=== PATIENT | male | born 1965 | race Hispanic/Latino ===

== ENCOUNTER 2016-06-15 13:06 | Inpatient (IN) | payer OTHER, MEDICARE ==
[2016-06-15 13:06] VITALS: BMI 32.3
--- NOTE | 2016-06-15 13:22 | ED PDOC ---
Arrival/HPI - General Chief Complaint: Chest Pain Time Seen by Provider: 06/15/16 13:08 Historian: Patient - History of Present Illness Narrative History of Present Illness (Text): 06/15/16 13:18 51 year old male whose past medical history includes cardiomyopathy, pacemaker, presents to the emergency department with chest pain described as tightness and shortness of breath for the past few days worsening today. He states pain began when walking. Denies other complaints. PMD: Dr. Holman Underground Production Foreperson: Dr. Vázquez/Dr. Odonnlel Time/Duration: < week Symptom Onset: Sudden Symptom Course: Unchanged Context: Walking Associated Symptoms (Text): None Past Medical History - Provider Review Nursing Documentation Reviewed: Yes - Infectious Disease Hx of Infectious Diseases: None - Tetanus Immunization Tetanus Immunization: Up to Date - Cardiac Hx Hypertension: Yes Hx Internal Defibrillator: Yes (pacemaker/defib 2005) Hx Pacemaker: Yes - Pulmonary Hx Respiratory Disorders: No Hx Sleep Apnea: Yes - Neurological Hx Neurological Disorder: No - HEENT Hx HEENT Disorder: No - Renal Hx Renal Disorder: (hx renal insufficiency which resolved) - Endocrine/Metabolic Hx Endocrine Disorders: No - Hematological/Oncological Hx Blood Disorders: Yes Hx Anemia: Yes - Integumentary Hx Dermatological Disorder: No - Musculoskeletal/Rheumatological Hx Musculoskeletal Disorders: Yes Hx Falls: No Hx Gout: Yes Other/Comment: HX OF GOUT - Gastrointestinal Hx Gastrointestinal Disorders: Yes Hx Diverticulitis: Yes - Genitourinary/Gynecological Hx Genitourinary Disorders: No - Psychiatric Hx Psychophysiologic Disorder: No Hx Depression: No Hx Emotional Abuse: No Hx Physical Abuse: No Hx Substance Use: No - Surgical History Hx Cardiac Catheterization: Yes Hx Orthopedic Surgery: Yes (right knee cartilige) Other/Comment: pacemaker and defib in 2006 - Anesthesia Hx Anesthesia: Yes Hx Anesthesia Reactions: No - Suicidal Assessment Feels Threatened In Home Enviroment: No Family/Social History - Physician Review Nursing Documentation Reviewed: Yes Family/Social History: Unknown Family HX Smoking Status: Former Smoker Hx Alcohol Use: Yes Hx Substance Use: No Hx Substance Use Treatment: No Allergies/Home Meds Allergies/Adverse Reactions: Allergies No Known Allergies Allergy (Verified 06/15/16 13:13) Home Medications: Home Meds Medication Instructions Recorded Confirmed Carvedilol [Coreg] 25 mg PO BID 05/09/12 06/15/16 Warfarin [Coumadin] 3 mg PO DAILY 05/09/12 06/15/16 Atorvastatin [Lipitor] 80 mg PO DAILY 11/18/13 06/15/16 Losartan [Cozaar] 50 mg PO DAILY 08/29/14 06/15/16 Spironolactone 25 mg PO DAILY 08/29/14 06/15/16 Amiodarone [Cordarone] 100 mg PO DAILY 06/15/16 06/15/16 Folic Acid 1 mg PO DAILY 06/15/16 06/15/16 Furosemide [Lasix] 40 mg PO DAILY 06/15/16 06/15/16 Review of Systems - Physician Review All systems were reviewed & negative as marked: Yes - Review of Systems Respiratory: SOB Cardiovascular: Chest Pain Gastrointestinal: absent: Vomiting Physical Exam Vital Signs Reviewed: Yes Vital Signs Temp Pulse Resp BP Pulse Ox 06/15/16 13:21 61 16 135/54 L 98 06/15/16 13:13 97.4 F L 61 18 83/57 L 98 Temperature: Afebrile Blood Pressure: Hypotensive Pulse: Regular Respiratory Rate: Normal Appearance: Positive for: Well-Appearing, Non-Toxic, Comfortable Pain Distress: None Mental Status: Positive for: Alert and Oriented X 3 - Systems Exam Head: Present: Atraumatic, Normocephalic Pupils: Present: PERRL Extroacular Muscles: Present: EOMI Conjunctiva: Present: Normal Mouth: Present: Moist Mucous Membranes Neck: Present: Normal Range of Motion Respiratory/Chest: Present: Good Air Exchange, Rales (at the bases). No: Respiratory Distress, Accessory Muscle Use Cardiovascular: Present: Regular Rate and Rhythm, Normal S1, S2. No: Murmurs Abdomen: Present: Normal Bowel Sounds. No: Tenderness, Distention, Peritoneal Signs Rectal: Present: Other (Brown stool, guaiac negative) Back: Present: Normal Inspection Upper Extremity: Present: Normal Inspection. No: Cyanosis, Edema Lower Extremity: Present: Normal Inspection. No: Edema Neurological: Present: GCS=15, CN II-XII Intact, Speech Normal Skin: Present: Warm, Dry, Normal Color. No: Rashes Psychiatric: Present: Alert, Oriented x 3, Normal Insight, Normal Concentration Medical Decision Making ED Course and Treatment: Impression: 51 year old male presents to the emergency department with chest pain described as tightness and shortness of breath for the past few days worsening today. Differential Diagnosis include but are not limited to: Plan: -- EKG, Chest X-ray -- Labs -- Reassess and disposition Prior Visits: Notes and results from previous visits were reviewed. Patient last seen in ED on 10/03/14 for shortness of breath and admitted for CHF. Progress Notes: Chest X-ray Real Estate Photographer: Louis Weller MD IMPRESSION: No active disease 06/15/16 14:42 Dr. Jiménez evaluated patient at bedside, accepts patient. Case discussed with Dr. Odonnell, covering for Dr. Vázquez. - Lab Interpretations Lab Results: 06/15/16 13:56 06/15/16 13:56 Lab Results 06/15/16 13:56: Sodium 123 L, Potassium 4.8, Chloride 89 L, Carbon Dioxide 24, Anion Gap 15, BUN 26 H, Creatinine 1.8 H, Est GFR ( Amer) 48, Est GFR ( Non-Af Amer) 40, Random Glucose 104, Calcium 8.8, Magnesium 1.6 L, Total Bilirubin 1.4 H, AST 56, ALT 59 H, Alkaline Phosphatase 85, Lactate Dehydrogenase 1271 H, Total Creatine Kinase 173, Troponin I 0.05, NT-Pro-B Natriuret Pep 1310 H, Total Protein 7.6, Albumin 3.9, Globulin 3.7, Albumin/ Globulin Ratio 1.1 06/15/16 13:56: PT 34.7 H*, INR 3.21 H, APTT 42.7 H 06/15/16 13:56: WBC 5.1 D, RBC 3.18 L, Hgb 9.9 L, Hct 29.2 L, MCV 91.8, MCH 31.1, MCHC 33.9, RDW 13.9, Plt Count 140, MPV 8.4, Gran % 66.1, Lymph % (Auto) 18.8 L, [place] % (Auto) 13.7 H, Eos % (Auto) 1.0 L, Baso % (Auto) 0.4, Gran # 3.38 , Lymph # 1.0 L, [place] # 0.7 H, Eos # 0.1, Baso # 0.02 - RAD Interpretation Radiology Orders: 06/15/16 13:18 CHEST PORTABLE [RAD] Stat - EKG Interpretation EKG Interpretation (Text): EKG shows NSR at 61 BPM with 1st degree AV block, interpreted by me. Interpreted by ED Physician: Yes Type: 12 lead EKG - Medication Orders Current Medication Orders: Discontinued Medications Aspirin (Aspirin) 325 mg PO STAT STA Stop: 06/15/16 13:29 Last Admin: 06/15/16 13:59 Dose: 325 mg Furosemide (Lasix) 40 mg IVP STAT STA Stop: 06/15/16 14:40 - Scribe Statement The provider has reviewed the documentation as recorded by the Dorene Tobin Provider Scribe Attestation: All medical record entries made by the Johnnaibe were at my direction and personally dictated by me. I have reviewed the chart and agree that the record accurately reflects my personal performance of the history, physical exam, medical decision making, and the department course for this patient. I have also personally directed, reviewed, and agree with the discharge instructions and disposition. Disposition/Present on Arrival - Present on Arrival Any Indicators Present on Arrival: No History of DVT/PE: No History of Uncontrolled Diabetes: No Urinary Catheter: No History of Decub. Ulcer: No History Surgical Site Infection Following: None - Disposition Have Diagnosis and Disposition been Completed?: Yes Diagnosis: CHF (congestive heart failure), Hyponatremia Disposition: HOSPITALIZED Disposition Time: 14:56 Condition: FAIR Discharge Instructions (ExitCare): Heart Failure (ED) Referrals: Qing Jiménez MD [Primary Care Provider] - Follow up with primary
--- NOTE | 2016-06-15 13:51 | RAD ---
HISTORY: cp COMPARISON: 10/03/2014 FINDINGS: LUNGS: No active pulmonary disease. PLEURA: No significant pleural effusion identified, no pneumothorax apparent. CARDIOVASCULAR: Mild cardiomegaly. Single lead pacemaker OSSEOUS STRUCTURES: No significant abnormalities. VISUALIZED UPPER ABDOMEN: Normal. OTHER FINDINGS: None. IMPRESSION: No active disease.
[2016-06-15 14:08] LABS: ADD MANUAL DIFF? NO
[2016-06-15 14:11] LABS: BASO # 0.02 K/mm3 (0.0-2.0); BASO % 0.4 % (0.0-3.0); EOS # 0.1 (0.0-0.7); GRAN # 3.38 (1.4-6.5); GRAN % 66.1 % (50.0-68.0); HEMATOCRIT 29.2 % (42.0-52.0); LYMPH % 18.8 % (22.0-35.0); MEAN CELL VOLUME 91.8 fL (80.0-105.0); MEAN CORPUSCULAR HEMOGLOBIN 31.1 pg (25.0-35.0); MEAN CORPUSCULAR HGB CONC 33.9 g/dl (31.0-37.0); MEAN PLATELET VOLUME 8.4 fl (7.0-11.0); MONO # 0.7 (0.1-0.6); MONO % 13.7 % (1.0-6.0); PLATELET COUNT 140 10^3/uL (120.0-450.0); RED CELL DISTRIBUTION WIDTH 13.9 % (11.5-14.5); WHITE BLOOD COUNT 5.1 10^3/ul (4.5-11.0)
[2016-06-15 14:21] LABS: ALB/GLOB RATIO 1.1 (1.1-1.8); BILIRUBIN,TOTAL 1.4 mg/dL (0.2-1.3); CALCIUM 8.8 mg/dL (8.4-10.5); MAGNESIUM 1.6 mg/dL (1.7-2.2); POTASSIUM 4.8 mmol/L (3.6-5.0); TOTAL PROTEIN 7.6 g/dL (5.8-8.3)
[2016-06-15 14:24] LABS: INR 3.21 (0.93-1.08); PARTIAL THROMBOPLASTIN TIME 42.7 Seconds (23.7-30.8)
[2016-06-15 14:32] LABS: TROPONIN I 0.05 ng/mL
--- NOTE | 2016-06-15 14:56 | CARD ---
APPROVED REPORT EKG Measurement Heart [id number] <Conclusion> Sinus rhythm. Prolonged NE. RBBB.
[2016-06-15 15:28] LABS: ALCOHOL SERUM 60 mg/dL (0-10)
--- NOTE | 2016-06-15 16:01 | HP ---
This is a 51-year-old male who called today stating that for the last several days, he has been havin g some tightness of the chest and some shortness of breath. He was advised to go into [facility] ncy Room. Upon further review, the patient says that this has been going on off and on for the last few weeks. He says that he has been a little stressed by the fact that he is having a GI workup for some adenopathy in the pancreatic/gallbladder area and is scheduled to have a procedure at the end of June. He also states that he has been consuming alcohol, most recently on a daily basis. He denies any fever, chills, cough, nausea or vomiting at this time. PAST MEDICAL HISTORY: Cardiomyopathy, paroxysmal atrial fibrillation, congestive heart failure, COPD , sleep apnea. However, he does use his sleep apnea requirement. He has had pneumonia in the past. ALLERGY HISTORY: There appear to be no known allergies. HOME MEDICATIONS: He states they consist of warfarin 3 mg daily, Aldactone 25 mg daily, Cozaar 50 mg daily, Lasix 40 mg daily, folic acid 1 mg daily, Coreg 25 mg twice a day, Lipitor 80 mg daily and am iodarone 100 mg daily. His coags are monitored by his level vial grinder in their office. REVIEW OF SYSTEMS: Twelve systems are reviewed. Pertinent findings is that the patient is expressin g some concerns of anxiousness over the upcoming diagnostic procedure that is scheduled. He also say s that he has been having some sort of chest tightness, not really chest pain as he describes, and he does admit that he has gained weight over the last few months. PHYSICAL EXAMINATION: VITAL SIGNS: His temp is 97.4 orally, his pulse is 61, his blood pressure is reported initially at 8 3/57 and then later at 135/54. His oxygen saturation is reported 98% on room air and his respiratory rate is 18. GENERAL: He is alert and oriented x 3. NECK: Supple. LUNGS: Show diminished breath sounds at the bases. HEART: S1, S2 rhythm. There is a defibrillator in his anterior left chest. ABDOMEN: Soft, obese. Positive bowel sounds. No rebound is appreciated. EXTREMITIES: Show no evidence of edema. LABORATORY DATA: At this point, WBC is 5.1, RBC is 3.18, hemoglobin is 9.9, hematocrit is 29.2, plat elet count is 140. His PTT is 34.7 with an INR of 3.21, PTT of 42.7. Chemistries: He has a sodium of 123, potassium 4.8, chloride 89, CO2 of 24, BUN of 26, creatinine of 1.8. His magnesium is 1.6. His total bilirubin is reported at 1.4. ALT is 59. His LDH is 1271. His troponin is 0.05. He has a BNP of 1310. The cardiogram is reported as showing a sinus rhythm with a prolonged HI and a right bundle branch bl ock. His chest x-ray is reported as showing no active disease, but mild cardiomegaly and a single le ad pacemaker. The patient was given 325 mg of aspirin in the Emergency Room and 40 mg of Lasix IV. IMPRESSION: A 51-year-old male with known shortness of breath over several days, coagulopathy second mychal to anticoagulation therapy, history of paroxysmal atrial fibrillation, history of cardiomyopathy, history of chronic obstructive pulmonary disease, some renal insufficiency, anemia, history of sleep apnea, elevated BNP. Findings have been discussed with the patient. Also, a discussion has been gutierrez d with the patient regarding his alcohol consumption and he has requested being able to discuss this with someone. A request will be made with Dr. Cerda. Cardiology consult will be requested as well as a consult with Dr. Gotti, his spinner fixer, because of his anemia and the gastrointestina l workup that is in progress. We will follow up the patient's labs. He will be admitted to a teleme try monitored bed and all clinical findings have been discussed with the patient and the Emergency Ro om staff. Qing Jiménez MD cc: [id number] TT: 06/15/2016 16:00:02 en
[2016-06-15 16:26] LABS: OSMOLALITY,SERUM 282 mosm/kg (271-296)
[2016-06-15 17:15] LABS: RETIC% 3.11 % (0.5-1.5)
[2016-06-15 19:15] LABS: URINE BILIRUBIN NEGATIVE (NEGATIVE); URINE BLOOD NEGATIVE (NEGATIVE); URINE GLUCOSE (UA) NEGATIVE (NEGATIVE); URINE KETONE NEGATIVE (NEGATIVE); URINE LEUKOCYTE ESTERASE NEGATIVE Leu/uL (NEGATIVE); URINE PROTEIN NEGATIVE mg/dL (<30 mg/dL); URINE UROBILINOGEN 0.2 E.U./dL (<1 E.U./dL)
[2016-06-15 19:18] LABS: URINE APPEARANCE CLEAR (CLEAR); URINE COLOR YELLOW (YELLOW)
--- NOTE | 2016-06-15 19:40 | CON ---
DATE: 06/15/2016 IDENTIFYING INFORMATION: The patient is a 51-year-old white male who presents to the Emergen cy Room with tightness in his chest and shortness of breath. HISTORY OF PRESENT ILLNESS: The patient indicated these symptoms had been going on for several weeks . He reported that he had been feeling stressed in the midst of a gastrointestinal workup for pancre atic adenopathy and is scheduled for a procedure at the end of June. He also reveals that he has been consuming approximately 7 shots of Willie Icelandic whiskey daily and t his is a pattern of long-term (years) duration. PAST MEDICAL HISTORY: Is positive for cardiomyopathy, PAF, congestive heart failure, COPD, sleep stamper blocker ea (with sleep instrumentation compliance) and a history of pneumonia. He had been maintained on Coumadin, Aldactone, Cozaar, amiodarone, Lipitor, Coreg, Lasix and folic ac id. 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 He is a high school graduate who attended [address] [place] [address], but dropped out because he had to work. 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 The patient indicates that he has 2 brothers who also had cardiomyopathy and they in and 2005 in their 40s. The cause of 1 of the brother's (in 2005) however, was from an opioi d overdose. According to the patient, his mother of a broken heart approximately 3 years after the of the second son. His father in 2010 of a malignant melanoma. The patient has 2 older brothers whom he is estranged from. This relates to the fact that his oldest brother took off with his father's estate cutting him out. His second brother also was cut out, but they seemed to reach some sort of a modus vivendi after several years, with the older brother having moved to [place]. The patient is thus estranged from the older brother and upset with the other ashely viving brother (who is also older than he) because of a lack of attention to him. The patient is for 17 years to a woman who is 4 years his senior and who had been [facility]. She has 2 daughters, ages 32 and 24, that he indicates he gets along with (more than the other) . The patient stated that he has been drinking since childhood (mostly whiskey). He has been detoxed o n 3 occasions (although he has tried to detox himself many more times than that) and was in a rehabil itation in [place] about 7 years ago. The patient is presently alert, oriented to 3 spheres, appears anxious and depressed and admitted he feels this way. He is worried about his general health and deals with a number of psychosocial issue s as mentioned above. He is not suicidal. He indicates that his is on his case to try to stop drinking, thus there is some marital conflict here as well. DIAGNOSIS: Depression, not otherwise specified. I have reviewed with the patient the treatment options including being put on an antidepressant, but the patient ops not to do this, but rather to see how he feels as he goes through his course of detox ification. Detoxification at this time will consist of Librium on a p.r.n. basis. Will monitor her with you. Laboratory values include a lower hemoglobin of 9.9, hematocrit 29.2. MCV is normal at 91.8. A bloo d alcohol level taken at 1500 today was . A biochemical profile showed lower sodium of 123, elevated BUN 26 and creatinine 1.8 with lower magne sium of 1.6 with a total bilirubin of 1.4 (elevated) and ALT elevated at 59. Blood pressure presently 110/73, pulse 63, temperature 97.4, respiratory rate 18. Daljit Cerda MD, PhD cc: [id number] TT: 06/15/2016 19:39:54 Confirmation # [id number] Dictation # [id number] janay
--- NOTE | 2016-06-15 21:34 | CON ---
DATE: 06/15/2016 Seen and examined in the Emergency Room. REQUEST FOR CONSULT: Anemia. HISTORY OF PRESENT ILLNESS: This is a 51-year-old obese male with a past medical history of paroxysmal atrial fibrillation, CHF, cardiomyopathy, COPD, was seen in our outpatient office for anemia. The patient complained of chest tightness and shortness of breath and was recommended to go to the Emergency Room for further evaluation. The patient had an endoscopy and colonoscopy back on 06/05/[address] for anemia [address] abnormal CT scan. He was noted to have small lymph nodes in the periportal area. He was referred to see Dr. Caleb Ortiz 's associate and is scheduled for further evaluation on 07/11. The patient apparently has been drinking alcohol recently on a daily basis. His last intake was yesterday. He denies any nausea, vomiting, or abdominal pain. No fever or chills. Denies any overt GI bleed. PAST MEDICAL HISTORY: As stated above, CHF, COPD, obesity, paroxysmal atrial fibrillation, cardiomyopathy, pneumonia, fatty liver, periportal lymph nodes, colon polyp, diverticulosis, GERD. PAST SURGICAL HISTORY: Orthopaedic surgery, pacemaker and defibrillator. FAMILY HISTORY: Noncontributory at this time. ALLERGIES: No known drug allergies. MEDICATIONS: Reviewed as per MAR. Significant for Coumadin, amiodarone, Aldactone, Cozaar, Lasix, Coreg, Lipitor. REVIEW OF SYSTEMS: Systems were reviewed with positive findings, see HPI. VITAL SIGNS: Temperature is 97.4, blood pressure is 110/73, pulse 63, respirations 18, 100% on room air. LABORATORY DATA: WBC is 5.1, H and H is 9.9 and 29.2, platelets are 140. PT is 34.7, INR is 3.21, PTT is 42.7. Sodium is 123, K 4.8, BUN 26, creatinine is 1.8. Total bilirubin is 1.4, AST 56, ALT 59, alkaline phosphatase is 85. LDH is 1271. BNP is 1310. Alcohol quantitative is 60. The patient had a chest x- ray and that shows no active pulmonary disease. PHYSICAL EXAMINATION: HEENT: Sclerae are anicteric. NECK: Supple. CARDIAC: S1, S2. CHEST: Left chest defibrillator. LUNGS: Decreased breath sounds at the bases, but no rales or wheeze. ABDOMEN: With bowel sounds, softly obese. No tenderness appreciated on palpation. No rebound or guarding. EXTREMITIES: No edema. NEUROLOGIC: Awake, alert, and oriented. ASSESSMENT: This is a 51-year-old male with a past medical history of paroxysmal atrial fibrillation on Coumadin, cardiomyopathy, obesity, chronic obstructive pulmonary disease, anemia, history of periportal lymph nodes, history of fatty liver and possible liver cirrhosis either secondary to congestive heart failure or alcohol, history of colon polyps, gastroesophageal reflux disease, diverticulosis. PLAN: We will do hepatitis panel. Request for autoimmune markers. The patient is scheduled for outpatient evaluation in [facility]. He is going to have cardiac evaluation. The patient is on aspirin, amiodarone and on heart healthy diet. Pending stool guaiac. Thank you for this consult and for allowing us to participate in your patient's care. We will make further recommendations based upon patient's clinical course. Seen and discussed with Dr. Gotti. Gladys BROWNE cc: [id number] TT: 06/15/2016 21:33:24 Confirmation # [id number] Dictation # [id number] hannah MIRANDA
[2016-06-15] MEDS: Magnesium Oxide 400 mg Tab UD PO SCH (21:52)
[2016-06-15 23:31] LABS: IRON 136 ug/dL (45-180)
[2016-06-16 00:22] LABS: TROPONIN I 0.06 ng/mL
[2016-06-16 06:38] LABS: ADD MANUAL DIFF? NO
--- NOTE | 2016-06-16 06:41 | CON ---
DATE: 06/15/2016 ADDENDUM This is an addendum to the GI progress note mucosa consultation report dictated by Gladys Minaya. 1. The patient admitted with impending DTs alcohol, admitted with atypical chest pain and shortness of breath. The patient has a history of increased alcohol use recently. The patient has history of possible cirrhosis from the CAT scan. The patient also has EUS that showed small periportal lymphadenopathy. The patient had seen Dr. Bowling in [facility] for another opinion and possible repeat EUS examination. On examination, the patient's abdomen is soft. There is no mass palpable. Minimal tenderness in the epigastric area. Would recommend watch for impending DTs. 2. The patient does have chronic anemia, appears to be anemia of chronic disease. The patient denies any GI blood loss. Has recently status post EGD/ EUS and with colonoscopy done. Would recommend to follow up the hemoglobin and hematocrit and to continue the PPI. 3. We will request for ultrasound scan of the abdomen to further evaluate and hepatitis profile and autoimmune markers We will continue to closely follow up his care and suggest further management based on the clinical course. Flip Gotti MD cc: [id number] TT: 06/16/2016 06:40:25 Confirmation # [id number] Dictation # [id number] janay MIRANDA
[2016-06-16 06:42] LABS: BASO # 0.02 K/mm3 (0.0-2.0); BASO % 0.4 % (0.0-3.0); EOS # 0.1 (0.0-0.7); GRAN # 3.71 (1.4-6.5); GRAN % 67.3 % (50.0-68.0); HEMATOCRIT 30.9 % (42.0-52.0); LYMPH % 18.5 % (22.0-35.0); MEAN CELL VOLUME 93.4 fL (80.0-105.0); MEAN CORPUSCULAR HEMOGLOBIN 31.4 pg (25.0-35.0); MEAN CORPUSCULAR HGB CONC 33.7 g/dl (31.0-37.0); MEAN PLATELET VOLUME 8.2 fl (7.0-11.0); MONO # 0.7 (0.1-0.6); MONO % 11.8 % (1.0-6.0); PLATELET COUNT 130 10^3/uL (120.0-450.0); WHITE BLOOD COUNT 5.5 10^3/ul (4.5-11.0)
[2016-06-16 06:59] LABS: BILIRUBIN,TOTAL 1.5 mg/dL (0.2-1.3); CALCIUM 8.9 mg/dL (8.4-10.5); POTASSIUM 4.5 mmol/L (3.6-5.0); TOTAL PROTEIN 7.9 g/dL (5.8-8.3)
[2016-06-16 07:05] LABS: INR 2.9 (0.93-1.08)
[2016-06-16 08:08] LABS: MAGNESIUM 1.8 mg/dL (1.7-2.2)
[2016-06-16] MEDS: Magnesium Oxide 400 mg Tab UD PO SCH ×2 (09:47→17:40)
--- NOTE | 2016-06-16 10:34 | PN ---
DATE: 06/16/2016 A [id number]-[id number]-[id number]-male this morning, resting on the bed. He states that he slept better last night, but he did use some Librium, which was prescribed by Dr. Cerda during the night. PHYSICAL EXAMINATION: VITAL SIGNS: His temp is 98.2, his pulse is 58, heart rate is sinus shruthi, his blood pressure is 110/59. Although this morning, the nurses reporting 90/50. Respiratory rate is 18. He is reported as having 98% saturation on room air. GENERAL: He is alert and oriented x 3. NECK: Supple. LUNGS: Show diminished breath sounds at the bases with rhonchi. HEART: S1, S2 rhythm. ABDOMEN: Obese, soft, positive bowel sounds. EXTREMITIES: No evidence of edema. LABORATORY DATA: Shows a sodium 126, potassium 4.5, chloride 89, his BUN is 27 , creatinine is 1.9, phosphorus is 8.9. His magnesium was 1.6, calcium is 8.8. Phosphorus is 4. Magnesium is 1.8. Iron studies is 136. TIBC is 306, saturation 44%, ferritin is 233. His bilirubin is 1.5. His troponin is 0.06, _ ___ 1271. CBC shows a WBC of 5.5, RBC 3.31, hemoglobin is 10.4, hematocrit is 30.9, platelet count is 130,000, retic count is 3.11. Stool guaiac is negative. Urinalysis is clear. Urine osmolality is 663. Urine sodium is 158. Toxicology screen showed an alcohol level of 60. His PT is 31.3 with an INR of 2.9. CURRENT MEDICATIONS: Currently, the patient is on amiodarone 100 mg daily, Coreg 25 mg b.i.d., Cozaar 50 mg daily, Folic acid 1 mg daily. He is on Librium 50 mg q. 4 hours p.r.n. for symptoms of alcohol withdrawal, Lipitor 80 mg daily, magnesium oxide 400 mg b.i.d. The patient has been encouraged to ambulate. Nursing staff has been requested to check his pulse ox on room air, especially when he is ambulating. The patient states that when he has been having, over the last several weeks, his tightness in the chest with shortness of breath and his shortness of breath with walking. The patient has a past medical history of cardiomyopathy defibrillators, CHF, pneumonia, gout, renal insufficiency, anemia, GI workup in the past reportedly had negative endoscopies. GI followup has been requested. He is currently awaiting an evaluation for peripancreatic adenopathy. He has a history of alcohol usage. This has been discussed with Dr. Cerda with the patient's permission and he has been placed on Librium regimen. Renal consult, GI consult and cardiology consults are pending. Will continue to monitor the patient on telemetry. At this time, the patient has been encouraged to discuss all of his clinical symptoms and history with all the consultants so that he can get an appropriate level of care.Reviewed medications with patient. Qing Jiménez MD cc: [id number] TT: 06/16/2016 10:33:09 Confirmation # [id number] Dictation # [id number] MTDD
--- NOTE | 2016-06-16 12:09 | CON ---
DATE: 06/16/2016 REASON FOR CONSULTATION: Hyponatremia, renal insufficiency. HISTORY OF PRESENTING ILLNESS: A 51-year-old morbidly obese male, previously unknown to me, admitted 06/15 with complaints of shortness of breath and some chest tightness of 2 days' duration. On quest ioning, the patient also reports nausea, vomiting and diarrhea for 1 day. He also complains of some abdominal pain. On further questioning, he admits to drinking alcohol on a daily basis. He denies a ny fevers, chills. He denies any cough. He denies any hematemesis or melena. He has a history of chronic anemia and is being worked up by GI. PAST MEDICAL AND SURGICAL HISTORY: Cardiomyopathy, paroxysmal atrial fibrillation, congestive heart failure, AICD, pacemaker placement, COPD, sleep apnea, hypertension, hyperlipidemia. FAMILY HISTORY: Noncontributory. SOCIAL HISTORY: No smoking, regular alcohol use, no IV drug abuse. He is . ALLERGIES: No known drug allergies. MEDICATIONS AT HOME: Coumadin, Cozaar 50 mg daily, Lasix 40 mg daily, Aldactone 25 mg daily, Coreg 2 5 b.i.d., Lipitor 80, amiodarone 100 mg daily. REVIEW OF SYSTEMS: All systems reviewed, pertinent positives as mentioned in the history of presenti ng illness, rest unremarkable. PHYSICAL EXAMINATION: GENERAL: Obese young male sitting in bed. VITAL SIGNS: Blood pressure 96/55, heart rate 64, respiratory rate 18, temperature 98. HEENT: Normocephalic, atraumatic, positive pallor. NECK: Supple, no JVD. LUNGS: Bilateral rhonchi. No rales, equal expansion. CARDIAC: S1, S2, irregularly irregular, no murmur, no rub. ABDOMEN: Obese, distended, soft, nontender, bowel sounds present. EXTREMITIES: 2+ pitting edema of the lower extremities. INTAKE AND OUTPUT: Not charted. LABORATORY DATA: Alcohol level 60. Urine yellow, clear, pH 6.0, specific gravity 1.015, protein neg ative, glucose negative, ketones negative, leukocyte esterase negative. Urine sodium 158, urine osmo lality 663. Sodium is at 126, potassium 4.5, chloride 89, CO2 of 28, BUN 27, creatinine 1.9, glucose 93, calcium 8.9, phosphorus 4.0, magnesium 1.8, total bilirubin 1.5, AST 54, ALT 54, albumin 3.9. B aseline creatinine 1.3/1.4 (?). CBC: WBC 5.5, hemoglobin 10.4, hematocrit 30.9, platelets 130. Ret ic count 3.11. CURRENT MEDICATIONS: Cordarone 100 daily, Coreg 25 b.i.d., Coumadin 2.5, losartan 50, folic acid, Li brium, Lipitor 80, mag oxide, the patient received Lasix 40 mg IV push yesterday. ASSESSMENT AND PLAN: 1. Hyponatremia, dilutional, in the setting of congestive heart failure/cardiomyopathy, excess free water intake. 2. Acute kidney injury superimposed on chronic kidney disease stage III (?). 3. Cardiomyopathy, paroxysmal atrial fibrillation, automatic implantable cardiac defibrillator. 4. Cirrhosis of liver (?). 5. Chronic anemia, iron stores normal. PLAN: 1. At this time, patient appears to be hypervolemic, he does have 2+ pitting edema, would resume low dose Lasix. 2. Restrict p.o. fluids to 1500 mL per day. 3. Check uric acid levels. 4. Continue respiratory treatments for shortness of breath, likely secondary to chronic obstructive pulmonary disease exacerbation. Thank you for the courtesy of this consultation. We will follow this patient with you. Amina Martin MD cc: [phone] TT: 06/16/2016 12:08:40 Confirmation # [id number] Dictation # [id number]
[2016-06-16 12:16] LABS: URIC ACID 8.4 mg/dL (3.5-8.5)
--- NOTE | 2016-06-16 15:11 | CON ---
DATE: 06/16/2016 REQUESTING PHYSICIAN: Dr. Jiménez. REASON FOR CONSULTATION: Dyspnea and known cardiomyopathy. HISTORY OF PRESENT ILLNESS: This is a 51-year-old man well known to us with a history of dilated car diomyopathy, paroxysmal atrial fibrillation and recurrent heart failure who presented [facility] with complaints of worsening dyspnea, chest tightness. He has had significant weight gain rec ently. He claims compliance with his medications. He also claims compliance with sodium and fluid r estriction. He has been drinking alcohol excessively again recently. He has recently been evaluated for GI issues with endoscopies and has been advised further workup because of adenopathy noted in th e pancreatic region. He was seen by a specialist at a tertiary care center recently, but workup coul d not be completed at that time. He is scheduled for followup in a few weeks there. PAST MEDICAL HISTORY: Notable for the problems mentioned above. He has recurrent heart failure, chr onic obstructive pulmonary disease, obstructive sleep apnea, obesity, history of diverticulosis, esop hageal reflux. He has had prior orthopedic surgery as well as ICD implant and upgrades. ALLERGIES: None. CURRENT MEDICATIONS: Include amiodarone 100 mg daily, carvedilol 25 mg b.i.d., Coumadin, Cozaar 50 m g daily, folic acid, Lasix 40 mg daily, Lipitor 80 mg daily, magnesium and Librium. SOCIAL HISTORY: He is , lives with his . He is disabled. FAMILY HISTORY: Both parents are from complications of cardiomyopathy. REVIEW OF SYSTEMS: A 10 point review of systems is notable mainly for the problems mentioned above. He has intermittent anxiety which has been difficult to control at times. PHYSICAL EXAMINATION: GENERAL: He is an obese middle-aged man. VITAL SIGNS: His blood pressure is 100/60 with a pulse of 60 in sinus, respirations are 16. He is a febrile. HEENT: Normocephalic, atraumatic. NECK: Supple. No JVD noted. CHEST: Bilateral wheezing and scattered rhonchi heard. No rales noted. HEART: PMI displaced laterally with soft tones noted. A systolic murmur is present in left sternal border. ABDOMEN: Soft and nontender, normoactive bowel sounds. EXTREMITIES: No edema. SKIN: Warm and dry. PSYCHIATRIC: Moderate anxiety noted, otherwise normal mood and affect. NEUROLOGIC: Alert and oriented x 3. No gross motor or sensory deficits appreciable. DIAGNOSTIC DATA: Potassium is 4.5, sodium 126, BUN and creatinine 27 and 1.9. Hemoglobin and hemato crit 10.4 and 30.9 with a white count of 5.5, platelet count is 130,000. INR 2.9, troponin 0.06. In itial CK was 150. Amylase is 302. Chest x-ray reveals an enlarged cardiac silhouette with ICD syste m in place. Lung cyr appear clear. Electrocardiogram reveals a sinus rhythm with a right bundle branch block pattern. IMPRESSION: 1. Mildly decompensated congestive heart failure, acute on chronic, systolic. 2. Known cardiomyopathy. 3. Paroxysmal atrial fibrillation. 4. Acute on chronic renal insufficiency. 5. Chronic anemia. 6. Alcohol abuse. 7. Hyponatremia. RECOMMENDATIONS: His current cardiac medications should be continued. Lasix will be continued at th is time. Fluid restriction will be instituted as well. Follow up enzymes and electrocardiograms mike l be obtained; however, prior catheterizations have revealed normal coronary arteries, which makes th e likelihood of cardiac ischemia less likely. Alcohol abstinence was strongly encouraged. Thank you for this consultation. I will be happy to follow along through his hospital course as need ed. Brigido Silva MD cc: [id number] TT: 06/16/2016 15:11:45 Confirmation # [id number] Dictation # [id number] hannah
--- NOTE | 2016-06-16 18:20 | US ---
HISTORY: chronic liver disease COMPARISON: None. TECHNIQUE: Sonographic evaluation of the abdomen. FINDINGS: LIVER: Measures 13.9 cm. Increased echogenicity of the liver parenchyma suggesting fatty infiltration or other infiltrative hepatocellular disease process. No mass. No intrahepatic bile duct dilatation. No ascites GALLBLADDER: No evidence of intraluminal gallbladder calculi, pericholecystic fluid collections or sonographic Villafuerte sign. Gallbladder wall is slightly prominent measuring 3.2 mm. COMMON BILE DUCT: Measures 4.8 mm mm. No stones. No dilatation. PANCREAS: Pancreas not visualized due to bowel gas and body habitus. RIGHT KIDNEY: Measures 10.4 x 6.0 x 5.4 cmcm. No evidence of nephrolithiasis hydronephrosis or renal mass/collection LEFT KIDNEY: Measures 10.0 x6 0.5 x 5.2 cmcm. No evidence of nephrolithiasis or hydronephrosis. No obvious renal mass or collection SPLEEN: Spleen exhibits normal size. No mass collection or calcification. AORTA: No aneurysmal dilatation. IVC: Unremarkable. OTHER FINDINGS: None. IMPRESSION: Limited study due to large body habitus and bowel gas. Fatty hepatic infiltration. Other infiltrative hepatocellular disease process not excluded. Pancreas is not visualized due to at aforementioned technical limitations.
--- NOTE | 2016-06-16 21:10 | PN ---
DATE: 06/16/2016 SUBJECTIVE: This patient was seen and evaluated earlier. Much more comfortable , tolerating the diet. PHYSICAL EXAMINATION: VITAL SIGNS: Temperature is 98.4, blood pressure 103/63, pulse 73. HEENT: Atraumatic, anicteric. NECK: Supple. HEART: S1, S2 heard. LUNGS: Bilateral air entry present. ABDOMEN: Mild tenderness with deep palpation in the epigastric region, otherwise unremarkable. EXTREMITIES: Mild edema present. LABORATORY DATA: Hemoglobin 10.4, hematocrit 30.9, WBC 5.5, platelets 130. BUN 27, creatinine 1.9. The patient's LFTs are essentially unremarkable. His lipase level has come down. Lipase level was 302. IMPRESSION AND PLAN: This is a 51-year-old patient with a history of paroxysmal atrial fibrillation on Coumadin, chronic kidney disease, admitted with atypical chest pain, shortness of breath, and possibly impending delirium tremens. The patient has been drinking recently more alcohol. Hemoglobin has been stable. The patient recently had an upper endoscopy and colonoscopy done. EGD revealed only esophagitis and gastritis, gastric erosions. There was no colonic source of blood loss. Most likely, the anemia is probably anemia of chronic disease. Saturation is 44%. The patient has been on Coumadin also. Denies any melena or bleeding per rectum. The other problems include a small peripancreatic /periportal lymphadenopathy and cirrhosis of the liver. Requested for autoimmune markers and hepatitis profile, which has been negative. Would recommend ultrasound scan of the abdomen and also request for ultrasound scan of the abdomen and hemochromatosis genetic testing. The patient does have nonobstructive coronary disease. The patient does have dilated cardiomyopathy and recurrent heart failure. It is reasonable to check in this situation hemochromatosis, also rule out hemochromatosis. Requested for hemochromatosis genetic test. We will continue to closely follow up his care and suggest further management based on the clinical course. The patient is also due to have a repeat EUS for evaluation of the small periportal lymphadenopathy which is not evident on the CT done now. View showed subcentimeter small lymph nodes. Significance is unclear. Thank you very much for allowing us to participate in the care of the patient. Flip Gotti MD cc: [id number] TT: 06/16/2016 21:09:58 Confirmation # [id number] Dictation # [id number] hannah MIRANDA
--- NOTE | 2016-06-17 05:29 | CARD ---
APPROVED REPORT EXAM: Two-dimensional and M-mode echocardiogram with Doppler and color Doppler. 2D DIMENSIONS IVSd1.1 (0.7-1.1cm)LVDd6.0 (3.9-5.9cm) PWd1.1 (0.7-1.1cm)LVDs4.3 (2.5-4.0cm) FS (%) 28.1 %LVEF (%)53.6 (>50%) M-Mode DIMENSIONS Left Atrium (MM)4.20 (2.5-4.0cm)Aortic Root3.20 (2.2-3.7cm) Aortic Cusp Exc.2.20 (1.5-2.0cm) Aortic Valve AoV Peak Mfjrwkzi318.0cm/sAoV VTI28.1cmAO Peak GR.9mmHg LVOT Peak Sfyhgmqa02.7cm/sLVOT VTI12.70cmAO Mean GR.5mmHg Mitral Valve MV E Mdtaaabi126.0cm/sMV A Mncdwexx46.9cm/sE/A ratio2.6 Tricuspid Valve TR Peak Cqiibhxu133tx/sTR Peak Gr.25mmHg LEFT VENTRICLE The Left Ventricle is mildly dilated. There is normal left ventricular wall thickness. The systolic function is severely impaired. Septal motion consistent with conduction abnormality. There is global hypokinesis of the left ventricle. RIGHT VENTRICLE The right ventricle is normal size. There is a pacemaker lead in the right ventricle. ATRIA The left atrium is mildly dilated. The right atrium is mildly dilated. The interatrial septum is intact with no evidence for an atrial septal defect. AORTIC VALVE The aortic valve is mildly sclerotic. No aortic regurgitation is present. There is no aortic valvular stenosis. MITRAL VALVE The mitral valve is mildly thickened. Mitral regurgitation is mild. TRICUSPID VALVE The tricuspid valve is normal in structure. There is trace to mild tricuspid regurgitation. GREAT VESSELS The aortic root is normal in size. The IVC is normal in size and collapses >50% with inspiration. PERICARDIAL EFFUSION There is no pleural effusion. There is no pericardial effusion. <Conclusion> Biatrial enlargement. Dilated LV. Severely reduced LV systolic function. Midl MR and TR.
[2016-06-17 08:07] LABS: INR 2.48 (0.93-1.08)
--- NOTE | 2016-06-17 08:50 | PN ---
DATE: 06/17/2016 SUBJECTIVE: The patient is seen sitting in bed on telemetry. He had some further dyspnea overnight. He also had an episode of ventricular tachycardia with a heart rate of 150 beats per minute. He di d not have ICD firing due to this. He apparently missed 1 dose of amiodarone yesterday. CURRENT MEDICATIONS: Include amiodarone 100 mg daily, carvedilol 25 mg b.i.d., Cozaar 50 mg daily, f olic acid, Lasix 40 mg daily, Lipitor 80 mg daily, and Librium p.r.n. OBJECTIVE: GENERAL: He is an obese middle-aged man. VITAL SIGNS: His blood pressure is 122/60 with a pulse of 60 in sinus. Respirations are 14. He is afebrile. HEENT: No JVD. CHEST: Bilateral scattered wheezing and rhonchi. HEART: PMI displaced laterally with soft tones noted. ABDOMEN: Soft, nontender, normoactive bowel sounds. EXTREMITIES: Trace ankle edema. DIAGNOSTIC DATA: 1. Morning blood work is pending. 2. Echocardiogram revealed a dilated left ventricle with a biatrial enlargement and severe LV global hypokinesis with mild mitral and tricuspid regurgitation. IMPRESSION: 1. Mildly decompensated congestive heart failure, acute on chronic. 2. Recurrent ventricular tachycardia. 3. Known dilated cardiomyopathy. 4. Paroxysmal atrial fibrillation. 5. Acute on chronic renal insufficiency. 6. Chronic anemia. 7. Hyponatremia. 8. History of alcohol abuse. RECOMMENDATIONS: Amiodarone dose will be increased to 200 mg b.i.d. for the next several days. The rest of his medications will continue unchanged. Morning blood work will be reviewed. GI workup is in progress. We will continue to follow along and make further recommendations as appropriate. Brigido Silva MD cc: [id number] TT: 06/17/2016 08:49:05 Confirmation # [id number] Dictation # [id number] jn
[2016-06-17 08:52] LABS: CALCIUM 9.2 mg/dL (8.4-10.5); POTASSIUM 4.7 mmol/L (3.6-5.0)
[2016-06-17] MEDS: Magnesium Oxide 400 mg Tab UD PO SCH ×2 (09:24→17:15)
--- NOTE | 2016-06-17 10:14 | PN ---
DATE: 06/17/2016 A 51-year-old male on telemetry. Nursing staff relates that there were no particular problems during the night. PHYSICAL EXAMINATION: VITAL SIGNS: His temp was 98. His pulse was 69. His blood pressure was 103/54. His oxygen saturat ion on room air is reported at 98%. He now states that he has been having some diarrhea. He states also that his shortness of breath is there when he ambulates, but not as bad as when he came in. GENERAL: On physical examination, he is alert and oriented x 3. LUNGS: Show diminished breath sounds at the bases. HEART: Has an S1, S2 rhythm. ABDOMEN: Obese, soft with positive bowel sounds. EXTREMITIES: Show trace edema. LABORATORY DATA: Shows sodium 131, potassium 4.7, chloride 96. BUN is 30. The creatinine is 2.0. His random blood sugar is 115. His troponin is 0.07. His PT is 26.8 with an INR of 2.48. Hepatitis panel is negative. He is reported to have had an episode of nonsustained V-tach. His amiodarone is now 200 mg b.i.d. H e is on Coreg 25 mg b.i.d., Cozaar 50 mg daily, folic acid 1 mg daily, Lasix 40 mg daily. He is on L ibrium 50 mg q. 4 hours p.r.n., Lipitor 80 mg daily, magnesium oxide 400 mg b.i.d. The patient had an abdominal ultrasound, which is reported as showing a limited study due to body hab itus and bowel gas, but that there is fatty hepatic infiltration. Other infiltrate of the hepatocell ular disease process cannot be excluded. GI note states that a CT of the abdomen in the past is sugg estive of cirrhosis. He is in the process of being evaluated for periportal lymphadenopathy by GI. He has been seen by ne phrology for his renal insufficiency and his hyponatremia. He has a chronic renal disease stage III with an acute component. Cardiology is following the patient for his decompensated CHF. The echocar diogram reports that there is biatrial enlargement with ventricular dysfunction. He has a history of paroxysmal atrial fibrillation and a defibrillator in place. We will continue his current meds, adjust his Coumadin today, and follow up his PT/INR, and follow up his SMA-7. Continue to monitor the patient on telemetry given his history of paroxysmal atrial fibr illation and recent episode of nonsustained V-tach, and again it has been discussed his use of alcoho l. He is on a regimen initiated by Dr. Cerda. He has been encouraged to ambulate. Qing Jiménez MD cc: [id number] TT: 06/17/2016 10:13:52 Confirmation # [id number] Dictation # [id number] jn
--- NOTE | 2016-06-17 13:00 | PN ---
DATE: 06/17/2016 SUBJECTIVE: The patient is seen walking in the hallway. He reports his shortness of breath is a lit tle bit better. He denies any nausea, vomiting, diarrhea today. PHYSICAL EXAMINATION: GENERAL: Young, obese male, walking in the hallway. VITAL SIGNS: Blood pressure 103/54, heart rate 69, respiratory rate 18, temperature 98.7. HEENT: Normocephalic, atraumatic, positive pallor. NECK: Supple, no JVD. LUNGS: Bilateral equal air entry, minimal rhonchi, no rales. CARDIAC: S1, S2, regular rate and rhythm, no murmur, no rub. ABDOMEN: Obese, distended, soft, nontender, bowel sounds present. EXTREMITIES: Trace lower extremity edema. INTAKE AND OUTPUT: Not charted. LABORATORY DATA: WBC 5.5, hemoglobin 10.4, hematocrit 30.9, platelets 130. Sodium 131, potassium 4. 7, chloride 96, CO2 28, BUN 30, creatinine 2.0, glucose 115, calcium 9.2, phosphorus 4.0, magnesium 1 .8. Troponin 0.07. Stool occult negative. Hepatitis profile negative. Echocardiogram: Biatrial enlargement, dilated LV, severely reduced LV systolic function, mild MR and TR. Abdominal ultrasound: Fatty hepatic infiltration, pancreas not visualized. CURRENT MEDICATIONS: Amiodarone 200 b.i.d., Coreg 25 b.i.d., Coumadin, losartan 50, folic acid, Lasi x 40 daily, Librium 50 mg p.o. q. 4, Lipitor, mag oxide, Pepcid. ASSESSMENT: 1. Hyponatremia, dilutional, improving. 2. Cardiomyopathy, decreased ejection fraction, biatrial enlargement. 3. Alcoholic cirrhosis? 4. Chronic anemia. 5. Hypertension. 6. Paroxysmal atrial fibrillation, automatic implantable cardiac defibrillator. PLAN: 1. Continue oral Lasix. 2. Suspect patient has underlying chronic kidney disease, secondary to cardiomyopathy, cardiorenal s yndrome. 3. A 24-hour urine for protein and creatinine clearance. Amina Martin MD cc: [id number] TT: 06/17/2016 12:59:39 Confirmation # [id number] Dictation # [id number]
[2016-06-18 07:34] LABS: INR 2.17 (0.93-1.08)
[2016-06-18 07:42] LABS: CALCIUM 9.2 mg/dL (8.4-10.5); POTASSIUM 4.2 mmol/L (3.6-5.0)
--- NOTE | 2016-06-18 09:13 | CP.PCM.PN ---
Subjective - Date & Time of Evaluation Date of Evaluation: 06/18/16 Time of Evaluation: 07:00 - Subjective Subjective: Stable on 2R. No CP or SOB. V/S noted. RSR. PE: Lungs: few rhonchi Cor.: S1S2, sys. murmur Abd.: soft Ext. Mild edema Neuro.; alert Labs noted: INR= 2.17, Na+= 135, Cr.= 1.9 Objective - Vital Signs/Intake and Output Vital Signs (last 24 hours): Temp Pulse Resp BP Pulse Ox 98.5 F 60 18 116/54 L 96 06/18/16 05:37 06/18/16 05:37 06/18/16 05:37 06/18/16 05:37 06/18/16 05:37 Intake and Output: 06/18/16 06/18/16 06:59 18:59 Intake Total 180 Output Total 200 Balance -20 - Medications Medications: Current Medications Amiodarone HCl (Cordarone) 200 mg PO BID [facility] Last Admin: 06/17/16 17:16 Dose: 200 mg Atorvastatin Calcium (Lipitor) 80 mg PO DIN [facility] Last Admin: 06/17/16 17:14 Dose: 80 mg Carvedilol (Coreg) 25 mg PO BID [facility] Last Admin: 06/17/16 17:15 Dose: 25 mg Chlordiazepoxide (Librium) 50 mg PO Q4 PRN; Protocol PRN Reason: Symptoms of alcohol withdrawl Stop: 06/19/16 17:13 Last Admin: 06/18/16 00:23 Dose: 50 mg Famotidine (Pepcid) 20 mg PO DAILY [facility] Last Admin: 06/17/16 11:19 Dose: 20 mg Folic Acid (Folic Acid) 1 mg PO DAILY [facility] Last Admin: 06/17/16 09:25 Dose: 1 mg Furosemide (Lasix) 40 mg PO DAILY [facility] Last Admin: 06/17/16 09:25 Dose: 40 mg Losartan Potassium (Cozaar) 50 mg PO DAILY [facility] Last Admin: 06/17/16 09:24 Dose: 50 mg Magnesium Oxide (Mag-Ox) 400 mg PO BID [facility] Stop: 06/18/16 21:31 Last Admin: 06/17/16 17:15 Dose: 400 mg Warfarin Sodium (Coumadin) 3 mg PO 1800 [facility] PRN Reason: Protocol Last Admin: 06/17/16 17:15 Dose: 3 mg - Labs Labs: 06/16/16 06:15 06/18/16 07:00 PT 23.4 Seconds (9.9-11.8) H 06/18/16 07:00 INR 2.17 (0.93-1.08) H 06/18/16 07:00 APTT 42.7 Seconds (23.7-30.8) H 06/15/16 13:56 Assessment and Plan - Assessment and Plan (Free Text) Plan: Assessment: CP/SOB/ETOH Abuse CHF NSVT CCM/Severe LVD with mild MR and TR on echo CAD, mild on cath PAF Acute on chronic renal insufficiency Hyponatremia, resolved Cirrhosis/Periportal and peripancreatic LN's Gout Obesity DENISE Diverticulosis ETOH, acute and chronic GERD Plan: As per GI, Renal, Psych., Dr. Tino LEE Monitor I/O, labs, INR's, renal fx., tel., sats., etc. No ETOH!! Continue amiod. 200 BID for now.
[2016-06-18] MEDS: Magnesium Oxide 400 mg Tab UD PO SCH ×2 (09:14→17:49)
--- NOTE | 2016-06-18 11:51 | PN ---
DATE: 06/18/2016 SUBJECTIVE: The patient is seen sitting in bed. He is awake. He is alert. He is comfortable. He reports that his breathing is better. He denies any abdominal pain. PHYSICAL EXAMINATION: GENERAL: Obese, middle-aged male, sitting in bed. VITAL SIGNS: Blood pressure 138/82, heart rate ____8, respiratory rate 18, temperature 98.5. HEENT: Normocephalic, atraumatic. NECK: Supple. No JVD. LUNGS: Bilateral rhonchi, distant breath sounds, equal expansion. CARDIAC: S1, S2, regular rate and rhythm. No murmur, no rub. ABDOMEN: Obese, distended, soft, nontender, bowel sounds present. EXTREMITIES: No lower extremity edema. INTAKE AND OUTPUT: 900/200? LABORATORY DATA: WBC: No CBC. Chemistry: Sodium 135, potassium 4.2, chloride 97, CO2 of 30, BUN 29, creatinine 1.9, glucose 96, ca lcium 9.2, phosphorus 4.0, magnesium 1.8. CURRENT MEDICATIONS: Cordarone 200 b.i.d., Coreg 25 b.i.d., Coumadin 3, Cozaar 50, folic acid 1, Las ix 40 p.o. daily, Librium, Lipitor 80, mag oxide, Pepcid. ASSESSMENT: 1. Resolving hyponatremia, dilutional. 2. Congestive heart failure/cardiomyopathy/automatic implantable cardiac defibrillator. 3. Alcoholic cirrhosis? 4. Chronic anemia. 5. Chronic kidney disease, stage III, suspect. PLAN: 1. Follow up 24-hour urine. 2. Continue Lasix 40 mg daily. 3. Work up anemia, as per GI. 4. Continue ARB for renal protection. Amina Martin MD cc: [id number] TT: 06/18/2016 11:50:43 Confirmation # [id number] Dictation # [id number] jeremy
--- NOTE | 2016-06-18 12:59 | PN ---
DATE: 06/17/2016 This patient is more comfortable, tolerating the diet. No complaints. PHYSICAL EXAMINATION: VITAL SIGNS: Temperature is 98.7, blood pressure 122/75, pulse 72. HEENT: Atraumatic, anicteric. NECK: Supple. HEART: S1, S2 heard. LUNGS: Bilateral air entry present. decrease at base. ABDOMEN: Soft. There is no tenderness. EXTREMITIES: Mild edema present. LABORATORY DATA: Hemoglobin is 10.4, hematocrit ____.9. WBC is 5.9, platelets 130. BUN 30, creatinine 2.0. LFTs remained normal. IMPRESSION: This 51-year-old patient with paroxysmal atrial fibrillation on Coumadin, history of heart failure, history of chronic kidney disease, now admitted with CHF,chest pain and shortness of breath. The patient has been slowly improving. His hemoglobin remained stable. The patient has a history of chronic anemia, status post EGD and colonoscopy. No active source of blood loss noted. Had small gastric erosions. The patient has been on PPI now. The patient's iron saturation was 44%, on Coumadin. Followup of the hemoglobin and hematocrit. The patient has history of dilated cardiomyopathy with recurrent heart failure. The patient is on Coumadin. His iron saturations are normal. It is reasonable to rule out any hemochromatosis, requested for hemochromatosis genetic testing. The patient has a history of chronic liver disease, probable cirrhosis. It could be multifactorial. It could be cardiac plus nonalcoholic steatohepatitis , and also the patient has history of alcohol use. Recently, he has been drinking more. The patient has a mild periportal pancreatic lymphadenopathy. The etiology is unclear. Patient is due to have a repeat followup EUS scheduled as an outpatient. The patient has been on Coumadin for atrial fibrillation. The patient is on Coumadini, discussed with cardiology regarding stopping the Coumadin before the repeat EUS at least 5-7 days before procedure, as he may need a fine-needle aspiration. Thank you. We will continue to closely follow up his care. Flip Gotti MD cc: [id number] TT: 06/18/2016 09:07:14 Confirmation # [id number] Dictation # [id number] jeremy MIRANDA
--- NOTE | 2016-06-18 16:15 | PN ---
DATE: 06/18/2016 A 51-year-old male on telemetry with a history of coronary artery disease, cardiomyopathy, nonsustain ed V-tach, defibrillator in place, alcohol abuse, periportal adenopathy, anemia, chronic renal insuff iciency, hypomagnesemia, hyponatremia. This morning, the nursing staff relates that there were no pr oblems during the night, although the patient has requested the use of Librium in the evening hours, for which he has been placed by psychiatry, Dr. Cerda, for his alcohol withdrawal. PHYSICAL EXAMINATION: VITAL SIGNS: His temp is 97.9, his pulse is 64, his blood pressure is 114/74. NECK: Supple. LUNGS: Rhonchitic at the bases. HEART: A regular S1, S2 rhythm. ABDOMEN: Obese, soft, positive bowel sounds. EXTREMITIES: Show trace edema. NEUROLOGIC: He is alert and oriented x 3. LABORATORY DATA: Shows a PT of 23.4 with an INR of 2.17. MEDICATIONS: The patient is scheduled to get Coumadin today at 3 mg. He is on Coreg 25 mg b.i.d., am iodarone 200 mg b.i.d. He is on Cozaar 50 mg daily, folic acid 1 mg daily, Lasix 40 mg daily, Libriu m 50 mg q. 4 p.r.n., Lipitor 80 mg daily, magnesium oxide 400 mg b.i.d., and Pepcid 20 mg daily. He will continue to be monitored on telemetry. Have discussed this with cardiology, given his run of nonsustained V-tach and the defibrillator not firing. He continues to be followed by nephrology fo r his renal insufficiency. His sodium is now 135, his potassium is 4.2, chloride 97, BUN is 29, the creatinine is 1.9. His CBC shows last hemoglobin is 10.4. Will follow up his labs and will continue pending input from the individual consultants. Qing Jiménez MD cc: [id number] TT: 06/18/2016 16:14:39 Confirmation # [id number] Dictation # [id number] dn
--- NOTE | 2016-06-18 16:36 | PN ---
DATE: 06/18/2016 SUBJECTIVE: Seen and examined at the bedside earlier this afternoon. He denies any nausea, vomiting , shortness of breath, chest pains, no abdominal pain. He is moving his bowels. No reports of any b leeding. He is undergoing a 24-hour urine collection. VITAL SIGNS: Temperature is 97.9, blood pressure 114/74, pulse is 67, respirations 20. BLOOD WORK: The patient's sodium is 135, K 4.2, BUN 29, creatinine is 1.9. PHYSICAL EXAMINATION: HEENT: Sclera is anicteric. NECK: Supple. CARDIAC: S1, S2. LUNGS: Decreased breath sounds but good air entry, mild expiratory wheezing. No respiratory distres s. ASSESSMENT: This is a 51-year-old male with paroxysmal atrial fibrillation on Coumadin, comes admitt ed with pain and shortness of breath, history of heart failure, chronic kidney disease, is noted wit h anemia. No overt gastrointestinal bleed. The patient does have endoscopy and colonoscopy recently with no active source of blood loss noted. Found to have a small gastric erosions. Also, history o f chronic liver disease, probable cirrhosis. May be multifactorial, consider cardiac/nonalcoholic st eatohepatitis. The patient also was found to have mild periportal pancreatic lymphadenopathy with un clear etiology. PLAN: Continue to monitor H and H. He is on Pepcid. The patient is on Coumadin. Monitor for GI bl eed, follow up hemochromatosis panel. He is also scheduled for outpatient evaluation of this peripor xochitl peripancreatic lymphadenopathy at [facility]; he is for endoscopic ultrasound. Undergoing a 24-ho ur urine at this time. The patient was seen and case discussed with Dr. Gotti. Gladys BROWNE cc: [id number] TT: 06/18/2016 16:35:42 Confirmation # [id number] Dictation # [id number] an
--- NOTE | 2016-06-18 18:19 | PCM.PYCHPN ---
Psychiatric Progress Note - Psychiatric Progress Note Patient seen today, length of contact: 25 Patient Chief Complaint: Some depression and anxiety. Seems intent getting things "right" (stopping his alcohol use disorder ( Problems Identified/Issues Discussed: Chronic alcohol use with associated mood features Medical Problems: Coronary artery disease, cardiomyopathy, nonsustainable V. tach with defibrillator in place, periportal adenopathy, anemia, magazine anemia, hyponatremia DSM 5 Symptoms Update: Mood and affect have improved. Patient less anxious and less depressed. Was willing to listen to the possibility of going to an outpatient rehabilitation this would have to not conflict with his work hours. 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 and ( Medication Change: No (Patient is on 50 mg every 6 hours when necessary Librium with this presumab) Medical Record Reviewed: Yes Consults ordered or reviewed: Reviewed Mental Status Examination - Cognitive Function Orientation: Place, Situation, Time Memory: Intact Attention: WNL Concentration: WNL Association: WNL Fund of Knowledge: WNL Decription of patient's judgement and insights: Intact - Mood Mood: Depressed, Anxious - Affect Affect: Depressed, Other - Speech Speech: Appropriate - Formal Thought Process Formal Thought Process: No Impairment Psychotic Thoughts and Behaviors: None - Suicidal Ideation Suicidal Ideation: No - Homicidal Ideation Homicidal Ideation: No Goal/Treatment Plan - Goal/Treatment Plan Need for Continued Stay: Other Progress Toward Problem(s) and Goals/Treatment Plan: Mood and affect have improved. Patient willing to consider outpatient rehabilitation services for his alcohol use disorder and considers a more formal program as conflicting with his work schedule. Her provided the name of Deondre RODRIGUEZ, a local substance abuse therapist as a treatment resource for patient also provided patient with my own business card
--- NOTE | 2016-06-18 23:19 | PN ---
DATE: 06/18/2016 ADDENDUM This is an addendum to the GI progress report dictated by Gladys Minaya NP. The patient was seen and evaluated earlier. He is tolerating the diet. No complaints of any abdominal pain. Hemoglobin stable, requested for hemochromatosis genetic testing in view of the history of dilated cardiomyopathy and cirrhosis. The patient does have history of alcohol use, paroxysmal atrial fibrillation, on Coumadin, chronic kidney disease, small periportal peripancreatic lymphadenopathy subcentimeter size. Workup as an outpatient scheduled. Thank you very much for allowing me to participate in the care of the patient. Flip Gotti MD cc: [id number] TT: 06/18/2016 23:18:29 Confirmation # [id number] Dictation # [id number] ln MTDD
[2016-06-19 05:28] VITALS: RESP 18; TEMP 97.7; O2SAT 94
[2016-06-19 08:00] LABS: INR 2.01 (0.93-1.08)
[2016-06-19 08:03] LABS: CALCIUM 9.5 mg/dL (8.4-10.5); POTASSIUM 4.4 mmol/L (3.6-5.0)
--- NOTE | 2016-06-19 08:21 | CP.PCM.PN ---
Subjective - Date & Time of Evaluation Date of Evaluation: 06/19/16 Time of Evaluation: 07:00 - Subjective Subjective: Stable on 2R. No CP or SOB. V/S noted. RSR. PE: Lungs: few rhonchi Cor.: S1S2, sys. murmur Abd.: soft Ext. Mild edema Neuro.; alert Labs noted: INR= 2.01, Na+= 136, Cr.= 1.8 Objective - Vital Signs/Intake and Output Vital Signs (last 24 hours): Temp Pulse Resp BP Pulse Ox 97.7 F 56 L 18 107/61 94 L 06/19/16 05:28 06/19/16 05:44 06/19/16 05:28 06/19/16 05:28 06/19/16 05:28 Intake and Output: 06/19/16 06/19/16 06:59 18:59 Intake Total 0 Output Total 0 Balance 0 - Medications Medications: Current Medications Amiodarone HCl (Cordarone) 200 mg PO BID [facility] Last Admin: 06/18/16 17:50 Dose: 200 mg Atorvastatin Calcium (Lipitor) 80 mg PO DIN [facility] Last Admin: 06/18/16 17:48 Dose: 80 mg Carvedilol (Coreg) 25 mg PO BID [facility] Last Admin: 06/18/16 17:50 Dose: 25 mg Chlordiazepoxide (Librium) 50 mg PO Q4 PRN; Protocol PRN Reason: Symptoms of alcohol withdrawl Stop: 06/19/16 17:13 Last Admin: 06/18/16 22:45 Dose: 50 mg Famotidine (Pepcid) 20 mg PO DAILY [facility] Last Admin: 06/18/16 09:14 Dose: 20 mg Folic Acid (Folic Acid) 1 mg PO DAILY [facility] Last Admin: 06/18/16 09:13 Dose: 1 mg Furosemide (Lasix) 40 mg PO DAILY [facility] Last Admin: 06/18/16 09:13 Dose: 40 mg Losartan Potassium (Cozaar) 50 mg PO DAILY [facility] Last Admin: 06/18/16 09:14 Dose: 50 mg Warfarin Sodium (Coumadin) 3 mg PO 1800 [facility] PRN Reason: Protocol Last Admin: 06/18/16 17:48 Dose: 3 mg - Labs Labs: 06/16/16 06:15 06/19/16 07:30 PT 21.7 Seconds (9.9-11.8) H 06/19/16 07:30 INR 2.01 (0.93-1.08) H 06/19/16 07:30 APTT 42.7 Seconds (23.7-30.8) H 06/15/16 13:56 Assessment and Plan - Assessment and Plan (Free Text) Plan: Assessment: CP/SOB/ETOH Abuse CHF NSVT CCM/Severe LVD with mild MR and TR on echo CAD, mild on cath PAF Acute on chronic renal insufficiency Hyponatremia, resolved Cirrhosis/Periportal and peripancreatic LN's Gout Obesity DENISE Diverticulosis ETOH, acute and chronic GERD Plan: As per GI, Renal, Psych., Dr. Jiménez OOB Monitor I/O, labs, INR's, renal fx., tel., sats., etc. No ETOH!! Continue amiod. 200 BID for now.
[2016-06-19 09:27] VITALS: BP 120/60
[2016-06-19 10:29] VITALS: PULSE 63
--- NOTE | 2016-06-19 21:10 | DS ---
This is a 51-year-old male who was admitted to [facility], [place] for history of chest tightness and shortness of breath for several weeks. The patient also states that he had been drinking recentl y on a daily basis. He was seen in consultation by cardiology, psychiatry, renal and GI. While in [facility], the patient had Lasix treatment for his decompensated CHF. He was receiving Librium for alcohol toxicity. He was seen by GI. He was in the process of having a workup as an outpatient for periportal pancreatic adenopathy. He had a history of cardiomyopathy, defibrillator, gouty arthriti s, alcohol abuse, congestive heart failure, COPD, sleep apnea. He did not comply with his sleep apne a equipment. PHYSICAL EXAMINATION: VITAL SIGNS: On discharge, his blood pressure was 120/60, his pulse was 63. GENERAL: He was alert and oriented x 3. NECK: Supple. There was no JVD. LUNGS: Clear with diminished breath sounds at the bases. ABDOMEN: Obese with positive bowel sounds. EXTREMITIES: Show no evidence of edema. He was also seen in the hospital by nephrology for renal insufficiency. He was placed on amiodarone 200 mg b.i.d. by cardiology, Coreg 25 mg b.i.d., Coumadin 3 mg daily, Cozaar 50 mg daily, folic acid 1 mg daily, Lasix 40 mg daily, Lipitor 80 mg daily. He received magnesium oxide for low magnesium. He received Lasix and Pepcid 20 mg daily. His hyponatremia, resolved. His renal function showed a B UN of 28 and a creatinine of 1.8, which was improved from admission. His electrolytes were normal. His hepatitis panel was negative. Immunological studies ordered by GI were pending. His toxicology screen showed an alcohol level of 60. His stool guaiac was negative. Creatinine clearance was 42. His urine osmolality was 663. He was to follow up as an outpatient with cardiology, GI, nephrology a nd psychiatry. His PT on discharge was 21.7 with an INR of 2.01. He was explained concerns about th e cirrhotic changes that GI had documented on his prior studies of his CAT scan studies. He was plan latasha to have a ultrasound of the periportal area to evaluate the lymphadenopathy at the end of June. He also received from Dr. Cerda the recommendation to follow up with him and also to get detox suppo rt. These were all offered to the patient and explained in detail. Qing Jiménez MD cc: [id number] TT: 06/19/2016 21:09:25 adilene
[2016-06-19 23:54] LABS: LKM-1 Ab (IgG) <=20.0 U (<=20.0)
== END 2016-06-19 13:00 | disposition home or self-care (01) | DRG 291 ==
LOC: ED 13:06 → ERH 14:41 → 2RNO 20:46
PROVIDERS: ADMIT Internal Medicine; ATTEND Internal Medicine
DX: I13.0 Hypertensive heart and chronic kidney disease with heart failure and stage 1 through stage 4 chronic kidney disease, or unspecified chronic kidney disease (principal); I50.23 Acute on chronic systolic (congestive) heart failure; N18.3 Chronic kidney disease, stage 3 (moderate); N17.9 Acute kidney failure, unspecified; I47.2 Ventricular tachycardia; I42.0 Dilated cardiomyopathy; K76.0 Fatty (change of) liver, not elsewhere classified; E87.1 Hypo-osmolality and hyponatremia; F10.239 Alcohol dependence with withdrawal, unspecified; I48.0 Paroxysmal atrial fibrillation; J44.9 Chronic obstructive pulmonary disease, unspecified; G47.33 Obstructive sleep apnea (adult) (pediatric); R79.1 Abnormal coagulation profile; D63.8 Anemia in other chronic diseases classified elsewhere; E66.9 Obesity, unspecified; K21.0 Gastro-esophageal reflux disease with esophagitis; I25.10 Atherosclerotic heart disease of native coronary artery without angina pectoris; F32.9 Major depressive disorder, single episode, unspecified; E78.5 Hyperlipidemia, unspecified; Z79.01 Long term (current) use of anticoagulants; R59.1 Generalized enlarged lymph nodes; K25.9 Gastric ulcer, unspecified as acute or chronic, without hemorrhage or perforation; E83.42 Hypomagnesemia; F41.9 Anxiety disorder, unspecified; K29.70 Gastritis, unspecified, without bleeding; K57.90 Diverticulosis of intestine, part unspecified, without perforation or abscess without bleeding; Z87.01 Personal history of pneumonia (recurrent); Z95.810 Presence of automatic (implantable) cardiac defibrillator; Z86.010 Personal history of colon polyps; Z80.8 Family history of malignant neoplasm of other organs or systems

== ENCOUNTER 2017-01-11 11:05 | Inpatient (IN) | payer OTHER, MEDICARE ==
[2017-01-11 11:08] VITALS: BMI 36.6
[2017-01-11] MEDS: Albuterol-Ipratrop 3 mg / 0.5 (3 ml) UD IH SCH ×3 (11:37→12:20)
[2017-01-11 11:57] LABS: BASO # 0.03 K/mm3 (0.0-2.0); BASO % 0.4 % (0.0-3.0); EOS # 0.1 (0.0-0.7); EOS % 0.7 % (1.5-5.0); GRAN # 4.33 (1.4-6.5); GRAN % 64.8 % (50.0-68.0); HEMATOCRIT 32.6 % (42.0-52.0); LYMPH # 1.2 (1.2-3.4); LYMPH % 17.2 % (22.0-35.0); MEAN CELL VOLUME 89.1 fl (80.0-105.0); MEAN CORPUSCULAR HEMOGLOBIN 27.9 pg (25.0-35.0); MEAN CORPUSCULAR HGB CONC 31.3 g/dl (31.0-37.0); MONO # 1.1 (0.1-0.6); MONO % 16.9 % (1.0-6.0); RED CELL DISTRIBUTION WIDTH 18.8 % (11.5-14.5); WHITE BLOOD COUNT 6.7 10^3/ul (4.5-11.0)
[2017-01-11 12:04] LABS: INR 1.68 (0.93-1.08); TROPONIN I 0.04 ng/mL
--- NOTE | 2017-01-11 12:05 | ED PDOC ---
Arrival/HPI - General Chief Complaint: Chest Pain Time Seen by Provider: 01/11/17 11:20 Historian: Patient - History of Present Illness Narrative History of Present Illness (Text): 01/11/17 11:22 A 51 year old male daily drinker, whose past medical history includes CHF, hypertension, hyperlipidemia, hyponatremia, defibrillator, and COPD, presents to the emergency department for chest pain which began 2 days ago. The patient states he wanted to get through the holidays before coming to the emergency department. He reports the pain is a pressure pain, located midsternal, non- radiating, and worsens on exacerbation. The patient also notes difficulties breathing, nasal congestion, runny nose, and a chronic cough. He admits to eating an unhealthy diet for 3 months and has noticed increased leg swelling bilaterally. He denies nausea, vomiting, diarrhea, or any other complaints at this time. Time/Duration: < week (x 2 days) Symptom Onset: Gradual Symptom Course: Unchanged Quality: Pressure Activities at Onset: Light Context: Home Past Medical History - Provider Review Nursing Documentation Reviewed: Yes - Infectious Disease Hx of Infectious Diseases: None - Tetanus Immunization Tetanus Immunization: Up to Date - Cardiac Hx Cardiac Disorders: Yes Hx Hypertension: Yes Hx Internal Defibrillator: Yes (pacemaker/defib 2005) Hx Pacemaker: Yes Hx Peripheral Edema: Yes - Pulmonary Hx Respiratory Disorders: Yes Hx Sleep Apnea: Yes - Neurological Hx Neurological Disorder: No - HEENT Hx HEENT Disorder: No - Renal Hx Renal Disorder: Yes (hx renal insufficiency which resolved) - Endocrine/Metabolic Hx Endocrine Disorders: No - Hematological/Oncological Hx Blood Disorders: Yes Hx Anemia: Yes - Integumentary Hx Dermatological Disorder: No - Musculoskeletal/Rheumatological Hx Musculoskeletal Disorders: No Hx Falls: No - Gastrointestinal Hx Gastrointestinal Disorders: Yes Hx Diverticulitis: Yes - Genitourinary/Gynecological Hx Genitourinary Disorders: No - Psychiatric Hx Psychophysiologic Disorder: No Hx Depression: No Hx Emotional Abuse: No Hx Physical Abuse: No Hx Substance Use: No - Surgical History Hx Cardiac Catheterization: Yes Hx Orthopedic Surgery: Yes (right knee cartilige) Other/Comment: pacemaker and defib in 2006 - Anesthesia Hx Anesthesia: Yes Hx Anesthesia Reactions: No - Suicidal Assessment Feels Threatened In Home Enviroment: No Family/Social History - Physician Review Nursing Documentation Reviewed: Yes Family/Social History: No Known Family HX Smoking Status: Former Smoker Hx Alcohol Use: Yes (10-12 drinks per day) Hx Substance Use: No Hx Substance Use Treatment: No Allergies/Home Meds Allergies/Adverse Reactions: Allergies No Known Allergies Allergy (Verified 06/15/16 13:13) Home Medications: Home Meds Medication Instructions Recorded Confirmed Carvedilol [Coreg] 25 mg PO BID 05/09/12 01/11/17 Atorvastatin [Lipitor] 80 mg PO DAILY 11/18/13 01/11/17 Losartan [Cozaar] 50 mg PO DAILY 08/29/14 01/11/17 Amiodarone [Cordarone] 100 mg PO BID 06/15/16 01/11/17 Folic Acid 1 mg PO DAILY 06/15/16 01/11/17 Furosemide [Lasix] 40 mg PO DAILY 06/15/16 01/11/17 Amiodarone [Cordarone] 100 mg PO DAILY 01/11/17 01/11/17 Apixaban [Eliquis] 5 mg PO BID 01/11/17 01/11/17 Review of Systems - Physician Review All systems were reviewed & negative as marked: Yes - Review of Systems Constitutional: absent: Fevers ENT: Rhinorrhea, Sinus Congestion Respiratory: SOB, Cough, Wheezing Cardiovascular: Chest Pain Gastrointestinal: absent: Diarrhea, Nausea, Vomiting Physical Exam Vital Signs Reviewed: Yes Vital Signs Temp Pulse Resp BP Pulse Ox 01/11/17 13:32 66 18 113/90 98 01/11/17 11:37 152/77 H 01/11/17 11:14 97.6 F 64 20 124/68 99 Temperature: Afebrile Blood Pressure: Normal Pulse: Regular Respiratory Rate: Normal Appearance: Positive for: Well-Appearing, Non-Toxic, Comfortable Pain Distress: None Mental Status: Positive for: Alert and Oriented X 3 - Systems Exam Head: Present: Atraumatic, Normocephalic Pupils: Present: PERRL Extroacular Muscles: Present: EOMI Conjunctiva: Present: Normal Mouth: Present: Moist Mucous Membranes Neck: Present: Normal Range of Motion Respiratory/Chest: Present: Wheezes (expiratory wheeze), Other (crackles on lower lung). No: Respiratory Distress, Accessory Muscle Use Cardiovascular: Present: Regular Rate and Rhythm, Normal S1, S2. No: Murmurs Abdomen: Present: Normal Bowel Sounds. No: Tenderness, Distention, Peritoneal Signs Upper Extremity: Present: Normal Inspection. No: Cyanosis, Edema Lower Extremity: Present: Edema (2+ pitting edema ) Neurological: Present: GCS=15, CN II-XII Intact, Speech Normal Skin: Present: Warm, Dry, Normal Color. No: Rashes Psychiatric: Present: Alert, Oriented x 3, Normal Insight, Normal Concentration Medical Decision Making ED Course and Treatment: 01/11/17 12:03 Impression: A 51 year old male with chest pain. Differential Diagnosis included but are not limited to: CHF vs. COPD r/o Pneumonia Plan: -- EKG -- Chest X-ray -- Labs -- Lasix, Solu-medrol -- Urinalysis -- Reassess and disposition Progress Notes: 01/11/17 13:56 Chest X-ray Electro Mechanical Designer : Jamie Kumar MD Report Date : 01/11/2017 12:32:58 HISTORY:Shortness of breath, pneumonia/CHF suspected. COMPARISON:06/15/2016 FINDINGS: LUNGS:Increased pulmonary markings/infiltrate right lower lobe a new finding. PLEURA:No significant pleural effusion identified, no pneumothorax apparent. CARDIOVASCULAR:Cardiomegaly. No evidence of acute, significant cardiovascular disease. Position/ configuration of pacemaker\AICD device: Satisfactory. OSSEOUS STRUCTURES:No significant abnormalities. VISUALIZED UPPER ABDOMEN:Normal. OTHER FINDINGS:None. IMPRESSION: In right lower lobe infiltrate Concordant results with the preliminary interpretation rendered by the emergency department physician\PA at the conclusion of the procedure. 01/11/17 14:03 EKG: Ordered, reviewed, and independently interpreted the EKG. Rate : 63 BPM Rhythm : NSR Interpretation : First degree AV block. Intraventricular block. 01/11/17 13:02 CXR showed infiltrated. Treated with Ceftriaxone and Azithromycin. Case discussed with Dr. Jiménez who will admit under his service. Patient's symptoms improving. - Lab Interpretations Lab Results: 01/11/17 11:35 01/11/17 11:35 Lab Results 01/11/17 12:25: Urine Color Yellow, Urine Appearance Clear, Urine pH 6.0, Ur Specific Mcqueeney <= 1.005, Urine Protein Negative, Urine Glucose (UA) Negative, Urine Ketones Negative, Urine Blood Negative, Urine Nitrate Negative, Urine Bilirubin Negative, Urine Urobilinogen 0.2, Ur Leukocyte Esterase Negative 01/11/17 12:25: Urine Opiates Screen Negative, Urine Methadone Screen Negative, Ur Barbiturates Screen Negative, Ur Phencyclidine Scrn Negative, Ur Amphetamines Screen Negative, U Benzodiazepines Scrn Negative, U Oth Cocaine Metabols Negative, U Cannabinoids Screen Negative 01/11/17 11:35: Alcohol, Quantitative 60 H 01/11/17 11:35: Sodium 138, Potassium 4.1, Chloride 103, Carbon Dioxide 24, Anion Gap 14, BUN 49 H, Creatinine 2.0 H, Est GFR ( Amer) 43, Est GFR ( Non-Af Amer) 35, Random Glucose 111 H, Calcium 9.4, Lactate Dehydrogenase 707 H , Total Creatine Kinase 82, Troponin I 0.04 D, NT-Pro-B Natriuret Pep 5350 H 01/11/17 11:35: PT 18.7 H, INR 1.68 H, APTT 33.0 01/11/17 11:35: WBC 6.7 D, RBC 3.66, Hgb 10.2 L, Hct 32.6 L, MCV 89.1, MCH 27.9 , MCHC 31.3, RDW 18.8 H, Plt Count 182, MPV 9.0, Gran % 64.8, Lymph % (Auto) 17.2 L, Beckham % (Auto) 16.9 H, Eos % (Auto) 0.7 L, Baso % (Auto) 0.4, Gran # 4.33 , Lymph # 1.2, Beckham # 1.1 H, Eos # 0.1, Baso # 0.03 - RAD Interpretation Radiology Orders: 01/11/17 11:28 CHEST PORTABLE [RAD] Stat - Medication Orders Current Medication Orders: Alprazolam (Xanax) 0.25 mg PO ONCE ONE PRN Reason: Protocol Stop: 01/11/17 23:01 Amiodarone HCl (Cordarone) 100 mg PO BID [facility] Last Admin: 01/11/17 18:05 Dose: 100 mg Atorvastatin Calcium (Lipitor) 80 mg PO DIN [facility] Last Admin: 01/11/17 18:04 Dose: 80 mg Chlordiazepoxide (Librium) 25 mg PO TID CARLOS PRN Reason: Protocol Last Admin: 01/11/17 18:05 Dose: 25 mg Behavioural Document 01/11/17 18:05 KL (Rec: 01/11/17 18:05 [id number] Maintenance Maintenance Dose Yes Re-Assess: Reassess Psych Meds Document 01/11/17 19:05 ST (Rec: 01/11/17 20:07 ST [id number]) Reassess Psych Med Effective Folic Acid (Folic Acid) 1 mg PO DAILY CARLOS Furosemide (Lasix) 80 mg IVP Q12 CARLOS Last Admin: 01/11/17 16:20 Dose: 80 mg MAR Blood Pressure Document 01/11/17 16:20 KL (Rec: 01/11/17 16:20 [place] [id number]) Blood Pressure Blood Pressure (100/60-150/90) 124/67 IVP Administration Document 01/11/17 16:20 (Rec: 01/11/17 16:20 [place] [id number]) Charges for Administration # of IVP Administrations 1 Iron Sucrose 200 mg/ Sodium (Chloride) 110 mls @ 110 mls/hr IVPB DAILY CARLOS Stop: 01/15/17 10:59 Last Admin: 01/11/17 18:03 Dose: 110 mls/hr eMAR Start Stop Document 01/11/17 18:03 (Rec: 01/11/17 18:04 [id number] Intravenous Solution Start Date 01/11/17 Start Time 18:04 Metolazone (Zaroxolyn) 2.5 mg PO Q12 [facility] Last Admin: 01/11/17 16:20 Dose: 2.5 mg Midodrine (Proamatine) 5 mg PO TID CARLOS Last Admin: 01/11/17 18:06 Dose: 5 mg Discontinued Medications Albuterol/Ipratropium (Duoneb 3 Mg/0.5 Mg (3 Ml) Ud) 3 ml IH Q15M CARLOS Stop: 01/11/17 12:01 Last Admin: 01/11/17 12:20 Dose: 3 ml Azithromycin (Zithromax) 500 mg PO STAT STA PRN Reason: Protocol Stop: 01/11/17 12:42 Last Admin: 01/11/17 14:08 Dose: 500 mg Furosemide (Lasix) 40 mg IVP STAT STA Stop: 01/11/17 11:28 Last Admin: 01/11/17 11:37 Dose: 40 mg MAR Blood Pressure Document 01/11/17 11:37 SF (Rec: 01/11/17 11:38 [id number]) Blood Pressure Blood Pressure (100/60-150/90) 152/77 IVP Administration Document 01/11/17 11:37 SF (Rec: 01/11/17 11:38 SF [id number]) Charges for Administration # of IVP Administrations 1 Ceftriaxone Sodium (Rocephin 1 Gram Ivpb) 1 gm in 100 mls @ 200 mls/hr IVPB STAT STA PRN Reason: Protocol Stop: 01/11/17 13:10 Last Admin: 01/11/17 14:00 Dose: 200 mls/hr eMAR Start Stop Document 01/11/17 14:00 SF (Rec: 01/11/17 14:08 SF [id number]) Intravenous Solution Start Date 01/11/17 Start Time 14:00 End Date 01/11/17 End time 14:30 Total Infusion Time 30 Methylprednisolone (Solu-Medrol) 125 mg IVP STAT STA Stop: 01/11/17 11:28 Last Admin: 01/11/17 11:37 Dose: 125 mg IVP Administration Document 01/11/17 11:37 SF (Rec: 01/11/17 11:37 [id number]) Charges for Administration # of IVP Administrations 1 - Scribe Statement The provider has reviewed the documentation as recorded by the Doreen Aldana Provider Scribe Attestation: All medical record entries made by the Scribe were at my direction and personally dictated by me. I have reviewed the chart and agree that the record accurately reflects my personal performance of the history, physical exam, medical decision making, and the department course for this patient. I have also personally directed, reviewed, and agree with the discharge instructions and disposition. Disposition/Present on Arrival - Present on Arrival Any Indicators Present on Arrival: No History of DVT/PE: No History of Uncontrolled Diabetes: No Urinary Catheter: No History of Decub. Ulcer: No History Surgical Site Infection Following: None - Disposition Have Diagnosis and Disposition been Completed?: Yes Diagnosis: Pneumonia, CHF (congestive heart failure) Disposition: HOSPITALIZED Disposition Time: 13:02 Patient Plan: Admission Condition: GUARDED
[2017-01-11 12:25] LABS: CALCIUM 9.4 mg/dL (8.4-10.5); POTASSIUM 4.1 mmol/L (3.6-5.0)
--- NOTE | 2017-01-11 12:34 | RAD ---
HISTORY: Shortness of breath, pneumonia/CHF suspected. COMPARISON: 06/15/2016 FINDINGS: LUNGS: Increased pulmonary markings/infiltrate right lower lobe a new finding. PLEURA: No significant pleural effusion identified, no pneumothorax apparent. CARDIOVASCULAR: Cardiomegaly. No evidence of acute, significant cardiovascular disease. Position/ configuration of pacemaker Satisfactory. OSSEOUS STRUCTURES: No significant abnormalities. VISUALIZED UPPER ABDOMEN: Normal. OTHER FINDINGS: None. IMPRESSION: In right lower lobe infiltrate. Concordant results with the preliminary interpretation rendered by the emergency department physician procedure.
[2017-01-11 12:38] LABS: URINE APPEARANCE CLEAR (CLEAR); URINE BILIRUBIN NEGATIVE (NEGATIVE); URINE BLOOD NEGATIVE (NEGATIVE); URINE COLOR YELLOW (YELLOW); URINE GLUCOSE (UA) NEGATIVE (NEGATIVE); URINE KETONE NEGATIVE (NEGATIVE); URINE LEUKOCYTE ESTERASE NEGATIVE Leu/uL (NEGATIVE); URINE PROTEIN NEGATIVE mg/dL (<30 mg/dL); URINE UROBILINOGEN 0.2 E.U./dL (<1 E.U./dL)
[2017-01-11] MEDS ORDERED: cefTRIAXone 1 gm 1 GM/100 ML BAG IVPB STA (12:41)
--- NOTE | 2017-01-11 15:30 | HP ---
HISTORY OF PRESENT ILLNESS: A 51-year-old male referred to [facility] by Dr. Amina Martin, neon sign maker. 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 The patient states that he has had a cough for few days, at times productive. He also states that with exertion he gets short of breath and he also states that he has had some mild chest discomfort at times, although he has no chest pain at this time. PAST MEDICAL HISTORY: Notable for recurrent heart failure, COPD, sleep apnea, obesity, diverticulosis, esophageal reflux. He has had orthopedic surgery. He has an ICD implant with upgrades. He has some periportal adenopathy and chronic anemia. He has had endoscopies, colonoscopies, and an EUS with GI. There is a questionable cirrhotic liver disease. He has a history of paroxysmal atrial fibrillation, chronic kidney disease, gastritis, esophagitis, gastric erosions, diverticulosis, diverticulitis. He has had gouty arthritis. He states his last drink was yesterday. ALLERGY HISTORY: HE DENIES. HOME MEDICATIONS: Consist of amiodarone 100 mg b.i.d., Cozaar 50 mg daily, Lasix 40 mg daily, folic acid 1 mg daily, Coreg 25 mg b.i.d., Lipitor 80 mg daily, and Eliquis 5 mg p.o. b.i.d. SOCIAL HISTORY: He is a nonsmoker. He uses alcohol. He denies any drug use. REVIEW OF SYSTEMS: Pertinent findings on review of systems shows that there is marked pitting edema 3+. There is notable congestion in his lungs and he has a dry cough. PHYSICAL EXAMINATION: VITAL SIGNS: Show a temperature of 97.6 orally, his pulse is 64, his blood pressure 124/68, respiratory rate is 20, he is reported having 99% saturation on room air. DIAGNOSTIC DATA: His EKG is reported as showing a sinus rhythm with first degree AV block. His chest x-ray is reported by Radiology and showing increased pulmonary markings and an infiltrate in the right lower lobe, and cardiomegaly. LABORATORY RESULTS: Showed WBC 6.7, RBC 3.66, hemoglobin 10.2, and hematocrit 32.6, and platelet count 182. His PT is 18.7 with an INR of 1.68, and his PTT is 33. Chemistry shows a sodium of 138, potassium 4.1, chloride 103, CO2 24, BUN 49, creatinine is 2. His random blood sugar is 111. His LDH is 707. His troponin is 0.04. His BNP is 5350. Urinalysis is negative. He has an alcohol level of 60. IMPRESSION: A young 51-year-old male with: 1. Volume overload. 2. Decompensated congestive heart failure. 3. Cardiomyopathy. 4. Right lower lobe infiltrate. 5. Renal insufficiency. 6. Chronic anemia. 7. Sleep apnea. 8. Chronic obstructive pulmonary disease. 9. Alcohol abuse. PLAN: I have reviewed the clinical findings and discussed them with the emergency room physician, as well as with Dr. Martin. I have requested a consult with Pulmonary, Infectious Disease, Nephrology, and Cardiology. The patient will be admitted to monitored bed and review of current medications and discussed variations and change in the medications given the current clinical settings. Qing Jiménez MD
[2017-01-11] MEDS: metOLazone 2.5 MG TAB PO SCH ×2 (16:20→22:48)
[2017-01-12 06:33] LABS: CALCIUM 9.4 mg/dL (8.4-10.5); POTASSIUM 3.7 mmol/L (3.6-5.0); TOTAL PROTEIN 7.8 g/dL (5.8-8.3)
[2017-01-12 06:41] LABS: GRAN # 4.32 (1.4-6.5); GRAN % 89.8 % (50.0-68.0); HEMATOCRIT 30.5 % (42.0-52.0); LYMPH # 0.3 (1.2-3.4); LYMPH % 6.7 % (22.0-35.0); MEAN CELL VOLUME 88.2 fl (80.0-105.0); MEAN CORPUSCULAR HEMOGLOBIN 27.5 pg (25.0-35.0); MEAN CORPUSCULAR HGB CONC 31.1 g/dl (31.0-37.0); MEAN PLATELET VOLUME 8.9 fl (7.0-11.0); MONO # 0.2 (0.1-0.6); MONO % 3.5 % (1.0-6.0); RED CELL DISTRIBUTION WIDTH 18.7 % (11.5-14.5); WHITE BLOOD COUNT 4.8 10^3/ul (4.5-11.0)
--- NOTE | 2017-01-12 08:27 | CON ---
DATE: 01/12/2017 The patient is seen in room 275, bed 2. CHIEF COMPLAINT: Shortness of breath x1-day duration. HISTORY OF PRESENT ILLNESS: This is a 51-year-old male with past medical history significant for chronic obstructive lung disease, sleep apnea, obesity, diverticulosis, esophageal reflux. The patient has an ICD implant and orthopedic surgery. He was seen in the emergency room yesterday by Dr. Jeffers. The patient was referred to the emergency room for chest pain. The patient was also seen by Dr. Martin, renal doctor and been followed by Dr. Martin for renal disease. The patient was admitted with diagnosis of congestive heart failure, possible underlying pneumonia. Infectious Disease consultation requested. The patient denies any fevers, any chills, any nausea, any vomiting and no abdominal pain. At this time, he states he did have abdominal pain, lower abdominal pain earlier. No dysuria or frequency. PAST MEDICAL HISTORY: Significant for congestive heart failure, hypertension, hyperlipidemia, renal disease, chronic obstructive lung disease, sleep apnea, obesity with a BMI of 37, diverticulosis and esophageal reflux. PAST SURGICAL HISTORY: Significant for right knee surgery and a pacemaker defibrillator placement in 2005. ALLERGIES: THE PATIENT HAS NO KNOWN ALLERGIES. MEDICATIONS AT HOME: Include amiodarone, Cozaar, Lasix, Coreg, Lipitor. PHYSICAL EXAMINATION: GENERAL: He is in bed in no acute distress. VITAL SIGNS: With a temperature of 98, pulse of 62, respiratory rate of 18, blood pressure is 120/60, his respiratory rate was up to 21 yesterday in the emergency room. HEENT: Examination of HEENT is unremarkable. NECK: Supple. LUNGS: Decreased breath sounds. HEART: Normal S1, S2. ABDOMEN: Soft, nontender. No rebound or guarding. No masses. LABORATORY DATA: Reveals a white count of 6.7, hemoglobin of 10, platelets of 182 with 64% granulocytosis. Coagulation is noted. Chemistries reveals a BUN of 42, creatinine is 2.0, and the patient has had elevated creatinine in the past, and the patient has a random glucose of 168. Urinalysis is unremarkable. Alcohol quantitative amount is 60. The patient had an EKG, no reading is available. The patient had a chest x-ray, increased pulmonary markings, infiltrate in the right lower lobe, a new finding. Dr. Jiménez' history and physical examination is reviewed, and the patient's QTC is 533. ASSESSMENT AND PLAN: A 51-year-old male with history of congestive heart failure, chronic obstructive lung disease, sleep apnea, history of diverticulosis, renal disease, hypertension, hyperlipidemia, esophageal reflux who is admitted with shortness of breath with acute congestive heart failure. The patient has had an echo in 06/16/2016 that was read by Dr. Brigido Silva and had an echo. The patient has a left ventricular ejection fraction of 53%, and the patient has acute diastolic congestive heart failure on chronic congestive heart failure with community-acquired pneumonia. We will treat with ceftriaxone and doxycycline and check on the procalcitonin and blood cultures and because of a QTC interval, we will discontinue the Zithromax. Would not recommend quinolone use. We will follow closely with you. Lance Dyer MD
[2017-01-12] MEDS: metOLazone 2.5 MG TAB PO SCH ×2 (09:31→22:03)
--- NOTE | 2017-01-12 09:48 | CARD ---
APPROVED REPORT EKG Measurement Heart [id number] <Conclusion> Sinus rhythm with 1st degree AV block Left axis deviation Nonspecific intraventricular block LAHB STTW changes No change
[2017-01-12] MEDS ORDERED: cefTRIAXone 1 gm 1 GM/100 ML BAG IVPB SCH (10:00)
--- NOTE | 2017-01-12 13:31 | CON ---
DATE: 01/12/2017 REASON FOR CONSULTATION/INDICATION: Chest pain, shortness of breath, edema, and congestive heart failure. HISTORY OF PRESENT ILLNESS: This is a 51-year-old male ethanolic, known to me, admitted yesterday with recurring chest pain in the setting of recurrence of dyspnea and edema in the setting of EtOH consumption and poor dietary compliance. He was admitted via the emergency room yesterday. He has been treated with IV Lasix. He put out about 1500 mL since admission. He feels better, but still weak and with dyspnea on exertion, but improved edema. There is orthopnea, but no syncope, palpitation, fever, chills, hemoptysis, abdominal pain, nausea, vomiting, diarrhea, constipation, or melena. PAST MEDICAL HISTORY: His past medical history is complex. He has known cardiomyopathy, possibly on familial basis, possibly related to chronic ethanolism. He has had recurrent congestive heart failure, paroxysmal atrial fibrillation and nonsustained VT. He has had an ICD implanted. He has mild coronary artery disease based on a cardiac catheterization in the past. He has COPD, sleep apnea, obesity, diverticulosis, GERD, chronic kidney disease, cirrhosis, periportal and perihepatic adenopathy, and gout. Echocardiography has demonstrated markedly diminished LV function with mild MR and TR. CARDIAC RISK FACTORS: There is no history of myocardial infarction, stroke, TIA, or diabetes. MEDICATIONS: At the time of admission include amiodarone, Coreg, Cozaar, Eliquis, recently switched from warfarin because of erratic INR results, probably related to intermittent alcohol use. Folic acid, Lasix, and Lipitor. ALLERGIES: NO MEDICATION ALLERGIES ARE REPORTED. SOCIAL HISTORY: He does not smoke. He continues to drink intermittently, usually in response to familial or social stress. He lives at home with his . 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 FAMILY HISTORY: Notable for heart disease and cardiomyopathy. REVIEW OF SYSTEMS: A 10-point review of systems otherwise unremarkable except as noted above. PHYSICAL EXAMINATION GENERAL: He is a well-developed man, lying on bed on telemetry, in no acute distress. VITAL SIGNS: Notable for sinus rhythm and sinus bradycardia. He is afebrile. Blood pressure is 111/73, respirations are 17 to 18, and O2 saturation of 98% on nasal cannula. HEENT: Reveals neck vein distention. No carotid bruit. No thyromegaly. Mucous membranes are moist. Conjunctivae pink. NECK: Supple. LUNGS: [place] scattered rhonchi. No wheezing. CARDIOVASCULAR: Examination of the heart revealed normal first and second heart sounds. PMI not palpable. GASTROINTESTINAL: Abdomen is obese and soft. Bowel sounds present. No mass, organomegaly, tenderness, rebound, guarding, CVA tenderness or palpable abdominal aortic aneurysm. EXTREMITIES: Revealed [id number] ankle and murphy edema. NEUROLOGIC: Awake and alert, not tremulous. PSYCHIATRIC: Normal as to mood and affect. SKIN: Warm and dry. No rashes or cellulitis. LABORATORY AND IMAGING DATA: Chest x-ray demonstrated a portable study in the emergency room. There are increased pulmonary markings and infiltrate is noted at the right lower lobe. EKG demonstrates sinus bradycardia, right bundle-branch block, left anterior hemiblock, ST-T wave changes, prolonged QT interval, and no change from a previous EKG. Today, his hemoglobin is 9.5, hematocrit is 30.5, white count is normal, and platelet count is normal. PT is 18.7, INR is 1.68, and PTT is 33. Electrolytes are normal. BUN is 59, creatinine is 2.1, and blood sugar is 168. LFTs are unremarkable. Alkaline phosphatase is 128, CK is 82, troponin is 0.04, and BNP is 5350. Urinalysis is unremarkable. Toxicology is notable for alcohol level at 60. IMPRESSION: Jack Granados is a 51-year-old male, alcoholic with cardiomyopathy and congestive heart failure, admitted with increasing symptoms including chest pain, dyspnea, and edema. He is admitted to telemetry. He is diuresed about 1500 mL and feels better this morning. There was no chest pain. The first troponin is negative. His electrocardiogram is chronically abnormal, but not changed. No arrhythmia on telemetry so far. PLAN: I agree with current plan. He is getting IV Lasix and Zaroxolyn p.o. We will continue amiodarone, Coreg, Eliquis, folic acid, and Lipitor. He has been cultured. He is getting antibiotics for possible pneumonia. Procalcitonin level is ordered. He is being seen by Pulmonary, Infectious Disease, and Renal. We will monitor I's and O's. Check stool for occult blood. Follow daily weights and daily labs. He has been strongly advised again to discontinue alcohol use completely. He probably needs Psychiatric or Psychological support in order to accomplish this. He is on a no-added salt diet, which he is noncompliant with. I reviewed this with him again. He can be out of bed to chair. We will establish his nocturnal CPAP routine. I will follow along with you. I will make additional recommendations based on his clinical course. Stephan Vázquez MD RUBEN
--- NOTE | 2017-01-12 18:07 | PN ---
DATE: SUBJECTIVE: A 51-year-old male, resting in bed comfortably this morning, on telemetry. Nursing staff relates that no specific problems. public health director relates that the patient has been having heart rhythm in the mid-to-high 40s. PHYSICAL EXAMINATION: VITAL SIGNS: Showed temp of 97.5, pulse of 64, blood pressure 111/73, respiratory rate 18, oxygen saturation on nasal oxygen is 98%. GENERAL: Patient is alert, oriented x3. ABDOMEN: Obese. HEART: S1, S2 rhythm. LUNGS: Rhonchitic. EXTREMITIES: Show presence of edema. MICROBIOLOGICAL STUDIES: At this time, blood cultures are negative at 24 hours. LABORATORY DATA: Shows a WBC of 4.8, RBC 3.46, hemoglobin 9.5, hematocrit 30.5, platelet count 170. Chemistry shows normal electrolyte, his BUN is 59, his creatinine is 2.1, random blood sugar is 168, alkaline phosphatase is 128, troponin is 0.04. MEDICATIONS: Currently the patient is on amiodarone 100 mg b.i.d., Coreg 25 mg b.i.d., Doryx 100 mg b.i.d., Eliquis 5 mg b.i.d., folic acid 1 mg daily. He is receiving Venofer, Lasix 80 mg b.i.d., Librium 25 mg t.i.d., Lipitor 80 mg at dinnertime, ProAmatine 5 mg t.i.d., Rocephin 1 g q. 24, and Zaroxolyn 2.5 mg b.i.d. ASSESSMENT AND PLAN: The patient is currently being treated for volume overload with a history of defibrillator cardiomyopathy, pedal edema, chronic obstructive pulmonary edema, sleep apnea. A Pulmonary consult is pending as a chest x-ray on admission showed a right lower lobe infiltrate. Infectious Disease has placed the patient on Rocephin and Doryx. Cardiology, as per the patient, has been in to see him. Orders have been placed. His medications have been renewed. At this time, he is to continue diuresis as prescribed by Renal. Need to monitor the patient's intake and output, electrolytes, and renal function. Continue the current antibiotics as well as his respiratory, chronic obstructive pulmonary disease, sleep apnea care. Patient is understanding of his current clinical status and recommendations for care. Qing Jiménez MD [facility] # [id number]
--- NOTE | 2017-01-12 19:43 | CON ---
DATE: 01/12/2017 PULMONARY CONSULTATION We were asked by Dr. Qing Jiménez, remote pilot operator, to evaluate and treat this 51-year-old white male, who is well-known to our group. He is being followed by Dr. Young in the office for chronic obstructive pulmonary disease and obstructive sleep apnea. Currently, he is admitted for chest pain, congestive heart failure and suspicion for right lower lobe pneumonia. He was placed on doxycycline and Rocephin by Infectious Disease email production consultant, Dr. Dyer. HISTORY OF PRESENT ILLNESS: The patient started with on and off chest pain a day prior to admission. He found difficult to ambulate due to shortness of breath. He also started coughing and producing yellow sputum. He denied fever. Denied hemoptysis. He uses CPAP but not very compliant with CPAP. FAMILY HISTORY: Negative for inherited diseases. SOCIAL HISTORY: He is nonsmoker, nondrinker, never used illicit drugs. PAST MEDICAL HISTORY: Positive for congestive heart failure, hypertension, hyperlipidemia, renal disease, chronic obstructive pulmonary disease, sleep apnea, and obesity. He is status post right knee surgery, status post AICD placement in 2005. ALLERGIES: NO KNOWN ALLERGIES. MEDICATIONS AT HOME: Include amiodarone, Cozaar, Lasix, Coreg, Lipitor. REVIEW OF SYSTEMS: Was conducted by reviewing all sources. PULMONARY: Shortness of breath, productive cough, chest pain. CARDIOVASCULAR: History of congestive heart failure and history of AICD placement. GASTROINTESTINAL: No recent nausea, vomiting or diarrhea. GENITOURINARY: No dysuria or hematuria. The rest of the systems were reviewed and found to be negative. PHYSICAL EXAMINATION: GENERAL: He is in bed, no acute distress. VITAL SIGNS: He is on oxygen with oxygen saturation of 95. Temperature 98, pulse 62, respirations 20, blood pressure 120/60. HEAD: Normocephalic and atraumatic. NECK: Supple. There is no jugular vein distention. No adenopathy. PULMONARY: Diminished breath sounds at both bases. Few rhonchi. No wheezing. CARDIOVASCULAR: S1 and S2. No S3. GASTROINTESTINAL: Soft and nontender. No organomegaly. Obese. EXTREMITIES: 1+ pedal edema. NEUROLOGIC: No focal deficits. SKIN: No skin rash and no cyanosis. LABORATORY DATA: I reviewed the patient's chest x-ray, which shows cardiomegaly and bilateral congestive changes. The appearance of right lower lobe is pretty symmetric with left lower lobe, I doubt infiltrate. His BUN is 42, creatinine is 2.0. WBC 6.7, hemoglobin of 10, and platelets 182,000. EKG: No acute ischemic changes; however, his QT interval is prolonged. ASSESSMENT AND PLAN: COPD, Congestive Heart Failure and Obstructive Sleep Apnea. A 51-year-old well known to our service with obstructive sleep apnea, not very compliant with CPAP, uses 3 to 4 hours at night. Chronic obstructive pulmonary disease which is not exacerbated, the patient in need for repeat pulmonary function test and possibly switch to a Trelegy inhaler with inhalant steroids, inhalant beta agonist, and inhalant anticholinergic. He should continue active treatment for chronic obstructive pulmonary disease with probably acute bronchitis, doubt pneumonia. Continue treatment for congestive heart failure as per Dr. Silva. He was seen by Infectious Disease. We will order CPAP to be used nightly with his own device. Follow closely. Carlos Soler MD MTDJuly
--- NOTE | 2017-01-12 22:06 | CON ---
DATE: 01/12/2017 REASON FOR CONSULTATION: Acute kidney injury, CHF, edema, and low blood pressure. HISTORY OF PRESENT ILLNESS: A 51-year-old obese male with history of dilated cardiomyopathy, CHF, AICD placement, cardiorenal syndrome, and chronic kidney disease stage III, was sent to the emergency room because of low blood pressure, chest pain, shortness of breath, and dyspnea on exertion. In the emergency room, he was found to be intoxicated. Alcohol level was found to be 60. He was found to be hypotensive, somewhat hypoxic. The patient was admitted for management of his cardiorenal syndrome, congestive heart failure, cardiomyopathy, and shortness of breath. Initial vital signs; blood pressure was 124/68, heart rate was 60, respiratory rate was 20, and temperature 98.7. Initial blood work showed BUN of 49 and creatinine of 2.0. The patient was started on IV diuretics. He was started on Lasix 80 IV q.12 hours, Zaroxolyn 2.5 b.i.d., and ProAmatine 5 mg 3 times a day. Currently, he is sitting in the chair. He is awake. He is alert. He is feeling a little bit better. PAST MEDICAL AND SURGICAL HISTORY: Dilated cardiomyopathy, CHF, decreased ejection fraction, AICD, chronic kidney disease stage III, hypotension, obesity, and alcohol abuse. FAMILY HISTORY: Noncontributory. SOCIAL HISTORY: No smoking, active alcohol abuse, and no drugs. ALLERGIES: NO KNOWN DRUG ALLERGIES. MEDICATIONS AT HOME: Amiodarone 100 b.i.d., Cozaar 50, Lasix 40, folic acid 1, Coreg 25 b.i.d., Lipitor 80, and Eliquis 5 b.i.d. REVIEW OF SYSTEMS: All systems are reviewed, pertinent positive as mentioned in the history of presenting illness, rest unremarkable. PHYSICAL EXAMINATION: GENERAL: Middle aged male sitting in chair, in no acute distress at this time. VITAL SIGNS: Blood pressure 118/67, heart rate 65, respiratory rate 18, and temperature 98.1. HEENT: Normocephalic and atraumatic, positive pallor. NECK: Supple. No JVD. LUNGS: Bilateral equal air entry, bilateral equal expansion, occasional rhonchi, no rales. CARDIAC: S1 and S2, regular rate and rhythm, no murmur, no rub. ABDOMEN: Obese, distended, soft, nontender, and bowel sounds present. EXTREMITIES: 3+ pitting edema of the lower extremities. INTAKE AND OUTPUT: 720/1515. LABORATORY DATA: WBC 4.8, hemoglobin 9.5, hematocrit 30.5, and platelets 170. Sodium 140, potassium 3.7, chloride 103, CO2 of 25, BUN 59, creatinine 2.1, glucose 168, and calcium 9.4. AST 41, ALT 43, and albumin 3.9. Urinalysis; specific gravity less than 1.005. Alcohol quantitative 60. ASSESSMENT: 1. Alcohol-related cardiomyopathy, dilated cardiomyopathy, and congestive heart failure. 2. Right heart failure, edema, and shortness of breath. 3. Hypotension. 4. Chronic kidney disease stage III. 5. Cardiorenal syndrome. 6. Anemia with low iron stores. 7. Suspect sleep apnea. PLAN: 1. Continue Lasix and Zaroxolyn. 2. Keep Os greater than Is. 3. Continue ProAmatine. 4. Venofer for iron supplementation. 5. Monitor urine output. 6. Monitor daily weights. 7. Monitor labs. Thank you for the courtesy of this consultation. We will follow this patient closely with you. Amina Martin MD
[2017-01-13 07:43] LABS: CALCIUM 9.8 mg/dL (8.4-10.5); POTASSIUM 3.4 mmol/L (3.6-5.0)
--- NOTE | 2017-01-13 07:57 | CP.PCM.PN ---
Subjective - Date & Time of Evaluation Date of Evaluation: 01/13/17 Time of Evaluation: 07:00 - Subjective Subjective: Stable on 2R. He feels better and slept better with nasal CPAP. Less edema and good urine outputs reported. No CP. V/S noted. Sinus Marky., HR in 40's at times PE: Lungs: rhonchi Cor.: S1S2 Abd: obese, benign Ext.: milder edema now Neuro.: alert Urine 2150 cc reported by nurses Labs 01/12 noted. trops neg x 2. Today's labs pending. BC x2 NG at 24 hrs. Objective - Vital Signs/Intake and Output Vital Signs (last 24 hours): Temp Pulse Resp BP Pulse Ox 97.3 F L 55 L 20 127/73 95 01/13/17 06:00 01/13/17 06:00 01/13/17 06:00 01/13/17 06:00 01/13/17 06:00 Intake and Output: 01/13/17 01/13/17 06:59 18:59 Intake Total 240 Output Total 1750 Balance -1510 - Medications Medications: Current Medications Amiodarone HCl (Cordarone) 100 mg PO BID [facility] Last Admin: 01/12/17 17:40 Dose: 100 mg Apixaban (Eliquis) 5 mg PO BID [facility] PRN Reason: Protocol Last Admin: 01/12/17 17:39 Dose: 5 mg Atorvastatin Calcium (Lipitor) 80 mg PO DIN [facility] Last Admin: 01/12/17 17:40 Dose: 80 mg Carvedilol (Coreg) 25 mg PO BID [facility] Last Admin: 01/12/17 17:39 Dose: 25 mg Chlordiazepoxide (Librium) 25 mg PO TID [facility] PRN Reason: Protocol Last Admin: 01/12/17 17:46 Dose: 25 mg Doxycycline Hyclate (Doryx) 100 mg PO Q12 [facility] PRN Reason: Protocol Last Admin: 01/12/17 22:03 Dose: 100 mg Folic Acid (Folic Acid) 1 mg PO DAILY [facility] Last Admin: 01/12/17 09:28 Dose: 1 mg Furosemide (Lasix) 80 mg IVP Q12 [facility] Last Admin: 01/12/17 22:01 Dose: 80 mg Iron Sucrose 200 mg/ Sodium (Chloride) 110 mls @ 110 mls/hr IVPB DAILY [facility] Stop: 01/15/17 10:59 Last Admin: 01/12/17 09:32 Dose: 110 mls/hr Ceftriaxone Sodium (Rocephin 1 Gram Ivpb) 1 gm in 100 mls @ 100 mls/hr IVPB DAILY [facility] PRN Reason: Protocol Last Admin: 01/12/17 09:32 Dose: 100 mls/hr Metolazone (Zaroxolyn) 2.5 mg PO Q12 [facility] Last Admin: 01/12/17 22:03 Dose: 2.5 mg Midodrine (Proamatine) 5 mg PO TID [facility] Last Admin: 01/12/17 17:40 Dose: 5 mg - Labs Labs: 01/12/17 05:45 01/13/17 07:04 PT 18.7 SECONDS (9.4-12.5) H 01/11/17 11:35 INR 1.68 (0.93-1.08) H 01/11/17 11:35 APTT 33.0 Seconds (25.1-36.5) 01/11/17 11:35 Assessment and Plan - Assessment and Plan (Free Text) Assessment: Dyspnea/CP/Edema Ethanolism/Dietary non-compliance CHF CCM PAF Acute on chronic kidney disease NSVT ICD CAD COPD DENISE Diverticulosis GERD Plan: Continue diuresis. As per Renal. Await AM labs. Reduce Coreg to 12.5 BID for now OOB as jeannette AB: As per Pulm. and Dr. Jiménez Monitor: I/O, Renal Fx., Labs, sats., Tel., etc. D/C All ETOH Use d/w with him for the Nth time! He needs assistance with this. BOB diet. D/W him again. ICD F/U: ongoing.
[2017-01-13] MEDS: metOLazone 2.5 MG TAB PO SCH ×2 (09:37→21:33)
--- NOTE | 2017-01-13 10:28 | PN ---
DATE: 01/13/2017 PULMONARY PROGRESS NOTE SUBJECTIVE: The patient was seen and examined at bedside. He is complaining of minor bleeding from left nostril after using CPAP all night. He is still on intravenous antibiotics, doxycycline and ceftriaxone. The doxycycline was initiated by Dr. Dyer, who assessed correctly that he has long QT interval would be dangerous for both macrolides and quinolones, but the chest x-ray does not show clear infiltrates in the right lower lobe with more congestive changes. PHYSICAL EXAMINATION: VITAL SIGNS: His temperature is 97.3, pulse is 55, respirations are 20, and pulse oxymetry is 95% on room air. INTAKE AND OUTPUT: His intake and output is -1500 mL. HEAD: Normocephalic and atraumatic. NECK: Supple with no jugular vein distention. No adenopathy. CHEST: Symmetrical. CARDIOVASCULAR: S1 and S2. No S3. A II/ systolic ejection murmur. PULMONARY: Diminished breath sound at both lung bases. No wheezing. GASTROINTESTINAL: Soft and nontender. No organomegaly. EXTREMITIES: 1+ pedal edema. SKIN: Clear with no cyanosis and no skin rashes. NEUROLOGIC: No focal deficits. LABORATORY DATA: I reviewed his laboratory data; today sodium is 140, potassium is slightly reduced to 3.4, and chloride is 99. BUN is 68 and creatinine is 2.0. ASSESSMENT: 1. Exacerbation of chronic obstructive pulmonary disease. 2. Congestive heart failure, diastolic dysfunction. 3. Obstructive sleep apnea. 4. Renal insufficiency. 5. Hypokalemia. PLAN: The patient started on intravenous antibiotics, doxycycline and ceftriaxone. My assessment of his chest x-ray, no acute infiltrate, it is bronchitis with purulent sputum and exacerbation of chronic obstructive pulmonary disease. The patient started using his own CPAP. His condition is markedly improved. I will discuss with Dr. Young, who follows him in office about starting possibly on Trilogy inhaler if the patient is not happy with an idea of using nebulizer, so inhaler with triple therapy could be suitable for this case. Nasal saline can be used due to frequent bleeds from left nostril or using CPAP. Carlos Soler MD
[2017-01-13] MEDS ORDERED: Potassium Chloride 20 mEq ER Tab PO ONE (10:38)
--- NOTE | 2017-01-13 11:01 | PN ---
DATE: 01/13/2017 SUBJECTIVE: The patient seen earlier today in no acute distress, nontoxic, no fevers or chills. No nausea or vomiting. Overall, less short of breath. PHYSICAL EXAMINATION: VITAL SIGNS: On exam, temperature is 97, blood pressure is 127/70, respiratory rate of 18, heart rate of 51. HEENT: Unremarkable. NECK: Supple. LUNGS: Decreased breath sounds. HEART: Normal S1, S2. ABDOMEN: Soft. LABORATORY DATA: Reveals a white count of 4.8, hemoglobin of 9, platelets of 170. Chemistries reveals a BUN of 68, creatinine of 2. Urinalysis is noted and the patient's procalcitonin is 0.14. Chest x-ray is noted. ASSESSMENT AND PLAN: This is a 51-year-old male with chronic obstructive lung disease, sleep apnea, obesity, diverticulitis and diverticulosis, esophageal reflux, ICD implant, orthopedic surgery, who is admitted with acute diastolic congestive heart failure on top of chronic congestive heart failure with community-acquired pneumonia with a normal procalcitonin and with a right lower lobe pneumonia. We will discontinue the ceftriaxone and complete a short course of doxycycline. Negative blood cultures x24 hours. We will check on the final culture results. Lance Dyer MD
--- NOTE | 2017-01-13 13:34 | PN ---
DATE: SUBJECTIVE: The patient is sitting on the edge of the bed. He states that he is feeling more comfortable this morning. Nursing staff relates that there were no particular problems during the night. He states that he had seen Cardiology and Pulmonary. PHYSICAL EXAMINATION: VITAL SIGNS: Show a temperature of 97.3, his pulse is 55, his blood pressure is 127/73, his oxygen saturation is 95% on nasal cannula, and his respiratory rate is 20. NECK: Supple. LUNGS: Show diminished breath sounds at the bases. HEART: S1 and S2. ABDOMEN: Obese and soft. Positive bowel sounds. EXTREMITIES: Show positive edema. NEUROLOGICAL: He is alert and oriented x3. LABORATORY DATA: His chemistry shows sodium of 140, potassium of 3.4, chloride of 99, BUN is 68, and the creatinine is 2. Again the blood sugar is 121 and procalcitonin is 0.14. ASSESSMENT AND PLAN: He is receiving Lasix intravenous for decompensated congestive heart failure. He has been placed on intravenous antibiotics by Infectious Disease. There was a presumptive level of infiltrate. Review of Dr. Soler's note however, implies that it may be more congestive heart failure. He continues on his Lasix intravenous, Zaroxolyn, folic acid, iron sucrose, Eliquis, Doryx, and amiodarone. Rocephin has been discontinued. We will replete the patient's potassium and followup his labs. He has a history of dilated cardiomyopathy, defibrillator, congestive heart failure, chronic obstructive pulmonary disease, sleep apnea, alcohol use, gouty arthritis, bronchitis, and paroxysmal atrial fibrillation. He is being followed by Renal for his renal insufficiency and he is receiving IM therapy for his anemia. Qing Jiménez MD
[2017-01-13] MEDS ORDERED: Potassium Chloride 40 mEq/30 ml LIQ UD PO ONE (22:07)
[2017-01-14 06:26] LABS: BASO # 0.01 K/mm3 (0.0-2.0); BASO % 0.1 % (0.0-3.0); EOS # 0.1 (0.0-0.7); GRAN # 5.7 (1.4-6.5); GRAN % 70.5 % (50.0-68.0); HEMATOCRIT 33.1 % (42.0-52.0); LYMPH # 1.4 (1.2-3.4); LYMPH % 16.7 % (22.0-35.0); MEAN CELL VOLUME 90.2 fl (80.0-105.0); MEAN CORPUSCULAR HEMOGLOBIN 27.8 pg (25.0-35.0); MEAN CORPUSCULAR HGB CONC 30.8 g/dl (31.0-37.0); MEAN PLATELET VOLUME 9.1 fl (7.0-11.0); MONO % 11.7 % (1.0-6.0); RED CELL DISTRIBUTION WIDTH 19.2 % (11.5-14.5); WHITE BLOOD COUNT 8.1 10^3/ul (4.5-11.0)
[2017-01-14 06:47] LABS: CALCIUM 10.1 mg/dL (8.4-10.5); MAGNESIUM 1.8 mg/dL (1.7-2.2); POTASSIUM 3.8 mmol/L (3.6-5.0)
--- NOTE | 2017-01-14 07:05 | PN ---
SUBJECTIVE: The patient appears comfortable at rest. He is not short of breath. PHYSICAL EXAMINATION: VITAL SIGNS: Temperature is 98.0, pulse 53, respirations 19, blood pressure 126/69. Oxygen saturation on CPAP is 99%. HEENT: Normocephalic and atraumatic. NECK: No JVD. CARDIOVASCULAR: Systolic ejection murmur at the lower left sternal border. Positive S3 gallop. LUNGS: Decreased breath sounds with minimal crackles at the bases. Very minimal rhonchi. No wheezing. EXTREMITIES: Positive for edema. No cyanosis, no clubbing. Calves are nontender to palpation. GASTROINTESTINAL: Abdomen is soft, nontender and nondistended. Bowel sounds are positive. SKIN: No acute rash. NEUROLOGIC: Limited at the present time. IMPRESSION: 1. Acute congestive heart failure. 2. Dilated cardiomyopathy. 3. Chronic obstructive pulmonary disease. 4. Obstructive sleep apnea. 5. Renal insufficiency. PLAN: The patient appears comfortable this morning. He is not short of breath at rest. He does state to feeling better overall. On physical exam, there is no significant bronchospasm noted. In addition, there is no significant alveolar-arterial gradient. I will continue with the patient's CPAP at night. The patient is also on a metered-dose inhaler-for his chronic obstructive pulmonary disease-as an outpatient. The patient does admit to medication noncompliance. He also has a significant history of office followup noncompliance. I will start the patient on half-strength Xopenex nebulizer treatments this morning. I would continue with the treatment for congestive heart failure as per Cardiology. The patient remains on Lasix/afterload reduction. The patient also remains on antibiotic therapy. There are no temperatures noted. There is no leukocytosis. The procalcitonin is negative. I will order a repeat chest x-ray-for tomorrow-for comparison. Clinical status of the patient is certainly improved-compared to the initial presentation. However, the overall status/prognosis for this patient does remain guarded. I will discuss the above with Dr. Jiménez. Elie Young MD [facility]
[2017-01-14] MEDS: Levalbuterol 0.63 MG/3 ML Inhal Soln UD IH SCH ×3 (08:06→21:20)
--- NOTE | 2017-01-14 08:20 | CP.PCM.PN ---
Subjective - Date & Time of Evaluation Date of Evaluation: 01/14/17 Time of Evaluation: 07:00 - Subjective Subjective: Stable on 2R. He feels better and slept better with nasal CPAP. Less edema and good urine outputs reported. No CP. + ambulations yesterday reported. V/S noted. Sinus Marky., 53 - 63 BPM recorded. PE: Lungs: few rhonchi Cor.: S1S2 Abd: obese, benign Ext.: milder edema now Neuro.: alert I+O = 1480/4500 Labs noted. Cr.= 2.0, K+= 3.8, Mg.++= 1.8 BC x2 NG at 48 hrs. Objective - Vital Signs/Intake and Output Vital Signs (last 24 hours): Temp Pulse Resp BP Pulse Ox 98 F 53 L 19 126/69 99 01/14/17 06:00 01/14/17 06:00 01/14/17 06:00 01/14/17 06:00 01/14/17 06:00 Intake and Output: 01/14/17 01/14/17 06:59 18:59 Intake Total 220 Output Total 1400 Balance -1180 - Medications Medications: Current Medications Amiodarone HCl (Cordarone) 100 mg PO BID [facility] Last Admin: 01/13/17 17:36 Dose: 100 mg Apixaban (Eliquis) 5 mg PO BID [facility] PRN Reason: Protocol Last Admin: 01/13/17 17:39 Dose: 5 mg Atorvastatin Calcium (Lipitor) 80 mg PO DIN [facility] Last Admin: 01/13/17 17:39 Dose: 80 mg Carvedilol (Coreg) 12.5 mg PO BID [facility] Last Admin: 01/13/17 17:38 Dose: 12.5 mg Chlordiazepoxide (Librium) 25 mg PO TID [facility] PRN Reason: Protocol Last Admin: 01/13/17 17:39 Dose: 25 mg Doxycycline Hyclate (Doryx) 100 mg PO Q12 [facility] PRN Reason: Protocol Last Admin: 01/13/17 21:33 Dose: 100 mg Folic Acid (Folic Acid) 1 mg PO DAILY [facility] Last Admin: 01/13/17 09:34 Dose: 1 mg Furosemide (Lasix) 80 mg IVP Q12 [facility] Last Admin: 01/13/17 21:33 Dose: 80 mg Iron Sucrose 200 mg/ Sodium (Chloride) 110 mls @ 110 mls/hr IVPB DAILY [facility] Stop: 01/15/17 10:59 Last Admin: 01/13/17 09:37 Dose: 110 mls/hr Levalbuterol HCl (Xopenex) 0.63 mg IH TIDRESP [facility] Last Admin: 01/14/17 08:06 Dose: Not Given Metolazone (Zaroxolyn) 2.5 mg PO Q12 [facility] Last Admin: 01/13/17 21:33 Dose: 2.5 mg Midodrine (Proamatine) 5 mg PO TID [facility] Last Admin: 01/13/17 17:40 Dose: 5 mg - Labs Labs: 01/14/17 05:30 01/14/17 05:30 PT 18.7 SECONDS (9.4-12.5) H 01/11/17 11:35 INR 1.68 (0.93-1.08) H 01/11/17 11:35 APTT 33.0 Seconds (25.1-36.5) 01/11/17 11:35 Assessment and Plan - Assessment and Plan (Free Text) Assessment: Dyspnea/CP/Edema Ethanolism/Dietary non-compliance CHF CCM PAF Acute on chronic kidney disease NSVT ICD CAD COPD DENISE Diverticulosis GERD Plan: Continue diuresis. Would decrease metolazone to 2.5/day Continue Coreg to 12.5 BID for now OOB as jeannette AB: As per Pulm. and Dr. Jiménez Monitor: I/O, Renal Fx., Labs, sats., Tel., etc. D/C All ETOH Use d/w with him for the Nth time! He needs assistance with this. BOB diet. D/W him again. ICD F/U: ongoing.
[2017-01-14] MEDS: Potassium Chloride 20 mEq ER Tab PO SCH ×2 (09:05→18:05)
[2017-01-14] MEDS: metOLazone 2.5 MG TAB PO SCH (09:06)
--- NOTE | 2017-01-14 11:09 | PN ---
DATE: SUBJECTIVE: A 51-year-old male sitting in the chair on Telemetry this morning. States that he is more comfortable this morning. Denies any chest pain. Nursing staff relates that there were particular problems during the night. PHYSICAL EXAMINATION: GENERAL: He is alert and oriented x3. VITAL SIGNS: Temperature 98, pulse 53, blood pressure 126/69, and respiratory rate 19. He uses a CPAP unit at night. NECK: Supple. LUNGS: Show diminished breath sounds at the bases. HEART: S1 and S2. ABDOMEN: Obese and soft with positive bowel sounds. EXTREMITIES: Show edema. LABORATORY DATA: Show WBC of 8.1, RBC 3.67, hemoglobin 10.2, hematocrit 33.1, and platelet count 182. Chemistry shows a sodium of 142, potassium 3.8, chloride 100, BUN 79, and creatinine is 2. His calcium is 10.1 and his magnesium is 1.8. MEDICATIONS: Currently, the patient is on amiodarone 100 mg b.i.d., Coreg 12.5 mg b.i.d., doxycycline 100 mg q.12 hours, Eliquis 5 mg b.i.d., folic acid 1 mg daily, he is on IV Venofer, potassium chloride 20 mEq b.i.d., Lasix 80 mg b.i.d., Librium 25 mg t.i.d., Lipitor 80 mg at bedtime, ProAmatine 5 mg t.i.d., Xopenex treatments, and metolazone 2.5 mg daily. The notes of Cardiology, Pulmonary, and ID have been reviewed. ASSESSMENT AND PLAN: The patient is a 51-year-old admitted because of decompensated congestive heart failure and found to have bronchitis. He has underlying chronic obstructive pulmonary disease with sleep apnea. He has chronic renal insufficiency, history of cardiomyopathy dilated, history of paroxysmal atrial fibrillation, history of gastritis, gastroesophageal reflux disease, history of periportal adenopathy, history of alcohol use, and history of gouty arthritis. Continue current diuresis and iron replacement therapy. A repeat chest x-ray has been scheduled by Pulmonary. Discussion had been held with the patient regarding his current medications, indication for the medications, and his current medical status. He has been addressed also about his compliance issues. He has been encouraged not to drink. He is encouraged to ambulate. We will follow up the patient's labs. Input from the individual consultants is appreciated. Qing Jiménez MD
--- NOTE | 2017-01-14 12:30 | CP.PCM.PN ---
Subjective - Date & Time of Evaluation Date of Evaluation: 01/14/17 Time of Evaluation: 10:35 - Subjective Subjective: Comfortable on a chair, not in distress, afebrile, still with cough but better. Objective - Vital Signs/Intake and Output Vital Signs (last 24 hours): Temp Pulse Resp BP Pulse Ox 98 F 54 L 18 121/73 99 01/14/17 06:00 01/14/17 09:06 01/14/17 08:17 01/14/17 09:07 01/14/17 08:17 Intake and Output: 01/14/17 01/14/17 06:59 18:59 Intake Total 220 Output Total 1400 Balance -1180 - Medications Medications: Current Medications Amiodarone HCl (Cordarone) 100 mg PO BID [facility] Last Admin: 01/14/17 09:05 Dose: 100 mg Apixaban (Eliquis) 5 mg PO BID [facility] PRN Reason: Protocol Last Admin: 01/14/17 09:05 Dose: 5 mg Atorvastatin Calcium (Lipitor) 80 mg PO DIN [facility] Last Admin: 01/13/17 17:39 Dose: 80 mg Carvedilol (Coreg) 12.5 mg PO BID [facility] Last Admin: 01/14/17 09:06 Dose: 12.5 mg Chlordiazepoxide (Librium) 25 mg PO TID [facility] PRN Reason: Protocol Last Admin: 01/13/17 17:39 Dose: 25 mg Doxycycline Hyclate (Doryx) 100 mg PO Q12 [facility] PRN Reason: Protocol Last Admin: 01/14/17 09:05 Dose: 100 mg Folic Acid (Folic Acid) 1 mg PO DAILY [facility] Last Admin: 01/14/17 09:07 Dose: 1 mg Furosemide (Lasix) 80 mg IVP Q12 [facility] Last Admin: 01/14/17 09:07 Dose: 80 mg Iron Sucrose 200 mg/ Sodium (Chloride) 110 mls @ 110 mls/hr IVPB DAILY [facility] Stop: 01/15/17 10:59 Last Admin: 01/13/17 09:37 Dose: 110 mls/hr Levalbuterol HCl (Xopenex) 0.63 mg IH TIDRESP [facility] Last Admin: 01/14/17 08:06 Dose: Not Given Metolazone (Zaroxolyn) 2.5 mg PO DAILY [facility] Last Admin: 01/14/17 09:06 Dose: 2.5 mg Midodrine (Proamatine) 5 mg PO TID [facility] Last Admin: 01/14/17 09:06 Dose: 5 mg Potassium Chloride (K-Dur 20 Meq Er Tab) 20 meq PO BID [facility] Last Admin: 01/14/17 09:05 Dose: 20 meq - Labs Labs: 01/14/17 05:30 01/14/17 05:30 PT 18.7 SECONDS (9.4-12.5) H 01/11/17 11:35 INR 1.68 (0.93-1.08) H 01/11/17 11:35 APTT 33.0 Seconds (25.1-36.5) 01/11/17 11:35 - Constitutional Appears: Non-toxic - Head Exam Head Exam: NORMAL INSPECTION - ENT Exam ENT Exam: Mucous Membranes Moist - Neck Exam Neck Exam: absent: Lymphadenopathy, Meningismus - Respiratory Exam Respiratory Exam: Decreased Breath Sounds - Cardiovascular Exam Cardiovascular Exam: +S1, +S2 - GI/Abdominal Exam GI & Abdominal Exam: Soft. absent: Tenderness Assessment and Plan - Assessment and Plan (Free Text) Plan: Assessment R/O right lower lobe atypical community-acquired pneumonia on top of acute on chronic CHF COPD obstrcutvie sleep apnea obesity history of diverticulitis GERD S/P AICD placement Plan Will continue Doxycycline to complete a 5-7 day course (day 3 today) will monitor clinically
--- NOTE | 2017-01-15 01:32 | PN ---
DATE: 01/14/2017 SUBJECTIVE: The patient is seen sitting in chair. He is awake, he is alert, he is comfortable. He denies any pain. He denies any shortness of breath. He still has lower extremity edema but it is much improved. PHYSICAL EXAMINATION GENERAL: Obese, middle-aged male, sitting in chair. VITAL SIGNS: Blood pressure 112/61, heart rate 56, respiratory rate 20 and temperature 97.9. HEENT: Normocephalic, atraumatic, positive pallor. NECK: Supple, no JVD. LUNGS: Bilateral equal entry, bilateral rhonchi, no rales. CARDIAC: S1, S2, regular rate and rhythm, no murmur, no rub. ABDOMEN: Obese, distended, soft, nontender, bowel sounds present. EXTREMITIES: 2+ pitting edema of the lower extremities. INTAKE AND OUTPUT: 1480/4500. LABORATORY DATA: WBC 8, hemoglobin 10, hematocrit 33, platelets 182. Sodium 142, potassium 3.8, chloride 100, CO2 of 32, BUN 79, creatinine 2.0, glucose 98, calcium 10.1, magnesium 1.8 and albumin 3.9. Blood cultures, no growth. CURRENT MEDICATIONS: Cordarone 100 b.i.d., Coreg 12.5 b.i.d., doxycycline 100 q.12, Eliquis 5 b.i.d., folic acid, Venofer, potassium 20 mEq b.i.d., Lasix 80 IV q.12, Librium, Lipitor, ProAmatine, Xopenex and Zaroxolyn 2.5 daily. ASSESSMENT 1. Cardiorenal syndrome. 2. Congestive heart failure, right heart failure. 3. Stable chronic kidney disease stage III. 4. Morbid obesity. 5. Alcohol use, alcoholic cardiomyopathy?. PLAN 1. Continue to diurese. 2. Keep O's greater than I's. 3. Replace potassium as needed. 4. Complete IV iron. Amina Martin MD
[2017-01-15 07:24] LABS: CALCIUM 10.3 mg/dL (8.4-10.5); MAGNESIUM 1.7 mg/dL (1.7-2.2); POTASSIUM 3.4 mmol/L (3.6-5.0)
[2017-01-15] MEDS: Levalbuterol 0.63 MG/3 ML Inhal Soln UD IH SCH ×3 (07:28→19:42)
--- NOTE | 2017-01-15 08:44 | PN ---
PULMONARY NOTE DATE: 01/15/2017 SUBJECTIVE: The patient appears comfortable this morning. He is not short of breath at rest. PHYSICAL EXAMINATION VITAL SIGNS: Temperature is 98.5, pulse 58, respirations 14, blood pressure 120/73. Oxygen saturation on CPAP is 99%. HEENT: Normocephalic, atraumatic. No JVD. CARDIOVASCULAR: Systolic ejection murmur at the lower left sternal border. Positive S3 gallop. LUNGS: Decreased breath sounds at the bases with minimal crackles. No rhonchi or wheezing this morning. EXTREMITIES: Positive for edema. No cyanosis, no clubbing. Calves are nontender to palpation. GI: Abdomen is soft, nontender and nondistended. Bowel sounds are positive. SKIN: No acute rash. NEUROLOGIC: Exam limited at the present time. IMPRESSION: 1. Acute congestive heart failure. 2. Dilated cardiomyopathy. 3. Chronic obstructive pulmonary disease. 4. Obstructive sleep apnea. 5. Renal insufficiency. PLAN: The patient appears comfortable this morning. He is not short of breath at rest. He does state to feeling much better overall. On physical exam, there is clearing of the rhonchi (heard yesterday on physical exam). In addition, the oxygen saturation is now 99%. I will continue the current nebulizer treatments for now. I would continue with the treatment for congestive heart failure as per cardiology. Input by Dr. Vázquez is noted. I have also ordered a repeat chest x-ray for this morning. I will check that when feasible. Clinical status of the patient is certainly improved - compared to the initial presentation. I will discuss the above with Dr. Jiménez. Elie Young MD MTDJuly
[2017-01-15] MEDS: Potassium Chloride 20 mEq ER Tab PO SCH ×2 (10:17→17:16)
[2017-01-15] MEDS: metOLazone 2.5 MG TAB PO SCH (10:40)
--- NOTE | 2017-01-15 11:19 | CP.PCM.PN ---
Subjective - Date & Time of Evaluation Date of Evaluation: 01/15/17 Time of Evaluation: 09:30 - Subjective Subjective: Patient is feeling better, breathing better, less cough, not much phlegm, no fevers overnight, no diarrhea, no nausea or vomiting. Objective - Vital Signs/Intake and Output Vital Signs (last 24 hours): Temp Pulse Resp BP Pulse Ox 98.5 F 58 L 14 120/73 99 01/15/17 05:37 01/15/17 05:37 01/15/17 05:37 01/15/17 05:37 01/15/17 05:37 Intake and Output: 01/14/17 01/15/17 18:59 06:59 Intake Total 940 Output Total 2300 Balance -1360 - Medications Medications: Current Medications Amiodarone HCl (Cordarone) 100 mg PO BID [facility] Last Admin: 01/14/17 18:04 Dose: 100 mg Apixaban (Eliquis) 5 mg PO BID [facility] PRN Reason: Protocol Last Admin: 01/14/17 18:04 Dose: 5 mg Atorvastatin Calcium (Lipitor) 80 mg PO DIN [facility] Last Admin: 01/14/17 18:03 Dose: 80 mg Carvedilol (Coreg) 12.5 mg PO BID [facility] Last Admin: 01/14/17 18:04 Dose: 12.5 mg Chlordiazepoxide (Librium) 25 mg PO TID [facility] PRN Reason: Protocol Last Admin: 01/14/17 18:04 Dose: 25 mg Doxycycline Hyclate (Doryx) 100 mg PO Q12 [facility] PRN Reason: Protocol Last Admin: 01/14/17 21:24 Dose: 100 mg Folic Acid (Folic Acid) 1 mg PO DAILY [facility] Last Admin: 01/14/17 09:07 Dose: 1 mg Furosemide (Lasix) 80 mg IVP Q12 [facility] Last Admin: 01/14/17 21:24 Dose: 80 mg Iron Sucrose 200 mg/ Sodium (Chloride) 110 mls @ 110 mls/hr IVPB DAILY [facility] Stop: 01/15/17 10:59 Last Admin: 01/14/17 10:25 Dose: 110 mls/hr Levalbuterol HCl (Xopenex) 0.63 mg IH TIDRESP [facility] Last Admin: 01/14/17 21:20 Dose: 0.63 mg Metolazone (Zaroxolyn) 2.5 mg PO DAILY [facility] Last Admin: 01/14/17 09:06 Dose: 2.5 mg Midodrine (Proamatine) 5 mg PO TID [facility] Last Admin: 01/14/17 18:05 Dose: 5 mg Potassium Chloride (K-Dur 20 Meq Er Tab) 20 meq PO BID [facility] Last Admin: 01/14/17 18:05 Dose: 20 meq - Labs Labs: 01/14/17 05:30 01/14/17 05:30 PT 18.7 SECONDS (9.4-12.5) H 01/11/17 11:35 INR 1.68 (0.93-1.08) H 01/11/17 11:35 APTT 33.0 Seconds (25.1-36.5) 01/11/17 11:35 - Constitutional Appears: Non-toxic, No Acute Distress - Head Exam Head Exam: NORMAL INSPECTION - ENT Exam ENT Exam: Mucous Membranes Moist - Neck Exam Neck Exam: absent: Lymphadenopathy, Meningismus - Respiratory Exam Respiratory Exam: Decreased Breath Sounds, Wheezes (expiratory, mild) - Cardiovascular Exam Cardiovascular Exam: +S1, +S2 - GI/Abdominal Exam GI & Abdominal Exam: Soft. absent: Tenderness Assessment and Plan - Assessment and Plan (Free Text) Plan: Assessment R/O right lower lobe atypical community-acquired pneumonia on top of acute on chronic CHF, clinically improving COPD obstrcutvie sleep apnea obesity history of diverticulitis GERD S/P AICD placement Plan Will continue Doxycycline to complete a 5-7 day course (day 4 today) will continue to monitor clinically
--- NOTE | 2017-01-15 12:34 | PN ---
DATE: SUBJECTIVE: A 51-year-old male resting comfortably on telemetry. Nursing staff relates there are no particular problems during the night. PHYSICAL EXAMINATION: VITAL SIGNS: His temperature is 98.5, his blood pressure is 120/73, his pulse is 58, and oxygen sat is 99%. LABORATORY DATA: Shows chemistry with sodium of 142, potassium of 3.4, chloride of 96, BUN is 78, creatinine is 1.9, his calcium is 10.3, and his magnesium is 1.7. ASSESSMENT AND PLAN: The patient is receiving IV diuresis for volume overload state for decompensated congestive heart failure. He has underlying cardiomyopathy. He is also being treated for bronchitis. A repeat chest x-ray performed this morning verbally reported by Dr. Young, hydraulic auto jack mechanic, did show improvement. We will discuss with Cardiology and Renal his current medication and medical management to see as to whether any other medications need to be adjusted or changed. All the clinical findings to date have been discussed fully with the patient. He continues to use a CPAP machine for his sleep apnea and has been explained the need of inhaler and degree of compliance with not only his medications and his inhaler, but at the same time to stop his use of alcohol. He is on potassium repletion and we will follow up his chemistries. Qing Jiménez MD
--- NOTE | 2017-01-15 13:42 | RAD ---
HISTORY: follow up COMPARISON: 01/11/2017 TECHNIQUE: Chest PA and lateral FINDINGS: LUNGS: No active pulmonary disease. PLEURA: No significant pleural effusion identified. No pneumothorax apparent. CARDIOVASCULAR: Mild cardiomegaly. AICD. No congestive change. OSSEOUS STRUCTURES: No significant abnormalities. VISUALIZED UPPER ABDOMEN: Normal. OTHER FINDINGS: None. IMPRESSION: No active disease.
--- NOTE | 2017-01-15 14:19 | PN ---
DATE: SUBJECTIVE: The patient is currently seen ambulating the floors of telemetry. He appears to be comfortable. He is not complaining of any chest pain, no shortness of breath. He understands that his BUN has risen secondary to diuretic therapy. His lower extremity edema has significantly improved. He had done a chest x-ray earlier today. His chest x-ray report is pending. MEDICATIONS: Medication list reviewed. The patient is currently on Aldactone, Cordarone, Coreg, Doryx, Eliquis, folic acid, K tabs, Lasix IV 80 twice a day, Librium, Lipitor, Xopenex, and Zaroxolyn. OBJECTIVE: INTAKE AND OUTPUT: Intake is 940, output is 2300. VITAL SIGNS: His weight is down from a high of 234 pounds on admission down to 224 pounds and 10 ounces. Blood pressure 120/73, temperature 98.5, and pulse is 58 with respiratory rate of 14. HEENT: Shows him to be normocephalic, atraumatic. Conjunctivae are pale. Sclerae are nonicteric. NECK: Supple with no neck vein distention. CHEST: Clear to auscultation and percussion. No rales, no rhonchi, no wheezing. CARDIOVASCULAR: Shows a regular rate and rhythm with MR/TR. No S3. No S4. No rub. ABDOMEN: Soft. Minimal distention. Moderately obese. Bowel sounds are normal. No rebound or guarding. EXTREMITIES: Show 1+ pitting edema of his lower extremity and ankle area bilaterally. No cyanosis or clubbing. LABORATORY DATA AND IMAGING STUDIES: Repeat chest x-ray is pending. Labs: CBC, white blood cell count from yesterday 8.1 and hemoglobin 10.2 with platelet count of 182,000. Chemistry show a sodium of 142, potassium slightly low at 3.4, chloride 96 with CO2 of 37, BUN is 78 stable from yesterday, creatinine is 1.9 slightly lower than yesterday's 2.0, glucose is 99, calcium is 10.3, and magnesium is 1.7. Albumin level is 3.9. Abdominal ultrasound done on the spring showed normal kidneys. His urinalysis on admission was negative. Microbiology blood cultures are negative at 4 days. ASSESSMENT: 1. Prerenal azotemia in the setting of chronic kidney disease stage III. The patient's baseline BUN is in the upper 20 to low 30 range with the baseline creatinine in the 1.7-1.9 range. The patient is maintained on diuretics all the time because of his cardiorenal syndrome. The patient has right-sided heart failure. Previous echocardiogram showed an ejection fraction of 54% with a dilated left ventricle. 2. Possible alcoholic cardiomyopathy. 3. Anemia in part secondary to chronic kidney disease. 4. Obesity. The patient has a 10-pound weight loss with diuretics likely all water weight has been removed during hospitalization. 5. History of congestive heart failure with lower extremity edema: The patient is presently on combination diuretic therapy, both oral and IV. I believe that in the next 24 hours, he could transition over to oral antibiotic therapy as his edema is significantly improved and he can be maintained on oral Zaroxolyn together with oral Lasix therapy. 6. Borderline mild hypokalemia: Agree with potassium supplements. Agree with Aldactone. PLAN: 1.. Continue to monitor accurate I's and O's and daily weights. 2. Continue to monitor labs on a daily basis. 3. In light of his anemia, I will obtain iron saturation levels, B12, and folate level. We will supplement accordingly. P.r.n. Aranesp if hemoglobin stays below 10. 4. Check results of today's chest x-ray. 5. Discussed with Dr. Jiménez in detail. Blair Hernandez MD
--- NOTE | 2017-01-15 16:11 | PN ---
DATE: 01/15/2017 SUBJECTIVE: Patient was sitting in a chair, on telemetry. He feels significantly better. His ankle edema has improved but remains. His dyspnea has improved as well. His blood pressure has remained stable. His current medications include amiodarone 100 mg b.i.d., Carvedilol 12.5 mg b.i.d., doxycycline, Eliquis 5 mg b.i.d., folic acid, potassium supplement b.i.d., Lasix 80 mg IV every 12 hours, Librium 25 mg t.i.d., Lipitor 80 mg daily, ProAmatine 5 mg t.i.d., Xopenex and Zaroxolyn 2.5 mg daily. OBJECTIVE: GENERAL: He is an overweight middle aged man. VITAL SIGNS: His blood pressure is 120/70, pulse of 56 in sinus, respirations 16. He is currently afebrile. HEENT: No JVD. CHEST: Bibasilar rales. HEART: PMI displaced laterally with soft tones noted and systolic murmur to the left sternal border and apex. ABDOMEN: Soft, nontender with normoactive bowel sounds. EXTREMITIES: 1+ ankle edema. DIAGNOSTIC DATA: Potassium is 3.4. BUN and creatinine are 78 and 1.9. Intake and output were 940 and 2300 respectively. IMPRESSION: 1. Decompensated congestive heart failure, acute on chronic, predominantly systolic, clinically improved. 2. History of congestive cardiomyopathy. 3. History of alcohol abuse. 4. Paroxysmal atrial fibrillation. 5. Acute on chronic renal insufficiency. 6. Ventricular tachycardia, status post ICD implant. 7. History of chronic obstructive pulmonary disease and coronary artery disease. 8. History of sleep apnea. RECOMMENDATIONS: 1. IV diuretics will be continued for an additional 24 hours and then switch to oral administration. Trial of spironolactone can be added to his other diuretic regimen with careful monitoring of his sodium as the risk of hyponatremia may increase in the setting of heart failure in addition renal insufficiency can be adversely affected. 2. ProAmatine can be discontinued at this time as volume expansion is not advisable for chronic use. A trial of Entresto as an outpatient can be considered if tolerated. Once adequately diuresed, resumption of low dose angiotensin receptor daisy or TEENA inhibitor can be considered. The need for strict alcohol abstinence was discussed with him as well. We will follow as needed. Brigido Silva MD
[2017-01-16 06:01] LABS: BASO # 0.03 K/mm3 (0.0-2.0); BASO % 0.3 % (0.0-3.0); EOS # 0.3 (0.0-0.7); EOS % 3.3 % (1.5-5.0); GRAN # 5.2 (1.4-6.5); HEMATOCRIT 36.6 % (42.0-52.0); LYMPH # 1.4 (1.2-3.4); LYMPH % 16.6 % (22.0-35.0); MEAN CELL VOLUME 89.3 fl (80.0-105.0); MEAN CORPUSCULAR HEMOGLOBIN 27.3 pg (25.0-35.0); MEAN CORPUSCULAR HGB CONC 30.6 g/dl (31.0-37.0); MEAN PLATELET VOLUME 8.8 fl (7.0-11.0); MONO # 1.7 (0.1-0.6); MONO % 19.8 % (1.0-6.0); RED CELL DISTRIBUTION WIDTH 19.2 % (11.5-14.5); WHITE BLOOD COUNT 8.7 10^3/ul (4.5-11.0)
[2017-01-16 07:03] LABS: CALCIUM 9.9 mg/dL (8.4-10.5); CHLORIDE 94 mmol/L (98-107); GFR AFRICAN-AMERICAN 48; POTASSIUM 3.6 mmol/L (3.6-5.0); SODIUM 140 mmol/L (132-148)
[2017-01-16 07:35] LABS: THYROID STIMULATING HORMONE 5.1 mIU/mL (0.46-4.68)
[2017-01-16 07:36] LABS: T4 7.6 ug/dL (5.5-11.0)
[2017-01-16 07:54] VITALS: RESP 16; TEMP 97.6; O2SAT 98
[2017-01-16 07:56] LABS: IRON 132 ug/dL (45-180)
[2017-01-16] MEDS: Levalbuterol 0.63 MG/3 ML Inhal Soln UD IH SCH (08:03)
[2017-01-16 08:24] LABS: BLOOD UREA NITROGEN 71 mg/dL (7-21); CARBON DIOXIDE 35 mmol/L (21-33); GLUCOSE,RANDOM 108 mg/dL (70-110); MAGNESIUM 1.7 mg/dL (1.7-2.2); PHOSPHOROUS 3.6 mg/dL (2.5-4.5)
--- NOTE | 2017-01-16 09:00 | PN ---
PULMONARY PROGRESS NOTE SUBJECTIVE: The patient appears very comfortable this morning. He is not short of breath at rest. PHYSICAL EXAMINATION: VITAL SIGNS: Temperature is 97.9, pulse is 57, respirations 16, blood pressure 107/61. Oxygen saturation on nasal cannula is 99%. HEENT: Normocephalic, atraumatic. NECK: No JVD. CARDIOVASCULAR: Systolic ejection murmur at the lower left sternal border. Positive S3 gallop. LUNGS: Decreased crackles/improved breath sounds at the bases. No rhonchi. No wheezing. EXTREMITIES: Less edema. No cyanosis, no clubbing. Calves are nontender to palpation. GI: Abdomen is soft, nontender, nondistended. Bowel sounds are positive. SKIN: No acute rash. NEUROLOGIC: Limited at the present time. IMPRESSION: 1. Acute congestive heart failure. 2. Dilated cardiomyopathy. 3. Chronic obstructive pulmonary disease. 4. Obstructive sleep apnea. 5. Renal insufficiency. PLAN: The patient appears very comfortable this morning. He is not short of breath at rest. He does state to feeling much, much better overall. On physical exam, his bronchospasm has resolved. In addition, there is no significant alveolar-arterial gradient. I will continue with the current nebulizer treatments for now. The patient also remains on antibiotic therapy. There are no temperatures noted. There is no leukocytosis. I would continue with the treatment for congestive heart failure as per Cardiology. Input by Dr. Silva is noted. I will also continue with the patient's CPAP at night. Clinical status of the patient is significantly improved. The patient also had a chest x-ray yesterday. The chest x-ray yesterday showed definite improvement--- with a decrease in the previously seen pulmonary vascular congestion. I did discuss the case with Dr. Jiménez yesterday. I will also discuss the case with him today. Elie Young MD MTDJuly
[2017-01-16] MEDS: metOLazone 2.5 MG TAB PO SCH (10:16)
[2017-01-16] MEDS: Potassium Chloride 20 mEq ER Tab PO SCH (10:18)
[2017-01-16 10:23] VITALS: BP 113/67; PULSE 62
--- NOTE | 2017-01-16 10:46 | CP.PCM.PN ---
Subjective - Date & Time of Evaluation Date of Evaluation: 01/16/17 Time of Evaluation: 09:50 - Subjective Subjective: Comfortable on a chair, cough and breathing have improved, no fevers overnight, no diarrhea. Objective - Vital Signs/Intake and Output Vital Signs (last 24 hours): Temp Pulse Resp BP Pulse Ox 97.9 F 57 L 18 107/61 99 01/15/17 18:00 01/15/17 22:00 01/15/17 18:00 01/16/17 06:21 01/15/17 05:37 Intake and Output: 01/15/17 01/16/17 18:59 06:59 Intake Total 780 Output Total 900 Balance -120 - Medications Medications: Current Medications Amiodarone HCl (Cordarone) 100 mg PO BID [facility] Last Admin: 01/15/17 17:17 Dose: 100 mg Apixaban (Eliquis) 5 mg PO BID [facility] PRN Reason: Protocol Last Admin: 01/15/17 17:16 Dose: 5 mg Atorvastatin Calcium (Lipitor) 80 mg PO DIN [facility] Last Admin: 01/15/17 17:16 Dose: 80 mg Carvedilol (Coreg) 12.5 mg PO BID [facility] Last Admin: 01/15/17 17:16 Dose: 12.5 mg Chlordiazepoxide (Librium) 25 mg PO TID [facility] PRN Reason: Protocol Last Admin: 01/15/17 17:16 Dose: 25 mg Doxycycline Hyclate (Doryx) 100 mg PO Q12 [facility] PRN Reason: Protocol Last Admin: 01/15/17 22:04 Dose: 100 mg Folic Acid (Folic Acid) 1 mg PO DAILY [facility] Last Admin: 01/15/17 10:19 Dose: 1 mg Furosemide (Lasix) 80 mg IVP 0600,1800 [facility] Last Admin: 01/16/17 06:21 Dose: 80 mg Levalbuterol HCl (Xopenex) 0.63 mg IH TIDRESP [facility] Last Admin: 01/15/17 19:42 Dose: 0.63 mg Metolazone (Zaroxolyn) 2.5 mg PO DAILY [facility] Last Admin: 01/15/17 10:40 Dose: 2.5 mg Potassium Chloride (K-Dur 20 Meq Er Tab) 20 meq PO BID [facility] Last Admin: 01/15/17 17:16 Dose: 20 meq Spironolactone (Aldactone) 25 mg PO BID [facility] Last Admin: 01/15/17 17:17 Dose: 25 mg - Labs Labs: 01/16/17 05:30 01/15/17 06:00 PT 18.7 SECONDS (9.4-12.5) H 01/11/17 11:35 INR 1.68 (0.93-1.08) H 01/11/17 11:35 APTT 33.0 Seconds (25.1-36.5) 01/11/17 11:35 - Constitutional Appears: Non-toxic - Head Exam Head Exam: NORMAL INSPECTION - ENT Exam ENT Exam: Mucous Membranes Moist - Neck Exam Neck Exam: absent: Lymphadenopathy, Meningismus - Respiratory Exam Respiratory Exam: Decreased Breath Sounds - Cardiovascular Exam Cardiovascular Exam: +S1, +S2 - GI/Abdominal Exam GI & Abdominal Exam: Soft. absent: Tenderness Assessment and Plan - Assessment and Plan (Free Text) Plan: Assessment R/O right lower lobe atypical community-acquired pneumonia on top of acute on chronic CHF, clinically improving COPD obstrcutvie sleep apnea obesity history of diverticulitis GERD S/P AICD placement Plan Will continue Doxycycline to complete a 5-7 day course (day 5 today)
--- NOTE | 2017-01-16 12:56 | PN ---
DATE: 01/16/2017 SUBJECTIVE: The patient is seen, sitting in a chair on telemetry. He is currently comfortable. His leg edema has improved. He denies any dyspnea with exertion. He is tolerating his current medications. His blood pressure remains stable. PHYSICAL EXAMINATION: GENERAL: He is overweight middle-aged man. VITAL SIGNS: His blood pressure is 112/70, pulse is 62 in sinus, respirations are 14. He is afebrile. HEENT: No JVD. CHEST: Few scattered rhonchi but rales heard. HEART: PMI displaced laterally with soft tones noted. ABDOMEN: Soft, obese and nontender with normoactive bowel sounds. EXTREMITIES: Trace ankle edema. MEDICATIONS: His current medications include Aldactone 25 mg daily, amiodarone 100 mg b.i.d., carvedilol 12.5 mg b.i.d., doxycycline, Eliquis 5 mg b.i.d., folic acid, potassium 20 mEq b.i.d., Lasix 80 mg IV b.i.d., Librium 25 mg t.i.d., Lipitor 80 mg daily, Xopenex and Zaroxolyn 2.5 mg daily. DIAGNOSTIC DATA: Potassium is 3.6, BUN and creatinine are 71 and 1.8. Hemoglobin and hematocrit 11.2 and 36.6, white count of 8.7, platelet count is 189,000. TSH is 5.1. IMPRESSION: 1. Decompensated congestive heart failure, acute on chronic, predominantly systolic, clinically improved. 2. Congestive cardiomyopathy. 3. History of ventricular tachycardia, status post implantable cardioverter-defibrillator implant. 4. History of alcohol abuse. 5. Paroxysmal atrial fibrillation. 6. [id number] renal insufficiency, somewhat exacerbated due to recent intensified diuretic use. 7. History of chronic obstructive pulmonary disease and coronary artery disease. RECOMMENDATIONS: From cardiac standpoint, he appears optimized and stable for discharge home at this time. Lasix will be switched to 40 mg b.i.d. orally. Aldactone will be continued for now. Zaroxolyn will be discontinued. A trial of TEENA inhibitor or angiotensin receptor daisy as an outpatient can be considered. A trial of Entresto could also be tried if tolerated. The need for alcohol abstinence was discussed in detail with him. All the above was discussed with the nursing staff as well as Dr. Martin. Brigido Silva MD
[2017-01-16 13:02] LABS: FOLATE > 20.0 ng/mL
--- NOTE | 2017-01-16 13:19 | PN ---
DATE: 01/16/2017 SUBJECTIVE: The patient is seen walking in the room. He is awake, he is alert. He denies any shortness of breath. He denies any chest pain at present. PHYSICAL EXAMINATION: GENERAL: Obese and elderly male walking in the room. VITAL SIGNS: Blood pressure 115/67, heart rate 62, respiratory rate 18, temperature 97.6. HEENT: Normocephalic, atraumatic, positive pallor. NECK: Supple, no JVD. LUNGS: Bilateral equal air entry, bilateral equal expansion, minimal rales. CARDIAC: S1, S2. Regular rate and rhythm, no murmur, no rub. ABDOMEN: Obese, distended, soft, nontender, bowel sounds present. EXTREMITIES: 1+ pitting edema of the lower extremities. INTAKE AND OUTPUT: 780/900. LABORATORY DATA: WBC 8.7, hemoglobin 11.2, hematocrit 36.6, platelets 189. Sodium 140, potassium 3.6, chloride 94, CO2 35, BUN 71, creatinine 1.8, glucose 108, calcium 9.9, phosphorus 3.6, magnesium 1.7. CURRENT MEDICATIONS: Aldactone 25 b.i.d., Cordarone 100 b.i.d., Coreg 12.5 b.i.d., doxycycline 100 q. 12, Eliquis 5 b.i.d., folic acid 1 mg daily, potassium 20 mEq b.i.d., Lasix 80 IV q. 12 h., Librium 25 t.i.d., Lipitor 80, Xopenex,Zaroxolyn 2.5 daily. ASSESSMENT/PLAN: 1. Dilated cardiomyopathy, congestive heart failure, automatic implantable cardioverter-defibrillator. 2. Chronic kidney disease stage III, cardiorenal syndrome. 3. Morbid obesity. 4. Alcohol abuse. 5. Iron deficiency anemia. PLAN: 1. Change Lasix to 40 p.o. b.i.d. 2. Add Aldactone 25 b.i.d., agree with Dr. Graf. 3. Hold Zaroxolyn for now. 4. Close outpatient followup. 5. Hold potassium supplementation since the patient is going to be on Aldactone. Amina Martin MD
[2017-01-16 17:54] LABS: SMN1 2 copies; SMN2 2 copies
== END 2017-01-16 12:45 | disposition home or self-care (01) | DRG 291 ==
LOC: ED 11:05 → ERH 13:02 → 2RSO 15:08
PROVIDERS: ADMIT Internal Medicine; ATTEND Internal Medicine
DX: I13.0 Hypertensive heart and chronic kidney disease with heart failure and stage 1 through stage 4 chronic kidney disease, or unspecified chronic kidney disease (principal); I50.43 Acute on chronic combined systolic (congestive) and diastolic (congestive) heart failure; I47.2 Ventricular tachycardia; J18.9 Pneumonia, unspecified organism; I95.9 Hypotension, unspecified; N17.9 Acute kidney failure, unspecified; I42.0 Dilated cardiomyopathy; J44.0 Chronic obstructive pulmonary disease with (acute) lower respiratory infection; E66.01 Morbid (severe) obesity due to excess calories; K74.60 Unspecified cirrhosis of liver; N18.3 Chronic kidney disease, stage 3 (moderate); I42.6 Alcoholic cardiomyopathy; K57.92 Diverticulitis of intestine, part unspecified, without perforation or abscess without bleeding; J44.1 Chronic obstructive pulmonary disease with (acute) exacerbation; I48.0 Paroxysmal atrial fibrillation; D50.9 Iron deficiency anemia, unspecified; F10.10 Alcohol abuse, uncomplicated; D63.1 Anemia in chronic kidney disease; E78.5 Hyperlipidemia, unspecified; J20.9 Acute bronchitis, unspecified; E87.6 Hypokalemia; G47.33 Obstructive sleep apnea (adult) (pediatric); I25.10 Atherosclerotic heart disease of native coronary artery without angina pectoris; I44.0 Atrioventricular block, first degree; I45.4 Nonspecific intraventricular block; K21.9 Gastro-esophageal reflux disease without esophagitis; M10.9 Gout, unspecified; R09.02 Hypoxemia; T50.2X5A Adverse effect of carbonic-anhydrase inhibitors, benzothiadiazides and other diuretics, initial encounter; Z79.01 Long term (current) use of anticoagulants; Z79.899 Other long term (current) drug therapy; Z86.79 Personal history of other diseases of the circulatory system; Z87.11 Personal history of peptic ulcer disease; Z91.11 Patient's noncompliance with dietary regimen; Z91.19 Patient's noncompliance with other medical treatment and regimen; Z95.0 Presence of cardiac pacemaker; Z95.810 Presence of automatic (implantable) cardiac defibrillator; R40.2412 Glasgow coma scale score 13-15, at arrival to emergency department; Z68.37 Body mass index [BMI] 37.0-37.9, adult

== ENCOUNTER 2017-05-30 08:53 | Observation (INO) | payer OTHER, MEDICARE ==
[2017-05-30 09:01] VITALS: BMI 34.9
[2017-05-30] MEDS ORDERED: Albuterol 0.083% Inhal Sol (2.5 mg/3 mL) UD INH STA (09:13)
[2017-05-30] MEDS ORDERED: Albuterol-Ipratrop 3 mg / 0.5 (3 ml) UD IH STA (09:13)
--- NOTE | 2017-05-30 09:24 | ED PDOC ---
Arrival/HPI - General Chief Complaint: Shortness Of Breath Time Seen by Provider: 05/30/17 09:09 - History of Present Illness Narrative History of Present Illness (Text): 05/30/17 09:20 A 52 year old male, whose past medical history includes COPD, CHF and pacemaker , presents to the emergency department complaining of shortness of breath since 15:00 yesterday. Patient notes nausea, non-productive cough and pleuritic chest discomfort. He states his symptoms feel similar to prior CHF exacerbations. Patient denies any fever, chills, vomiting, abdominal pain or any other complaints. Patient is compliant with his medications. Past Medical History - Infectious Disease Hx of Infectious Diseases: None - Tetanus Immunization Tetanus Immunization: Up to Date - Cardiac Hx Cardiac Disorders: Yes Hx Hypertension: Yes Hx Internal Defibrillator: Yes (pacemaker/defib 2005) Hx Pacemaker: Yes Hx Peripheral Edema: Yes Other/Comment: Cardiomyopathy - Pulmonary Hx Respiratory Disorders: Yes Hx Sleep Apnea: Yes - Neurological Hx Neurological Disorder: No - HEENT Hx HEENT Disorder: No - Renal Hx Renal Disorder: Yes (hx renal insufficiency which resolved) - Endocrine/Metabolic Hx Endocrine Disorders: No - Hematological/Oncological Hx Blood Disorders: Yes Hx Anemia: Yes - Integumentary Hx Dermatological Disorder: No - Musculoskeletal/Rheumatological Hx Musculoskeletal Disorders: No - Gastrointestinal Hx Gastrointestinal Disorders: Yes Hx Diverticulitis: Yes - Genitourinary/Gynecological Hx Genitourinary Disorders: No - Psychiatric Hx Psychophysiologic Disorder: No Hx Depression: No Hx Emotional Abuse: No Hx Physical Abuse: No Hx Substance Use: No - Surgical History Hx Cardiac Catheterization: Yes Hx Orthopedic Surgery: Yes (right knee cartilige) Other/Comment: pacemaker and defib in 2005 - Anesthesia Hx Anesthesia: Yes Hx Anesthesia Reactions: No - Suicidal Assessment Feels Threatened In Home Enviroment: No Family/Social History Family/Social History: No Known Family HX Smoking Status: Former Smoker Hx Alcohol Use: Yes (10-12 drinks per day) Frequency of alcohol use: Socially Hx Substance Use: No Hx Substance Use Treatment: No Allergies/Home Meds Allergies/Adverse Reactions: Allergies No Known Allergies Allergy (Verified 05/30/17 09:01) Home Medications: Home Meds Medication Instructions Recorded Confirmed Carvedilol [Coreg] 25 mg PO BID 05/09/12 05/30/17 Atorvastatin [Lipitor] 80 mg PO DAILY 11/18/13 05/30/17 Amiodarone [Cordarone] 100 mg PO BID 06/15/16 05/30/17 Folic Acid 1 mg PO DAILY 06/15/16 05/30/17 Furosemide [Lasix] 40 mg PO BID 06/15/16 05/30/17 Apixaban [Eliquis] 5 mg PO BID 01/11/17 05/30/17 Spironolactone [Aldactone] 25 mg PO BID 01/16/17 05/30/17 Levalbuterol [Xopenex] 2 puff IH QID 05/30/17 05/30/17 Review of Systems - Physician Review All systems were reviewed & negative as marked: Yes - Review of Systems Constitutional: absent: Fevers, Night Sweats Respiratory: SOB, Cough. absent: Sputum Cardiovascular: Chest Pain (pleuritic) Gastrointestinal: Nausea. absent: Abdominal Pain, Vomiting Physical Exam Vital Signs Reviewed: Yes Vital Signs Temp Pulse Pulse Resp BP Pulse Ox 05/30/17 13:39 98.1 F 78 78 20 113/71 05/30/17 13:10 67 18 113/77 95 05/30/17 09:51 72 19 121/68 99 05/30/17 09:44 20 05/30/17 09:36 113/71 05/30/17 09:00 98.1 F 78 20 113/71 97 Temperature: Afebrile Blood Pressure: Normal Pulse: Regular Respiratory Rate: Normal Appearance: Positive for: Well-Appearing, Non-Toxic, Uncomfortable Pain Distress: None Mental Status: Positive for: Alert and Oriented X 3 - Systems Exam Head: Present: Atraumatic, Normocephalic Pupils: Present: PERRL Extroacular Muscles: Present: EOMI Conjunctiva: Present: Normal Mouth: Present: Moist Mucous Membranes Neck: Present: Normal Range of Motion, JVD Respiratory/Chest: Present: Good Air Exchange, Rales (fine crackles). No: Respiratory Distress, Accessory Muscle Use Cardiovascular: Present: Regular Rate and Rhythm, Normal S1, S2. No: Murmurs Abdomen: No: Tenderness, Distention, Peritoneal Signs Back: Present: Normal Inspection Upper Extremity: Present: Normal Inspection. No: Cyanosis, Edema Lower Extremity: Present: Edema. No: CALF TENDERNESS Neurological: Present: GCS=15, CN II-XII Intact, Speech Normal Skin: Present: Warm, Dry, Normal Color. No: Rashes Psychiatric: Present: Alert, Oriented x 3, Normal Insight, Normal Concentration Medical Decision Making ED Course and Treatment: 05/30/17 09:20 Impression: A 52 year old male with shortness of breath. Patient notes nausea, cough and pleuritic chest discomfort. Differential Diagnosis included but are not limited to: CHF exacerbation. Plan: -- Chest xray -- EKG -- Labs -- Blood culture -- Urinalysis -- Albuterol, Duoneb, Lasix, Solumedrol and Zofran -- Reassess and disposition Progress Notes: EKG shows NSR at 72 BPM with 1st degree AV block, LAD. Interpreted by me. Report Date : 05/30/2017 09:47:39 Procedure: Chest xray Dictator : Louis Weller MD IMPRESSION: Moderate cardiomegaly. Mild vascular congestion - Lab Interpretations Microbiology Results: Microbiology Results 05/30/17 11:00 Blood Blood Culture - Preliminary NO GROWTH AFTER 4 DAYS 05/30/17 09:44 Blood Blood Culture - Preliminary NO GROWTH AFTER 4 DAYS Lab Results: 05/30/17 09:44 05/30/17 09:44 Lab Results 05/30/17 09:44: Sodium 140, Chloride 96 L, Potassium 3.4 L, Carbon Dioxide 31, Anion Gap 16, BUN 17, Creatinine 1.6 H, Est GFR ( Amer) 55, Est GFR (Non- Af Amer) 45, Random Glucose 118 H, Calcium 9.5, Total Bilirubin 1.6 H, AST 37, ALT 25, Alkaline Phosphatase 134 H, Lactate Dehydrogenase 690, Total Creatine Kinase 60, Troponin I 0.07 D, NT-Pro-B Natriuret Pep 6680 H, Total Protein 8.1 , Albumin 4.0, Globulin 4.1, Albumin/Globulin Ratio 1.0 L 05/30/17 09:44: pO2 31, VBG pH 7.42, VBG pCO2 50.0, VBG HCO3 32.4 H, VBG Total CO2 33.9 H, VBG O2 Sat (Calc) 74.6 H, VBG Base Excess 6.6 H, VBG Potassium 3.5 L , Sodium 138.0, Chloride 100.0, Glucose 124 H, Lactate 1.9, FiO2 21.0, Venous Blood Potassium 3.5 L 05/30/17 09:44: Urine Color Yellow, Urine Appearance Clear, Urine pH 6.0, Ur Specific [place] 1.010, Urine Protein 30 H, Urine Glucose (UA) Negative, Urine Ketones Negative, Urine Blood Trace-intact H, Urine Nitrate Negative, Urine Bilirubin Negative, Urine Urobilinogen 0.2, Ur Leukocyte Esterase Negative, Urine RBC 2 - 5, Urine WBC 0 - 2, Ur Epithelial Cells 1 - 3, Amorphous Sediment Few, Urine Bacteria Mod, Coarse Granular Casts Small H 05/30/17 09:44: PT 26.5 H, INR 2.27 H 05/30/17 09:44: WBC 7.4, RBC 3.97, Hgb 12.3 L, Hct 37.6 L, MCV 94.7 D, MCH 31.0 , MCHC 32.7, RDW 14.7 H, Plt Count 197, MPV 9.5, Gran % 69.4 H, Lymph % (Auto) 14.9 L, [place] % (Auto) 13.9 H, Eos % (Auto) 0.8 L, Baso % (Auto) 1.0, Gran # 5.11 , Lymph # (Auto) 1.1 L, [place] # (Auto) 1.0 H, Eos # (Auto) 0.1, Baso # (Auto) 0.07 I have reviewed the lab results: Yes - RAD Interpretation Radiology Orders: 05/30/17 09:10 CHEST PORTABLE [RAD] Stat - Medication Orders Current Medication Orders: Amiodarone HCl (Cordarone) 100 mg PO DAILY [facility] Last Admin: 06/03/17 08:59 Dose: 100 mg MAR Pulse and Blood Pressure Document 06/03/17 08:59 KMS (Rec: 06/03/17 09:00 KMS [facility] [id number]) Pulse Pulse Rate (60-90) 67 Blood Pressure Blood Pressure (100/60-150/90) 110/70 Apixaban (Eliquis) 5 mg PO BID [facility] PRN Reason: Protocol Last Admin: 06/02/17 18:15 Dose: 5 mg Atorvastatin Calcium (Lipitor) 80 mg PO DIN [facility] Last Admin: 06/03/17 17:00 Dose: 80 mg Bisacodyl (Dulcolax) 10 mg PO ONCE ONE Stop: 06/03/17 20:01 Carvedilol (Coreg) 25 mg PO BID [facility] Last Admin: 06/03/17 17:00 Dose: 25 mg MAR Pulse and Blood Pressure Document 06/03/17 17:00 KMS (Rec: 06/03/17 17:00 KMS [facility] [id number]) Pulse Pulse Rate (60-90) 68 Docusate Sodium (Colace) 100 mg PO TID [facility] Last Admin: 06/03/17 17:00 Dose: 100 mg Last Bowel Movement Document 06/03/17 17:00 KMS (Rec: 06/03/17 17:00 KMS [facility] [id number]) Last Bowel Movement Last Bowel Movement 06/03/17 Furosemide (Lasix) 40 mg PO BID [facility] Last Admin: 05/31/17 17:48 Dose: 40 mg MAR Blood Pressure Document 05/31/17 17:48 KMS (Rec: 05/31/17 17:49 KMS [id number]) Blood Pressure Blood Pressure (100/60-150/90) 108/73 Hydrocortisone (Anusol-Hc) 25 mg RC BID [facility] Last Admin: 06/03/17 09:03 Dose: 25 mg Levalbuterol HCl (Xopenex) 1.25 mg IH TIDRESP PRN PRN Reason: Shortness of Breath Magnesium Oxide (Mag-Ox) 400 mg PO BID [facility] Last Admin: 06/03/17 09:04 Dose: 400 mg Spironolactone (Aldactone) 25 mg PO BID [facility] Last Admin: 05/31/17 17:48 Dose: 25 mg Discontinued Medications Al Hydrox/Mg Hydrox/Simethicone (Maalox Plus 30 Ml) 30 ml PO ONCE ONE Stop: 06/01/17 23:22 Last Admin: 06/02/17 00:39 Dose: Albuterol Sulfate (Albuterol 0.083% Inhal Yelitza (2.5 Mg/3 Ml) Ud) 5 mg INH STAT STA Stop: 05/30/17 09:14 Last Admin: 05/30/17 10:01 Dose: 5 mg Albuterol/Ipratropium (Duoneb 3 Mg/0.5 Mg (3 Ml) Ud) 3 ml IH STAT STA Stop: 05/30/17 09:14 Last Admin: 05/30/17 09:37 Dose: 3 ml Diphenhydramine HCl (Benadryl) 25 mg PO STAT STA Stop: 05/31/17 00:06 Last Admin: 05/31/17 00:18 Dose: 25 mg Diphenhydramine HCl (Benadryl) 25 mg PO STAT STA Stop: 05/31/17 22:11 Last Admin: 05/31/17 23:03 Dose: 25 mg Furosemide (Lasix) 40 mg IVP STAT STA Stop: 05/30/17 09:14 Last Admin: 05/30/17 09:36 Dose: 40 mg MAR Blood Pressure Document 05/30/17 09:36 OCS (Rec: 05/30/17 09:36 OCS [id number]) Blood Pressure Blood Pressure (100/60-150/90) 113/71 IVP Administration Document 05/30/17 09:36 OCS (Rec: 05/30/17 09:36 OCS [id number]) Charges for Administration # of IVP Administrations 1 Furosemide (Lasix) 40 mg IVP ONCE ONE Stop: 05/30/17 16:01 Last Admin: 05/30/17 16:09 Dose: 40 mg MAR Blood Pressure Document 05/30/17 16:09 ANTWAN (Rec: 05/30/17 16:09 ANTWAN [id number]) Blood Pressure Blood Pressure (100/60-150/90) 118/78 IVP Administration Document 05/30/17 16:09 ANTWAN (Rec: 05/30/17 16:09 ANTWAN [id number]) Charges for Administration # of IVP Administrations 1 Loperamide HCl (Imodium) 2 mg PO STAT STA Stop: 05/31/17 00:06 Last Admin: 05/31/17 00:18 Dose: 2 mg Magnesium Citrate (Citrate Of Mag) 300 ml PO ONCE ONE Stop: 06/03/17 16:01 Last Admin: 06/03/17 16:56 Dose: 300 ml Methylprednisolone (Solu-Medrol) 125 mg IVP STAT STA Stop: 05/30/17 09:14 Last Admin: 05/30/17 09:36 Dose: 125 mg IVP Administration Document 05/30/17 09:36 OCS (Rec: 05/30/17 09:36 OCS [id number]) Charges for Administration # of IVP Administrations 1 Ondansetron HCl (Zofran Inj) 8 mg IVP STAT STA Stop: 05/30/17 09:14 Last Admin: 05/30/17 09:36 Dose: 8 mg IVP Administration Document 05/30/17 09:36 OCS (Rec: 05/30/17 09:36 OCS [id number]) Charges for Administration # of IVP Administrations 1 Potassium Chloride (K-Dur 20 Meq Er Tab) 30 meq PO BID CARLOS Last Admin: 05/31/17 09:19 Dose: 30 meq Spironolactone (Aldactone) 25 mg PO DAILY [facility] - Scribe Statement The provider has reviewed the documentation as recorded by the Johnnaibtala Vizcaino Provider Scribe Attestation: All medical record entries made by the Scribe were at my direction and personally dictated by me. I have reviewed the chart and agree that the record accurately reflects my personal performance of the history, physical exam, medical decision making, and the department course for this patient. I have also personally directed, reviewed, and agree with the discharge instructions and disposition. Disposition/Present on Arrival - Present on Arrival Any Indicators Present on Arrival: No History of DVT/PE: No History of Uncontrolled Diabetes: No Urinary Catheter: No History of Decub. Ulcer: No History Surgical Site Infection Following: None - Disposition Have Diagnosis and Disposition been Completed?: Yes Diagnosis: CHF (congestive heart failure) Disposition: HOSPITALIZED Disposition Time: 11:13 Patient Plan: Admission, Telemetry Patient Problems: Current Active Problems Problem Status Onset CHF (congestive heart failure) Acute Condition: GOOD
--- NOTE | 2017-05-30 09:49 | RAD ---
HISTORY: Dyspnea COMPARISON: No prior. FINDINGS: LUNGS: No active pulmonary disease. PLEURA: No significant pleural effusion identified, no pneumothorax apparent. CARDIOVASCULAR: Moderate cardiomegaly. Mild vascular congestion. OSSEOUS STRUCTURES: No significant abnormalities. VISUALIZED UPPER ABDOMEN: Normal. OTHER FINDINGS: None. IMPRESSION: Moderate cardiomegaly. Mild vascular congestion
[2017-05-30 09:55] LABS: URINE BILIRUBIN NEGATIVE (NEGATIVE); URINE BLOOD TRACE-INTACT (NEGATIVE); URINE GLUCOSE (UA) NEGATIVE (NEGATIVE); URINE LEUKOCYTE ESTERASE NEGATIVE Leu/uL (NEGATIVE); URINE PROTEIN 30 mg/dL (<30 mg/dL); URINE UROBILINOGEN 0.2 E.U./dL (<1 E.U./dL)
[2017-05-30 10:01] LABS: URINE APPEARANCE CLEAR (CLEAR); URINE COLOR YELLOW (YELLOW)
[2017-05-30 10:09] LABS: VENOUS BLOOD GAS BASE EXCESS 6.6 mmol/L (0.0-2.0); VENOUS BLOOD GAS PO2 31 mm/Hg (30-55); VENOUS BLOOD PH 7.42 (7.32-7.43)
[2017-05-30 10:11] LABS: BASO # 0.07 K/mm3 (0.0-2.0); EOS # 0.1 (0.0-0.7); EOS % 0.8 % (1.5-5.0); GRAN # 5.11 (1.4-6.5); GRAN % 69.4 % (50.0-68.0); HEMOGLOBIN 12.3 g/dL (14.0-18.0); LYMPH # 1.1 (1.2-3.4); LYMPH % 14.9 % (22.0-35.0); MEAN CELL VOLUME 94.7 fl (80.0-105.0); MEAN CORPUSCULAR HGB CONC 32.7 g/dl (31.0-37.0); MEAN PLATELET VOLUME 9.5 fl (7.0-11.0); MONO % 13.9 % (1.0-6.0); RBC 3.97 10^6/uL (3.5-6.1); RED CELL DISTRIBUTION WIDTH 14.7 % (11.5-14.5); URINE WBC 0 - 2 /hpf (0-6); WHITE BLOOD COUNT 7.4 10^3/ul (4.5-11.0)
[2017-05-30 10:12] LABS: URINE AMORPHOUS SEDIMENT FEW; URINE BACTERIA MOD (NEG); URINE COARSE GRANULAR CAST SMALL /hpf (0-2)
[2017-05-30 10:20] LABS: CALCIUM 9.5 mg/dL (8.4-10.5)
[2017-05-30 10:25] LABS: INR 2.27 (0.93-1.08); PROTHROMBIN TIME 26.5 SECONDS (9.4-12.5)
[2017-05-30 10:31] LABS: TROPONIN I 0.07 ng/mL
[2017-05-30] MEDS: Potassium Chloride 20 mEq ER Tab PO SCH ×2 (12:12→19:01)
--- NOTE | 2017-05-30 13:31 | HP ---
DATE OF EXAM: HISTORY OF PRESENT ILLNESS: A 52-year-old male presented to [facility] with a two-day history of congestion and shortness of breath and occasional chest pain. 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 He denies any fever or chills at this time. PAST MEDICAL HISTORY: COPD, sleep apnea, cardiomyopathy, defibrillator, paroxysmal atrial fibrillation, pneumonia, gouty arthritis, alcohol use. SOCIAL HISTORY: Nonsmoker, nondrug user. He has a history of alcohol use. ALLERGIES: HE DENIES ANY KNOWN ALLERGY HISTORY. MEDICATIONS: He states that his active medications consisted of Aldactone 25 mg b.i.d., Lasix 40 mg b.i.d., folic acid 1 mg daily, amiodarone 100 mg b.i.d., Coreg 25 mg b.i.d., Lipitor 80 mg daily and Eliquis 5 mg b.i.d. PHYSICAL EXAMINATION GENERAL: The patient is in the Emergency Room on a stretcher at this time. He is alert and oriented times 3. VITAL SIGNS: His blood pressure is reported at 113/71, his temperature is 98.1, his pulse is 78, his respiratory rate is 20. He is reported as having 97% saturation on room air. LUNGS: Show diminished breath sounds at the bases with rales. HEART: S1 and S2, grade 3/6 systolic murmur. ABDOMEN: Obese, soft, positive bowel sounds. No tenderness or rebound at this time. EXTREMITIES: Show trace edema. LABORATORY DATA: WBC is 7.4, RBC 3.97, hemoglobin 12.3, hematocrit 37.6, platelet count 197. His PT is 26.5, with an INR of 2.37. Blood gas, venous, shows his lactate to be 1.9. Chemistry shows sodium of 140, potassium 3.4, chloride 96, CO2 of 31, BUN of 17, creatinine of 1.6, random blood sugar is 118. His total bilirubin is 1.6, his AST is 37, ALT is 25, alkaline phosphatase is 134. His troponin is 0.07, his BNP is 6680. Urinalysis shows trace intact blood, small coarse granular cast, negative leukocyte esterase, 0 to 3 wbc's, yellow and clear with a pH of 6. Chest x-ray is reported by Radiology to show vascular congestion with cardiomegaly. PROBLEMS/IMPRESSION: A 52-year-old male with: 1. Volume overload, congestive heart failure. 2. History of sleep apnea, chronic obstructive pulmonary disease. 3. Hypokalemia. 4. Cardiomyopathy. 5. History of defibrillator with paroxysmal atrial fibrillation. 6. History of gouty arthritis. 7. History of chronic renal insufficiency. PLAN 1. The patient will have serial blood work done. 2. Cardiology consult. 3. Admission to Telemetry. 4. Followup of his labs. 5. Further treatment plan, pending input from the consultants and diagnostic studies. These findings have been reviewed with the Emergency Room staff, discussed with the patient. More than 45 minutes. Qing Jiménez MD
--- NOTE | 2017-05-30 16:43 | CARD ---
APPROVED REPORT EKG Measurement Heart [id number] <Conclusion> Sinus rhythm with 1st degree AV block Left axis deviation Nonspecific intraventricular block No change
--- NOTE | 2017-05-30 23:45 | CP.PCM.PN ---
Subjective - Date & Time of Evaluation Date of Evaluation: 05/30/17 Time of Evaluation: 23:44 - Subjective Subjective: Patient was seen at bedside. He asked for a sleeping pill and something for loose bowel movement . Has no other complaints now. States that he takes Ambien at home for sleep, takes Ambien 5 mg and it is prescribed by psychiatrist. Had 2 loose bowel movement , without blood or mucus. Has no other complaints. No fever, no vomiting. Is not on any antibiotics. Medical record was reviewed. This 52 year old white male was admitted congestion, sob, chest pain,CHF. Has PMH of CMP,COPD,DENISE, PNA, gouty arthritis, alcohol use, paroxysmal atrial fibrillation, defibrillator placement,chronic renal insufficiency. Objective - Vital Signs/Intake and Output Vital Signs (last 24 hours): Temp Pulse Resp BP Pulse Ox 98.6 F 68 20 119/77 95 05/30/17 17:48 05/30/17 22:00 05/30/17 17:48 05/30/17 19:01 05/30/17 13:10 - Medications Medications: Current Medications Amiodarone HCl (Cordarone) 100 mg PO DAILY [facility] Apixaban (Eliquis) 5 mg PO BID [facility] PRN Reason: Protocol Last Admin: 05/30/17 19:06 Dose: Not Given Atorvastatin Calcium (Lipitor) 80 mg PO DIN [facility] Last Admin: 05/30/17 19:00 Dose: 80 mg Carvedilol (Coreg) 25 mg PO BID [facility] Last Admin: 05/30/17 19:01 Dose: 25 mg Potassium Chloride (K-Dur 20 Meq Er Tab) 30 meq PO BID [facility] Last Admin: 05/30/17 19:01 Dose: 30 meq Spironolactone (Aldactone) 25 mg PO DAILY [facility] - Labs Labs: PT 26.5 SECONDS (9.4-12.5) H 05/30/17 09:44 INR 2.27 (0.93-1.08) H 05/30/17 09:44 Lab Studies 05/30/17 05/30/17 05/30/17 Range/Units 09:44 09:44 09:44 WBC (4.5-11.0) 10^3/ul RBC (3.5-6.1) 10^6/uL Hgb (14.0-18.0) g/dL Hct (42.0-52.0) % MCV (80.0-105.0) fl MCH (25.0-35.0) pg MCHC (31.0-37.0) g/dl RDW (11.5-14.5) % Plt Count (120.0-450.0) 10^3/uL MPV (7.0-11.0) fl Gran % (50.0-68.0) % Lymph % (Auto) (22.0-35.0) % [place] % (Auto) (1.0-6.0) % Eos % (Auto) (1.5-5.0) % Baso % (Auto) (0.0-3.0) % Gran # (1.4-6.5) Lymph # (Auto) (1.2-3.4) [place] # (Auto) (0.1-0.6) Eos # (Auto) (0.0-0.7) Baso # (Auto) (0.0-2.0) K/mm3 PT (9.4-12.5) SECONDS INR (0.93-1.08) pO2 31 (30-55) mm/Hg VBG pH 7.42 (7.32-7.43) VBG pCO2 50.0 (40-60) VBG HCO3 32.4 H (21-28) mmol/l VBG Total CO2 33.9 H (22-28) mmol.L VBG O2 Sat (Calc) 74.6 H (40-65) % VBG Base Excess 6.6 H (0.0-2.0) mmol/L VBG Potassium 3.5 L (3.6-5.2) mmol/L Sodium 140 138.0 (132-148) mmol/L Chloride 96 L 100.0 (98-107) mmol/L Glucose 124 H (75-110) mg/dl Lactate 1.9 (0.7-2.1) mmol/L FiO2 21.0 % Potassium 3.4 L (3.6-5.0) mmol/L Carbon Dioxide 31 (21-33) mmol/L Anion Gap 16 (10-20) BUN 17 (7-21) mg/dL Creatinine 1.6 H (0.8-1.5) mg/dl Est GFR ( Amer) 55 Est GFR (Non-Af Amer) 45 Random Glucose 118 H (70-110) mg/dL Calcium 9.5 (8.4-10.5) mg/dL Total Bilirubin 1.6 H (0.2-1.3) mg/dL AST 37 (17-59) U/L ALT 25 (7-56) U/L Alkaline Phosphatase 134 H (38-126) U/L Lactate Dehydrogenase 690 (333-699) U/L Total Creatine Kinase 60 (35-230) U/L Troponin I 0.07 D ng/mL NT-Pro-B Natriuret Pep 6680 H (0-450) pg/mL Total Protein 8.1 (5.8-8.3) g/dL Albumin 4.0 (3.0-4.8) g/dL Globulin 4.1 gm/dL Albumin/Globulin Ratio 1.0 L (1.1-1.8) Venous Blood Potassium 3.5 L (3.6-5.2) mmol/L Urine Color Yellow (YELLOW) Urine Appearance Clear (CLEAR) Urine pH 6.0 (4.7-8.0) Ur Specific [place] 1.010 (1.005-1.035) Urine Protein 30 H (<30 mg/dL) mg/dL Urine Glucose (UA) Negative (NEGATIVE) mg/dL Urine Ketones Negative (NEGATIVE) mg/dL Urine Blood Trace-intact H (NEGATIVE) Urine Nitrate Negative (NEGATIVE) Urine Bilirubin Negative (NEGATIVE) Urine Urobilinogen 0.2 (<1 E.U./dL) E.U./dL Ur Leukocyte Esterase Negative (NEGATIVE) Cris/uL Urine RBC 2 - 5 (0-2) /hpf Urine WBC 0 - 2 (0-6) /hpf Ur Epithelial Cells 1 - 3 (0-5) /hpf Amorphous Sediment Few Urine Bacteria Mod (NEG) Coarse Granular Casts Small H (0-2) /hpf 05/30/17 05/30/17 Range/Units 09:44 09:44 WBC 7.4 (4.5-11.0) 10^3/ul RBC 3.97 (3.5-6.1) 10^6/uL Hgb 12.3 L (14.0-18.0) g/dL Hct 37.6 L (42.0-52.0) % MCV 94.7 D (80.0-105.0) fl MCH 31.0 (25.0-35.0) pg MCHC 32.7 (31.0-37.0) g/dl RDW 14.7 H (11.5-14.5) % Plt Count 197 (120.0-450.0) 10^3/uL MPV 9.5 (7.0-11.0) fl Gran % 69.4 H (50.0-68.0) % Lymph % (Auto) 14.9 L (22.0-35.0) % [place] % (Auto) 13.9 H (1.0-6.0) % Eos % (Auto) 0.8 L (1.5-5.0) % Baso % (Auto) 1.0 (0.0-3.0) % Gran # 5.11 (1.4-6.5) Lymph # (Auto) 1.1 L (1.2-3.4) [place] # (Auto) 1.0 H (0.1-0.6) Eos # (Auto) 0.1 (0.0-0.7) Baso # (Auto) 0.07 (0.0-2.0) K/mm3 PT 26.5 H (9.4-12.5) SECONDS INR 2.27 H (0.93-1.08) pO2 (30-55) mm/Hg VBG pH (7.32-7.43) VBG pCO2 (40-60) VBG HCO3 (21-28) mmol/l VBG Total CO2 (22-28) mmol.L VBG O2 Sat (Calc) (40-65) % VBG Base Excess (0.0-2.0) mmol/L VBG Potassium (3.6-5.2) mmol/L Sodium (132-148) mmol/L Chloride (98-107) mmol/L Glucose (75-110) mg/dl Lactate (0.7-2.1) mmol/L FiO2 % Potassium (3.6-5.0) mmol/L Carbon Dioxide (21-33) mmol/L Anion Gap (10-20) BUN (7-21) mg/dL Creatinine (0.8-1.5) mg/dl Est GFR ( Amer) Est GFR (Non-Af Amer) Random Glucose (70-110) mg/dL Calcium (8.4-10.5) mg/dL Total Bilirubin (0.2-1.3) mg/dL AST (17-59) U/L ALT (7-56) U/L Alkaline Phosphatase (38-126) U/L Lactate Dehydrogenase (333-699) U/L Total Creatine Kinase (35-230) U/L Troponin I ng/mL NT-Pro-B Natriuret Pep (0-450) pg/mL Total Protein (5.8-8.3) g/dL Albumin (3.0-4.8) g/dL Globulin gm/dL Albumin/Globulin Ratio (1.1-1.8) Venous Blood Potassium (3.6-5.2) mmol/L Urine Color (YELLOW) Urine Appearance (CLEAR) Urine pH (4.7-8.0) Ur Specific [place] (1.005-1.035) Urine Protein (<30 mg/dL) mg/dL Urine Glucose (UA) (NEGATIVE) mg/dL Urine Ketones (NEGATIVE) mg/dL Urine Blood (NEGATIVE) Urine Nitrate (NEGATIVE) Urine Bilirubin (NEGATIVE) Urine Urobilinogen (<1 E.U./dL) E.U./dL Ur Leukocyte Esterase (NEGATIVE) Cris/uL Urine RBC (0-2) /hpf Urine WBC (0-6) /hpf Ur Epithelial Cells (0-5) /hpf Amorphous Sediment Urine Bacteria (NEG) Coarse Granular Casts (0-2) /hpf - Constitutional Appears: Well, No Acute Distress - Head Exam Head Exam: ATRAUMATIC, NORMAL INSPECTION, NORMOCEPHALIC - Eye Exam Eye Exam: Normal appearance - ENT Exam ENT Exam: Normal External Ear Exam - Neck Exam Neck Exam: Normal Inspection - Respiratory Exam Respiratory Exam: NORMAL BREATHING PATTERN - Cardiovascular Exam Cardiovascular Exam: absent: JVD - GI/Abdominal Exam GI & Abdominal Exam: absent: Distended - Rectal Exam Rectal Exam: Deferred - Exam Additional comments: Deferred. - Extremities Exam Extremities Exam: Normal Inspection - Back Exam Back Exam: NORMAL INSPECTION - Neurological Exam Neurological Exam: Alert, Awake, Oriented x3 - Psychiatric Exam Psychiatric exam: Normal Affect, Normal Mood - Skin Skin Exam: Normal Color Assessment and Plan - Assessment and Plan (Free Text) Assessment: Insomnia. Loose bowel movement. Arthritis. CHF. DENISE. CMP. Obesity. Plan: Benadryl 25 mg PO x 1. Imodium 2 mg PO x 1. Stool for C.Diff. Continue present management.
[2017-05-31 07:23] LABS: CALCIUM 9.2 mg/dL (8.4-10.5)
[2017-05-31 07:32] LABS: TROPONIN I 0.04 ng/mL
[2017-05-31] MEDS: Potassium Chloride 20 mEq ER Tab PO SCH (09:19)
[2017-05-31] MEDS: Magnesium Oxide 400 mg Tab UD PO SCH ×2 (09:22→17:48)
--- NOTE | 2017-05-31 14:08 | CON ---
DATE: 05/31/2017 INDICATIONS: Shortness of breath, CHF. HISTORY OF PRESENT ILLNESS: This is a 52-year-old man, well known to me, admitted with increasing shortness of breath, found to be in congestive heart failure yesterday. He was admitted to telemetry. He was treated with IV Lasix. This morning, he feels better at rest. There is no chest pain. There was orthopnea and edema. There were no syncope, palpitations, fever, chills, cough, sputum production, hemoptysis, rigors, sweats, abdominal pain, nausea, vomiting or constipation. He did note some diarrhea recently. PAST MEDICAL HISTORY: Notable for cardiomyopathy, possibly on a familial basis, possibly alcohol related. He has had paroxysmal atrial fibrillation as well as ventricular tachycardia and ICD was implanted. He has sleep apnea, COPD, gout, diverticulosis, GERD, chronic kidney disease, cirrhosis. He continues to use alcohol intermittently. MEDICATIONS: At the time of admission include Ambien, Aldactone, amiodarone, Coreg, Eliquis, folic acid, Lasix, Lipitor, Xopenex. ALLERGIES: THERE WERE NO KNOWN MEDICATION ALLERGIES. SOCIAL HISTORY: He lives at home with his . He is ambulatory. He does not smoke. He continues to drink intermittently. He is retired. FAMILY HISTORY: Notable for cardiomyopathy. REVIEW OF SYSTEMS: A 10-point review of systems is otherwise unremarkable except as noted above. PHYSICAL EXAMINATION: GENERAL: He is a well-developed man lying in bed on telemetry, in no acute distress. VITAL SIGNS: Notable for sinus rhythm, sinus bradycardia, afebrile, blood pressure 100/68, respiratory rate 20, O2 sat 97%. HEENT: Reveals positive neck vein distention. No thyromegaly. No carotid bruits. Mucous membranes moist. Conjunctivae pink. NECK: Supple. CHEST: Lung cyr, rales at the bases. HEART: Revealed a regular rhythm. Normal first and second heart sounds. PMI not palpable. ABDOMEN: Soft. Bowel sounds present. No mass, organomegaly, tenderness, rebound, guarding, CVA tenderness or palpable abdominal aortic aneurysm. EXTREMITIES: Revealed mild edema. NEUROLOGIC: Awake, alert, oriented. PSYCHIATRIC: Normal as to mood and affect. SKIN: Warm and dry. No rash or cellulitis. LABORATORY AND IMAGING: A chest x-ray revealed moderate cardiomegaly, mild vascular congestion. EKG demonstrates sinus rhythm with intraventricular block, wide QRS, no change from prior EKG, first degree heart block. White count normal, platelet count normal, hemoglobin 12.3, hematocrit 37.6. PT 26.5, INR 2.27. Blood gases are noted. Electrolytes noted. Initial potassium 3.4, repeat 3.8. Initial creatinine 1.6, repeat 2. Blood sugar 118, repeat 161. Magnesium of 1.6, total bilirubin 1.6. AST, ALT unremarkable. Alkaline phosphatase 134, CK 60, troponin 0.07 and 0.04. BNP 6680. Urinalysis is noted. IMPRESSION: Jack Granados is a 52-year-old man with known cardiomyopathy with severe left ventricular dysfunction based on his most recent echocardiogram who presents with increasing symptoms of congestive heart failure, status post recent admission to [facility] with congestive heart failure. He has resumed intermittent drinking, which may be exacerbating the problem. He has dietary noncompliance as well. PLAN: At this point, he is admitted to telemetry. He got IV Lasix. I and O was not kept. I will continue p.o. Lasix and monitor his renal function carefully. He will continue to get spironolactone, amiodarone and Coreg. We will continue Eliquis, Lipitor. He will get magnesium replacement. We will monitor I's and O's. We will check stool for occult blood. We will monitor renal function. He can be out of bed. He has been advised to discontinue all alcohol intake. I have also discussed detoxification programs with him. He is aware of the need to restrict salt intake. Regular exercise and weight reduction have been discussed with him. He might need psychological intervention and counseling. We will follow daily lab work. I will follow along with you. I will make additional recommendations based on his clinical course. Stephan Vázquez MD [facility]
--- NOTE | 2017-05-31 15:59 | CON ---
DATE: 05/31/2017 REASON FOR CONSULTATION: Acute kidney injury superimposed on chronic kidney disease stage 3/4. HISTORY OF PRESENTING ILLNESS: A 52-year-old male, known to me from outpatient followup, prior hospital evaluations. The patient admitted yesterday with complaints of lower extremity edema, "filling up of fluid," shortness of breath, dyspnea on exertion for 2 weeks prior to presentation. He denies any chest tightness. Denies any palpitations. Denies any abdominal pain. He denies any nausea, vomiting or diarrhea. In the emergency room, he was found to have blood pressure of 113/71. Initial blood work showed BUN of 17, creatinine of 1.6, potassium of 3.4. The patient was treated with IV Lasix 40 mg. He also received Aldactone 25 mg. Today, his creatinine has gone up to 2. Hence consultation is requested. PAST MEDICAL AND SURGICAL HISTORY: Obesity, CHF, cardiomyopathy, alcoholic dilated cardiomyopathy, chronic kidney disease stage 3, baseline creatinine anywhere from 1.6-2, anemia of chronic disease. FAMILY HISTORY: Noncontributory. SOCIAL HISTORY: No smoking, no drug use. Continued active alcohol use. ALLERGIES: NO KNOWN DRUG ALLERGIES. MEDICATIONS AT HOME: Aldactone 25 b.i.d., Lasix 40 p.o. b.i.d., folic acid 1 mg, Coreg 25 b.i.d., Lipitor 80, Eliquis 5 b.i.d., amiodarone 100 b.i.d. REVIEW OF SYSTEMS: All systems are reviewed, pertinent positives are mentioned in the history of presenting illness, rest unremarkable. PHYSICAL EXAMINATION: GENERAL: Obese middle-aged male, sitting in chair. VITAL SIGNS: Blood pressure 111/76, heart rate 71, respiratory rate 18, temperature 97.8. HEENT: Normocephalic, atraumatic, positive pallor. NECK: Supple, no JVD. LUNGS: Bilateral equal air equal expansion, no rales. CARDIAC: S1 and S2, regular rate and rhythm, no murmur, no rub. ABDOMEN: Obese, distended, soft, nontender, bowel sounds present. EXTREMITIES: No lower extremity edema. INTAKE AND OUTPUT: Not charted. LABORATORY DATA: WBC 7, hemoglobin 12.3, hematocrit 37.6, platelets 197. Sodium 139, potassium 3.8, chloride 98, CO2 of 79, BUN 24, creatinine 2, glucose 161, calcium 9.2, magnesium 1.6, total bili 1.6. BNP was 6600 yesterday, albumin 4. Urinalysis: Yellow, clear, pH 6, specific gravity 10, 10. Protein 30, glucose negative, blood trace, leukocyte esterase negative. Chest x-ray: Moderate cardiomegaly, mild vascular congestion. CURRENT MEDICATIONS: Aldactone 25 b.i.d., Cordarone 100, Coreg 25 b.i.d., Eliquis 5 b.i.d., potassium 30 mEq b.i.d., Lasix 40 p.o. b.i.d., Lipitor 80, mag oxide 400 b.i.d. ASSESSMENT: 1. Compensated dilated cardiomyopathy, does not appear to be decompensated at this time. 2. Hypokalemia, resolving. 3. Chronic kidney disease stage 3, stable. 4. Mild prerenal azotemia. 5. Hyperlipidemia. PLAN: 1. Continue Aldactone 25 b.i.d. 2. Continue Lasix 40 p.o. b.i.d. 3. Change potassium to 30 mEq daily. Since the patient is on Aldactone, expect potassium to rise quickly. 4. Monitor urine output. 5. Monitor daily weights. 6. Restrict p.o. fluids to 1500 mL per day. Amina Martin MD
--- NOTE | 2017-05-31 19:04 | PN ---
DATE: SUBJECTIVE: This is a 52-year-old male, admitted to [facility] with complaints of shortness of breath, found to be in congestive heart failure. PHYSICAL EXAMINATION: VITAL SIGNS: This morning shows, temperature of 98.2, his pulse is 71, his blood pressure is 108/73. GENERAL: He is alert and oriented x3. LUNGS: Show rhonchi at the bases. ABDOMEN: Obese, soft with positive bowel sounds. EXTREMITIES: No evidence of edema. LABORATORY DATA: Shows sodium 139, potassium 3.8, chloride 98, BUN of 24, creatinine of 2, random blood sugar is 161, his magnesium is 1.6. The patient is being followed by Cardiology and he is currently on Aldactone 25 mg b.i.d., Lasix 40 mg b.i.d., amiodarone 100 mg daily, Coreg 25 mg b.i.d., Eliquis 5 mg b.i.d., K-Dur 30 mEq daily, Lipitor 80 mg daily and magnesium oxide 400 mg b.i.d. The Renal consult has been requested to the acute renal injury and the patient with a history of chronic renal disease. Cardiology is following the patient for his congestive heart failure. We will follow up his chemistries and his magnesium. He has a remote history of alcohol abuse, liver disease, paroxysmal atrial fibrillation, defibrillator, congestive heart failure, pneumonia, gouty arthritis, sleep apnea and chronic obstructive pulmonary disease. Qing Jiménez MD
--- NOTE | 2017-06-01 08:47 | CP.PCM.PN ---
Subjective - Date & Time of Evaluation Date of Evaluation: 06/01/17 Time of Evaluation: 07:00 - Subjective Subjective: Stable on 2R. No CP or SOB. V/S noted. RSR PE: Lungs: clear Cor.: S1S2 Abd.: soft Ext.: min edema Neuro.: alert I/O N/A Labs noted: Cr. 2.4 BC X2 NG at 24 hrs. Objective - Vital Signs/Intake and Output Vital Signs (last 24 hours): Temp Pulse Resp BP Pulse Ox 97.9 F 72 20 118/79 96 06/01/17 06:00 06/01/17 06:00 06/01/17 06:00 06/01/17 06:00 06/01/17 06:00 Intake and Output: 06/01/17 06/01/17 06:59 18:59 Intake Total 300 Balance 300 - Medications Medications: Current Medications Amiodarone HCl (Cordarone) 100 mg PO DAILY [facility] Last Admin: 05/31/17 09:20 Dose: 100 mg Apixaban (Eliquis) 5 mg PO BID [facility] PRN Reason: Protocol Last Admin: 05/31/17 17:48 Dose: 5 mg Atorvastatin Calcium (Lipitor) 80 mg PO DIN [facility] Last Admin: 05/31/17 17:47 Dose: 80 mg Carvedilol (Coreg) 25 mg PO BID [facility] Last Admin: 05/31/17 17:48 Dose: 25 mg Furosemide (Lasix) 40 mg PO BID [facility] Last Admin: 05/31/17 17:48 Dose: 40 mg Magnesium Oxide (Mag-Ox) 400 mg PO BID [facility] Last Admin: 05/31/17 17:48 Dose: 400 mg Spironolactone (Aldactone) 25 mg PO BID [facility] Last Admin: 05/31/17 17:48 Dose: 25 mg - Labs Labs: 06/01/17 06:00 PT 26.5 SECONDS (9.4-12.5) H 05/30/17 09:44 INR 2.27 (0.93-1.08) H 05/30/17 09:44 Assessment and Plan - Assessment and Plan (Free Text) Assessment: SOB CHF CCM, familial, ETOH related PAF ICD DENISE COPD ETOH Gout Echo 06/04: Severe LVD, Mild MR and TR Plan: Hold Lasix, KCL, spironolactone Monitor I/O's (I have spoke to his bedside nurse about this) Monitor: labs, renal fx., sats., etc D/C all ETOH. He needs help with this. OOB as jeannette. Will follow.
[2017-06-01] MEDS: Magnesium Oxide 400 mg Tab UD PO SCH ×2 (09:05→17:05)
--- NOTE | 2017-06-01 09:07 | PN ---
DATE: 06/01/2017 SUBJECTIVE: The patient is currently seen lying comfortable in bed. He is not complaining of any shortness of breath. He has no lower extremity edema. He remains on diuretic therapy with a slight increase in his BUN and creatinine above his lowest levels, but within an acceptable range. OBJECTIVE INTAKE/OUTPUT: Intake 300, output not charted. Weight today 214 pounds. VITAL SIGNS: Blood pressure 118/79, temperature 97.9, respiratory rate 20 with a pulse of 72. HEENT: Exam shows him to be normocephalic, atraumatic. Conjunctivae are pink. Sclerae nonicteric. NECK: Supple. No neck vein distention. CHEST: Clear to auscultation and percussion. No rales, rhonchi or wheezing. CARDIOVASCULAR: Shows a regular rate and rhythm. Positive AICD. Positive soft systolic murmur, left lower sternal border. No S3. No S4. No rub. ABDOMEN: Obese. Bowel sounds normal. No rebound, guarding or masses. EXTREMITIES: Show no lower extremity cyanosis, clubbing or edema. LABORATORY DATA AND IMAGING STUDIES: CBC from 05/30 showed white blood cell count of 7.4, hemoglobin 12.2 with a platelet count 197,000. Chemistries today showed normal electrolytes. Potassium was corrected to 4.4. BUN is 40 with a creatinine of 2.4. Glucose is 112. Magnesium level is 1.7. Phosphorus is 3. Liver enzymes are normal. Troponins were negative. Albumin is 4.0. Urinalysis showed trace protein only. ASSESSMENT 1. Chronic kidney disease stage 3. We will need to accept a slightly higher degree of BUN and creatinine elevation in order to keep the patient euvolemic. The patient was admitted with mild congestive heart failure. He will continue on Lasix along with Aldactone therapy. This is the regimen he has been taking in the outpatient setting. 2. History of congestive heart failure in the setting of cardiomyopathy, perhaps secondary to alcohol. History of dilated cardiomyopathy. History of paroxysmal atrial fibrillation. Positive automatic implantable cardioverter defibrillator. 3. Status post mild hypokalemia. 4. Hyperlipidemia, controlled with diet and medical therapy. 5. History of obstructive sleep apnea. 6. History of chronic obstructive pulmonary disease. 7. History of obesity. PLAN 1. The patient will continued to be monitored on Telemetry. 2. The patient is awaiting Cardiology evaluation later this morning. 3. Cautioned not to overcorrect the potassium level as the patient is on a combination of Aldactone together with potassium together with Lasix. 4. As noted above, we will need to accept a slightly higher degree of BUN and creatinine in order to keep the patient euvolemic. The higher levels fall within his baseline range. 5. Continue with Renal diet in light of his history of chronic kidney disease. Blair Hernandez MD
[2017-06-01] MEDS ORDERED: Potassium Chloride 20 mEq ER Tab PO SCH (10:00)
--- NOTE | 2017-06-01 11:52 | PN ---
DATE: SUBJECTIVE: A 52-year-old male on Telemetry. Nursing states that the patient just had a loose bowel movement that was bloody, which the patient confirms. Patient now states that he has had since last week some bloody bowel movements. PHYSICAL EXAMINATION VITAL SIGNS: His temp is 97.9, his pulse is 72 with blood pressure 118/70. His oxygen sat is 96% on room air. His respiratory rate is 20. GENERAL: He is alert and oriented x3. NECK: Supple. LUNGS: Show rhonchi at the bases. HEART: S1, S2 rhythm. ABDOMEN: Soft, obese. Positive bowel sounds. No tenderness. EXTREMITIES: Show no edema. LABORATORY DATA: At this time, his chemistry shows sodium 138, potassium 4.4, chloride 99, CO2 of 26, BUN is 40, creatinine is 2.4. His random blood sugar is 112. His magnesium is now 1.7. His calcium is 9. MEDICATIONS: Currently, the patient is on hold of his Aldactone and Lasix. He is receiving magnesium oxide, Lipitor, Eliquis, Coreg and amiodarone. Review of Cardiology note is noted. We discussed with Cardiology the use of Eliquis at this time too. Patient states that he tentatively had an appointment with Dr. August of GI, so we will put a consult requesting for Dr. August at this time. Renal's note is reviewed. IMPRESSION AND PLAN: The patient has underlying chronic kidney disease with an acute insult at this time. Lasix has currently been placed on hold as well as the Aldactone. Patient has past medical history of paroxysmal atrial fibrillation with defibrillator, history of gouty arthritis, history of liver disease, possibly cirrhosis, history of gastric erosions in the past. History of periportal adenopathy in the past. We will monitor followup labs and awaiting input from the individual consultants. All these findings have been fully discussed with the patient as well as with nursing staff. Qing Jiménez MD
[2017-06-01 21:12] LABS: HEMOGLOBIN 12.5 g/dL (14.0-18.0); MEAN CELL VOLUME 96.8 fl (80.0-105.0); MEAN CORPUSCULAR HEMOGLOBIN 30.9 pg (25.0-35.0); MEAN PLATELET VOLUME 9.8 fl (7.0-11.0); RBC 4.04 10^6/uL (3.5-6.1); RED CELL DISTRIBUTION WIDTH 14.8 % (11.5-14.5); WHITE BLOOD COUNT 10.1 10^3/ul (4.5-11.0)
[2017-06-01 21:24] LABS: CALCIUM 9.4 mg/dL (8.4-10.5)
[2017-06-01 21:29] LABS: INR 2.29 (0.93-1.08); PROTHROMBIN TIME 26.6 SECONDS (9.4-12.5)
--- NOTE | 2017-06-01 22:10 | CP.PCM.PN ---
Subjective - Date & Time of Evaluation Date of Evaluation: 06/01/17 Time of Evaluation: 21:00 - Subjective Subjective: called by nurse reqested by dr sawant for pt passed bright red blood per rectum.pt is sitting in chair comfortably states the he has diarrhea x2 day , and today when he was trying to pass bm it was hard for him and he had to push down and had some bright red blood per rectum,and again when he passed some blood but much less this time denies abdominal pain . Objective - Vital Signs/Intake and Output Vital Signs (last 24 hours): Temp Pulse Resp BP Pulse Ox 98.7 F 68 18 124/86 98 06/01/17 18:00 06/01/17 18:00 06/01/17 18:00 06/01/17 18:00 06/01/17 18:00 Intake and Output: 06/01/17 06/02/17 18:59 06:59 Intake Total 600 Output Total 600 Balance 0 - Medications Medications: Current Medications Amiodarone HCl (Cordarone) 100 mg PO DAILY [facility] Last Admin: 06/01/17 09:05 Dose: 100 mg Apixaban (Eliquis) 5 mg PO BID [facility] PRN Reason: Protocol Last Admin: 06/01/17 09:05 Dose: 5 mg Atorvastatin Calcium (Lipitor) 80 mg PO DIN [facility] Last Admin: 06/01/17 17:04 Dose: 80 mg Carvedilol (Coreg) 25 mg PO BID [facility] Last Admin: 06/01/17 17:05 Dose: 25 mg Furosemide (Lasix) 40 mg PO BID [facility] Last Admin: 05/31/17 17:48 Dose: 40 mg Hydrocortisone (Anusol-Hc) 25 mg RC BID [facility] Magnesium Oxide (Mag-Ox) 400 mg PO BID [facility] Last Admin: 06/01/17 17:05 Dose: 400 mg Spironolactone (Aldactone) 25 mg PO BID [facility] Last Admin: 05/31/17 17:48 Dose: 25 mg - Labs Labs: 06/01/17 21:00 06/01/17 21:00 PT 26.6 SECONDS (9.4-12.5) H 06/01/17 21:00 INR 2.29 (0.93-1.08) H 06/01/17 21:00 APTT 34.0 Seconds (25.1-36.5) 06/01/17 21:00 - Constitutional Appears: No Acute Distress - Head Exam Head Exam: NORMOCEPHALIC - Eye Exam Eye Exam: Normal appearance Pupil Exam: PERRL - ENT Exam ENT Exam: Mucous Membranes Moist - Neck Exam Neck Exam: Full ROM - Respiratory Exam Respiratory Exam: Clear to Ausculation Bilateral - Cardiovascular Exam Cardiovascular Exam: RRR, +S1, +S2 - GI/Abdominal Exam GI & Abdominal Exam: Soft, Normal Bowel Sounds - Extremities Exam Extremities Exam: Full ROM, Normal Inspection - Neurological Exam Neurological Exam: Alert, Awake, CN II-XII Intact, Oriented x3 - Psychiatric Exam Psychiatric exam: Normal Affect - Skin Skin Exam: Dry, Warm Assessment and Plan - Assessment and Plan (Free Text) Assessment: bleeding per rectum /hemmorhoids. Plan: cbc. bmp , ptptt. requested aracely sawant for pt to be seen by intesivist , dr palacios called.
[2017-06-01] MEDS ORDERED: Alum-Mag Hydrox-Simethicone Susp (30 mL) PO ONE (23:21)
--- NOTE | 2017-06-02 04:37 | CP.PCM.CON ---
<MejiaLaci - Last Filed: 06/02/17 04:25> History of Present Illness - History of Present Illness History of Present Illness: ICU Consult Note Consulted for BRBPR + diarrhea This is a 52 yo M with PMH of COPD, CHF, CKD stage 3, paroxysmal afib s/p pacemaker placement who presented to [facility] initially with complaint of shortness of breath on 05/30/17. ICU was consulted because yesterday into today, pt reports 2 episodes of bright-red blood per rectum. Today, patient reports bright red blood with the diarrheal movements, denies stool incontinence. Reports had a prior colonoscopy (unclear if 2015 or 2017) which he reports was notable for hemorrhoids and diverticulosis at that time. Denies black/tarry stools, just blood mixed in. Denies lightheadedness, dizziness, syncope, near syncope, chest pain, shortness of breath at rest. Only complaint is abdominal discomfort. All other ROS in 12-system review negative. Of note, pt is reportedly on Eliquis at home (likely for Afib hx), currently on it inpt. PMH: as above PSH: Pacemaker placement, Cardiac cath, hx of right knee replacement Soc Hx: former smoker, hx of EtOH abuse (reported 10-12 drinks daily, not mentioned by pt, found in charting) Fam Hx: none relevant PMD: Dr. Jiménez Review of Systems - Review of Systems All systems: reviewed and no additional remarkable complaints except (as per HPI ) Past Patient History - Infectious Disease Hx of Infectious Diseases: None - Tetanus Immunizations Tetanus Immunization: Up to Date - Past Social History Smoking Status: Former Smoker - CARDIAC Hx Cardiac Disorders: Yes Hx Hypertension: Yes Hx Internal Defibrillator: Yes (pacemaker/defib 2006/replaced 2 yrs ago) Hx Pacemaker: Yes (pacemaker/defib 2006 replaced 2 yrs ago) Hx Peripheral Edema: Yes (ble +1) Other/Comment: Cardiomyopathy, 25 lb weight loss in 2 1/2 wks due to no appetite and on extra lasix due to ble edema - PULMONARY Hx Respiratory Disorders: Yes Hx Sleep Apnea: Yes (uses cpap at home) - NEUROLOGICAL Hx Neurological Disorder: No - HEENT Hx HEENT Problems: Yes (eyeglasses) - RENAL Hx Chronic Kidney Disease: Yes (hx renal insufficiency which resolved) - ENDOCRINE/METABOLIC Hx Endocrine Disorders: No - HEMATOLOGICAL/ONCOLOGICAL Hx Blood Disorders: Yes Hx Anemia: Yes - INTEGUMENTARY Hx Dermatological Problems: No - MUSCULOSKELETAL/RHEUMATOLOGICAL Hx Falls: No - GASTROINTESTINAL Hx Gastrointestinal Disorders: Yes (obese) Hx Diverticulitis: Yes Other/Comment: weight loss 25 lbs in 2 1/2 wks due to no appetite and on extra lasix due to ble edema - GENITOURINARY/GYNECOLOGICAL Hx Genitourinary Disorders: No - PSYCHIATRIC Hx Substance Use: No - SURGICAL HISTORY Hx Cardiac Catheterization: Yes Hx Orthopedic Surgery: Yes (right knee cartilige) Other/Comment: pacemaker and defib in 2006 replaced 2 yrs ago, r knee arthoscopic sx to repair cartilage 32 yrs ago - ANESTHESIA Hx Anesthesia: Yes Hx Anesthesia Reactions: No Meds Allergies/Adverse Reactions: Allergies Allergy/AdvReac Type Severity Reaction Status Date / Time No Known Allergies Allergy Verified 05/30/17 09:01 - Medications Medications: Current Medications Amiodarone HCl (Cordarone) 100 mg PO DAILY [facility] Last Admin: 06/01/17 09:05 Dose: 100 mg Apixaban (Eliquis) 5 mg PO BID [facility] PRN Reason: Protocol Last Admin: 06/01/17 09:05 Dose: 5 mg Atorvastatin Calcium (Lipitor) 80 mg PO DIN [facility] Last Admin: 06/01/17 17:04 Dose: 80 mg Carvedilol (Coreg) 25 mg PO BID [facility] Last Admin: 06/01/17 17:05 Dose: 25 mg Furosemide (Lasix) 40 mg PO BID [facility] Last Admin: 05/31/17 17:48 Dose: 40 mg Hydrocortisone (Anusol-Hc) 25 mg RC BID [facility] Last Admin: 06/01/17 22:31 Dose: 25 mg Magnesium Oxide (Mag-Ox) 400 mg PO BID [facility] Last Admin: 06/01/17 17:05 Dose: 400 mg Spironolactone (Aldactone) 25 mg PO BID [facility] Last Admin: 05/31/17 17:48 Dose: 25 mg Physical Exam - Constitutional Appears: Non-toxic, No Acute Distress - Head Exam Head Exam: ATRAUMATIC, NORMAL INSPECTION, NORMOCEPHALIC - Eye Exam Eye Exam: EOMI, Normal appearance. absent: Conjunctival injection, Scleral icterus Pupil Exam: absent: Irregular, Unequal - ENT Exam ENT Exam: Mucous Membranes Moist - Neck Exam Neck exam: Positive for: Full Rom - Respiratory Exam Respiratory Exam: Clear to Auscultation Bilateral, NORMAL BREATHING PATTERN. absent: Accessory Muscle Use, Chest Wall Tenderness, Decreased Breath Sounds, Rales, Rhonchi, Wheezes - Cardiovascular Exam Cardiovascular Exam: REGULAR RHYTHM, RRR, +S1, +S2. absent: Bradycardia, Tachycardia, Irregular Rhythm, JVD, +S4 - GI/Abdominal Exam GI & Abdominal Exam: Normal Bowel Sounds, Soft. absent: Diminished Bowel Sounds , Distended, Hyperactive Bowel Sounds, Hypoactive Bowel Sounds, Rigid - Extremities Exam Extremities exam: Positive for: normal inspection. Negative for: calf tenderness - Neurological Exam Neurological exam: Alert, Oriented x3 - Psychiatric Exam Psychiatric exam: Normal Affect, Normal Mood - Skin Skin Exam: Dry, Intact, Normal Color, Warm Results - Vital Signs Recent Vital Signs: Last Vital Signs Temp 97.8 F 06/02/17 00:01 Pulse 67 06/02/17 02:00 Resp 20 06/02/17 00:01 BP 117/87 06/02/17 00:01 Pulse Ox 98 06/02/17 00:01 - Labs Result Diagrams: 06/01/17 21:00 06/01/17 21:00 Labs: Laboratory Results - last 24 hr 06/01/17 06/01/17 06/01/17 06:00 21:00 21:00 WBC 10.1 D RBC 4.04 Hgb 12.5 L Hct 39.1 L MCV 96.8 MCH 30.9 MCHC 32.0 RDW 14.8 H Plt Count 191 MPV 9.8 PT 26.6 H INR 2.29 H APTT 34.0 Sodium 138 Potassium 4.4 Chloride 99 Carbon Dioxide 26 Anion Gap 18 BUN 40 H Creatinine 2.4 H Est GFR ( Amer) 34 Est GFR (Non-Af Amer) 28 Random Glucose 112 H Calcium 9.0 Magnesium 1.7 Blood Type Antibody Screen BBK History Checked 06/01/17 06/01/17 21:00 21:00 WBC RBC Hgb Hct MCV MCH MCHC RDW Plt Count MPV PT INR APTT Sodium 138 Potassium 4.3 Chloride 99 Carbon Dioxide 26 Anion Gap 18 BUN 43 H Creatinine 2.3 H Est GFR ( Amer) 36 Est GFR (Non-Af Amer) 30 Random Glucose 131 H Calcium 9.4 Magnesium Blood Type O POSITIVE Antibody Screen Negative BBK History Checked No verified bt Assessment & Plan - Assessment and Plan (Free Text) Assessment: This is a 52 yo M with PMH of COPD, CHF, CKD stage 3, paroxysmal afib s/p pacemaker placement who presented to [facility] [facility] initially with complaint of shortness of breath on 05/30/17. ICU was consulted because yesterday into today, pt reports 2 episodes of bright-red blood per rectum. Plan: At this time, patient does not require ICU level of care. Would continue to remain on telemetry, and recommend the following: -hold elequis at this time until further workup done and determined that pt is safe to resume -recheck Hgb on AM labs to monitor for losses -If patient hgb begins acutely dropping or he becomes hemodynamically unstable, please reconsult us as needed. Patient seen, reviewed, and discussed with attending, Dr. Lara. <Enrique Lara Q - Last Filed: 06/02/17 06:40> Meds - Medications Medications: Current Medications Amiodarone HCl (Cordarone) 100 mg PO DAILY [facility] Last Admin: 06/01/17 09:05 Dose: 100 mg Apixaban (Eliquis) 5 mg PO BID [facility] PRN Reason: Protocol Last Admin: 06/01/17 09:05 Dose: 5 mg Atorvastatin Calcium (Lipitor) 80 mg PO DIN [facility] Last Admin: 06/01/17 17:04 Dose: 80 mg Carvedilol (Coreg) 25 mg PO BID [facility] Last Admin: 06/01/17 17:05 Dose: 25 mg Furosemide (Lasix) 40 mg PO BID [facility] Last Admin: 05/31/17 17:48 Dose: 40 mg Hydrocortisone (Anusol-Hc) 25 mg RC BID [facility] Last Admin: 06/01/17 22:31 Dose: 25 mg Magnesium Oxide (Mag-Ox) 400 mg PO BID [facility] Last Admin: 06/01/17 17:05 Dose: 400 mg Spironolactone (Aldactone) 25 mg PO BID [facility] Last Admin: 05/31/17 17:48 Dose: 25 mg Results - Vital Signs Recent Vital Signs: Last Vital Signs Temp 97.7 F 06/02/17 05:56 Pulse 64 06/02/17 05:56 Resp 20 06/02/17 05:56 BP 105/69 06/02/17 05:56 Pulse Ox 99 06/02/17 05:56 - Labs Result Diagrams: 06/01/17 21:00 04/14/18 21:00 Labs: Laboratory Results - last 24 hr 06/01/17 06/01/17 06/01/17 06:00 21:00 21:00 WBC 10.1 D RBC 4.04 Hgb 12.5 L Hct 39.1 L MCV 96.8 MCH 30.9 MCHC 32.0 RDW 14.8 H Plt Count 191 MPV 9.8 PT 26.6 H INR 2.29 H APTT 34.0 Sodium 138 Potassium 4.4 Chloride 99 Carbon Dioxide 26 Anion Gap 18 BUN 40 H Creatinine 2.4 H Est GFR ( Amer) 34 Est GFR (Non-Af Amer) 28 Random Glucose 112 H Calcium 9.0 Magnesium 1.7 Blood Type Blood Type Confirm Antibody Screen BBK History Checked 06/01/17 06/01/17 06/01/17 21:00 21:00 22:50 WBC RBC Hgb Hct MCV MCH MCHC RDW Plt Count MPV PT INR APTT Sodium 138 Potassium 4.3 Chloride 99 Carbon Dioxide 26 Anion Gap 18 BUN 43 H Creatinine 2.3 H Est GFR ( Amer) 36 Est GFR (Non-Af Amer) 30 Random Glucose 131 H Calcium 9.4 Magnesium Blood Type O POSITIVE Blood Type Confirm O POSITIVE Antibody Screen Negative BBK History Checked No verified bt Attending/Attestation - Attestation I have personally seen and examined this patient.: Yes I have fully participated in the care of the patient.: Yes I have reviewed all pertinent clinical information: Yes
[2017-06-02 06:43] LABS: HEMOGLOBIN 12.4 g/dL (14.0-18.0); MEAN CELL VOLUME 97.5 fl (80.0-105.0); MEAN CORPUSCULAR HGB CONC 31.8 g/dl (31.0-37.0); RED CELL DISTRIBUTION WIDTH 14.8 % (11.5-14.5); WHITE BLOOD COUNT 8.7 10^3/ul (4.5-11.0)
[2017-06-02 06:58] LABS: ALBUMIN 3.8 g/dL (3.0-4.8); CALCIUM 9.4 mg/dL (8.4-10.5)
--- NOTE | 2017-06-02 08:14 | CP.PCM.PN ---
Subjective - Date & Time of Evaluation Date of Evaluation: 06/02/17 Time of Evaluation: 07:00 - Subjective Subjective: Stable on 2R. No CP or SOB. + bloody BMs now. + Cough in AMs. V/S noted. RSR PE: Lungs: clear Cor.: S1S2 Abd.: soft Ext.: min edema Neuro.: alert I/O 840/1200 Labs noted: Cr. 2.2, K+= 4.3, H/H 12.4/39 BC X2 NG at 48 hrs. Objective - Vital Signs/Intake and Output Vital Signs (last 24 hours): Temp Pulse Resp BP Pulse Ox 97.7 F 64 20 105/69 99 06/02/17 05:56 06/02/17 05:56 06/02/17 05:56 06/02/17 05:56 06/02/17 05:56 Intake and Output: 06/02/17 06/02/17 06:59 18:59 Intake Total 240 Output Total 600 Balance -360 - Medications Medications: Current Medications Amiodarone HCl (Cordarone) 100 mg PO DAILY [facility] Last Admin: 06/01/17 09:05 Dose: 100 mg Apixaban (Eliquis) 5 mg PO BID [facility] PRN Reason: Protocol Last Admin: 06/01/17 09:05 Dose: 5 mg Atorvastatin Calcium (Lipitor) 80 mg PO DIN [facility] Last Admin: 06/01/17 17:04 Dose: 80 mg Carvedilol (Coreg) 25 mg PO BID [facility] Last Admin: 06/01/17 17:05 Dose: 25 mg Furosemide (Lasix) 40 mg PO BID [facility] Last Admin: 05/31/17 17:48 Dose: 40 mg Hydrocortisone (Anusol-Hc) 25 mg RC BID [facility] Last Admin: 06/01/17 22:31 Dose: 25 mg Magnesium Oxide (Mag-Ox) 400 mg PO BID [facility] Last Admin: 06/01/17 17:05 Dose: 400 mg Spironolactone (Aldactone) 25 mg PO BID [facility] Last Admin: 05/31/17 17:48 Dose: 25 mg - Labs Labs: 06/02/17 06:00 06/02/17 06:00 PT 26.6 SECONDS (9.4-12.5) H 06/01/17 21:00 INR 2.29 (0.93-1.08) H 06/01/17 21:00 APTT 34.0 Seconds (25.1-36.5) 06/01/17 21:00 Assessment and Plan - Assessment and Plan (Free Text) Assessment: SOB CHF CCM, familial, ETOH related PAF acute on chronic kidney disease GIB ICD DENISE COPD ETOH, acute and chronic Gout Echo 06/04: Severe LVD, Mild MR and TR Plan: Hold Lasix, KCL, spironolactone and Eliquis GI evaluation Monitor I/O's Monitor: labs, renal fx., sats., H/H, etc. D/C all ETOH. He needs help with this. OOB to chair as jeannette. Will follow.
[2017-06-02] MEDS: Magnesium Oxide 400 mg Tab UD PO SCH ×2 (09:15→17:09)
--- NOTE | 2017-06-02 09:48 | PN ---
DATE: SUBJECTIVE: A 52-year-old male on telemetry, admitted for congestive heart failure with bouts of diarrhea associated with blood. PHYSICAL EXAMINATION: VITAL SIGNS: Show a temp of 97.7, his pulse is 64, his blood pressure is 105/69, his oxygen sat is 99% nasal cannula, respiratory rate is 20. Yesterday, the patient was noted to have had a bloody bowel movement, was seen by the house physician as well as by the hospitalist. Based upon his clinical status at that time and his laboratory data, the main line assembler and the hospitalist did not feel the patient was a candidate for transfer to the Intensive Care Unit. This morning, he states that he has not moved his bowels as yet. He feels a little upset stomach. LUNGS: Show diminished breath sounds at the bases. HEART: S1, S2. ABDOMEN: Obese, soft, positive bowel sounds. EXTREMITIES: No evidence of edema. LABORATORY DATA: Shows WBC of 8.7, RBC 4, hemoglobin 12.4, hematocrit 39, platelet count 173. His chemistry shows a sodium 141, potassium 4.3, chloride 99, CO2 of 30, the BUN is 42, the creatinine is 2.2. His LFTs are normal. Blood sugar is 97. MEDICATIONS: Current medications at this time are Anusol suppository, amiodarone 100 mg daily, Coreg 25 mg b.i.d., magnesium oxide 400 mg b.i.d. ASSESSMENT AND PLAN: 1. He was being followed by Cardiology for initial congestive heart failure, cardiomyopathy after he has a defibrillator in place with paroxysmal atrial fibrillation. Eliquis has been placed on hold. 2. He is being followed by Renal for his chronic renal disease with the acute renal insult. 3. He has a history of sleep apnea. We will get a Pulmonary consult as he complains about this morning extensive congestion. Follow current clinical course. Treatment and plan pending input from the individual consultants. All this data has been discussed fully with the patient. Qing Jiménez MD
--- NOTE | 2017-06-02 11:51 | PN ---
DATE: SUBJECTIVE: The patient is currently seen on 2R telemetry. He had an episode of bright red blood per rectum last night. No further episodes today. Hemoglobin had remained stable. BUN and creatinine remain at baseline. Case discussed with Dr. Jiménez. GI evaluation in progress. MEDICATIONS: Medication list reviewed. The patient is currently on hydrocortisone, amiodarone, Coreg, Lipitor, magnesium oxide, Lasix is on hold, Eliquis is on hold and Aldactone is on hold. OBJECTIVE: INTAKE/OUTPUT: Intake 840, output 1200. Weight is 210 pounds. VITAL SIGNS: Blood pressure 114/75, pulse 72, temperature 97.7, respiratory rate of 20, pulse ox 99%. HEENT: Shows him to be normocephalic, atraumatic. Conjunctivae are pink. Sclerae are nonicteric. NECK: Supple. No neck vein distention. CHEST: Clear to auscultation and percussion. No rales, rhonchi or wheezing. CARDIOVASCULAR: Shows a regular rate and rhythm. Positive AICD. Positive holosystolic murmur, left lower sternal border. No S3. No S4. No rub. ABDOMEN: Obese. Bowel sounds normal. No rebound, guarding or masses. No lower quadrant tenderness. EXTREMITIES: Show no lower extremity cyanosis, clubbing or edema. LABORATORY DATA AND IMAGING: CBC today, white blood cell count stable 8.7, hemoglobin stable at 12.4, platelet count is 173,000. Coags: PT was 26.6 with an INR of 2.29 and PTT of 34. Chemistries today showed normal electrolytes. BUN stable at 42. Creatinine stable at 2.2, well within his baseline range. Glucose is 97. Calcium, phosphorus, magnesium level all normal. Liver enzymes are normal. Microbiology: Blood cultures are negative at 72 hours. Stool for C. diff is negative. ASSESSMENT: 1. Chronic kidney disease stage 3. The patient's BUN and creatinine are above his best baseline levels, but certainly within his baseline. As discussed with the patient and Dr. Jiménez, it might be necessary to keep his BUN and creatinine at this level given his history of congestive heart failure and cardiomyopathy. The patient presently is off diuretic therapy, but these will likely need to be restarted in light of his history of cardiomyopathy. 2. History of congestive heart failure, history of cardiomyopathy, possibly secondary to alcohol with a dilated cardiomyopathy, history of paroxysmal atrial fibrillation, positive automatic implantable cardioverter-defibrillator, all appeared to be stable. The patient appears to be well compensated. 3. Status post mild hypokalemia. Potassium level has normalized. 4. Hyperlipidemia, controlled with diet and medical therapy. 5. History of obstructive sleep apnea. 6. History of chronic obstructive pulmonary disease. 7. History of obesity. 8. Acute onset of gastrointestinal bleeding with bright red blood per rectum. Perhaps diverticular bleeding. The patient is being evaluated by Gastroenterology. All anticoagulation has been stopped. Of note, no change in his BUN and creatinine and no change in his hemoglobin at present. PLAN: 1. Continue to monitor labs closely in light of his GI bleeding. 2. As noted above, the patient will likely need to restart back on diuretic therapy at the time of discharge from the hospital. 3. As discussed with Dr. Jiménez and the patient, the BUN in the 40s and the creatinine in the low 2 range is certainly acceptable given the need to balance CHF, hypovolemia, cardiorenal syndrome with prerenal azotemia. 4. Continue the patient on a renal diet in light of his history of chronic kidney disease. Phosphorus level is normal at 2.9. Blair Hernandez MD
[2017-06-03] MEDS ORDERED: Levalbuterol 1.25 MG/3 ML Inhal Soln UD IH PRN (06:55)
[2017-06-03 07:22] LABS: HEMOGLOBIN 12.2 g/dL (14.0-18.0); MEAN CELL VOLUME 96.7 fl (80.0-105.0); MEAN CORPUSCULAR HEMOGLOBIN 30.7 pg (25.0-35.0); MEAN CORPUSCULAR HGB CONC 31.8 g/dl (31.0-37.0); MEAN PLATELET VOLUME 9.9 fl (7.0-11.0); RBC 3.97 10^6/uL (3.5-6.1); RED CELL DISTRIBUTION WIDTH 14.8 % (11.5-14.5)
[2017-06-03 07:40] LABS: ALBUMIN 3.9 g/dL (3.0-4.8); CALCIUM 9.2 mg/dL (8.4-10.5)
--- NOTE | 2017-06-03 07:40 | CON ---
DATE: PULMONARY CONSULTATION REFERRING PHYSICIAN Qing Jiménez MD. REASON FOR CONSULTATION Obstructive sleep apnea. The patient is a chronically ill 52-year-old male, with past medical history significant for recurrent congestive heart failure; dilated cardiomyopathy; alcohol abuse; cardiac arrhythmias, status post ICD insertion; obstructive sleep apnea; chronic obstructive pulmonary disease; chronic kidney disease who presented to [facility] - originally on 05/30/2017 - with a 2-day history of worsening shortness of breath at rest, dyspnea on exertion and cough. The patient denies significant sputum production. The patient does state this sporadic chest pain. He has had no chest pain during his hospital stay. No history of coughing up of blood. No history of chest pain - made worse with deep respirations. There is no history of temperatures, chills or infectious exposure. There is no history of night sweats, weight loss or appetite change prior to the above events. No history of calf pains. No history of syncope or diaphoresis. No history of recent travel or trauma. REVIEW OF SYSTEMS No history of nausea, vomiting, diarrhea. No acute urinary symptoms. No new neurologic or musculoskeletal complaints. Rest of the review of systems is negative. ALLERGIES NO KNOWN ALLERGIES. SOCIAL HISTORY: Positive for tobacco usage. Also, positive for alcohol abuse. FAMILY HISTORY No inheritable diseases. HOME MEDICATIONS: Include Aldactone, Xopenex, Lasix, Coreg, Lipitor, Eliquis, Cordarone. PHYSICAL EXAMINATION GENERAL: The patient appears comfortable this morning. He is not short of breath at rest. VITAL SIGNS: Temperature is 98, pulse 62, respirations 18, blood pressure 109/71. Oxygen saturation on room air is 96-100%. HEENT: Normocephalic, atraumatic. No JVD. CARDIOVASCULAR: Systolic ejection murmur at the lower left sternal border. Questionable S3 gallop. LUNGS: Clear bilaterally. EXTREMITIES: Positive for mild edema. No cyanosis, no clubbing. Calves are nontender to palpation. GASTROINTESTINAL: Abdomen is soft, nontender and nondistended. Bowel sounds are positive. SKIN: No acute rash. NEUROLOGIC: Exam is limited at the present time. PERTINENT LABORATORY DATA: Chest x-ray was done on 05/30/2017. There is mild pulmonary vascular congestion noted. There is also cardiomegaly. CBC: White count 8.7, hemoglobin 12.4, hematocrit 39, platelets of 173,000. INR 2.29. Complete metabolic profile: BUN 42, creatinine 2.2. Rest of the metabolic profile is within normal limits. Initial B-type natriuretic peptide 6680. IMPRESSION 1. Recurrent congestive heart failure. 2. Dilated cardiomyopathy. 3. Obstructive sleep apnea. 4. Chronic obstructive pulmonary disease. 5. Chronic kidney disease. 6. Cardiac arrhythmias, status post implantable cardioverter-defibrillator placement. PLAN: I did discuss the case with the night nurse at length. I have also reviewed the chart at length and discussed the case with the patient at length. The patient presented to [facility] - originally on 05/30/2017 - with a 2-day history of worsening pulmonary symptoms. I did review the chest x-ray as above. Mild pulmonary vascular congestion and cardiomegaly are noted. I have also reviewed the laboratory data---as above. A significant rise in the B-type natriuretic peptide was noted. The patient has been seen by Renal and Cardiology. Inputs are noted. He was placed on adequate diuresis and now feels much, much better overall. On physical exam, there is no bronchospasm noted. In addition, the oxygen saturation on room air is 96-100%. The patient does use inhalers at home on a p.r.n. basis. Again, he is clear bilaterally. In addition, I have instructed the patient to call his - so that she can bring in his CPAP mask from home. He agrees. The clinical status of this patient appears significantly improved - compared to the initial presentation. I will discuss the above with Dr. Jiménez. Thank you very much for this pulmonary consultation. Elie Young MD [facility]
--- NOTE | 2017-06-03 08:19 | CP.PCM.PN ---
Subjective - Date & Time of Evaluation Date of Evaluation: 06/03/17 Time of Evaluation: 07:00 - Subjective Subjective: Stable on 2R. No CP or SOB. He feels better. He blew his nose> blood tinged. No rectal bleeding since yesterday. V/S noted. RSR PE: Lungs: clear Cor.: S1S2 Abd.: soft Ext.: min edema Neuro.: alert I/O 600/900 Labs noted: Cr. 2.1, K+= 4.0, H/H 12.2/38.4 BC X2 NG at 3 days Objective - Vital Signs/Intake and Output Vital Signs (last 24 hours): Temp Pulse Resp BP Pulse Ox 98.0 F 62 20 109/71 96 06/03/17 06:00 06/03/17 06:00 06/03/17 06:00 06/03/17 06:00 06/03/17 06:00 Intake and Output: 06/03/17 06/03/17 06:59 18:59 Output Total 400 Balance -400 - Medications Medications: Current Medications Amiodarone HCl (Cordarone) 100 mg PO DAILY [facility] Last Admin: 06/02/17 09:15 Dose: 100 mg Apixaban (Eliquis) 5 mg PO BID [facility] PRN Reason: Protocol Last Admin: 06/02/17 18:15 Dose: 5 mg Atorvastatin Calcium (Lipitor) 80 mg PO DIN [facility] Last Admin: 06/02/17 17:09 Dose: 80 mg Carvedilol (Coreg) 25 mg PO BID [facility] Last Admin: 06/02/17 17:09 Dose: 25 mg Docusate Sodium (Colace) 100 mg PO TID [facility] Last Admin: 06/02/17 17:09 Dose: 100 mg Furosemide (Lasix) 40 mg PO BID [facility] Last Admin: 05/31/17 17:48 Dose: 40 mg Hydrocortisone (Anusol-Hc) 25 mg RC BID [facility] Last Admin: 06/02/17 17:10 Dose: 25 mg Levalbuterol HCl (Xopenex) 1.25 mg IH TIDRESP PRN PRN Reason: Shortness of Breath Magnesium Oxide (Mag-Ox) 400 mg PO BID [facility] Last Admin: 06/02/17 17:09 Dose: 400 mg Spironolactone (Aldactone) 25 mg PO BID [facility] Last Admin: 05/31/17 17:48 Dose: 25 mg - Labs Labs: 06/03/17 06:45 06/03/17 06:45 PT 26.6 SECONDS (9.4-12.5) H 06/01/17 21:00 INR 2.29 (0.93-1.08) H 06/01/17 21:00 APTT 34.0 Seconds (25.1-36.5) 06/01/17 21:00 Assessment and Plan - Assessment and Plan (Free Text) Assessment: SOB CHF CCM, familial, ETOH related PAF acute on chronic kidney disease GIB ICD DENISE COPD ETOH, acute and chronic Gout Echo 06/04: Severe LVD, Mild MR and TR Plan: Hold Lasix, KCL, spironolactone and Eliquis for now. As per Renal and Dr. Jiménez GI evaluation Monitor I/O's Monitor: labs, renal fx., sats., H/H, etc. D/C all ETOH. He needs help with this, possible in an in-patient setting. OOB/PT as jeannette. Will follow.
--- NOTE | 2017-06-03 08:48 | CON ---
DATE: 06/02/2017 GASTROLOGY CONSULTATION REQUESTING PHYSICIAN: Qing Jiménez MD. REASON FOR CONSULTATION: I have been asked to see this 52-year-old male with multiple comorbidities including history of cardiomyopathy; congestive heart failure; atrial fibrillation, on Eliquis; chronic kidney disease, cirrhosis of the liver; periportal lymphadenopathy; history of ventricular tachycardia, status post AICD placement; COPD; diverticulosis; alcohol use who was admitted to the hospital 3 days ago with increasing shortness of breath and congestive heart failure. The patient apparently has had intermittent rectal bleeding over the last several months. He admits to occasional straining with his bowel movements. He did have an endoscopy and colonoscopy with Dr. Gotti approximately 1 year ago which revealed erosive gastritis, colon polyps, diverticulosis, hemorrhoids. He also had an endoscopic ultrasound for this periportal lymphadenopathy, which was negative for malignancy. Last night, the patient had an episode of rectal bleeding without a bowel movement. His hemoglobin has remained stable over the last 72 hours. The patient apparently has paroxysmal atrial fibrillation and goes in and out of atrial fibrillation. He currently denies any further rectal bleeding, chest pain, nausea, vomiting, abdominal pain, melena, or hematemesis. PAST MEDICAL HISTORY: As above. Again, he has a history of cardiomyopathy, congestive heart failure, ventricular tachycardia requiring AICD placement, cirrhosis of the liver, chronic alcoholism, GERD, diverticulosis, erosive gastritis, gout, chronic kidney disease, periportal lymphadenopathy, COPD, and obstructive sleep apnea. PAST SURGICAL HISTORY: Notable for AICD placement. SOCIAL HISTORY: He denies cigarette smoking. He is an alcoholic. He drinks up to 6-pack a day with hard liquor. 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 FAMILY HISTORY: Notable for cardiomyopathy. REVIEW OF SYSTEMS: A 14-point review of systems is positive for shortness of breath and pedal edema. PHYSICAL EXAMINATION: GENERAL: Middle-aged male lying in bed, in no acute distress. VITAL SIGNS: Reveal temperature of 97.7, blood pressure 114/75, heart rate of 72. HEENT: Reveals sclerae to be white, conjunctivae pink. NECK: Supple. CHEST: Reveals distant breath sounds. HEART: Reveals an irregular rate. He has an AICD in his left subclavicular area. ABDOMEN: Flabby, soft, nontender. EXTREMITIES: Show trace pedal edema. There is no asterixis. LABORATORY DATA: Reveals hemoglobin of 12.4, on admission to the hospital his hemoglobin was 12.3; white blood cell count 8.6; platelet count 173. BUN 42, creatinine 2.2. His PT, INR 26.6 and 2.2, PTT of 34. MEDICATIONS: At home include Aldactone 25 mg twice a day, Xopenex 2 puffs inhaled four times a day, Lasix 40 mg b.i.d., folic acid 1 mg daily, carvedilol 25 mg b.i.d., Lipitor 80 mg once a day, Eliquis 5 mg b.i.d., and amiodarone 100 mg p.o. b.i.d. IMPRESSION: Rectal bleeding in a patient with a history of cardiomyopathy; atrial fibrillation, on Eliquis; chronic kidney disease; chronic obstructive pulmonary disease; cardiomyopathy; history of ventricular tachycardia, status post automated implantable cardioverter defibrillator. Rectal exam showed small external hemorrhoids. There is no blood in his rectal vault. There is no mass. He did have a colonoscopy with Dr. Gotti approximately a year ago which showed benign colon polyps, diverticulosis, and hemorrhoids. His blood count has remained stable in the 72 hours he has been in the hospital. He does have cirrhosis of the liver from alcohol abuse as well as a history of periportal lymphadenopathy. RECOMMENDATIONS: 1. Given the patient's high risk for stroke as he apparently goes in and out of atrial fibrillation, I will still resume the patient's Eliquis 5 mg b.i.d. 2. I have ordered an Anusol-HC 25 mg suppository twice a day. 3. I will start the patient on Colace 100 mg three times a day. 4. Follow serial hematocrits. 5. Given recent colonoscopy, I will not plan on repeating a colonoscopy at this time. The patient has been instructed to refrain from further alcohol use given his cirrhosis of the liver and rectal bleeding. Trevor August MD
[2017-06-03] MEDS: Magnesium Oxide 400 mg Tab UD PO SCH (09:04)
--- NOTE | 2017-06-03 14:52 | PN ---
DATE: 06/03/2017 SUBJECTIVE: The patient is lying in bed comfortable. He had a small amount of rectal bleeding this morning witnessed by the nurse. He denies any nausea, vomiting, abdominal pain. He does admit to poor appetite. His Eliquis has been stopped by Dr. Vázquez. He denies any pain with defecation. He denies any straining. PHYSICAL EXAMINATION VITAL SIGNS: Reveal temperature of 98, blood pressure 110/70, heart rate is 67. HEENT: Reveals sclerae to be white. Conjunctivae pink. NECK: Supple. CHEST: Reveals lungs to be clear. HEART: Reveals an irregularly irregular rate. ABDOMEN: Obese, soft, nontender. EXTREMITY: Show no edema. LABORATORY DATA: Revealed BUN 45, creatinine 2.1. CBC reveals hemoglobin of 12.2, this has been stable with his admitting hemoglobin of 12.3 four days ago. IMPRESSION: 1. Rectal bleeding, most likely secondary to hemorrhoids. 2. Cardiomyopathy. 3. History of ventricular tachycardia, status post automatic implantable cardioverter-defibrillator placement. 4. Atrial fibrillation. 5. Chronic kidney disease. 6. Cirrhosis of the liver secondary to alcoholism. 7. Chronic alcohol abuse. RECOMMENDATIONS: 1. I will schedule the patient for a flexible sigmoidoscopy for the morning. I have ordered a modified bowel prep and clear liquid diet. 2. Follow serial hematocrits. Trevor August MD
--- NOTE | 2017-06-03 15:14 | PN ---
DATE: SUBJECTIVE: A 52-year-old male on telemetry. Nursing staff relates that the patient had a bright red blood per rectum bleed this morning without any stool. Patient states that in the morning he has some mild nausea, none at this time. He denies any abdominal pain at this time. OBJECTIVE: GENERAL: He is alert. VITAL SIGNS: His temperature is 98, his pulse is 62, his blood pressure is 109/71, his oxygen saturation is reported at 96% on room air. LUNGS: Show diminished breath sounds at the bases. HEART: S1, S2. ABDOMEN: Obese, soft, positive bowel sounds. EXTREMITIES: No evidence of edema. LABORATORY DATA: Shows a WBC of 8, RBC 3.97, hemoglobin 12.2, hematocrit 38.4, platelet count 173. Chemistry shows a sodium 139, potassium 4, chloride 99, BUN is 45, creatinine is 2.1. LFTs are normal. ASSESSMENT AND PLAN: 1. Gastrointestinal bleed. Gastroenterology, Dr. August believes that this may be coming from his hemorrhoids. Again Eliquis has been placed on hold and the recommendation is to monitor the patient very closely. He feels that at some point in time, he may be able to be further evaluated as an outpatient when he is clinically stable from a cardiac perspective. 2. He is being followed by Cardiology for his cardiomyopathy, paroxysmal atrial fibrillation and congestive heart failure. His Eliquis is currently on hold as is his Lasix and his Aldactone. 3. He has been seen by Pulmonary for his sleep apnea history. His consult has been noted and as per the consult, family was requested to bring in a continuous positive airway pressure unit. We will continue to monitor the patient closely clinically. He is aware of what the recommendations are by the consultants and follow up his lab work. Qing Jiménez MD
--- NOTE | 2017-06-03 15:39 | PN ---
DATE: 06/03/2017 SUBJECTIVE: The patient is seen sitting in chair. He is awake. He is alert. He is comfortable. He denies any shortness of breath at present. He denies any lower extremity edema. PHYSICAL EXAMINATION: GENERAL: Obese middle-aged male sitting in chair. VITAL SIGNS: Blood pressure 132/95, heart rate 64, respiratory rate 19, temperature 97.5. HEENT: Normocephalic, atraumatic. NECK: Supple, no JVD. LUNGS: Bilateral equal air entry, bilateral equal expansion, no rales. CARDIAC: S1 and S2, regular rate and rhythm, no murmur, no rub. ABDOMEN: Obese, distended, soft, nontender, bowel sounds present. EXTREMITIES: No lower extremity edema. INTAKE AND OUTPUT: 600/900. LABORATORY DATA: WBC 8, hemoglobin 12, hematocrit 38, platelets 173. Sodium 139, potassium 4, chloride 99, CO2 28, BUN 45, creatinine 2.1, glucose 98, calcium 9.2. AST 32, ALT 31, albumin 3.9. Cultures, no growth. CURRENT MEDICATIONS: Aldactone 25 twice a day is on hold, citrate of magnesia, Colace, Cordarone, Coreg 25 twice a day, Eliquis 5 twice a day, Lasix 40 p.o. twice a day on hold, Lipitor, mag oxide, Xopenex. ASSESSMENT AND PLAN: 1. Chronic kidney disease stage III, stable. Recommend restarting diuretic therapy. 2. Congestive heart failure/dilated cardiomyopathy/paroxysmal atrial fibrillation/automatic implantable cardioverter-defibrillator. 3. Resolved hypokalemia. 4. Sleep apnea. 5. Chronic obstructive pulmonary disease. 6. Morbid obesity. 7. Bright red blood per rectum (?) hemorrhoidal bleed. PLAN: 1. Restart Aldactone 25 twice a day. 2. Continue to hold Lasix for the time being. 3. (?) Plan for colonoscopy. 4. Monitor H&H. Amina Martin MD
[2017-06-03] MEDS ORDERED: Magnesium Citrate Oral SOL (300 ml) PO ONE (16:00)
[2017-06-03] MEDS ORDERED: Bisacodyl 5mg EC Tab PO ONE (20:00)
[2017-06-04 06:27] LABS: BASO # 0.01 K/mm3 (0.0-2.0); BASO % 0.2 % (0.0-3.0); EOS # 0.1 (0.0-0.7); EOS % 1.2 % (1.5-5.0); GRAN # 4.14 (1.4-6.5); GRAN % 62.5 % (50.0-68.0); HEMOGLOBIN 11.6 g/dL (14.0-18.0); LYMPH # 1.4 (1.2-3.4); LYMPH % 21.1 % (22.0-35.0); MEAN CORPUSCULAR HEMOGLOBIN 30.4 pg (25.0-35.0); MEAN PLATELET VOLUME 9.5 fl (7.0-11.0); RBC 3.81 10^6/uL (3.5-6.1); RED CELL DISTRIBUTION WIDTH 14.8 % (11.5-14.5); WHITE BLOOD COUNT 6.6 10^3/ul (4.5-11.0)
[2017-06-04 06:47] LABS: CALCIUM 9.3 mg/dL (8.4-10.5)
--- NOTE | 2017-06-04 07:58 | CP.PCM.PN ---
Subjective - Date & Time of Evaluation Date of Evaluation: 06/04/17 Time of Evaluation: 07:00 - Subjective Subjective: Stable on 2R. No CP or SOB. He feels better. No rectal bleeding reported. Sigmoidoscopy planned for today. V/S noted. RSR PE: Lungs: clear Cor.: S1S2 Abd.: soft Ext.: min edema Neuro.: alert I/O 1060/650 Labs noted: Cr. 2.0, H/H 11.6/36.2 BC X2 NG at 4 days Objective - Vital Signs/Intake and Output Vital Signs (last 24 hours): Temp Pulse Resp BP Pulse Ox 97.6 F 50 L 18 125/63 99 06/04/17 06:00 06/04/17 06:00 06/04/17 06:00 06/04/17 06:00 06/04/17 06:00 Intake and Output: 06/04/17 06/04/17 06:59 18:59 Intake Total 400 Balance 400 - Medications Medications: Current Medications Amiodarone HCl (Cordarone) 100 mg PO DAILY [facility] Last Admin: 06/03/17 08:59 Dose: 100 mg Apixaban (Eliquis) 5 mg PO BID [facility] PRN Reason: Protocol Last Admin: 06/02/17 18:15 Dose: 5 mg Atorvastatin Calcium (Lipitor) 80 mg PO DIN [facility] Last Admin: 06/03/17 17:00 Dose: 80 mg Carvedilol (Coreg) 25 mg PO BID [facility] Last Admin: 06/03/17 17:00 Dose: 25 mg Docusate Sodium (Colace) 100 mg PO TID [facility] Last Admin: 06/03/17 17:00 Dose: 100 mg Furosemide (Lasix) 40 mg PO BID [facility] Last Admin: 05/31/17 17:48 Dose: 40 mg Hydrocortisone (Anusol-Hc) 25 mg RC BID [facility] Last Admin: 06/03/17 09:03 Dose: 25 mg Levalbuterol HCl (Xopenex) 1.25 mg IH TIDRESP PRN PRN Reason: Shortness of Breath Magnesium Oxide (Mag-Ox) 400 mg PO BID [facility] Last Admin: 06/03/17 09:04 Dose: 400 mg Spironolactone (Aldactone) 25 mg PO BID [facility] Last Admin: 05/31/17 17:48 Dose: 25 mg - Labs Labs: 06/04/17 05:30 06/04/17 05:30 PT 26.6 SECONDS (9.4-12.5) H 06/01/17 21:00 INR 2.29 (0.93-1.08) H 06/01/17 21:00 APTT 34.0 Seconds (25.1-36.5) 06/01/17 21:00 Assessment and Plan - Assessment and Plan (Free Text) Assessment: SOB CHF CCM, familial, ETOH related PAF acute on chronic kidney disease GIB/Hemorrhoids ICD DENISE COPD ETOH, acute and chronic Gout Echo 06/04: Severe LVD, Mild MR and TR Plan: Hold Lasix, KCL, and Eliquis for now. Resume spironolactone as per renal. GI evaluation under way Monitor I/O's Monitor: labs, renal fx., sats., H/H, etc. D/C all ETOH. He needs help with this, possible in an in-patient setting. OOB/PT as jeannette. Will follow.
[2017-06-04] MEDS: Levalbuterol 1.25 MG/3 ML Inhal Soln UD IH SCH ×3 (08:32→20:33)
--- NOTE | 2017-06-04 09:00 | PN ---
DATE: 06/04/2017 PULMONARY NOTE SUBJECTIVE: The patient appears comfortable this morning. He is not short of breath at rest. PHYSICAL EXAMINATION: VITAL SIGNS: Temperature is 97.6, pulse 50, respirations 18, blood pressure 125/63. Oxygen saturation on nasal cannula is 99%. HEENT: Normocephalic, atraumatic. NECK: No JVD. CARDIOVASCULAR: Systolic ejection murmur at the lower left sternal border. Questionable S3 gallop. LUNGS: Clear bilaterally. EXTREMITIES: Positive for mild edema. No cyanosis, no clubbing. Calves are nontender to palpation. GI: Abdomen is soft, nontender, nondistended. Bowel sounds are positive. SKIN: No acute rash. NEUROLOGIC: Exam limited at the present time. IMPRESSION: 1. Recurrent congestive heart failure. 2. Dilated cardiomyopathy. 3. Obstructive sleep apnea. 4. Chronic obstructive pulmonary disease. 5. Chronic kidney disease. 6. Cardiac arrhythmias. 7. Rectal bleeding. PLAN: The patient appears comfortable this morning. He is not short of breath at rest. He does state to feeling better overall. On physical exam, his lungs remain clear. In addition, there is no significant alveolar-arterial gradient. I will continue with the current nebulizer treatments as ordered. The patient has also obtained his sleep apparatus from home. He does state to sleeping much better last night. Inputs by GI and Cardiology are noted. Input by Renal is also noted. The patient is for flexible sigmoidoscopy this morning. Overall clinical status does appear improved. I will discuss the above with the attending physician. Elie Young MD MTDD
[2017-06-04] MEDS: Magnesium Oxide 400 mg Tab UD PO SCH ×2 (09:50→18:11)
[2017-06-04] MEDS ORDERED: Midazolam 2 MG/2 ML VIAL ONE (12:04)
[2017-06-04] MEDS ORDERED: Propofol 10 mg/ml Inj (20 ML) ONE (12:04)
[2017-06-04] MEDS ORDERED: Lidocaine 1% Inj (20ml) ONE (12:05)
[2017-06-04] MEDS: Sodium Chloride 0.9% 1,000 ML IV SCH ×2 (14:30→22:30)
[2017-06-04 17:41] VITALS: RESP 18
--- NOTE | 2017-06-04 20:03 | PN ---
DATE: SUBJECTIVE: The patient is currently seen lying comfortable in bed on 2-R. He is status post a colonoscopy earlier today, which showed hemorrhoidal bleeding from external hemorrhoids. He did have diverticulosis, but no bleeding from the diverticula. The patient's BUN and creatinine remained stable. He remains well compensated in relationship to his cardiomyopathy. MEDICATIONS: Medication list reviewed. The patient is currently on Aldactone, Anusol, Colace, Cordarone, Coreg, Eliquis is on hold, Lasix is on hold, Lipitor, mag oxide, IV fluids have been discontinued, and Xopenex. OBJECTIVE: INTAKE/OUTPUT: Intake 1060, output 650. VITAL SIGNS: Blood pressure 117/83, temperature 98, respiratory rate 80 with a pulse of 60, pulse ox 96%. HEENT: Show him to be normocephalic, atraumatic. Conjunctivae are pink. Sclerae are nonicteric. NECK: Supple. No neck vein distention. CHEST: Clear to auscultation and percussion with no rales, rhonchi, or wheezing. CARDIOVASCULAR: Shows a regular rate and rhythm. Positive MR/TR. Positive AICD. No S3. No S4. No rub. ABDOMEN: Soft. Bowel sounds normal. No rebound, guarding, or masses. EXTREMITIES: Show no lower extremity cyanosis, clubbing, or edema. LABORATORY DATA AND IMAGING: CBC from today showed a white blood cell count of 6.6, hemoglobin remaining stable at 11.6, platelet count is 157,000. Chemistry showed normal electrolytes. BUN 44 with a creatinine of 2. Glucose is 91. Calcium is 9.3. Last phosphorus 2.9 with a magnesium level of 2. Microbiology: All cultures are negative. Stool for C. diff is negative. ASSESSMENT: 1. Chronic kidney disease stage 3. The patient's BUN and creatinine remained at baseline levels. BUN is 44. His lowest BUN during the hospitalization was 40. Creatinine is stable at 2, it was 1.6 when he came in. It was as high as 2.4, but certainly within his baseline range. The patient had been restarted back on low-dose Aldactone. He is still off Lasix therapy. He presently has a compensated cardiomyopathy with no evidence for congestive heart failure. 2. History of congestive heart failure, history of cardiomyopathy, possibly secondary to alcohol with a dilated cardiomyopathy, history of paroxysmal atrial fibrillation, and positive automatic implantable cardioverter-defibrillator. All these appear to be stable. The patient appears to be well compensated. 3. Status post mild hypokalemia. Potassium level is now normal at 4. 4. History of hyperlipidemia, controlled with diet and medical therapy. 5. History of obstructive sleep apnea, using CPAP therapy when he remembers. 6. History of chronic obstructive pulmonary disease, currently stable. 7. History of obesity. 8. History of a limited lower gastrointestinal bleed secondary to bleeding external hemorrhoids. He is status post colonoscopy today. PLAN: 1. The patient is entirely stable from a renal standpoint. He is well compensated. The patient will likely need to be restarted back on loop diuretic therapy with Lasix in addition to Aldactone in preparation for eventual discharge. 2. Continue renal diet. 3. Continue to monitor labs on a regular basis during hospitalization and frequently in the outpatient setting. 4. Agree with discontinuation of IV fluids. 5. Continue cardiac followup. Blair Hernandez MD
--- NOTE | 2017-06-05 02:04 | PN ---
DATE: SUBJECTIVE: This is a 52-year-old male on telemetry, who was admitted for congestive heart failure. PHYSICAL EXAMINATION VITAL SIGNS: His temp is 98, his pulse is 56, his blood pressure is 117/83, his oxygen saturation is reported at 96% on 3 L nasal oxygen. He uses a CPAP unit at home. His respiratory rate is 18. LABORATORY DATA: Shows a WBC of 6.6, RBC of 3.81, hemoglobin 11.6, hematocrit 36.2, platelet count 157. Chemistry shows a sodium of 139, potassium 4, chloride 99. BUN is 44, with a creatinine of 2. His PT is 26.6, with an INR of 2.29. His PTT is 34; on 06/01/2017. ASSESSMENT AND PLAN: Patient is scheduled for a sigmoidoscopy/colonoscopy with Dr. August today because of rectal bleeding. His Eliquis has been placed on hold. He has had an acute insult to his chronic renal disease. He has had congestive heart failure. He has chronic obstructive pulmonary disease with sleep apnea. He is being followed by Nephrology, Cardiology, Pulmonary and Gastroenterology. He has a history of alcohol use. 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 He has been strongly encouraged to do this. We will await his endoscopy studies. His Eliquis again has been on hold. Currently, he has Aldactone 25 mg b.i.d., Anusol suppository t.i.d., Colace t.i.d., amiodarone 100 mg daily for paroxysmal atrial fibrillation, Coreg 25 mg p.o. b.i.d. For his cardiomyopathy, he has defibrillator in place. His Lasix is on hold. He is on Lipitor 80 mg daily. He is on magnesium oxide 400 mg b.i.d. and he is receiving Xopenex therapy for his underlying chronic obstructive pulmonary disease. We will follow up his coagulation parameters in the morning. Qing Jiménez MD
[2017-06-05 06:06] VITALS: O2SAT 99
[2017-06-05 07:19] LABS: INR 1.38 (0.93-1.08); PARTIAL THROMBOPLASTIN TIME 29.8 Seconds (25.1-36.5)
[2017-06-05] MEDS: Levalbuterol 1.25 MG/3 ML Inhal Soln UD IH SCH ×2 (07:40→13:40)
--- NOTE | 2017-06-05 09:00 | PN ---
DATE: 06/05/2017 PULMONARY NOTE SUBJECTIVE: The patient appears comfortable this morning. He is not short of breath at rest. PHYSICAL EXAMINATION: VITAL SIGNS: Temperature is 97.8, pulse 57, respirations 18, blood pressure 101/55. Oxygen saturation on nasal cannula is 99%-100%. HEENT: Normocephalic, atraumatic. NECK: No JVD. CARDIOVASCULAR: Systolic ejection murmur at the lower left sternal border. Questionable S3 gallop. LUNGS: Clear bilaterally. EXTREMITIES: Less edema. No cyanosis, no clubbing. Calves are nontender to palpation. GI: Abdomen is soft, nontender, nondistended. Bowel sounds are positive. SKIN: No acute rash. NEUROLOGIC: Exam limited at the present time. IMPRESSION: 1. Recurrent congestive heart failure. 2. Dilated cardiomyopathy. 3. Obstructive sleep apnea. 4. Chronic obstructive pulmonary disease. 5. Chronic kidney disease. 6. Cardiac arrhythmias. 7. Rectal bleeding. PLAN: The patient appears comfortable this morning. He is not short of breath at rest. He does state to feeling better overall. I did discuss the case with the night nurse at length. The night nurse confirms that there have been no significant pulmonary symptoms overnight with this patient. On physical exam, his lungs remain clear. Oxygen saturation on nasal cannula is 99%-100%. I will continue with the current nebulizer treatments for now.. Inputs by Renal, Cardiology and GI are noted. Repeat a.m. labs are pending. The clinical status of this patient is certainly improved overall. However, again, his future status/prognosis does remain guarded. I will discuss the above with Dr. Jiménez. Elie Young MD MTDJuly
[2017-06-05 09:41] LABS: BASO # 0.01 K/mm3 (0.0-2.0); BASO % 0.1 % (0.0-3.0); EOS # 0.1 (0.0-0.7); EOS % 1.1 % (1.5-5.0); GRAN # 5.2 (1.4-6.5); GRAN % 70.6 % (50.0-68.0); HEMOGLOBIN 12.2 g/dL (14.0-18.0); LYMPH # 1.1 (1.2-3.4); LYMPH % 14.7 % (22.0-35.0); MEAN CELL VOLUME 96.5 fl (80.0-105.0); MEAN CORPUSCULAR HEMOGLOBIN 30.9 pg (25.0-35.0); MEAN PLATELET VOLUME 10.5 fl (7.0-11.0); MONO % 13.5 % (1.0-6.0); RBC 3.95 10^6/uL (3.5-6.1); RED CELL DISTRIBUTION WIDTH 14.8 % (11.5-14.5); WHITE BLOOD COUNT 7.4 10^3/ul (4.5-11.0)
[2017-06-05] MEDS: Magnesium Oxide 400 mg Tab UD PO SCH ×2 (09:46→17:35)
[2017-06-05 09:51] LABS: CALCIUM 9.5 mg/dL (8.4-10.5)
[2017-06-05 12:27] VITALS: TEMP 97.4
--- NOTE | 2017-06-05 12:35 | PN ---
DATE: 06/05/2017 SUBJECTIVE: The patient is lying in bed, comfortable. He has not had any further rectal bleeding. He denies any shortness of breath or chest pain. OBJECTIVE VITAL SIGNS: Reveal temperature of 97.8, blood pressure 101/55, heart rate 57. HEENT: Reveal sclerae to be white. Conjunctivae pink. NECK: Supple. CHEST: Lungs are clear. HEART: Exam reveals an irregularly irregular rate. ABDOMEN: Obese, soft, nontender. EXTREMITIES: Show trace pedal edema. LABORATORY DATA: No new laboratory data are available. IMPRESSION 1. Recurrent rectal bleeding from internal and external hemorrhoids. 2. Atrial fibrillation, Eliquis on hold due to recurrent rectal bleeding. 3. Cardiomyopathy. 4. Chronic kidney disease. 5. Periportal lymphadenopathy. 6. Cirrhosis of the liver. 7. Coagulopathy. RECOMMENDATIONS: The patient has been instructed to hold Eliquis for several more days until he has several days without rectal bleeding. He is at high risk for recurrent rectal bleeding. If bleeding from hemorrhoids continues, he may need to see Colorectal Surgery for hemorrhoidectomy. Trevor August MD
--- NOTE | 2017-06-05 12:56 | PN ---
DATE: 06/05/2017 SUBJECTIVE: The patient is seen sitting in bed on telemetry. He is comfortable, but remains anxious about the potential for recurrent rectal bleeding. In addition, he developed mild epistaxis this morning. He remains off Eliquis. CURRENT MEDICATIONS: Include Aldactone 25 mg b.i.d., Anusol suppositories, Colace, amiodarone 100 mg daily, carvedilol 25 mg b.i.d., Lipitor 80 mg daily and Xopenex. OBJECTIVE: GENERAL: He is an obese, middle-aged man. VITAL SIGNS: His blood pressure is 122/66 with a pulse of 60 with ventricular pacing, respirations are 14. He is afebrile. HEENT: No JVD. CHEST: Few scattered rhonchi. HEART: PMI displaced laterally with soft tones noted. ABDOMEN: Soft, obese with normoactive bowel sounds. EXTREMITIES: 1-2+ leg edema. DIAGNOSTIC DATA: Potassium is 4.1, BUN and creatinine are 41 and 1.9. Hemoglobin and hematocrit 12.2 and 38.1 with a white count 7.4, platelet count of 186,000. PT/INR of 16 and 1.38. IMPRESSION: 1. Recent rectal bleeding secondary to severe hemorrhoids. 2. Severe alcoholic liver disease. 3. Congestive cardiomyopathy with severe left ventricular dysfunction. 4. Chronic atrial fibrillation, status post implantable cardioverter-defibrillator implant for ventricular tachycardia. 5. Persistent alcohol abuse. RECOMMENDATIONS: 1. His Eliquis will remain on hold for now. Alcohol rehabilitation has been advised. He refuses an inpatient placement for this. 2. Eventual resumption of anticoagulant therapy given his atrial fibrillation would be appropriate unless recurrent gastrointestinal bleeding is severe and prohibits anticoagulant use. 3. Followup BMP will be planned and the resumption of Lasix should be scheduled as well. From a cardiac standpoint, he appears stable at this time for discharge home with close outpatient followup. Brigido Silva MD
--- NOTE | 2017-06-05 17:17 | PN ---
DATE: 06/05/2017 SUBJECTIVE: The patient is seen sitting in bed. He is awake. He is alert. He is comfortable. He reports he had a bloody bowel movement. There was bright red blood in the toilet bowl. He denies any abdominal pain. PHYSICAL EXAMINATION: GENERAL: Middle-aged male sitting in bed. VITAL SIGNS: Blood pressure 118/75, heart rate 58, respiratory rate 18, temperature 97.4. HEENT: Normocephalic, atraumatic. NECK: Supple, no JVD. LUNGS: Bilateral equal air entry, bilateral equal expansion, no rales. CARDIAC: S1 and S2, regular rate and rhythm, no murmur, no rub. ABDOMEN: Obese, distended, soft, nontender, bowel sounds present. EXTREMITIES: No lower extremity edema. INTAKE AND OUTPUT: 800/600. LABORATORY DATA: WBC 7.4, hemoglobin 12, hematocrit 38, platelets 186. Sodium 139, potassium 4.1, chloride 98, CO2 27, BUN 41, creatinine 1.9, glucose 124, calcium 9.5. CURRENT MEDICATIONS: Aldactone 25 b.i.d., Colace 100 t.i.d., Cordarone 100, Coreg 25 b.i.d., Eliquis on hold, Lasix 40 on hold, Lipitor 80, mag oxide, Xopenex. ASSESSMENT: 1. Acute kidney injury superimposed on chronic kidney disease stage IV, renal function is stable. 2. Severe cardiomyopathy, decreased ejection fraction, congestive heart failure, automatic implantable cardioverter-defibrillator placement. 3. Bright red blood per rectum, status post sigmoidoscopy, hemorrhoids. 4. Stable hemoglobin. PLAN: 1. No objection to discharge. 2. Continue Aldactone 25 b.i.d. 3. Start Lasix 40 mg daily. 4. Monitor H&H and BUN, creatinine and potassium as outpatient. 5. Outpatient followup. Amina Martin MD
[2017-06-05 17:35] VITALS: BP 133/99; PULSE 60
--- NOTE | 2017-06-06 10:57 | PQF CHF ---
06/06/17 Dr. Silva, CHF is documented. Please indicate type and acuity, as listed below. Thank you. Clarification of your documentation is requested to better reflect the severity of illness and intensity of treatment of your patient. Indicators present [x] Diagnosis of CHF and/or history of CHF [] BNP > 200 [] Imaging Finding of Pulmonary Edema /Pleural Effusions [] Fluid/Volume Overload [] Pitting edema [x] Ejection Fraction < 40% (Indicative of Systolic Heart Failure) [] Ejection Fraction > 40% (Indicative of Diastolic Heart Failure) [] Dyspnea / Orthopenea / Paroxysmal Nocturnal Dyspnea [] Other: Location in the medical record that reflects the above clinical findings: [] Treatment Provided: [] PHYSICIAN'S RESPONSE Based on your medical judgment of the clinical indicators outlined above, are you treating this patient for a known or suspected: [] Acute CHF [] Systolic [] Diastolic [] Combined [x] Chronic CHF [x] Systolic [] Diastolic [] Combined [] Acute on Chronic CHF []Systolic [] Diastolic [] Combined [] CHF due hypertension [] Acute systolic []Chronic systolic [] Acute/ chronic systolic [] Other, please indicate: [] [] If Unable to Determine, please check the box, sign and date. Present On Admission (POA) Indicator: [x] Present at the time of admission [] Not present at the time of admission [] Clinically Undetermined In responding to this query, please exercise your independent professional judgment. The fact that a question is asked does not imply that any particular answer is desired or expected. Thank you for your clarification on this documentation. 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
== END 2017-06-05 17:55 | disposition home or self-care (01) ==
LOC: ED 08:53 → ERH 11:10 → INTOOBSV 11:10 → ERH 12:27 → 2RNO 13:57
PROVIDERS: ADMIT Internal Medicine; ATTEND Internal Medicine
DX: I13.0 Hypertensive heart and chronic kidney disease with heart failure and stage 1 through stage 4 chronic kidney disease, or unspecified chronic kidney disease (principal); D68.9 Coagulation defect, unspecified; I50.22 Chronic systolic (congestive) heart failure; N17.9 Acute kidney failure, unspecified; N18.4 Chronic kidney disease, stage 4 (severe); I48.2 Chronic atrial fibrillation; J44.9 Chronic obstructive pulmonary disease, unspecified; I48.0 Paroxysmal atrial fibrillation; D63.8 Anemia in other chronic diseases classified elsewhere; E66.01 Morbid (severe) obesity due to excess calories; E78.5 Hyperlipidemia, unspecified; E87.6 Hypokalemia; F10.20 Alcohol dependence, uncomplicated; G47.00 Insomnia, unspecified; G47.33 Obstructive sleep apnea (adult) (pediatric); I42.0 Dilated cardiomyopathy; I42.6 Alcoholic cardiomyopathy; K21.9 Gastro-esophageal reflux disease without esophagitis; K29.60 Other gastritis without bleeding; K57.90 Diverticulosis of intestine, part unspecified, without perforation or abscess without bleeding; M10.9 Gout, unspecified; K64.4 Residual hemorrhoidal skin tags; K64.8 Other hemorrhoids; K70.30 Alcoholic cirrhosis of liver without ascites; M19.90 Unspecified osteoarthritis, unspecified site; R04.0 Epistaxis; Z79.01 Long term (current) use of anticoagulants; Z79.899 Other long term (current) drug therapy; Z86.79 Personal history of other diseases of the circulatory system; Z87.11 Personal history of peptic ulcer disease; Z87.891 Personal history of nicotine dependence; Z91.11 Patient's noncompliance with dietary regimen; Z95.0 Presence of cardiac pacemaker; Z95.810 Presence of automatic (implantable) cardiac defibrillator; Z96.651 Presence of right artificial knee joint
CPT/HCPCS: 36415; 45378; 71045; 80048; 80053; 81001; 82550; 82803; 83615; 83735; 83880; 84100; 84484; 85025; 85027; 85610; 85730; 86850; 86900; 87040; 87324; 93005; 94640; 94760; 96374; 96375; 96376; 99285; G0378; J1940; J2250; J2405; J2704; J2930; J3010; J7040

== ENCOUNTER 2017-06-14 14:12 | Inpatient (IN) | payer OTHER, MEDICARE ==
[2017-06-14 14:14] VITALS: BMI 34.5
--- NOTE | 2017-06-14 15:25 | ED PDOC ---
Arrival/HPI - General Chief Complaint: Chest Pain Time Seen by Provider: 06/14/17 15:10 Historian: Patient - History of Present Illness Narrative History of Present Illness (Text): 52yoM, with CAD, CHF, recent discharge and now here with sob, chest tightness and had a bowel movement with blood and had a endoscopy recent with hemorrhoids per Dr. Jiménez who is also at the bedside. 06/14/17 15:25 Time/Duration: 24 hours Symptom Onset: Gradual Symptom Course: Unchanged Quality: Tightness Severity Level: 2 Activities at Onset: Rest Context: Sitting Past Medical History - Provider Review Nursing Documentation Reviewed: Yes - Travel History Have you recently traveled outside [place] w/in the past 3 mons?: No - Infectious Disease Hx of Infectious Diseases: None - Tetanus Immunization Tetanus Immunization: Up to Date - Cardiac Hx Cardiac Disorders: Yes Hx Hypertension: Yes Hx Internal Defibrillator: Yes (pacemaker/defib 2005) Hx Pacemaker: Yes Hx Peripheral Edema: Yes Other/Comment: Cardiomyopathy - Pulmonary Hx Respiratory Disorders: Yes Hx Sleep Apnea: Yes - Neurological Hx Neurological Disorder: No - HEENT Hx HEENT Disorder: No - Renal Hx Renal Disorder: Yes (hx renal insufficiency which resolved) - Endocrine/Metabolic Hx Endocrine Disorders: No - Hematological/Oncological Hx Blood Transfusions: No Hx Blood Transfusion Reaction: No - Integumentary Hx Dermatological Disorder: No - Musculoskeletal/Rheumatological Hx Musculoskeletal Disorders: No - Gastrointestinal Hx Gastrointestinal Disorders: Yes Hx Diverticulitis: Yes - Genitourinary/Gynecological Hx Genitourinary Disorders: No - Psychiatric Hx Psychophysiologic Disorder: No Hx Depression: No Hx Emotional Abuse: No Hx Physical Abuse: No Hx Substance Use: No - Surgical History Hx Cardiac Catheterization: Yes Hx Orthopedic Surgery: Yes (right knee cartilige) Other/Comment: pacemaker and defib in 2006 - Anesthesia Hx Anesthesia Reactions: No Hx Malignant Hyperthermia: No - Suicidal Assessment Feels Threatened In Home Enviroment: No Family/Social History - Physician Review Nursing Documentation Reviewed: Yes Family/Social History: No Known Family HX Smoking Status: Former Smoker Hx Alcohol Use: No (10-12 drinks per day) Hx Substance Use: No Hx Substance Use Treatment: No Allergies/Home Meds Allergies/Adverse Reactions: Allergies No Known Allergies Allergy (Verified 06/14/17 14:24) Home Medications: Home Meds Medication Instructions Recorded Confirmed Carvedilol [Coreg] 25 mg PO BID 05/09/12 06/14/17 Atorvastatin [Lipitor] 80 mg PO DAILY 11/18/13 06/14/17 Amiodarone [Cordarone] 100 mg PO DAILY 06/15/16 06/14/17 Spironolactone [Aldactone] 25 mg PO BID 01/16/17 06/14/17 Review of Systems - Review of Systems Constitutional: Normal Eyes: Normal ENT: Normal Respiratory: SOB Cardiovascular: Chest Pain Gastrointestinal: Hematochezia Genitourinary Male: Normal Musculoskeletal: Normal Skin: Normal Neurological: Normal Endocrine: Normal Hemo/Lymphatic: Normal Psychiatric: Normal Physical Exam Vital Signs Reviewed: Yes Vital Signs Temp Pulse Resp BP Pulse Ox 06/14/17 18:01 120/57 L 06/14/17 17:08 62 16 109/50 L 99 06/14/17 15:32 60 16 127/48 L 98 06/14/17 14:24 97.9 F 60 24 111/80 99 Temperature: Afebrile Blood Pressure: Hypertensive Pulse: Regular Respiratory Rate: Normal Appearance: Positive for: Well-Appearing, Non-Toxic, Comfortable Pain Distress: None Mental Status: Positive for: Alert and Oriented X 3 - Systems Exam Head: Present: Atraumatic, Normocephalic Pupils: Present: PERRL Extroacular Muscles: Present: EOMI Conjunctiva: Present: Normal Ears: Present: Normal Mouth: Present: Moist Mucous Membranes Pharnyx: Present: Normal Nose (External): Present: Atraumatic Nose (Internal): Present: Normal Inspection Respiratory/Chest: Present: Clear to Auscultation, Good Air Exchange Cardiovascular: Present: Regular Rate and Rhythm Abdomen: No: Tenderness, Distention, Normal Bowel Sounds, Peritoneal Signs, Rebound, Guarding, McBurney's Point Tender, Rovsing's Sign Present, Hernias, Feeding Tubes, Ostomy Tubes, Mass/Organomegaly, Scars, Other Back: Present: Normal Inspection Upper Extremity: Present: Normal Inspection Lower Extremity: Present: Edema Neurological: Present: GCS=15, CN II-XII Intact, Speech Normal, Motor Func Grossly Intact Skin: Present: Warm, Normal Color Psychiatric: Present: Alert, Oriented x 3, Normal Insight, Normal Concentration Medical Decision Making ED Course and Treatment: 52yoM, with CAD, CHF, recent discharge and now here with sob, chest tightness and had a bowel movement with blood and had a endoscopy recent with hemorrhoids per Dr. Jiménez who is also at the bedside. off the eliquis due to melena episodes. Dr. Jiménez requested VQ of the chest. 06/14/17 15:27 wbc 13 hb 11.9 similar to prior 12.2. plts 193 Cr 2.1 trop 0.03 BNP 11,500 CXR mild vascular markings lasix given. zosyn. 06/14/17 17:31 Lung VQ no perfusion mismatch. Low probability pulmonary embolism. d/w Dr. Martin will admit telemetry for CHF exacerbation. consult Dr. Cooper, Dr. Vázquez 06/14/17 18:06 Reassessment Condition: Re-examined, Improved - Lab Interpretations Lab Results: 06/14/17 14:45 06/14/17 14:45 Lab Results 06/14/17 14:45: PT 14.6 H, INR 1.27 H, APTT 28.6 06/14/17 14:45: Sodium 138, Potassium 4.4, Chloride 106, Carbon Dioxide 18 L, Anion Gap 17, BUN 39 H, Creatinine 2.1 H, Est GFR ( Amer) 40, Est GFR ( Non-Af Amer) 33, Random Glucose 107, Calcium 9.1, Magnesium 2.1, Total Bilirubin 1.1, AST 36, ALT 33, Alkaline Phosphatase 144 H, Lactate Dehydrogenase 721 H, Total Creatine Kinase 65, Troponin I 0.03 D, NT-Pro-B Natriuret Pep 88214 H, Total Protein 7.5, Albumin 3.8, Globulin 3.7, Albumin/ Globulin Ratio 1.0 L 06/14/17 14:45: WBC 13.3 H D, RBC 3.92, Hgb 11.9 L, Hct 37.0 L, MCV 94.4, MCH 30.4, MCHC 32.2, RDW 15.4 H, Plt Count 193, MPV 10.4, Gran % 82.9 H, Lymph % ( Auto) 8.0 L, [place] % (Auto) 8.4 H, Eos % (Auto) 0.5 L, Baso % (Auto) 0.2, Gran # 11.03 H, Lymph # (Auto) 1.1 L, [place] # (Auto) 1.1 H, Eos # (Auto) 0.1, Baso # ( Auto) 0.03 I have reviewed the lab results: Yes - RAD Interpretation Radiology Orders: 06/14/17 15:20 CHEST PORTABLE [RAD] Stat 06/14/17 15:29 LUNG PERF & VENT SCAN [NM] Stat Model Dresser: Radiologist - EKG Interpretation Interpreted by ED Physician: Yes (SR w first degree block) Type: 12 lead EKG - Medication Orders Current Medication Orders: Discontinued Medications Aspirin (Aspirin) 325 mg PO STAT STA Stop: 06/14/17 15:20 Last Admin: 06/14/17 15:47 Dose: 325 mg Furosemide (Lasix) 40 mg IVP STAT STA Stop: 06/14/17 16:56 Last Admin: 06/14/17 18:01 Dose: 40 mg MAR Blood Pressure Document 06/14/17 18:01 MS (Rec: 06/14/17 18:01 MS [id number]) Blood Pressure Blood Pressure (100/60-150/90) 120/57 IVP Administration Document 06/14/17 18:01 MS (Rec: 06/14/17 18:01 MS [id number]) Charges for Administration # of IVP Administrations 1 Piperacillin Sod/Tazobactam Sod (Zosyn 4.5 Gm In Ns 100ml) 4.5 gm in 100 mls @ 200 mls/hr IVPB STAT STA PRN Reason: Protocol Stop: 06/14/17 16:58 Last Admin: 06/14/17 18:01 Dose: 200 mls/hr eMAR Start Stop Document 06/14/17 18:01 MS (Rec: 06/14/17 18:01 MS [id number]) Intravenous Solution Start Date 06/14/17 Start Time 18:01 End Date 06/14/17 End time 18:31 Total Infusion Time 30 Disposition/Present on Arrival - Present on Arrival Any Indicators Present on Arrival: No History of DVT/PE: No History of Uncontrolled Diabetes: No Urinary Catheter: No History of Decub. Ulcer: No History Surgical Site Infection Following: None - Disposition Have Diagnosis and Disposition been Completed?: Yes Diagnosis: Chest pain, CHF (congestive heart failure) Disposition: HOSPITALIZED Disposition Time: 18:08 Patient Plan: Admission, Telemetry Condition: IMPROVED Discharge Instructions (ExitCare): Chest Pain (ED), Heart Failure (ED) Forms: [employer] (Tanzanian)
[2017-06-14 15:35] LABS: BASO # 0.03 K/mm3 (0.0-2.0); BASO % 0.2 % (0.0-3.0); EOS # 0.1 (0.0-0.7); EOS % 0.5 % (1.5-5.0); GRAN # 11.03 (1.4-6.5); GRAN % 82.9 % (50.0-68.0); HEMOGLOBIN 11.9 g/dL (14.0-18.0); LYMPH # 1.1 (1.2-3.4); MEAN CELL VOLUME 94.4 fl (80.0-105.0); MEAN CORPUSCULAR HEMOGLOBIN 30.4 pg (25.0-35.0); MEAN CORPUSCULAR HGB CONC 32.2 g/dl (31.0-37.0); MEAN PLATELET VOLUME 10.4 fl (7.0-11.0); MONO # 1.1 (0.1-0.6); MONO % 8.4 % (1.0-6.0); RBC 3.92 10^6/uL (3.5-6.1); RED CELL DISTRIBUTION WIDTH 15.4 % (11.5-14.5); WHITE BLOOD COUNT 13.3 10^3/ul (4.5-11.0)
[2017-06-14 15:51] LABS: INR 1.27 (0.93-1.08); PARTIAL THROMBOPLASTIN TIME 28.6 Seconds (25.1-36.5); PROTHROMBIN TIME 14.6 SECONDS (9.4-12.5)
[2017-06-14 16:18] LABS: ALBUMIN 3.8 g/dL (3.0-4.8); CALCIUM 9.1 mg/dL (8.4-10.5)
[2017-06-14 16:29] LABS: TROPONIN I 0.03 ng/mL
[2017-06-14] MEDS ORDERED: Piperacill/Tazo 4.5gm in NS 4.5 GM/100 ML BAG IVPB STA (16:29)
--- NOTE | 2017-06-14 16:36 | RAD ---
HISTORY: 52yoM, with sob COMPARISON: 05/30/2017 FINDINGS: LUNGS: No active pulmonary disease. PLEURA: No significant pleural effusion identified, no pneumothorax apparent. CARDIOVASCULAR: Cardiomegaly. No evidence of acute, significant cardiovascular disease. OSSEOUS STRUCTURES: No significant abnormalities. VISUALIZED UPPER ABDOMEN: Normal. OTHER FINDINGS: None. IMPRESSION: No active disease. Cardiomegaly, resolved pulmonary vascular congestion
--- NOTE | 2017-06-14 17:05 | NM ---
COMPARISON: Chest radiographs 06/14/2017. TECHNIQUE: 30.1 mCi technetium 99-m DTPA aerosol. 3.3 mCI technetium 99-m MAA administered intravenously. FINDINGS: VENTILATION COMPONENT: Central deposition onset may indicate COPD to a certain extent. A reverse mismatch is identified at the mid to inferior right lung anteriorly. PERFUSION COMPONENT: No perfusion mismatch. IMPRESSION: Lowprobability ventilation perfusion scan for pulmonary embolism.
--- NOTE | 2017-06-14 18:38 | CARD ---
APPROVED REPORT EKG Measurement Heart [id number] ID [id number] <Conclusion> Sinus rhythm with 1st degree AV block Nonspecific intraventricular block Possible Lateral infarct, age undetermined Abnormal ECG
[2017-06-14 19:39] LABS: VENOUS BLOOD GAS BASE EXCESS -3.1 mmol/L (0.0-2.0); VENOUS BLOOD GAS PO2 128 mm/Hg (30-55); VENOUS BLOOD PH 7.36 (7.32-7.43)
[2017-06-15 05:11] LABS: URINE BILIRUBIN NEGATIVE (NEGATIVE); URINE BLOOD NEGATIVE (NEGATIVE); URINE GLUCOSE (UA) NEGATIVE (NEGATIVE); URINE LEUKOCYTE ESTERASE NEGATIVE Leu/uL (NEGATIVE); URINE PROTEIN NEGATIVE mg/dL (<30 mg/dL); URINE UROBILINOGEN 0.2 E.U./dL (<1 E.U./dL)
[2017-06-15 05:41] LABS: URINE APPEARANCE CLEAR (CLEAR); URINE COLOR LIGHT YELLOW (YELLOW)
--- NOTE | 2017-06-15 06:54 | HP ---
HISTORY OF PRESENT ILLNESS: A 52-year-old male presented today to the office with complaints of tightness in the chest and shortness of breath, which he states has started today. Last night, prior to today, he states that he was very restless, uncomfortable in bed, unable to find the position to sleep and was having chest discomfort. He also states that he has been having a dry cough. He denies any fever or chills. PAST MEDICAL HISTORY: COPD, sleep apnea, cardiomyopathy, defibrillator, paroxysmal atrial fibrillation, possible/probable alcoholic liver disease, periportal adenopathy, hemorrhoidal bleeding, gouty arthritis, chronic kidney disease. ALLERGIES: PATIENT DENIES ANY ALLERGY HISTORY. SOCIAL HISTORY: He states socially that he has not had been drinking since leaving the hospital recently. Denies any use of drugs. Denies smoking. MEDICATIONS: He lists his current medications as Aldactone 25 mg twice a day, Coreg 25 mg twice a day, Lipitor 80 mg daily and amiodarone 100 mg daily. REVIEW OF SYSTEMS: Ten systems were reviewed. Pertinent findings is that the patient has marked amount of edema, which he states has been increasing since last few days and he feels that he is bloated. He also states that he has been having a great deal of gas. He also states that he has been having some rectal bleeding. PHYSICAL EXAMINATION: VITAL SIGNS: Temperature is 97.9, pulse is 60, blood pressure 111/80, respiratory rate is 24, oxygen saturation is reported as 98% on room air. LUNGS: Diminished breath sounds at the bases, scattered rhonchi. HEART: S1, S2. Grade 2/6 systolic murmur. ABDOMEN: Soft, obese, positive bowel sounds. EXTREMITIES: 3+ edema. NEUROLOGIC: He is alert and oriented x3. LABORATORY DATA: WBC is 13.3, RBC is 3.92, hemoglobin 11.9, hematocrit 37, platelet count 193. PT 14.6 and INR 1.37, PTT is 28.6. Chemistry shows sodium of 138, potassium 4.4, chloride 106, CO2 of 18, BUN of 39, creatinine of 2.1, alkaline phosphatase is 144, LDH is 721. Troponin is 0.03 and his BNP is 11,500. DIAGNOSTIC DATA: Electrocardiogram is reporting as showing a sinus rhythm with first degree AV block, nonspecific intraventricular block, possible lateral infarct. Chest x-ray read by the radiologist shows no active pulmonary disease, has cardiomeg: Resolved pulmonary vascular congestion with cardiomegaly. The lung scan is reported as showing low-perfusion mismatch, low probability ventilation perfusion scan for pulmonary embolism. The patient received Lasix in the emergency room, aspirin and a dose of Zosyn. PLAN: Cultures of blood and urine have been ordered. Lactate level is ordered. We will request consult with Cardiology and Infectious Disease. Follow up the patient's lab work. He has a history of hemorrhoidal bleeding in the past. Monitor his inputs and outputs. Follow up his labs. Further treatment plan, pending input from the individual consultants and results of diagnostic studies. CHF/Cardiomyopathy/CKD/acute renal insuffiency/leukocytosis/ Qing Jiménez MD MTDJuly
[2017-06-15 07:10] LABS: BASO # 0.02 K/mm3 (0.0-2.0); BASO % 0.2 % (0.0-3.0); EOS % 0.4 % (1.5-5.0); GRAN # 8.21 (1.4-6.5); GRAN % 77.6 % (50.0-68.0); HEMOGLOBIN 11.3 g/dL (14.0-18.0); LYMPH # 1.1 (1.2-3.4); LYMPH % 10.6 % (22.0-35.0); MEAN CELL VOLUME 94.8 fl (80.0-105.0); MEAN CORPUSCULAR HEMOGLOBIN 29.4 pg (25.0-35.0); MEAN PLATELET VOLUME 9.9 fl (7.0-11.0); MONO # 1.2 (0.1-0.6); MONO % 11.2 % (1.0-6.0); RBC 3.85 10^6/uL (3.5-6.1); RED CELL DISTRIBUTION WIDTH 15.3 % (11.5-14.5); WHITE BLOOD COUNT 10.6 10^3/ul (4.5-11.0)
[2017-06-15 08:13] LABS: CALCIUM 9.6 mg/dL (8.4-10.5)
--- NOTE | 2017-06-15 12:05 | CP.PCM.CON ---
History of Present Illness - History of Present Illness History of Present Illness: 52 year old male with PMH of CAD, HTN, S/P pacemaker and AICD placement, COPD, obstructive sleep apnea, obesity , history of diverticulitis, GERD came in to [facility] complaining of shortness of breath and chest tightness for the past day associated with dry cough. He denies fever or chills, no sore throat, no rhinorrhea, no apparent sick contacts, no nausea or vomiting, no headache or dizziness, no abdominal pain, no diarrhea, no dysuria. In the ED, he was noted to have leukocytosis and Infectious diseases consult is requested to further evaluate and manage. Review of Systems - Review of Systems All systems: reviewed and no additional remarkable complaints except (as per HPI ) Past Patient History - Infectious Disease Hx of Infectious Diseases: None - Tetanus Immunizations Tetanus Immunization: Up to Date - Past Social History Smoking Status: Former Smoker - CARDIAC Hx Cardiac Disorders: Yes Hx Hypertension: Yes Hx Internal Defibrillator: Yes (pacemaker/defib 2005) Hx Pacemaker: Yes Hx Peripheral Edema: Yes Other/Comment: Cardiomyopathy - PULMONARY Hx Respiratory Disorders: Yes Hx Sleep Apnea: Yes - NEUROLOGICAL Hx Neurological Disorder: No - HEENT Hx HEENT Problems: No - RENAL Hx Chronic Kidney Disease: Yes (hx renal insufficiency which resolved) - ENDOCRINE/METABOLIC Hx Endocrine Disorders: No - HEMATOLOGICAL/ONCOLOGICAL Hx Blood Transfusions: No Hx Blood Transfusion Reaction: No - INTEGUMENTARY Hx Dermatological Problems: No - MUSCULOSKELETAL/RHEUMATOLOGICAL Hx Musculoskeletal Disorders: No - GASTROINTESTINAL Hx Gastrointestinal Disorders: Yes Hx Diverticulitis: Yes - GENITOURINARY/GYNECOLOGICAL Hx Genitourinary Disorders: No - PSYCHIATRIC Hx Psychophysiologic Disorder: No Hx Depression: No Hx Emotional Abuse: No Hx Physical Abuse: No Hx Substance Use: No - SURGICAL HISTORY Hx Cardiac Catheterization: Yes Hx Orthopedic Surgery: Yes (right knee cartilige) Other/Comment: pacemaker and defib in 2006 - ANESTHESIA Hx Anesthesia Reactions: No Hx Malignant Hyperthermia: No Meds Allergies/Adverse Reactions: Allergies Allergy/AdvReac Type Severity Reaction Status Date / Time No Known Allergies Allergy Verified 06/14/17 14:24 - Medications Medications: Current Medications Amiodarone HCl (Cordarone) 100 mg PO DAILY [facility] Carvedilol (Coreg) 25 mg PO BID [facility] Physical Exam - Constitutional Appears: Non-toxic, Chronically Ill - Head Exam Head Exam: NORMAL INSPECTION - Neck Exam Neck exam: Negative for: Meningismus - Respiratory Exam Respiratory Exam: Decreased Breath Sounds - Cardiovascular Exam Cardiovascular Exam: +S1, +S2 - GI/Abdominal Exam GI & Abdominal Exam: Soft. absent: Tenderness Results - Vital Signs Recent Vital Signs: Last Vital Signs Temp 97.9 F 06/14/17 14:24 Pulse 62 06/14/17 17:08 Resp 16 06/14/17 17:08 BP 104/67 06/14/17 21:03 Pulse Ox 99 06/14/17 17:08 - Labs Result Diagrams: 06/15/17 06:00 06/15/17 06:00 Labs: Laboratory Results - last 24 hr 06/14/17 19:10 pO2 128 H VBG pH 7.36 VBG pCO2 39.0 L VBG HCO3 22.0 VBG Total CO2 23.2 VBG O2 Sat (Calc) 99.5 H VBG Base Excess -3.1 L VBG Potassium 4.2 Sodium 136.0 Chloride 107.0 Glucose 115 H Lactate 1.1 FiO2 21.0 Venous Blood Potassium 4.2 Assessment & Plan - Assessment and Plan (Free Text) Plan: Assessment systemic inflammatory response syndrome probably due to acute on chronic CHF, no evidence of pneumonia noted COPD obstrcutvie sleep apnea obesity history of diverticulitis GERD S/P AICD placement Plan WBC count has normalized, patient is breathing a little better - will follow up blood cx, PCT and monitor clinically off antibiotics
[2017-06-15] MEDS ORDERED: Bisacodyl 5mg EC Tab PO ONE (13:55)
--- NOTE | 2017-06-15 14:29 | PN ---
DATE: 06/15/2017 SUBJECTIVE: A 52-year-old male in Telemetry. Discussion with the nurse is stated that the patient had no particular problems during the night. The patient states that he is feeling more comfortable this morning. States that he feels that the Lasix that he received last night in the Emergency Room made him feel less congested. PHYSICAL EXAMINATION: VITAL SIGNS: Temperature is 97.4, his pulse is 58, his blood pressure is 130/81, respiratory rate is 20, oxygen sat is 100% reported on nasal cannula 2 liters. GENERAL: He is alert and oriented x3. LUNGS: Shows diminished breath sounds at the bases. HEART: S1 and S2. ABDOMEN: Obese, soft, positive bowel sounds. EXTREMITIES: Shows 3+ edema. LABORATORY DATA: Shows WBC of 10.6, RBC 3.85, hemoglobin 11.3, hematocrit 36.5, platelet count 175. Chemistry shows sodium of 142, potassium 4.2, chloride 105, BUN is 43, creatinine is 2.3. The patient is on Lipitor, Coreg and amiodarone. Cardiology has placed the patient on Lasix and Aldactone and repeat lab work has been ordered. The patient states that he is feeling better. He has chronic kidney disease with an acute renal insufficiency insult, elevated brain natriuretic peptide with congestive heart failure, cardiomyopathy, defibrillator, periportal adenopathy, alcohol use history, probable liver disease secondary to the above, history of gouty arthritis. I have discussed with the patient the current medication regimen and encouraged to ambulate, sit in the chair, keep his feet elevated. He has declined wanting to use his CPAP equipment. as per Cardiology, Infectious Disease and GI. He has history of hemorrhoids with bleeding, requests followup with Dr. August. Stool guaiac has been ordered. Qing Jiménez MD MTDJuly
[2017-06-15 18:06] VITALS: RESP 18
--- NOTE | 2017-06-15 19:07 | CON ---
DATE: 06/15/2017 INDICATIONS: Shortness of breath, edema, congestive heart failure. HISTORY OF PRESENT ILLNESS: This is a 52-year-old man well known to me, admitted yesterday with increasing shortness of breath and edema. He also complained of tightness in the chest, but no PND, syncope, presyncope, lightheadedness, dizziness, vertigo, palpitations, fever, chills, cough, sputum production, hemoptysis, abdominal pain, nausea, vomiting, diarrhea, constipation, or melena. PAST MEDICAL HISTORY: Complex. He has cardiomyopathy on a familial basis, possibly alcohol related. He has recurrent episodes of congestive heart failure with several recent hospitalizations. He has a history of paroxysmal atrial fibrillation, ventricular tachycardia. He has an ICD in place. He has a history of COPD, sleep apnea, gout, diverticulosis, chronic kidney disease, cirrhosis. A recent echocardiogram demonstrated severe LV dysfunction with mild MR and TR. He has had hemorrhoidal bleeding and worsening of his renal function during his last hospitalization. He was discharged without Lasix and returns after a short period with recurrent CHF symptoms. MEDICATIONS: At this time include Aldactone, amiodarone, Coreg, and Lipitor. ALLERGIES: THERE WERE NO MEDICATION ALLERGIES REPORTED. SOCIAL HISTORY: He lives at home with his . He is retired. He is ambulatory. He does not smoke. He has not consumed alcohol recently but has been an intermittent drinker. FAMILY HISTORY: Notable for cardiomyopathy. REVIEW OF SYSTEMS: A 10-point review of systems was otherwise unremarkable except as noted above. PHYSICAL :EXAMINATION GENERAL: He is a well-developed male sitting in a chair on telemetry, in no acute distress. VITAL SIGNS: Notable for sinus bradycardia 58 beats per minute, afebrile, blood pressure 124/93, respirations 16-24, O2 sat 97%-100% on nasal cannula. HEENT: Reveals no neck vein distention, thyromegaly, or carotid bruits. Mucous membranes are moist. Conjunctivae are pink. NECK: Supple. LUNGS: Lung cyr, few scattered rales at the bases. No wheezing. HEART: Reveals distant heart sounds. Normal first and second heart sounds. PMI not palpable. ABDOMEN: Obese, soft, bowel sounds present. No mass, organomegaly, tenderness, rebound, or guarding. No CVA tenderness. No palpable abnormal aortic aneurysm. EXTREMITIES: Revealed mild pedal edema to the shins. NEUROLOGIC: Awake, alert, and oriented. PSYCHIATRIC: Normal as to mood and affect. SKIN: Warm and dry. No rashes or cellulitis. LABORATORY AND IMAGING DATA: His EKG demonstrates sinus bradycardia, intraventricular conduction delay, ST-T wave changes, no acute change from prior EKG. Chest x-ray revealed no active disease, cardiomegaly, resolved pulmonary vascular congestion. A lung scan was low probability. White count 10,600, hemoglobin 11.3, hematocrit 36.5, platelet counts are normal. PT 14.6, INR 1.27, PTT 28.6. Blood gases are noted. Electrolytes, BUN and creatinine noted. Creatinine 2.1, repeat this morning 2.3. Magnesium 2.1. LFTs unremarkable except the alkaline phosphatase is elevated at 144, LDH is elevated at 721. CK is 65. Troponin 0.03. BNP 11,500. Urinalysis unremarkable. ASSESSMENT: Jack Granados is 52-year-old man with known severe cardiomyopathy on a familial basis, aggravated by alcohol abuse, admitted with increasing shortness of breath and edema following several recent hospitalizations for similar symptoms and worsening renal function such that Lasix was held at the end of his last hospitalization. At this time, the symptoms have improved with IV Lasix given in the emergency room. He has had a good diuresis and reports feeling better with less edema as well. He is admitted to telemetry. I will continue spirolactone, amiodarone, Coreg, and Lipitor. He is being evaluated by ID. He should have a renal reevaluation as well. I will give IV Lasix 20 mg today. We will monitor I's and O's, daily labs, stool for occult blood. I will review his old records and echocardiogram. He is not drinking currently. He has arranged for outpatient counseling to begin next week. He should have a GI evaluation with regard to recurrent hemorrhoidal type rectal bleeding as well. I will follow along with you and make additional recommendations based on his clinical course. Stephan Vázquez MD [facility]
--- NOTE | 2017-06-15 20:00 | CON ---
DATE: 06/15/2017 GASTROENTEROLOGY CONSULTATION REQUESTING PHYSICIAN: Qing Jiménez MD. REASON FOR CONSULTATION: I have been asked to see this 52-year-old male with multiple comorbidities including cardiomyopathy, congestive heart failure, paroxysmal atrial fibrillation, longstanding alcohol abuse, history of bleeding hemorrhoids, chronic kidney disease, and arrhythmia requiring AICD placement who was just recently discharged from the hospital over a week ago and now comes back in with shortness of breath on exertion. He also complains of some chest tightness. The patient's rectal bleeding has apparently improved with just intermittent rectal bleeding with passage of large bowel movements. He had a colonoscopy on his last hospitalization which revealed bleeding hemorrhoids. PAST MEDICAL HISTORY: As above. Again, he has a history of congestive heart failure, cardiomyopathy with cardiac arrhythmia requiring AICD placement, history of paroxysmal atrial fibrillation, alcoholism, COPD, sleep apnea, periportal adenopathy, bleeding hemorrhoids, chronic kidney disease, and gout. SOCIAL HISTORY: The patient is a longstanding alcoholic. He states he has not had a drink in several days. He denies cigarette smoking. FAMILY HISTORY: Notable for cardiomyopathy. MEDICATIONS AT HOME: Include Coreg 25 mg twice a day, Aldactone 25 mg twice a day, Lipitor 80 mg once a day, amiodarone 100 mg daily, and Anusol-HC 25 mg t.i.d. REVIEW OF SYSTEMS: A 4-point review of systems is notable for dyspnea on exertion, pedal edema, and intermittent bleeding hemorrhoids. PHYSICAL EXAMINATION: GENERAL: Well-developed male lying in bed, in no acute distress. VITAL SIGNS: Reveal temperature of 97.5, blood pressure 121/84, heart rate of 62. HEENT: Reveal sclerae to be white. Conjunctivae pale. NECK: Supple. CHEST: Lungs are clear. HEART: Reveals an irregular rate. He does have an AICD placement in his left subclavian area. ABDOMEN: Flabby, soft, nontender. EXTREMITIES: Show 1+ pedal edema. LABORATORY DATA: Reveal white blood cell count 10.6, hemoglobin 11.3, platelet count 175,000. BUN 43, creatinine 2.3, alkaline phosphatase 144. AST, ALT, total bilirubin are all normal. IMPRESSION: 1. Congestive heart failure. 2. Cardiac arrhythmia. 3. Bleeding hemorrhoids, which were stable. 4. Chronic kidney disease. 5. Chronic anemia. RECOMMENDATIONS: 1. We will resume the patient's Anusol-HC 25 mg suppository twice a day. 2. Will start the patient on Colace 100 mg once a day and Dulcolax tablets at night to make sure that the patient has regular bowel movements. 3. Continue diuretics as per Cardiology. Trevor August MD
[2017-06-16 07:36] LABS: CALCIUM 9.3 mg/dL (8.4-10.5)
--- NOTE | 2017-06-16 08:31 | CP.PCM.PN ---
Subjective - Date & Time of Evaluation Date of Evaluation: 06/16/17 Time of Evaluation: 07:00 - Subjective Subjective: Stable on 2R. He feels better. + cough. No CP or SOB at bedrest. V/S noted. RSR/SB PE: Lungs: few rhonchi Cor.: S1S2 Abd.; soft Ext.: min. edema Neuro.: alert I/O= 1500/3100 Labs: Cr. = 2.1, K+= 4.0 BC X2 NG at 24 hrs. Objective - Vital Signs/Intake and Output Vital Signs (last 24 hours): Temp Pulse Resp BP Pulse Ox 97.5 F L 60 18 120/70 99 06/16/17 06:00 06/16/17 06:00 06/16/17 06:00 06/16/17 06:00 06/16/17 06:00 Intake and Output: 06/16/17 06/16/17 06:59 18:59 Intake Total 600 Output Total 1700 Balance -1100 - Medications Medications: Current Medications Amiodarone HCl (Cordarone) 100 mg PO DAILY [facility] Last Admin: 06/15/17 09:41 Dose: 100 mg Atorvastatin Calcium (Lipitor) 80 mg PO DIN [facility] Last Admin: 06/15/17 18:09 Dose: 80 mg Carvedilol (Coreg) 25 mg PO BID [facility] Last Admin: 06/15/17 18:05 Dose: 25 mg Docusate Sodium (Colace) 100 mg PO TID [facility] Last Admin: 06/15/17 18:04 Dose: 100 mg Furosemide (Lasix) 20 mg IVP DAILY [facility] Last Admin: 06/15/17 09:42 Dose: 20 mg Hydrocortisone (Anusol-Hc) 25 mg RC BID [facility] Last Admin: 06/15/17 18:05 Dose: 25 mg Spironolactone (Aldactone) 25 mg PO BID [facility] Last Admin: 06/15/17 18:05 Dose: 25 mg - Labs Labs: 06/15/17 06:00 06/16/17 06:30 PT 14.6 SECONDS (9.4-12.5) H 06/14/17 14:45 INR 1.27 (0.93-1.08) H 06/14/17 14:45 APTT 28.6 Seconds (25.1-36.5) 06/14/17 14:45 Assessment and Plan - Assessment and Plan (Free Text) Assessment: Dyspnea/Edema CHF CCM/ Sev. LVD with mod. MR and TR on echo CKD PAF NSVT ICD COPD DENISE Cirrhosis Gout Diverticulosis Hemorrhoids with bleeding Plan: IV Lasix OOB/ambulate/PT Resume A/C if OK with GI BMP/Mg.++ level in AM No ETOH D/W him again this AM. He is arranging support for this. As per GI, ID and Dr. Jiménez.
--- NOTE | 2017-06-16 13:53 | PN ---
DATE: 06/16/2017 SUBJECTIVE: A 52-year-old male, resting in bed this morning. Nursing staff relates that there are no particular problems. The patient states that he is not having any chest tightness. He still has a dry cough. PHYSICAL EXAMINATION VITAL SIGNS: Temperature of 97.5, his pulse is 60, his blood pressure is 120/70, respiratory rate is 18. He is using nasal oxygen of 2 liters and satting 99%. GENERAL: He is alert and oriented x3. LUNGS: Show diminished breath sounds at the bases. HEART: Is in S1 and S2 rhythm. ABDOMEN: Obese, soft, positive bowel sounds. EXTREMITIES: Show diminished edema. LABORATORY DATA: Shows his chemistries with sodium of 140, potassium of 4, chloride 105, the CO2 is 23, the BUN is 42, the creatinine is 2.1. His procalcitonin is 0.1. ASSESSMENT AND PLAN: He is currently on Aldactone, IV Lasix, Coreg and amiodarone, Anusol suppository, Colace and Lipitor. The notes of Cardiology and GI have been noted and appreciated. This has been discussed with the patient. We will await input from GI regarding resuming anticoagulation therapy has noted in Dr. Vázquez's note. We will follow up the patient's lab. The patient has been encouraged to ambulate and not spend time just lying in bed. He has history of congestive heart failure, defibrillator, chronic kidney disease, paroxysmal atrial fibrillation, nonsustained ventricular tachycardia, chronic obstructive pulmonary disease, obstructive sleep apnea, cirrhosis, gout, diverticulosis and hemorrhoids with bleeding. Followup the patient's labs and continue current level of care. He reports no bleeding at this time. Qing Jiménez MD
--- NOTE | 2017-06-16 15:18 | PN ---
DATE: 06/16/2017 SUBJECTIVE: The patient is sitting in chair, comfortable. He is breathing easier. He denies any dyspnea at rest. He still has some dyspnea on exertion. He had a scant amount of rectal bleeding after a bowel movement earlier today. PHYSICAL EXAMINATION: VITAL SIGNS: Reveal temperature of 97.4, blood pressure 103/73, heart rate of 56. HEENT: Reveals sclerae to be white. Conjunctivae pink. NECK: Supple. CHEST: Reveals scattered rhonchi. HEART: Reveals a regular rate and rhythm. ABDOMEN: Obese, soft, nontender. EXTREMITY: Show 1+ pedal edema. There is no new CBC from this morning. IMPRESSION: 1. Congestive heart failure. 2. Cardiomyopathy. 3. Atrial fibrillation. 4. History of alcoholism. 5. Chronic anemia. 6. Chronic kidney disease. RECOMMENDATIONS: 1. Continue Anusol-HC 25 mg suppository b.i.d. and stool softeners. 2. Can resume anticoagulation; however the patient is high risk for recurrent bleeding from hemorrhoids. If the patient has significant rectal bleed, may need to stop the anticoagulation, but for now I think we can start it and watch him closely. Trevor August MD
[2017-06-16] MEDS ORDERED: guaiFENesin DM 200 mg-20 mg/10 ml UD PO PRN (18:11)
[2017-06-17 06:26] VITALS: O2SAT 98
[2017-06-17 06:50] LABS: BASO # 0.03 K/mm3 (0.0-2.0); BASO % 0.3 % (0.0-3.0); EOS # 0.1 (0.0-0.7); EOS % 0.7 % (1.5-5.0); GRAN # 6.94 (1.4-6.5); GRAN % 76.6 % (50.0-68.0); HEMOGLOBIN 10.8 g/dL (14.0-18.0); LYMPH # 1.1 (1.2-3.4); MEAN CELL VOLUME 93.7 fl (80.0-105.0); MEAN CORPUSCULAR HEMOGLOBIN 29.4 pg (25.0-35.0); MEAN CORPUSCULAR HGB CONC 31.4 g/dl (31.0-37.0); MEAN PLATELET VOLUME 9.6 fl (7.0-11.0); MONO # 0.9 (0.1-0.6); MONO % 10.4 % (1.0-6.0); RBC 3.67 10^6/uL (3.5-6.1); RED CELL DISTRIBUTION WIDTH 15.4 % (11.5-14.5); WHITE BLOOD COUNT 9.1 10^3/ul (4.5-11.0)
[2017-06-17 07:09] LABS: CALCIUM 9.4 mg/dL (8.4-10.5)
--- NOTE | 2017-06-17 08:36 | CP.PCM.PN ---
Subjective - Date & Time of Evaluation Date of Evaluation: 06/17/17 Time of Evaluation: 07:00 - Subjective Subjective: Stable on 2R. He feels better. Still some cough. No CP or SOB. Not much sleep. V/S noted. RSR/SB PE: Lungs: few rhonchi Cor.: S1S2 Abd.; soft Ext.: min. edema Neuro.: alert I/O= 1860/2500 Labs: Cr. = 1.9, K+= 3.8, Mg.++= 2.0 BC X2 NG at 48 hrs. Objective - Vital Signs/Intake and Output Vital Signs (last 24 hours): Temp Pulse Resp BP Pulse Ox 98.2 F 57 L 18 116/70 98 06/17/17 06:00 06/17/17 06:00 06/17/17 06:00 06/17/17 06:00 06/17/17 06:00 Intake and Output: 06/17/17 06/17/17 06:59 18:59 Intake Total 600 Output Total 1000 Balance -400 - Medications Medications: Current Medications Amiodarone HCl (Cordarone) 100 mg PO DAILY [facility] Last Admin: 06/16/17 10:12 Dose: 100 mg Atorvastatin Calcium (Lipitor) 80 mg PO DIN [facility] Last Admin: 06/16/17 17:20 Dose: 80 mg Carvedilol (Coreg) 25 mg PO BID [facility] Last Admin: 06/16/17 17:20 Dose: 25 mg Docusate Sodium (Colace) 100 mg PO TID [facility] Last Admin: 06/16/17 17:20 Dose: 100 mg Furosemide (Lasix) 20 mg IVP DAILY [facility] Last Admin: 06/16/17 10:14 Dose: 20 mg Guaifenesin/Dextromethorphan (Robitussin Dm) 15 ml PO Q4H PRN PRN Reason: Cough Hydrocortisone (Anusol-Hc) 25 mg RC BID [facility] Last Admin: 06/16/17 17:20 Dose: 25 mg Spironolactone (Aldactone) 25 mg PO BID [facility] Last Admin: 06/16/17 17:20 Dose: 25 mg - Labs Labs: 06/17/17 05:45 06/17/17 05:45 PT 14.6 SECONDS (9.4-12.5) H 06/14/17 14:45 INR 1.27 (0.93-1.08) H 06/14/17 14:45 APTT 28.6 Seconds (25.1-36.5) 06/14/17 14:45 Assessment and Plan - Assessment and Plan (Free Text) Assessment: Dyspnea/Edema CHF CCM/ Sev. LVD with mod. MR and TR on echo CKD PAF NSVT ICD COPD DENISE Cirrhosis Gout Diverticulosis Hemorrhoids with bleeding Plan: PO Lasix OOB/ambulate/PT Resume A/C if OK with GI No ETOH D/W him again this AM. He is arranging support for this. As per GI, ID and Dr. Jiménez. Home soon.
[2017-06-17 12:27] VITALS: BP 126/84; PULSE 57; TEMP 98.5
--- NOTE | 2017-06-17 12:37 | CP.PCM.PN ---
Subjective - Date & Time of Evaluation Date of Evaluation: 06/17/17 Time of Evaluation: 10:15 - Subjective Subjective: No fevers, no chest pain, breathing better. Objective - Vital Signs/Intake and Output Vital Signs (last 24 hours): Temp Pulse Resp BP Pulse Ox 98.2 F 57 L 18 116/70 98 06/17/17 06:00 06/17/17 06:00 06/17/17 06:00 06/17/17 06:00 06/17/17 06:00 Intake and Output: 06/17/17 06/17/17 06:59 18:59 Intake Total 600 Output Total 1000 Balance -400 - Medications Medications: Current Medications Amiodarone HCl (Cordarone) 100 mg PO DAILY [facility] Last Admin: 06/16/17 10:12 Dose: 100 mg Atorvastatin Calcium (Lipitor) 80 mg PO DIN [facility] Last Admin: 06/16/17 17:20 Dose: 80 mg Carvedilol (Coreg) 25 mg PO BID [facility] Last Admin: 06/16/17 17:20 Dose: 25 mg Docusate Sodium (Colace) 100 mg PO TID [facility] Last Admin: 06/16/17 17:20 Dose: 100 mg Furosemide (Lasix) 40 mg PO DAILY [facility] Guaifenesin/Dextromethorphan (Robitussin Dm) 15 ml PO Q4H PRN PRN Reason: Cough Hydrocortisone (Anusol-Hc) 25 mg RC BID [facility] Last Admin: 06/16/17 17:20 Dose: 25 mg Spironolactone (Aldactone) 25 mg PO BID [facility] Last Admin: 06/16/17 17:20 Dose: 25 mg - Labs Labs: 06/17/17 05:45 06/17/17 05:45 PT 14.6 SECONDS (9.4-12.5) H 06/14/17 14:45 INR 1.27 (0.93-1.08) H 06/14/17 14:45 APTT 28.6 Seconds (25.1-36.5) 06/14/17 14:45 - Constitutional Appears: Non-toxic - Head Exam Head Exam: NORMAL INSPECTION - Respiratory Exam Respiratory Exam: Decreased Breath Sounds - Cardiovascular Exam Cardiovascular Exam: +S1, +S2 - GI/Abdominal Exam GI & Abdominal Exam: Soft. absent: Tenderness Assessment and Plan - Assessment and Plan (Free Text) Plan: Assessment S/P systemic inflammatory response syndrome probably due to acute on chronic CHF , no evidence of pneumonia noted COPD obstrcutvie sleep apnea obesity history of diverticulitis GERD S/P AICD placement Plan WBC count has normalized, patient is breathing better - monitor clinically off antibiotics discussed with Dr. Jiménez
--- NOTE | 2017-06-17 14:24 | PN ---
DATE: 06/17/2017 SUBJECTIVE: The patient is sitting on the edge of his bed this morning, states that he is feeling better, feeling less congested. PHYSICAL EXAMINATION: VITAL SIGNS: His temperature is 98.2, his pulse is , blood pressure is 116/70, respiratory rate is 18. Qing Jiménez MD
--- NOTE | 2017-06-17 16:28 | PN ---
DATE: 06/17/2017 SUBJECTIVE: The patient is sitting in a chair. He is comfortable. He is less dyspneic. He is able to ambulate the farrell without shortness of breath. He denies dyspnea at rest. He is having regular bowel movements. He had another episode of scant rectal bleeding after bowel movement. PHYSICAL EXAMINATION VITAL SIGNS: Reveal temperature of 98.2, blood pressure 135/67, heart rate 60. HEENT: Reveals sclerae to be white. Conjunctivae pink. NECK: Supple. CHEST: Lungs are clear. HEART: Reveals regular rate and rhythm. He has an AICD in his left subclavian area. ABDOMEN: Soft, nontender. EXTREMITIES: Show trace pedal edema. LABORATORY DATA: Revealed hemoglobin of 10.8, this is stable; white blood cell count 9.1, platelet count of 155,000. Chemistries reveal BUN 39, creatinine 1.9. IMPRESSION: 1. Congestive heart failure. 2. Cardiomyopathy with low ejection fraction. 3. Paroxysmal atrial fibrillation. 4. History of cardiac arrhythmia requiring automatic implantable cardioverter-defibrillator. 5. Chronic kidney disease. 6. Chronic anemia. RECOMMENDATIONS: 1. The patient is stable from a GI standpoint. He is to start Coumadin later this week on his visit with Dr. Vázquez. 2. Continue stool softeners three times a day with Dulcolax once at night. 3. Continue Anusol-HC 25 mg suppository three times a day. If the patient continues to have bleeding, he may need to have a colorectal surgical evaluation for hemorrhoidectomy. Trevor August MD
== END 2017-06-17 13:58 | disposition home or self-care (01) | DRG 292 ==
LOC: ED 14:12 → ERH 18:03 → 2RNO 22:57
PROVIDERS: ADMIT Internal Medicine; ATTEND Internal Medicine
DX: I13.0 Hypertensive heart and chronic kidney disease with heart failure and stage 1 through stage 4 chronic kidney disease, or unspecified chronic kidney disease (principal); R65.10 Systemic inflammatory response syndrome (SIRS) of non-infectious origin without acute organ dysfunction; I50.9 Heart failure, unspecified; I25.10 Atherosclerotic heart disease of native coronary artery without angina pectoris; J44.9 Chronic obstructive pulmonary disease, unspecified; K70.30 Alcoholic cirrhosis of liver without ascites; I48.0 Paroxysmal atrial fibrillation; I42.9 Cardiomyopathy, unspecified; N18.9 Chronic kidney disease, unspecified; F10.20 Alcohol dependence, uncomplicated; G47.33 Obstructive sleep apnea (adult) (pediatric); K21.9 Gastro-esophageal reflux disease without esophagitis; D64.9 Anemia, unspecified; M10.9 Gout, unspecified; K64.9 Unspecified hemorrhoids; E66.9 Obesity, unspecified; Z68.34 Body mass index [BMI] 34.0-34.9, adult; Z95.810 Presence of automatic (implantable) cardiac defibrillator; Z87.891 Personal history of nicotine dependence

== ENCOUNTER 2017-07-12 07:35 | Emergency (ER) | payer OTHER, MEDICARE ==
[2017-07-12 07:43] VITALS: BMI 34.3
[2017-07-12 07:46] VITALS: RESP 18; TEMP 96.7
--- NOTE | 2017-07-12 08:36 | ED PDOC ---
Arrival/HPI - General Chief Complaint: GI Problem Time Seen by Provider: 07/12/17 08:23 Historian: Patient - History of Present Illness Narrative History of Present Illness (Text): 07/12/17 08:17 Jack Granados is a 52 year old male, whose past medical history includes cardiomyopathy, CHF, Diverticulosis, Hemorrhoid, and COPD, who presents to the emergency department complaining of bright red blood in stool x 3 since yesterday. Patient states that he went to his cable tester, Dr. Vázquez, for swelling to his legs and was instructed to call his plastic molder. Dr. August , GI, instructed patient to come to the emergency department for further evaluation. Patient denies any painless, chest pain, syncope, constipation, or any other complaint. Time/Duration: 24 hours Symptom Onset: Gradual Symptom Course: Unchanged Activities at Onset: Light Context: Home Past Medical History - Provider Review Nursing Documentation Reviewed: Yes - Infectious Disease Hx of Infectious Diseases: None - Tetanus Immunization Tetanus Immunization: Up to Date - Cardiac Hx Cardiac Disorders: Yes Hx Hypertension: Yes Hx Internal Defibrillator: Yes (pacemaker/defib 2005) Hx Pacemaker: Yes Hx Peripheral Edema: Yes Other/Comment: Cardiomyopathy - Pulmonary Hx Respiratory Disorders: Yes Hx Sleep Apnea: Yes - Neurological Hx Neurological Disorder: No - HEENT Hx HEENT Disorder: No - Renal Hx Renal Disorder: Yes (hx renal insufficiency which resolved) - Endocrine/Metabolic Hx Endocrine Disorders: No - Hematological/Oncological Hx Blood Transfusions: No Hx Blood Transfusion Reaction: No - Integumentary Hx Dermatological Disorder: No - Musculoskeletal/Rheumatological Hx Musculoskeletal Disorders: No - Gastrointestinal Hx Gastrointestinal Disorders: Yes Hx Diverticulitis: Yes - Genitourinary/Gynecological Hx Genitourinary Disorders: No - Psychiatric Hx Psychophysiologic Disorder: No Hx Depression: No Hx Emotional Abuse: No Hx Physical Abuse: No Hx Substance Use: No - Surgical History Hx Cardiac Catheterization: Yes Hx Orthopedic Surgery: Yes (right knee cartilige) Other/Comment: pacemaker and defib in 2005 - Anesthesia Hx Anesthesia Reactions: No Hx Malignant Hyperthermia: No - Suicidal Assessment Feels Threatened In Home Enviroment: No Family/Social History - Physician Review Nursing Documentation Reviewed: Yes Family/Social History: No Known Family HX Smoking Status: Former Smoker Hx Alcohol Use: Yes (LAST DRINK 05/29/17) Hx Substance Use: No Hx Substance Use Treatment: No Allergies/Home Meds Allergies/Adverse Reactions: Allergies No Known Allergies Allergy (Verified 06/14/17 14:24) Home Medications: Home Meds Medication Instructions Recorded Confirmed Carvedilol [Coreg] 25 mg PO BID 05/09/12 06/14/17 Atorvastatin [Lipitor] 80 mg PO DAILY 11/18/13 06/14/17 Amiodarone [Cordarone] 100 mg PO DAILY 06/15/16 06/14/17 Spironolactone [Aldactone] 25 mg PO BID 01/16/17 06/14/17 Hydrocortisone [Ala-Dawood] 1 applic TX TID 06/14/17 06/14/17 Review of Systems - Physician Review All systems were reviewed & negative as marked: Yes - Review of Systems Constitutional: absent: Fevers, Night Sweats Eyes: absent: Vision Changes ENT: absent: Hearing Changes Respiratory: absent: SOB Cardiovascular: absent: Chest Pain Gastrointestinal: Hematochezia Genitourinary Male: absent: Dysuria Musculoskeletal: absent: Arthralgias Skin: absent: Rash Neurological: absent: Headache Endocrine: absent: Diaphoresis Hemo/Lymphatic: absent: Adenopathy Psychiatric: absent: Anxiety, Depression Physical Exam - Physical Exam Narrative Physical Exam (Text): Constitutional: No acute distress. Head: Normocephalic. Atraumatic. Eyes: PERRL. ENT: Moist mucous membranes. Neck: Supple. Cardiovascular: Regular rate. Chest: No tenderness. Respiratory: Clear to auscultation bilaterally. GI: Soft. Nontender. Nondistended. Back: No CVA tenderness. Musculoskeletal: No tenderness or swelling of extremities. Skin: No rash. Neurologic: Alert, no focal deficit. Vital Signs Reviewed: Yes Vital Signs Temp Pulse Resp BP Pulse Ox 07/12/17 09:27 72 18 128/51 L 99 07/12/17 07:44 96.7 F L 87 18 120/81 97 Temperature: Afebrile Blood Pressure: Normal Pulse: Regular Respiratory Rate: Normal Appearance: Positive for: Well-Appearing, Non-Toxic, Comfortable Pain Distress: None Mental Status: Positive for: Alert and Oriented X 3 Medical Decision Making ED Course and Treatment: 07/12/17 08:37 Impression: 52 year old male complaining of bright red blood in stool x 3 since yesterday Differential Diagnosis included but are not limited to: Plan: -- Labs -- Reassess and disposition Prior Visits: Notes and results from previous visits were reviewed. Patient was last seen in the emergency department on 06/14/17 for chest tightness and had a bowel movement with blood. Patient was admitted to hospitalist care for further evaluation. Progress Notes: Rectal shows hemorrhoids and small amount of gross red blood. Dr. August evaluated patient at bedside. Hb normal. Recommends discharge home, will follow up in office and refer for hemorrhoidectomy. Vital signs stable. - Lab Interpretations Lab Results: 07/12/17 08:37 07/12/17 08:37 Lab Results 07/12/17 08:37: Sodium 141, Potassium 4.6, Chloride 105, Carbon Dioxide 21, Anion Gap 19, BUN 46 H, Creatinine 2.0 H, Est GFR ( Amer) 43, Est GFR ( Non-Af Amer) 35, Random Glucose 111 H, Calcium 9.6, Total Bilirubin 1.5 H, AST 24, ALT 29, Alkaline Phosphatase 142 H, Total Protein 7.5, Albumin 4.0, Globulin 3.5, Albumin/Globulin Ratio 1.1 07/12/17 08:37: WBC 9.8, RBC 3.97, Hgb 11.5 L, Hct 35.7 L, MCV 89.9 D, MCH 29.0 , MCHC 32.2, RDW 16.1 H, Plt Count 193, MPV 9.7, Gran % 76.5 H, Lymph % (Auto) 10.6 L, [place] % (Auto) 12.3 H, Eos % (Auto) 0.2 L, Baso % (Auto) 0.4, Gran # 7.50 H, Lymph # (Auto) 1.0 L, [place] # (Auto) 1.2 H, Eos # (Auto) 0.0, Baso # ( Auto) 0.04 I have reviewed the lab results: Yes - Scribe Statement The provider has reviewed the documentation as recorded by the Johnnaibtala Laureano Provider Scribe Attestation: All medical record entries made by the Scribe were at my direction and personally dictated by me. I have reviewed the chart and agree that the record accurately reflects my personal performance of the history, physical exam, medical decision making, and the department course for this patient. I have also personally directed, reviewed, and agree with the discharge instructions and disposition. Disposition/Present on Arrival - Present on Arrival Any Indicators Present on Arrival: No History of DVT/PE: No History of Uncontrolled Diabetes: No Urinary Catheter: No History of Decub. Ulcer: No History Surgical Site Infection Following: None - Disposition Have Diagnosis and Disposition been Completed?: Yes Diagnosis: Bleeding hemorrhoid Disposition: HOME/ ROUTINE Disposition Time: 09:27 Patient Plan: Discharge Condition: STABLE Discharge Instructions (ExitCare): Hemorrhoids (DC) Referrals: Trevor August MD [Staff Provider] - Follow up with primary Forms: [employer] (Guatemalan)
[2017-07-12 08:46] LABS: BASO # 0.04 K/mm3 (0.0-2.0); BASO % 0.4 % (0.0-3.0); EOS % 0.2 % (1.5-5.0); GRAN # 7.5 (1.4-6.5); GRAN % 76.5 % (50.0-68.0); HEMOGLOBIN 11.5 g/dL (14.0-18.0); LYMPH % 10.6 % (22.0-35.0); MEAN CELL VOLUME 89.9 fl (80.0-105.0); MEAN CORPUSCULAR HGB CONC 32.2 g/dl (31.0-37.0); MEAN PLATELET VOLUME 9.7 fl (7.0-11.0); MONO # 1.2 (0.1-0.6); MONO % 12.3 % (1.0-6.0); RBC 3.97 10^6/uL (3.5-6.1); RED CELL DISTRIBUTION WIDTH 16.1 % (11.5-14.5); WHITE BLOOD COUNT 9.8 10^3/ul (4.5-11.0)
[2017-07-12 08:52] LABS: ALB/GLOB RATIO 1.1 (1.1-1.8); CALCIUM 9.6 mg/dL (8.4-10.5)
[2017-07-12 09:28] VITALS: BP 128/51; PULSE 72; O2SAT 99
== END 2017-07-12 09:27 | disposition home or self-care (01) ==
LOC: ED 07:35
DX: K64.9 Unspecified hemorrhoids (principal); I50.9 Heart failure, unspecified; J44.9 Chronic obstructive pulmonary disease, unspecified; I10 Essential (primary) hypertension; Z87.891 Personal history of nicotine dependence

== ENCOUNTER 2017-07-29 06:28 | Inpatient (IN) | payer OTHER, MEDICARE ==
[2017-07-29 06:30] VITALS: BMI 33.9
--- NOTE | 2017-07-29 07:47 | ED PDOC ---
Arrival/HPI - General Historian: Patient - History of Present Illness Time/Duration: 1 week Symptom Onset: Gradual Symptom Course: Worsening <Eric Leon - Last Filed: 07/29/17 10:09> - History of Present Illness Quality: Tightness Activities at Onset: Rest Context: Home <Butch López - Last Filed: 07/29/17 13:04> - General Chief Complaint: Chest Pain Time Seen by Provider: 07/29/17 06:35 - History of Present Illness Narrative History of Present Illness (Text): 07/29/17 07:46 Pt is a 52 yo M with PMH of CHF with defibrillator, paroxysmal a. fib on eliquis , sleep apnea, HLD, and CKD presents to ED due to worsening shortness of breath and LE edema for the past 1 week. Patient states that he saw his mule tender on Saturday, who increased his oral Lasix in effort to manage his CHF outpatient. However, patient was instructed to proceed to the ED if his symptoms did not improve. Patient states that increased oral Lasix did not help as he is still short of breath and LE edema has worsened. Patient states that he can only walk 1 block before becoming short of breath, requires 4 pillows to sleep, and is often short of breath while at rest. Patient also complains of productive cough with white phlegm, which has caused some chest discomfort. Pt denies CP, palpitations, n/v/d, abdominal pain, fever, chills, FAIR, or dizziness. PMD: Tino (Eric Leon) Past Medical History - Infectious Disease Hx of Infectious Diseases: None - Tetanus Immunization Tetanus Immunization: Up to Date - Cardiac Hx Cardiac Disorders: Yes Hx Hypertension: Yes Hx Internal Defibrillator: Yes (pacemaker/defib 2005) Hx Pacemaker: Yes Hx Peripheral Edema: Yes Other/Comment: Cardiomyopathy - Pulmonary Hx Respiratory Disorders: Yes Hx Sleep Apnea: Yes - Neurological Hx Neurological Disorder: No - HEENT Hx HEENT Disorder: No - Renal Hx Renal Disorder: Yes (hx renal insufficiency which resolved) - Endocrine/Metabolic Hx Endocrine Disorders: No - Hematological/Oncological Hx Blood Transfusions: No Hx Blood Transfusion Reaction: No - Integumentary Hx Dermatological Disorder: No - Musculoskeletal/Rheumatological Hx Musculoskeletal Disorders: No - Gastrointestinal Hx Gastrointestinal Disorders: Yes Hx Diverticulitis: Yes - Genitourinary/Gynecological Hx Genitourinary Disorders: No - Psychiatric Hx Psychophysiologic Disorder: No Hx Depression: No Hx Emotional Abuse: No Hx Physical Abuse: No Hx Substance Use: No - Surgical History Hx Cardiac Catheterization: Yes Hx Orthopedic Surgery: Yes (right knee cartilige) Other/Comment: pacemaker and defib in 2006 - Anesthesia Hx Anesthesia: Yes Hx Anesthesia Reactions: No Hx Malignant Hyperthermia: No - Suicidal Assessment Feels Threatened In Home Enviroment: No <Eric Leon - Last Filed: 07/29/17 10:09> - Provider Review Nursing Documentation Reviewed: Yes - Travel History Have you recently traveled outside [place] w/in the past 3 mons?: No - Past History Past History: Non-Contributing <Butch López - Last Filed: 07/29/17 13:04> Family/Social History - Physician Review Nursing Documentation Reviewed: Yes Family/Social History: No Known Family HX Smoking Status: Former Smoker Hx Alcohol Use: Yes (LAST DRINK 05/29/17) Hx Substance Use: No Hx Substance Use Treatment: No <Eric Leon - Last Filed: 07/29/17 10:09> Allergies/Home Meds <Eric Leon - Last Filed: 07/29/17 10:09> <Butch López - Last Filed: 07/29/17 13:04> Allergies/Adverse Reactions: Allergies No Known Allergies Allergy (Verified 06/14/17 14:24) Home Medications: Home Meds Medication Instructions Recorded Confirmed Carvedilol [Coreg] 25 mg PO BID 05/09/12 07/29/17 Atorvastatin [Lipitor] 80 mg PO DAILY 11/18/13 07/29/17 Amiodarone [Cordarone] 100 mg PO DAILY 06/15/16 07/29/17 Spironolactone [Aldactone] 25 mg PO BID 01/16/17 07/29/17 Hydrocortisone [Ala-Dawood] 1 applic MA TID 06/14/17 07/29/17 Apixaban [Eliquis] 5 mg PO BID 07/29/17 07/29/17 Budesonide/Formoterol Fumarate 1 puff INH DAILY 07/29/17 07/29/17 [Symbicort 160-4.5 Mcg Inhaler] Furosemide 40 mg PO DAILY 07/29/17 07/29/17 Review of Systems - Physician Review All systems were reviewed & negative as marked: Yes (12 point ROS reviewed and is negative other than what is stated in HPI.) <Eric Leon - Last Filed: 07/29/17 10:09> - Review of Systems Constitutional: Fatigue Eyes: Normal ENT: Normal Respiratory: SOB Cardiovascular: Chest Pain Gastrointestinal: absent: Abdominal Pain, Nausea, Vomiting Genitourinary Male: Normal Musculoskeletal: Normal Skin: Normal Neurological: Dizziness Endocrine: Normal Hemo/Lymphatic: Normal Psychiatric: Normal <Butch López - Last Filed: 07/29/17 13:04> Physical Exam Vital Signs Reviewed: Yes Temperature: Afebrile Blood Pressure: Normal Pulse: Regular Respiratory Rate: Normal Appearance: Positive for: Non-Toxic Pain Distress: None Mental Status: Positive for: Alert and Oriented X 3 - Systems Exam Head: Present: Atraumatic, Normocephalic Pupils: Present: PERRL Extroacular Muscles: Present: EOMI Conjunctiva: Present: Normal Mouth: Present: Moist Mucous Membranes Neck: Present: Normal Range of Motion. No: JVD Respiratory/Chest: Present: Clear to Auscultation. No: Respiratory Distress, Wheezes, Rales, Rhonchi Cardiovascular: Present: Regular Rate and Rhythm, Normal S1, S2. No: Murmurs, Rub, Gallop Abdomen: No: Tenderness, Distention, Rebound, Guarding Upper Extremity: Present: Normal Inspection. No: Cyanosis, Edema Lower Extremity: Present: Edema (2+ b/l), NORMAL PULSES, Capillary Refill < 2 s. No: CALF TENDERNESS, Cyanosis, Erythema Neurological: Present: GCS=15, CN II-XII Intact, Speech Normal Skin: Present: Warm, Dry, Normal Color. No: Rashes Psychiatric: Present: Alert, Oriented x 3, Normal Insight, Normal Concentration <Eric Leon - Last Filed: 07/29/17 10:09> Vital Signs Temp Pulse Resp BP Pulse Ox 07/29/17 12:15 97.5 F L 59 L 20 115/84 07/29/17 11:59 98 F 66 18 111/77 97 07/29/17 10:13 97.8 F 62 18 120/74 98 07/29/17 07:51 60 18 112/83 95 07/29/17 06:38 97.7 F 62 18 111/72 98 Medical Decision Making <Eric Leon - Last Filed: 07/29/17 10:09> Re-evaluation Time: 11:00 Reassessment Condition: Improved - Critical Care Critical Care Minutes: 30 minutes Critical Care Time: Excluding Proc Time - Lab Interpretations I have reviewed the lab results: Yes Interpretation: Abnormal lab values (elevated BNP, bun/crea, decr k) - RAD Interpretation Respite Worker: Radiologist - EKG Interpretation Interpreted by ED Physician: Yes Type: 12 lead EKG Comparison: Similar to previous EKG <ReneButch - Last Filed: 07/29/17 13:04> ED Course and Treatment: 07/29/17 07:55 52 yo M presents to ED with worsening dyspnea and LE edema. Plan: - CBC, CMP - Coags - Cardiac Iso - BNP - TSH - EKG - CXR - UA - Lasix - Reassess and disposition 07/29/17 09:17 Labs notable for elevated BNP, Trop 0.05. Potassium 3.2, repleted with PO KCl. 07/29/17 09:[address] Jiménez, who agrees with plan and accepts patient to his service. Patient will be admitted to telemetry. Dr. Vázquez made aware. (CarolynEric) A 52 year old male with shortness of breath and LE swelling. In agreement with resident note, which includes further HPI details. Patient was seen and evaluated with resident, came up with plan and treatment together. I performed the hx and physical exam of the patient and discussed their mgt with the RESIDENT. I reviewed the RESIDENT's NOTE and agree with the assessment and plan of care. pt is currently chest pain free resident and I spoke to Dr jiménez, made aware, agrees with admission, to consult Dr Tang (cards) pt is made aware of his medical results pt agrees with admission (Butch López) - Critical Care Narrative Critical Care (Text): 07/29/17 12:49 critical care time: 30min, excluding procedure time, excluding time teaching residents/students/mid-level providers; including initial eval/diagnosis, diagnostic interpretation, re-eval, consultations, final disposition (Butch López) - Lab Interpretations Lab Results: 07/29/17 07:47 07/29/17 07:47 Lab Results 07/29/17 08:36: Urine Color Yellow, Urine Appearance Clear, Urine pH 6.0, Ur Specific [place] 1.010, Urine Protein Trace H, Urine Glucose (UA) Negative, Urine Ketones Negative, Urine Blood Trace-lysed H, Urine Nitrate Negative, Urine Bilirubin Negative, Urine Urobilinogen 0.2, Ur Leukocyte Esterase Negative , Urine RBC 1 - 3, Urine WBC 0 - 2, Ur Epithelial Cells None, Urine Bacteria Few 07/29/17 07:47: TSH 3rd Generation 9.14 H 07/29/17 07:47: PT 27.6 H, INR 2.36 H, APTT 35.4 07/29/17 07:47: Sodium 140, Potassium 3.2 L, Chloride 101, Carbon Dioxide 25, Anion Gap 17, BUN 37 H, Creatinine 1.6 H, Est GFR ( Amer) 55, Est GFR ( Non-Af Amer) 45, Random Glucose 112 H, Calcium 9.4, Phosphorus 3.0, Magnesium 1.9, Total Bilirubin 1.9 H, AST 25, ALT 30, Alkaline Phosphatase 157 H, Lactate Dehydrogenase 690, Total Creatine Kinase 47, Troponin I 0.05 D, NT-Pro-B Natriuret Pep 9440 H, Total Protein 7.8, Albumin 4.2, Globulin 3.6, Albumin/ Globulin Ratio 1.2 07/29/17 07:47: WBC 10.4, RBC 4.06, Hgb 11.7 L, Hct 36.5 L, MCV 89.9, MCH 28.8, MCHC 32.1, RDW 16.9 H, Plt Count 170, MPV 9.7, Gran % 75.8 H, Lymph % (Auto) 10.9 L, [place] % (Auto) 11.7 H, Eos % (Auto) 1.3 L, Baso % (Auto) 0.3, Gran # 7.89 H, Lymph # (Auto) 1.1 L, [place] # (Auto) 1.2 H, Eos # (Auto) 0.1, Baso # ( Auto) 0.03 - RAD Interpretation Narrative RAD Interpretations (Text): 07/29/17 12:57 HISTORY: CHF COMPARISON: 06/14/2017 FINDINGS: LUNGS: No active pulmonary disease. PLEURA: No significant pleural effusion identified, no pneumothorax apparent. CARDIOVASCULAR: Mild cardiomegaly OSSEOUS STRUCTURES: No significant abnormalities. VISUALIZED UPPER ABDOMEN: Normal. OTHER FINDINGS: Single lead pacemaker IMPRESSION: No active disease. (Butch López) Radiology Orders: 07/29/17 07:41 CHEST PORTABLE [RAD] Stat - EKG Interpretation EKG Interpretation (Text): 07/29/17 12:57 Sinus rhythm at 60 bpm, RAD, + ectopy, non-specific intraventricular block, no st; ABNL EKG; unchanged compare with old ekg 05/2017 (Butch López) - Medication Orders Current Medication Orders: Amiodarone HCl (Cordarone) 100 mg PO DAILY [facility] Last Admin: 07/29/17 11:51 Dose: Apixaban (Eliquis) 5 mg PO BID [facility] PRN Reason: Protocol Last Admin: 07/29/17 11:53 Dose: Not Given Non-Admin Reason: Patient Refused Comments: took own Atorvastatin Calcium (Lipitor) 80 mg PO DIN [facility] Carvedilol (Coreg) 25 mg PO BID [facility] Last Admin: 07/29/17 11:53 Dose: Not Given Non-Admin Reason: Patient Refused Furosemide (Lasix) 40 mg IVP BID [facility] Last Admin: 07/29/17 11:53 Dose: Potassium Chloride (Klor-Con 10) 30 meq PO BID [facility] Last Admin: 07/29/17 11:52 Dose: Spironolactone (Aldactone) 25 mg PO BID [facility] Last Admin: 07/29/17 11:54 Dose: Discontinued Medications Furosemide (Lasix) 80 mg IVP STAT STA Stop: 07/29/17 07:40 Last Admin: 07/29/17 07:51 Dose: 80 mg MAR Blood Pressure Document 07/29/17 07:51 SZAlea (Rec: 07/29/17 07:53 [facility] [id number]) Blood Pressure Blood Pressure (100/60-150/90) 112/83 IVP Administration Document 07/29/17 07:51 VU (Rec: 07/29/17 07:53 VU [id number]) Charges for Administration # of IVP Administrations 1 Potassium Chloride (K-Dur 20 Meq Er Tab) 40 meq PO STAT STA Stop: 07/29/17 08:18 Last Admin: 07/29/17 08:28 Dose: 40 meq - PA / HYDROELECTRIC COMPONENT MACHINIST / Resident Statement SALO has reviewed & agrees with the documentation as recorded. SALO has examined the patient and agrees with the treatment plan. <Butch López - Last Filed: 07/29/17 13:04> Disposition/Present on Arrival - Present on Arrival Any Indicators Present on Arrival: No History of DVT/PE: No History of Uncontrolled Diabetes: No Urinary Catheter: No History of Decub. Ulcer: No History Surgical Site Infection Following: None - Disposition Have Diagnosis and Disposition been Completed?: Yes Disposition Time: 10:09 Patient Plan: Admission, Telemetry <Eric Leon - Last Filed: 07/29/17 10:09> <Butch López - Last Filed: 07/29/17 13:04> - Disposition Diagnosis: CHF exacerbation, Weakness, Hypokalemia Disposition: HOSPITALIZED Patient Problems: Current Active Problems Problem Status Onset CHF exacerbation Acute Hypokalemia Acute Weakness Acute Condition: STABLE
[2017-07-29 07:55] LABS: BASO # 0.03 K/mm3 (0.0-2.0); BASO % 0.3 % (0.0-3.0); EOS # 0.1 (0.0-0.7); EOS % 1.3 % (1.5-5.0); GRAN # 7.89 (1.4-6.5); GRAN % 75.8 % (50.0-68.0); HEMOGLOBIN 11.7 g/dL (14.0-18.0); LYMPH # 1.1 (1.2-3.4); LYMPH % 10.9 % (22.0-35.0); MEAN CELL VOLUME 89.9 fl (80.0-105.0); MEAN CORPUSCULAR HEMOGLOBIN 28.8 pg (25.0-35.0); MEAN CORPUSCULAR HGB CONC 32.1 g/dl (31.0-37.0); MEAN PLATELET VOLUME 9.7 fl (7.0-11.0); MONO # 1.2 (0.1-0.6); MONO % 11.7 % (1.0-6.0); RBC 4.06 10^6/uL (3.5-6.1); RED CELL DISTRIBUTION WIDTH 16.9 % (11.5-14.5); WHITE BLOOD COUNT 10.4 10^3/ul (4.5-11.0)
[2017-07-29 08:12] LABS: INR 2.36 (0.93-1.08); PARTIAL THROMBOPLASTIN TIME 35.4 Seconds (25.1-36.5); PROTHROMBIN TIME 27.6 SECONDS (9.4-12.5)
[2017-07-29 08:15] LABS: ALB/GLOB RATIO 1.2 (1.1-1.8); ALBUMIN 4.2 g/dL (3.0-4.8); CALCIUM 9.4 mg/dL (8.4-10.5)
[2017-07-29] MEDS ORDERED: Potassium Chloride 20 mEq ER Tab PO STA (08:17)
[2017-07-29 08:20] LABS: TROPONIN I 0.05 ng/mL
[2017-07-29 08:43] LABS: URINE BILIRUBIN NEGATIVE (NEGATIVE); URINE BLOOD TRACE-LYSED (NEGATIVE); URINE GLUCOSE (UA) NEGATIVE (NEGATIVE); URINE LEUKOCYTE ESTERASE NEGATIVE Leu/uL (NEGATIVE); URINE PROTEIN TRACE mg/dL (<30 mg/dL); URINE UROBILINOGEN 0.2 E.U./dL (<1 E.U./dL)
[2017-07-29 08:44] LABS: URINE APPEARANCE CLEAR (CLEAR); URINE COLOR YELLOW (YELLOW)
[2017-07-29 08:55] LABS: URINE BACTERIA FEW (NEG); URINE WBC 0 - 2 /hpf (0-6)
--- NOTE | 2017-07-29 09:33 | RAD ---
HISTORY: CHF COMPARISON: 06/14/2017 FINDINGS: LUNGS: No active pulmonary disease. PLEURA: No significant pleural effusion identified, no pneumothorax apparent. CARDIOVASCULAR: Mild cardiomegaly OSSEOUS STRUCTURES: No significant abnormalities. VISUALIZED UPPER ABDOMEN: Normal. OTHER FINDINGS: Single lead pacemaker IMPRESSION: No active disease.
[2017-07-29] MEDS: Potassium Chloride 10 mEq ER Tab PO SCH ×2 (11:52→18:05)
--- NOTE | 2017-07-29 12:11 | CON ---
DATE: 07/29/2017 CONSULTATION INDICATIONS: Worsening CHF. HISTORY OF PRESENT ILLNESS: This is a 52-year-old man, well known to me with increasing edema with weeping skin lesions, increasing abdominal girth, increasing shortness of breath and dyspnea on exertion with known cardiomyopathy. There has been no chest pain, orthopnea, PND, syncope, presyncope, lightheadedness, dizziness, vertigo, palpitations, fever, chills, sputum production, hemoptysis, nausea, vomiting, diarrhea, constipation, melena. PAST MEDICAL HISTORY: Notable for congestive cardiomyopathy, possibly on a familial basis, alcohol related. He has had congestive heart failure, paroxysmal atrial fibrillation, ventricular tachycardia. He has had ICD implant. He has COPD, sleep apnea, diverticulosis, chronic kidney disease, anemia, cirrhosis. He has been a heavy alcohol user. He stopped about 60 days ago. MEDICATIONS AT THE TIME OF ADMISSION: Include spironolactone, amiodarone, Coreg, Eliquis, Lasix, Lipitor, Symbicort. ALLERGIES: THERE ARE NO MEDICATION ALLERGIES REPORTED. SOCIAL HISTORY: He is retired. He lives at home with his . He is ambulatory. He does not smoke. He has stopped drinking about 2 months ago. FAMILY HISTORY: Notable for cardiomyopathy. REVIEW OF SYSTEMS: Ten-point review of systems is otherwise unremarkable except as noted above. PHYSICAL EXAMINATION: GENERAL: He is a well-developed male, sitting on a stretcher in the emergency room, in no acute distress. VITAL SIGNS: Notable for sinus rhythm at 62 beats per minute, 120/74, afebrile, respirations 18, O2 sat 98% on room air. HEENT: Reveals neck vein distention. No thyromegaly. No carotid bruit. Mucous membranes moist. Conjunctivae pink. NECK: Supple. LUNGS: Lung cyr, scattered rhonchi. HEART: Examination of the heart revealed normal first and second heart sounds. PMI was not palpable. ABDOMEN: Obese. It was a bit tense, possible ascitic fluid. No mass, organomegaly, tenderness, rebound, guarding. No CVA tenderness. No palpable abdominal aortic aneurysm. EXTREMITY: Revealed 4+ edema. There are some weeping skin lesions, more on the left. NEUROLOGICAL: He is awake, alert and oriented. PSYCHIATRIC: Normal as to mood and affect. SKIN: Otherwise unremarkable except for his legs with oozing lesions. LABORATORY DATA AND IMAGING: Chest x-ray is read as no active disease. EKG is not available yet. Hemoglobin 11.7, hematocrit 36.5, white count 10,400, platelet count normal. PT 27.6, INR 2.36, PTT 35.4. Electrolytes are notable for potassium of 3.2, BUN 37, creatinine 1.6, blood sugar 112, magnesium 1.9, bilirubin 1.9. AST, ALT normal. Alk phos 157. LDH 690, CK 47, troponin 0.05. BNP 9440. TSH elevated at 9.14. 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 At this point, he will be admitted to telemetry. We will administer IV Lasix. We will replace his potassium. I will review his old records. We will monitor inputs and outputs. Check stool for occult blood. Continue his usual medications. Possibly add Zaroxolyn once his potassium level has been replenished. He can be out of bed to a chair. I will order an echocardiogram to update his cardiac status and lower extremity venous Dopplers to rule out DVT. I have discussed the case with Dr. Jiménez. I will follow along and make additional recommendations based on his clinical course. Stephan Vázquez MD MTDJuly
[2017-07-29] MEDS ORDERED: Pneumococcal 23-Valent Vaccine IM ONE (14:54)
[2017-07-29] MEDS: guaiFENesin DM 100 mg-10 mg/5 ml UD PO PRN ×2 (18:05→23:13)
--- NOTE | 2017-07-29 21:42 | US ---
HISTORY: Leg pain and swelling. Evaluate for DVT PHYSICIAN(S): Damian Zamorano MD. TECHNIQUE: Duplex sonography and color-flow Doppler with graded compression were used to evaluate the deep venous systems of both lower extremities. FINDINGS: The visualized deep venous systems of both lower extremities are sonographically normal and compressible. Normal wave forms and augmentation are seen. There is no sonographic evidence for deep venous thrombosis in the visualized segments of both lower extremities. IMPRESSION: No sonographic evidence for deep venous thrombosis in the visualized segments of both lower extremities.
--- NOTE | 2017-07-30 00:41 | CARD ---
APPROVED REPORT EKG Measurement Heart [id number] <Conclusion> Sinus rhythm with occasional premature ventricular complexes Right superior axis deviation Nonspecific intraventricular block Abnormal ECG
--- NOTE | 2017-07-30 00:43 | CP.PCM.PN ---
Subjective - Date & Time of Evaluation Date of Evaluation: 07/30/17 Time of Evaluation: 00:39 - Subjective Subjective: Patient was seen at bedside. Complained that he does not feel right, can not get enough air, can't catch breath, has been nauseous. Denies chest pain, sweating, palpitations. Received Zofran at 6 PM. BP 115/74,HR 63/min, T 98.6*F,RR 18/min, pulse ox on home BiPAP machine- 99%. Medical record was reviewed. This 52 year old male was admitted with leg edema, sob . Has PMH of congestive cardiomyopathy, CHF, atrial fibrillation, ventricular tachycardia, COPD,DENISE,CKD, anemia, alcohol use. Objective - Vital Signs/Intake and Output Vital Signs (last 24 hours): Temp Pulse Resp BP Pulse Ox 98.6 F 63 18 115/74 99 07/29/17 23:56 07/29/17 23:56 07/29/17 23:56 07/29/17 23:56 07/29/17 23:56 Intake and Output: 07/29/17 07/30/17 18:59 06:59 Intake Total 300 Output Total 200 Balance 100 - Medications Medications: Current Medications Amiodarone HCl (Cordarone) 100 mg PO DAILY COUNT INCLUDES THE [facility] Last Admin: 07/29/17 11:51 Dose: Not Given Apixaban (Eliquis) 5 mg PO BID COUNT INCLUDES THE [facility] PRN Reason: Protocol Last Admin: 07/29/17 18:06 Dose: 5 mg Atorvastatin Calcium (Lipitor) 80 mg PO DIN COUNT INCLUDES THE [facility] Last Admin: 07/29/17 18:06 Dose: Not Given Carvedilol (Coreg) 25 mg PO BID COUNT INCLUDES THE [facility] Last Admin: 07/29/17 18:06 Dose: 25 mg Furosemide (Lasix) 40 mg IVP BID COUNT INCLUDES THE [facility] Last Admin: 07/29/17 18:06 Dose: 40 mg Guaifenesin/Dextromethorphan (Robitussin Dm) 5 ml PO Q4H PRN PRN Reason: Cough Last Admin: 07/29/17 23:13 Dose: 5 ml Ondansetron HCl (Zofran Inj) 4 mg IVP Q8H PRN PRN Reason: Nausea/Vomiting Last Admin: 07/29/17 18:05 Dose: 4 mg Potassium Chloride (Klor-Con 10) 30 meq PO BID COUNT INCLUDES THE [facility] Last Admin: 07/29/17 18:05 Dose: 30 meq Spironolactone (Aldactone) 25 mg PO BID [facility] Last Admin: 07/29/17 18:06 Dose: 25 mg - Labs Labs: PT 27.6 SECONDS (9.4-12.5) H 07/29/17 07:47 INR 2.36 (0.93-1.08) H 07/29/17 07:47 APTT 35.4 Seconds (25.1-36.5) 07/29/17 07:47 Last Vital Signs Temp 97.5 F L 07/30/17 06:00 Pulse 60 07/30/17 06:00 Resp 20 07/30/17 06:00 BP 130/63 07/30/17 06:00 Pulse Ox 96 07/30/17 06:00 - Constitutional Appears: Well, No Acute Distress - Head Exam Head Exam: ATRAUMATIC, NORMAL INSPECTION, NORMOCEPHALIC Additional comments: sitting in bed, not in acute distress. - Eye Exam Eye Exam: Normal appearance - ENT Exam ENT Exam: Normal External Ear Exam - Neck Exam Neck Exam: Normal Inspection - Respiratory Exam Respiratory Exam: Rales, NORMAL BREATHING PATTERN Additional comments: Bilateral basal + mid chest posteriorly. - Cardiovascular Exam Cardiovascular Exam: absent: JVD - GI/Abdominal Exam GI & Abdominal Exam: absent: Distended - Rectal Exam Rectal Exam: Deferred - Exam Additional comments: Deferred. - Extremities Exam Extremities Exam: Pedal Edema (+++) - Back Exam Back Exam: NORMAL INSPECTION - Neurological Exam Neurological Exam: Alert, Awake, Oriented x3 - Psychiatric Exam Psychiatric exam: Normal Affect, Normal Mood - Skin Skin Exam: Normal Color Assessment and Plan - Assessment and Plan (Free Text) Assessment: CHF. Pulmonary edema. Hx congestive cardiomyopathy. Alcohol use. History atrial fibrillation. History COPD. Hypokalemia. Renal insufficiency. Plan: Discussed with and Dr. Silva. Lasix 40 mg PO now.
--- NOTE | 2017-07-30 05:47 | HP ---
DATE OF EXAM: HISTORY OF PRESENT ILLNESS: This is a 52-year-old male, who was referred to the [facility] by his senior logistics manager. Patient states that he was noted on the week on Saturday to have had the swelling of his legs with some fluid production and after discussion with his senior logistics manager, a trial of Lasix was ordered with the recommendation to return to [facility] on Saturday morning. Subsequently the patient noted that the increased edema persisted and he came to [facility] emergency [facility]. SOCIAL HISTORY: The patient has a social history of alcohol consumption, nonsmoker, nondrug user. ALLERGY HISTORY: THERE ARE NO KNOWN ALLERGIES. MEDICATIONS: His active home medications are reported to be Aldactone 25 mg b.i.d., amiodarone 100 mg daily, Coreg 25 mg b.i.d., Eliquis 5 mg b.i.d., potassium chloride 30 mEq b.i.d., Lasix 40 mg IV b.i.d. and calcium 80 mg p.o. dinner, Lipitor. HOME MEDICATIONS: As above, although he uses Symbicort inhaler one puff daily. PHYSICAL EXAMINATION: VITAL SIGNS: Reported showing a temp of 97.8, his pulse is 62, blood pressure is 120/74, respiratory rate is 18, oxygen saturation is reported 98% on room air. GENERAL: He is alert and oriented x3. NECK: Supple. LUNGS: Show bibasilar rhonchi. HEART: S1, S2 rhythm. He has a defibrillator in place. ABDOMEN: Soft, scaphoid, obese. Positive bowel sounds. EXTREMITIES: Show 3+ edema with weeping. LABORATORY DATA: His chest x-ray was reported by Radiology showing no active disease. Chemistry: He has a potassium of 3.2, his BUN is 37, his creatinine is 1.6. Random blood sugar is 112, total bilirubin is 1.9, his alkaline phosphatase is 157. His BNP is 9440. His sodium is 140, chloride 101, CO2 of 25, BUN 37, creatinine of 1.6. His PT is 27.6 with an INR of 2.36, PTT of 35.4. Chemistry shows WBC of 10.4, RBC of 4.06, hemoglobin 11.7, hematocrit 36.5, platelet count 170. Urinalysis reported is yellow and clear, trace protein. ASSESSMENT AND PLAN: Problem list for this patient consists of cardiomyopathy with paroxysmal atrial fibrillation, history of hepatic liver disease, alcohol history, history of congestive heart failure, history of gouty arthritis, history of bleeding hemorrhoids. He has history of ventricular tachycardia, sleep apnea, chronic obstructive pulmonary disease, diverticulosis, cirrhosis, chronic anemia, chronic kidney disease, paroxysmal atrial fibrillation and congestive heart failure. Reportedly he stopped drinking about 60 days ago. Patient will be admitted to monitored telemetry bed with worsening edema, congestive heart failure, cardiomyopathy, increasing abdominal girth must exclude the possibility of ascites and a background of alcohol related cirrhosis and alcohol related cardiomyopathy. Consults will be requested with Cardiology and Gastroenterology and Renal for his chronic renal disease. Qing Jiménez MD
[2017-07-30 06:59] LABS: CALCIUM 9.3 mg/dL (8.4-10.5)
--- NOTE | 2017-07-30 07:53 | CP.PCM.PN ---
Subjective - Date & Time of Evaluation Date of Evaluation: 07/30/17 Time of Evaluation: 07:00 - Subjective Subjective: Stable on 2R. Difficult sleeping until 2 AM but he feels better now after 5 hours of sleep. No CP or SOB. Edema is a bit better. V/S noted. RSR/S. Bradycardia E: Lungs: rhonchi Cor.: S1S2, sys. murmur Abd.: obese, ? ascites Ext.; 3 + edema Neuro.: alert I/O= 1020/2520 Labs noted: BUN/Cr.= 40/1.8, K+= 3.9 TSH elevated Echo: done LE hanane/Dopplers: Neg for DVT Objective - Vital Signs/Intake and Output Vital Signs (last 24 hours): Temp Pulse Resp BP Pulse Ox 97.5 F L 60 20 130/63 96 07/30/17 06:00 07/30/17 06:00 07/30/17 06:00 07/30/17 06:00 07/30/17 06:00 Intake and Output: 07/30/17 07/30/17 06:59 18:59 Intake Total 720 Output Total 2320 Balance -1600 - Medications Medications: Current Medications Amiodarone HCl (Cordarone) 100 mg PO DAILY [facility] Last Admin: 07/29/17 11:51 Dose: Not Given Apixaban (Eliquis) 5 mg PO BID [facility] PRN Reason: Protocol Last Admin: 07/29/17 18:06 Dose: 5 mg Atorvastatin Calcium (Lipitor) 80 mg PO DIN [facility] Last Admin: 07/29/17 18:06 Dose: Not Given Carvedilol (Coreg) 25 mg PO BID [facility] Last Admin: 07/29/17 18:06 Dose: 25 mg Furosemide (Lasix) 40 mg IVP BID [facility] Guaifenesin/Dextromethorphan (Robitussin Dm) 5 ml PO Q4H PRN PRN Reason: Cough Last Admin: 07/29/17 23:13 Dose: 5 ml Metolazone (Zaroxolyn) 2.5 mg PO ONCE ONE Stop: 07/30/17 09:01 Ondansetron HCl (Zofran Inj) 4 mg IVP Q8H PRN PRN Reason: Nausea/Vomiting Last Admin: 07/30/17 01:03 Dose: 4 mg Potassium Chloride (Klor-Con 10) 30 meq PO BID [facility] Last Admin: 07/29/17 18:05 Dose: 30 meq Spironolactone (Aldactone) 25 mg PO BID [facility] Last Admin: 07/29/17 18:06 Dose: 25 mg - Labs Labs: 07/30/17 05:30 PT 27.6 SECONDS (9.4-12.5) H 07/29/17 07:47 INR 2.36 (0.93-1.08) H 07/29/17 07:47 APTT 35.4 Seconds (25.1-36.5) 07/29/17 07:47 Assessment and Plan - Assessment and Plan (Free Text) Assessment: Edema/Increased abd. girth r/o ascites/Dyspnea/Cough CHF CCM, etoh related CKD PAF VT/ICD COPD DENISE Diverticulosis Hemhorroids with bleeding H/O chronic ETOH/Sober for 2 months Plan: Add metolazone 2.5 mg today. Continue diuresis Will check echo Monitor labs, I/O, sats., H/H, etc. As per GI, Renal, Dr. Tino LEE as jeannette. Will follow.
[2017-07-30] MEDS ORDERED: metOLazone 2.5 MG TAB PO ONE (09:00)
--- NOTE | 2017-07-30 09:47 | CARD ---
APPROVED REPORT EXAM: Two-dimensional and M-mode echocardiogram with Doppler and color Doppler. Other Information Quality : FairRhythm : INDICATION Dyspnea , edema, CHF/CCM 2D DIMENSIONS RVDd4.0 (2.9-3.5cm)Left Atrium (2D)4.8 (1.6-4.0cm) IVSd0.8 (0.7-1.1cm)LVDd5.7 (3.9-5.9cm) PWd0.9 (0.7-1.1cm)LVDs5.4 (2.5-4.0cm) FS (%) 5.2 %LVEF (%)12.0 (>50%) M-Mode DIMENSIONS Aortic Root3.20 (2.2-3.7cm)Aortic Cusp Exc.1.90 (1.5-2.0cm) Aortic Valve AoV Peak Qaztocei955.0cm/s Mitral Valve E/A ratio0.0 TDI E/Lateral E'0.0E/Medial E'0.0 Pulmonary Valve PV Peak Izhjlqgj60.1cm/sPV Peak Grad.1mmHg Tricuspid Valve TR Peak [id number]/sRAP [id number] Peak Gr.54mmHg [id number] LEFT VENTRICLE The Left Ventricle is borderline dilated. There is normal left ventricular wall thickness. Left ventricle systolic function is severely impaired. The Ejection Fraction is 10-15%. There is severe global hypokinesis. RIGHT VENTRICLE The right ventricle is normal size. There is a pacemaker/ICD lead in the right ventricle. ATRIA The left atrium is moderately dilated. The right atrium is moderately dilated. A pacemaker/ ICD lead is seen in the right atrium . The interatrial septum is intact with no evidence for an atrial septal defect. AORTIC VALVE The aortic valve is normal in structure. There is trace aortic regurgitation. MITRAL VALVE The mitral valve is normal in structure. Mitral regurgitation is mild. TRICUSPID VALVE The tricuspid valve is normal in structure. There is moderate to severe tricuspid regurgitation. There is moderate pulmonary hypertension. PULMONIC VALVE The pulmonic valve is not well visualized. There is mild pulmonic valvular regurgitation. GREAT VESSELS The aortic root is normal in size. PERICARDIAL EFFUSION There is no pericardial effusion. <Conclusion> The Left Ventricle is borderline dilated. There is normal left ventricular wall thickness. Left ventricle systolic function is severely impaired. The Ejection Fraction is 10-15%. There is severe global hypokinesis. Mitral regurgitation is mild. There is moderate to severe tricuspid regurgitation. There is moderate pulmonary hypertension.
[2017-07-30] MEDS: Potassium Chloride 10 mEq ER Tab PO SCH ×2 (10:38→17:09)
[2017-07-30] MEDS ORDERED: Barium Sulfate Susp 2.1% w/v, 2.0% w/w 450 mL Bottle PO ONE (13:04)
--- NOTE | 2017-07-30 15:22 | PN ---
DATE: 07/30/2017 SUBJECTIVE: A 52-year-old male resting comfortably this morning. Nurses state that during the night, he complained of some shortness of breath and cough, and was seen by the house physician, spoke with the bladder trimmer and was given an extra dose of Lasix. PHYSICAL EXAMINATION: GENERAL: He is alert and oriented x3. VITAL SIGNS: His temperature is 97.5, his pulse is 60, his blood pressure is 130/63, oxygen saturation is 96%. His respiratory rate is 20. NECK: Supple. LUNGS: Show diminished breath sounds at the bases with rhonchi. HEART: S1, S2 rhythm, grade 2/6 systolic murmur. There is a defibrillator in place in the chest wall. ABDOMEN: Obese, scaphoid. Positive bowel sounds. EXTREMITIES: Show 3+ edema. INTAKE AND OUTPUT: His I's and O's are being reported as this morning, it showing a balance of negative 1600. His weight needs to be reviewed given the facts of the reports noted on the chart. MEDICATIONS: He is currently on Aldactone 25 mg b.i.d., amiodarone 100 mg daily, Coreg 25 mg b.i.d., Eliquis 5 mg b.i.d., potassium chloride 30 mEq b.i.d., Lasix 40 mg IV b.i.d., Lipitor 80 mg daily, guaifenesin every 4 hours p.r.n., Zofran 4 mg IV daily. He received a dose of metolazone this morning, 2.5 mg once. ASSESSMENT: 1. Decompensated congestive heart failure. 2. Cardiomyopathy. 3. An ejection fraction of 10% to 15% with global hypokinesis. 4. He has a history of alcohol abuse. 5. History of probable cirrhosis related to the alcohol abuse. He has been sober for 60+ days as per the patient. 6. He has a history of gouty arthritis in the past. 7. He has a history of hemorrhoids with bleeding in the past. PLAN: Cardiology is following the patient. Ultrasound of the lower extremities was negative for DVT. Consult has been requested with his brush trimming machine setter, Dr. August. We will follow up his liver function tests. He has a TSH of 9.14, which will be reviewed and repeated. The patient has been encouraged to get out of bed and ambulate. Qing Jiménez MD
--- NOTE | 2017-07-30 19:03 | CT ---
PROCEDURE: CT Abdomen and Pelvis with contrast HISTORY: ascites, cirrhosis, CHF COMPARISON: None. TECHNIQUE: Helical CT of the abdomen and pelvis was performed following oral contrast administration. Intravenous contrast was not administered as per referring physician request. Contrast dose: None. Radiation dose: Total exam DLP = 931.80 mGy-cm. This CT exam was performed using one or more of the following dose reduction techniques: Automated exposure control, adjustment of the mA and/or kV according to patient size, and/or use of iterative reconstruction technique. FINDINGS: LOWER THORAX: Cardiomegaly is appreciated with mild pulmonary vascular congestion. Ground-glass opacity is seen bilaterally, diffusely of uncertain origin. Clinically correlate further. No pleural or pericardial effusion evident. Pacemaker/AICD lead noted at the left heart. LIVER: Unremarkable. No gross lesion or ductal dilatation. No nodular cirrhotic pattern appreciable in this unenhanced exam GALLBLADDER AND BILE DUCTS: Gallbladder is contracted post surrounded by fluid with questionable mural thickening. Is difficult to differentiate between hydrops and possible cholecystitis though the former is favored given limited ascites pattern in the abdomen. PANCREAS: Unremarkable. No gross lesion or ductal dilatation. SPLEEN: Unremarkable. ADRENALS: Unremarkable. No mass. KIDNEYS AND URETERS: Unremarkable. No hydronephrosis. No solid mass. VASCULATURE: Unremarkable. No aortic aneurysm. BOWEL: The stomach is distended with a moderate amount retained oral contrast material. Sigmoid diverticulosis. No bowel obstruction appreciable. APPENDIX: Appendix not identified. PERITONEUM: Unremarkable. No free fluid. No free air. LYMPH NODES: Unremarkable. No enlarged lymph nodes. BLADDER: Unremarkable. REPRODUCTIVE: Unremarkable. BONES: No acute fracture. OTHER FINDINGS: None. IMPRESSION: Mild abdominal ascites with probable gallbladder hydrops favored over cholecystitis. No bowel urinary tract obstruction. No free intraperitoneal gas or definite abscess identified. Incidental cardiomegaly with bilateral basilar ground-glass opacity diffusely noted. Mild pulmonary vascular congestion suspected.
--- NOTE | 2017-07-31 00:07 | CON ---
DATE: 07/30/2017 The patient was admitted by Dr. Qing Jiménez. REFERRING MD: Qing Jiménez MD. REASON FOR CONSULTATION: Evaluation of the patient known to us with a severe cardiomyopathy who comes in for diuretic therapy with a rising BUN and creatinine. HISTORY OF PRESENT ILLNESS: The patient is a 52-year-old white male with a history of cardiomyopathy, history of CHF, history of mitral regurgitation, tricuspid regurgitation, history of ejection fraction of 12%, history of paroxysmal atrial fibrillation, ventricular tachycardia status post implantable AICD, history of pulmonary hypertension, dilated cardiomyopathy secondary to many years of alcohol abuse, history of chronic kidney disease stage III with baseline creatinines in the mid to upper 1 range, history of DENISE, COPD, history of obesity, past history of GI bleed, history of anemia. The patient presents to the hospital with increasing lower extremity edema, increasing abdominal girth, this was thought to be secondary to ascites and fluid retention. There was an attempt to treat him in the outpatient setting, but it failed. Hence he comes in for IV diuretic therapy. His BUN and creatinine on admission were 37 and 1.6, currently they are 40 and 1.8. This is well within the low range of his baseline. PAST MEDICAL HISTORY: Significant for cardiomyopathy, CHF, hypervolemia, pulmonary hypertension, paroxysmal atrial fibrillation, ventricular tachycardia, dilated cardiomyopathy secondary to alcohol, CKD III, DENISE, COPD, obesity, past GI bleed, and anemia. MEDICATIONS AT HOME: Include that of Aldactone, Coreg, Symbicort, Lipitor, amiodarone, oral Lasix and Eliquis. ALLERGIES: NO KNOWN ALLERGIES TO MEDICATIONS. CURRENT MEDICATIONS IN THE HOSPITAL: Include that of Aldactone, amiodarone, Coreg, Eliquis, KCl, IV Lasix, Lipitor, metolazone one dose, Robitussin DM, and Zofran p.r.n. SOCIAL HISTORY: Past history of alcohol abuse. He was a former smoker. No other substance abuse. FAMILY HISTORY: Positive history of cardiomyopathy. Father of a melanoma and heart disease. REVIEW OF SYSTEMS: GENERAL: The patient states appetite has been stable. Weight has been up secondary due to edema. ENT: Denies any hearing or visual problems. PULMONARY: Positive shortness of breath with any type of exertion. History of COPD. CARDIAC: History of cardiomyopathy as noted above. GI: Nausea and vomiting last night, resolved today. No abdominal pain, no diarrhea or constipation. : History of chronic kidney disease, stage III. ENDOCRINE: No history of diabetes. MUSCULOSKELETAL: No complaints. NEUROLOGIC: No history of CVA, TIA, seizures or syncope. HEMATOLOGY AND ONCOLOGY: History of mild anemia, perhaps secondary to mild chronic kidney disease. PSYCHIATRIC: Psychiatric history is negative. PHYSICAL EXAMINATION GENERAL: The patient is currently seen on 2R, sitting up in bed. He remains on telemetry. He has no shortness of breath at rest. His admitting weight to the hospital was 210 pounds. Today's weight is charted at 213 pounds. VITAL SIGNS: Blood pressure 118/81, temperature is 97.8, pulse is 64 with a respiratory rate of 18, pulse ox is 94%. HEENT: Shows him to be normocephalic, atraumatic. Conjunctivae are pink. Sclerae are nonicteric. Pupils equal, reactive to light and accommodation. Extraocular muscles are intact. Posterior pharynx is normal. NECK: Supple. No neck vein distention or thyromegaly. No lymphadenopathy. No bruits. CHEST: Clear to auscultation and percussion with no rales, rhonchi or wheezing. CARDIOVASCULAR: Shows regular rate and rhythm with MR/TR. No S3, no S4, no rub. ABDOMEN: Soft. Mild obesity. Mild distention. No masses. No appreciable fluid wave. No rebound or guarding. Bowel sounds are normal. BACK: No CVAT. No spinal tenderness. EXTREMITIES: Positive for 3+ pitting edema from the ankles up to the lower thigh range. Pulses are reduced secondary to edema. No cyanosis or clubbing. NEUROLOGIC: Shows him to be alert, oriented x3 with no gross focal motor or sensory deficits. No asterixis. LABORATORY DATA AND IMAGING: His admitting EKG showed normal sinus rhythm with PVCs. Admitting echocardiogram showed ejection fraction of 12% with MR/TR. Admitting chest x-ray showed cardiomegaly with no acute pulmonary disease. Admitting venous Doppler study showed no evidence for DVT. The patient had a renal ultrasound back in 2017, which showed normal size kidneys and fatty liver. CBC: White blood cell count 10.4, hemoglobin 11.7, platelet count is 170,000. Coags: PT of 27.6 with an INR of 2.36 and a PTT of 35.4. Chemistry showed a potassium which was low yesterday at 3.2, today is 3.9. Sodium 140. CO2 of 26. BUN 40 with a creatinine of 1.8 up from 37 and 1.6. These numbers are well within his baseline range. Glucose is 98. Calcium was 9.3 with a phosphorus of 3, magnesium of 1.9, bilirubin 1.9. BNP 9440. Troponin is 0.05. TSH level was mildly elevated at 9.14. Urines were essentially unremarkable with trace protein. ASSESSMENT: 1. Chronic kidney disease stage III. The patient will likely become more prerenal with the need for diuretic therapy. Agree with the use judiciously metolazone together with IV Lasix and Aldactone. Hypokalemia had resolved. 2. History of severe cardiomyopathy. Discussed with Dr. Jiménez. Uncertain as to whether or not the patient is a candidate for a trial of Primacor therapy to increase ionotropic support and improve cardiac output. Perhaps because of his history of atrial fibrillation and ventricular tachycardia, this agent would be proarrhythmic and he would not be a candidate and the final decision up to Dr. Vázquez. 3. History of mitral regurgitation/tricuspid regurgitation. History of moderate to severe pulmonary hypertension. 4. History of dilated cardiomyopathy secondary to alcohol abuse. 5. History of obstructive sleep apnea and chronic obstructive pulmonary disease, currently stable. The patient is on inhalation therapy. 6. Possible recent gastrointestinal bleed. No evidence for bleeding at this point in time. Hemoglobin is stable in the borderline low normal range. PLAN: 1. No reason to repeat any renal diagnostics at this point in time as these have been done multiple times in the past. 2. In light of his elevated TSH, we will check a T4, T3 and free T4 level. 3. Cardiology to weigh it on whether or not the patient would be a candidate for ionotropic support. 4. Continue IV Lasix therapy. May use Zaroxolyn on an as-needed basis to assist in diuresis. 5. Accurate I's and O's. Keep the patient in negative fluid balance and follow daily weights. 6. We would be willing to accept a slight bump up in BUN and creatinine in order to achieve a near euvolemic state. 7. Case discussed with Dr. Jiménez in detail. 8. Continue to monitor the patient on telemetry. 9. The patient should be on a renal diet. Thank you for letting me partake and share in the care of your patient. Blair Hernandez MD [facility]
[2017-07-31 06:39] LABS: ALB/GLOB RATIO 1.1 (1.1-1.8); ALBUMIN 3.6 g/dL (3.0-4.8); CALCIUM 9.3 mg/dL (8.4-10.5)
[2017-07-31 06:53] LABS: FREE T4 2.14 ng/dL (0.78-2.19); T3 UPTAKE 44.3 % (23.0-41.0)
[2017-07-31 07:07] LABS: T3 0.83 ng/mL (0.97-1.69)
--- NOTE | 2017-07-31 08:05 | CON ---
DATE: 07/30/2017 CONSULTATION GASTROENTEROLOGY REQUESTING PHYSICIAN: Qing Jiménez MD. REASON FOR CONSULT: I have been asked to see this 52-year-old male with multiple recent [facility] hospitalizations for abdominal distention, pedal edema and history of cirrhosis. The patient was admitted to the hospital with exacerbation of his congestive heart failure, for increasing abdominal girth, increasing pedal edema, dyspnea with minimal exertion and paroxysmal nocturnal dyspnea as well as orthopnea. The patient has known history of cardiomyopathy, atrial fibrillation and ventricular tachycardia. He has an ICD. The patient also has a history of long-term alcohol use. The patient states that he has not had an alcoholic drink in approximately 2 months. He has a known history of bleeding hemorrhoids and is currently on Eliquis. He denies any recent rectal bleeding, nausea, vomiting, abdominal pain or chest pain. PAST MEDICAL HISTORY: As above. Again, he has a history of dilated cardiomyopathy, congestive heart failure, paroxysmal atrial fibrillation, ventricular tachycardia, COPD, hemorrhoids, chronic kidney disease, chronic anemia, diverticulosis, obstructive sleep apnea, cirrhosis, chronic anemia and COPD. PAST SURGICAL HISTORY: Notable for AICD placement. SOCIAL HISTORY: He denies cigarette smoking. He has a long history of alcohol abuse. He quit drinking 2 months ago. FAMILY HISTORY: Notable for cardiomyopathy. REVIEW OF SYSTEMS: Fourteen-point review of systems is notable for increasing abdominal girth, increasing pedal edema, dyspnea with minimal exertion and PND. MEDICATIONS AT HOME: Include Eliquis, Lasix, Coreg, amiodarone, spironolactone and Symbicort. PHYSICAL EXAMINATION: GENERAL: Middle-aged male, lying in bed, in no acute distress. He is noted to have abdominal distention. His weight is 213 pounds. His BMI is 34.4. VITAL SIGNS: Reveal temperature of 98.3, blood pressure 113/77, heart rate of 63. HEENT: Reveals sclerae to be white. Conjunctivae pink. NECK: Supple. CHEST: Reveals scattered coarse rales. HEART: Reveals regular rate and rhythm. ABDOMEN: Protuberant with ascites. There is no palpable mass. EXTREMITIES: Show 2+ pitting edema of the feet and legs. LABORATORY DATA: Reveals white blood cell count 10.4, hemoglobin 11.7, platelet count of 170,000. Coags reveal PT 27.6, INR 2.36. Chemistries reveal BUN 40, creatinine 1.8. AST, ALT are normal, alkaline phosphatase of 157, total bilirubin of 1.9. BNP is 9440. Troponin is 0.05. LDH is 690. IMPRESSION: A 52-year-old male admitted to the hospital with worsening shortness of breath, known history of dilated cardiomyopathy, ventricular tachycardia, status post automatic implantable cardioverter-defibrillator placement with history of cirrhosis of the liver secondary to longstanding alcohol use. His ascites and pedal edema are most likely secondary to congestive heart failure as well as possibly from cirrhosis of the liver. He does have a history of bleeding hemorrhoids, but does not report this recently. His serum albumin is 4.2. His liver enzymes are normal. The ascites and pedal edema are more likely secondary from his congestive heart failure than cirrhosis. RECOMMENDATIONS: 1. Continue diuretics as per Cardiology. 2. Follow BUN and creatinine. 3. We will request CT scan of the abdomen and pelvis to check on the size and morphology of the liver as well as to determine the amount of ascites. Trevor August MD
[2017-07-31] MEDS: Potassium Chloride 10 mEq ER Tab PO SCH ×2 (09:39→17:35)
--- NOTE | 2017-07-31 13:30 | PN ---
DATE: 07/31/2017 SUBJECTIVE: The patient is seen sitting in bed, on telemetry. He is comfortable. His peripheral edema persists. CURRENT MEDICATIONS: Include spironolactone 25 mg b.i.d.,amiodarone 100 mg daily, carvedilol 25 mg b.i.d., Eliquis 5 mg b.i.d., Lasix 40 mg IV b.i.d., potassium supplement, Lipitor 80 mg daily, and Robitussin. OBJECTIVE: GENERAL: He is an overweight middle-aged man. VITAL SIGNS: His blood pressure is 102/60, pulse of 66, respirations are 14. He is currently in sinus rhythm. HEENT: No JVD. CHEST: Clear to auscultation and percussion. HEART: PMI displaced laterally with soft tones noted. ABDOMEN: Soft, nontender, normoactive bowel sounds. EXTREMITIES: 1 to 2+ edema to the mid calf. DIAGNOSTIC DATA: Potassium 3.8. BUN and creatinine 40 and 1.7. Bilirubin is 2.3. TSH is 7.36. INTAKE AND OUTPUT: 1020 and 2520. IMPRESSION: 1. Decompensated congestive heart failure, acute an chronic secondary to dilated cardiomyopathy and systolic dysfunction. 2. Chronic renal insufficiency. 3. Paroxysmal atrial fibrillation. 4. History of chronic obstructive pulmonary disease and obstructive sleep apnea. 5. History of chronic alcohol abuse. RECOMMENDATIONS: Current diuretic therapy will be continued. Fluid restriction and sodium restriction will continue. Continue alcohol abstinence was advised. We will continue to follow and make further recommendations as appropriate. Brigido Silva MD
--- NOTE | 2017-07-31 15:33 | PN ---
DATE: 07/31/2017 SUBJECTIVE: The patient is seen sitting in bed. He is awake. He is alert. He complains of lower extremity edema. He is urinating well. He denies any chest pain. He does have some dyspnea on exertion. PHYSICAL EXAMINATION: GENERAL: Obese, middle-aged male, sitting in bed. VITAL SIGNS: Blood pressure 118/78, heart rate 65, respiratory rate 19, temperature 97.8. HEENT: Normocephalic, atraumatic, positive pallor. NECK: Supple. No JVD. LUNGS: Bilateral equal air entry, bilateral equal expansion, no rales appreciated. CARDIAC: S1 and S2, regular rate and rhythm, positive murmur, no rub. ABDOMEN: Obese, distended, soft, nontender, bowel sounds present. EXTREMITIES: 2+ pitting edema. INTAKE AND OUTPUT: . LABORATORY DATA: No CBC today. Sodium 140, potassium 3.8, chloride 98, CO2 of 29, BUN 40, creatinine 1.7, glucose 92, calcium 9.3, phosphorus not checked, total bili 2.3, AST 25, ALT 29, GGT 207, albumin 3.6, TSH 7.36. CT of the abdomen and pelvis done yesterday. Abdominal ascites, hydrops of gallbladder?, cardiomegaly with bibasilar ground-glass opacity, mild vascular congestion. CURRENT MEDICATIONS: Aldactone 25 b.i.d., Cordarone, Coreg 25 b.i.d., Eliquis, potassium 30 mEq b.i.d., Lasix 40 IV b.i.d., Lipitor 80, Zofran, Robitussin. ASSESSMENT: 1. Chronic kidney disease stage 3, stable. 2. Mild hypokalemia, resolved. 3. Severe cardiomyopathy, biventricular heart failure. 4. Mitral regurgitation/tricuspid regurgitation. Severe pulmonary hypertension. 5. Dilated cardiomyopathy secondary to alcohol use. 6. Sleep apnea, chronic obstructive pulmonary disease. 7. ? Recent gastrointestinal bleed. PLAN: 1. Continue to diurese. 2. Continue potassium supplementation. 3. Keep O's greater than I's. 4. Start low-dose Synthroid for hypothyroidism. Amina Martin MD
--- NOTE | 2017-07-31 22:48 | PN ---
DATE: 07/31/2017 SUBJECTIVE: A 52-year-old male was uncomfortable in his room this morning. Nursing staff relates that there were no particular problem. Pulse is 65, temperature is 97.8, blood pressure is 118/78, respiratory rate is 19, oxygen saturation is reported at 97% on room air. His Is and Os are reported at a -ve 1400 mL. His weight is reported at 205 pounds and he is voiding. Patient is being treated with decompensated CHF. His chemistries show a sodium of 140, potassium 3.8, chloride 98, CO2 of 29, the BUN is 40, the creatinine is 1.7, total bilirubin is 2.3, his gamma is 207, his alkaline phosphatase is 153. The patient has history of cardiomyopathy, paroxysmal atrial fibrillation, defibrillator, decompensated CHF, gouty arthritis, hepatic liver disease, alcohol abuse, currently he is sober for 2 months, bleeding hemorrhoids. He is currently receiving treatment for his volume overload, decompensated CHF and he has been placed on thyroid medication by Renal. He has underlying chronic renal insufficiency and his TSH level is 7.36. His T3 uptake is 44.3 and his total T3 is 0.83. He is being followed by Renal for his chronic renal disease as well. His Is and Os is documented. The patient understands all of his clinical problems at this time. He said he has had a discussion with Cardiology and GI regarding his clinical status and he is aware of these medical issues, certain things that he needs to do in order to take care of himself. Qing Jiménez MD
[2017-08-01] MEDS: Levothyroxine 25 MCG TAB PO SCH (05:42)
--- NOTE | 2017-08-01 07:32 | CP.PCM.PN ---
Subjective - Date & Time of Evaluation Date of Evaluation: 08/01/17 Time of Evaluation: 07:00 - Subjective Subjective: Stable on 2R. He feels better but still edema and DEVINE short walk in the farrell. No CP or SOB at rest. V/S noted. RSR/S. Bradycardia/JR at times E: Lungs: rhonchi Cor.: S1S2, sys. murmur Abd.: obese, ? ascites Ext.; 3 + edema Neuro.: alert I/O= 780/1901 Labs 07/31 noted: Cr.=1.7, K+= 3.8, BR/GGT elevated Echo: Sev. LVD, Mild MR, mod/sev TR, mod. PH LE hanane/Dopplers: Neg for DVT CT A+P; noted. Small ascites, etc Objective - Vital Signs/Intake and Output Vital Signs (last 24 hours): Temp Pulse Resp BP Pulse Ox 97.8 F 71 18 108/71 95 08/01/17 05:51 08/01/17 05:51 08/01/17 05:51 08/01/17 05:51 08/01/17 05:51 Intake and Output: 08/01/17 08/01/17 06:59 18:59 Intake Total 780 Output Total 1901 Balance -1121 - Medications Medications: Current Medications Amiodarone HCl (Cordarone) 100 mg PO DAILY [facility] Last Admin: 07/31/17 09:40 Dose: 100 mg Apixaban (Eliquis) 5 mg PO BID [facility] PRN Reason: Protocol Last Admin: 07/31/17 17:35 Dose: 5 mg Atorvastatin Calcium (Lipitor) 80 mg PO DIN [facility] Last Admin: 07/31/17 17:35 Dose: 80 mg Carvedilol (Coreg) 25 mg PO BID [facility] Last Admin: 07/31/17 17:35 Dose: 25 mg Furosemide (Lasix) 40 mg IVP BID [facility] Last Admin: 07/31/17 17:36 Dose: 40 mg Guaifenesin/Dextromethorphan (Robitussin Dm) 5 ml PO Q4H PRN PRN Reason: Cough Last Admin: 07/29/17 23:13 Dose: 5 ml Levothyroxine Sodium (Synthroid) 25 mcg PO 0600 [facility] Last Admin: 08/01/17 05:42 Dose: 25 mcg Ondansetron HCl (Zofran Inj) 4 mg IVP Q8H PRN PRN Reason: Nausea/Vomiting Last Admin: 07/30/17 01:03 Dose: 4 mg Potassium Chloride (Klor-Con 10) 30 meq PO BID [facility] Last Admin: 07/31/17 17:35 Dose: 30 meq Spironolactone (Aldactone) 25 mg PO BID [facility] Last Admin: 07/31/17 17:36 Dose: 25 mg - Labs Labs: 07/31/17 06:00 PT 27.6 SECONDS (9.4-12.5) H 07/29/17 07:47 INR 2.36 (0.93-1.08) H 07/29/17 07:47 APTT 35.4 Seconds (25.1-36.5) 07/29/17 07:47 Assessment and Plan - Assessment and Plan (Free Text) Assessment: Edema/Increased abd. girth r/o ascites/Dyspnea/Cough CHF CCM, etoh related CKD Hypothyroidism PAF VT/ICD COPD DENISE Cirrhosis Diverticulosis Hemhorroids with bleeding H/O chronic ETOH/Sober for 2 months Plan: Add metolazone 2.5 mg today. Continue diuresis Monitor labs, I/O, sats., H/H, etc. As per GI, Renal, Dr. Tino LEE as jeannette. Will follow.
--- NOTE | 2017-08-01 08:05 | PN ---
DATE: 07/31/2017 SUBJECTIVE: The patient is feeling much better. He states that he has lost 10 pounds since his hospitalization. He denies any abdominal pain or rectal bleeding. PHYSICAL EXAMINATION VITAL SIGNS: Reveal temperature of 98.1, blood pressure 102/63, heart rate 65. HEENT: Reveals sclerae to be white. Conjunctivae pink. NECK: Supple. CHEST: Lungs are clear. HEART: Reveals regular rate and rhythm. ABDOMEN: Obese, soft, protuberant, nontender. No mass. There is no Villafuerte sign. EXTREMITIES: Show 1+ pedal edema. LABORATORY DATA: Revealed BUN 40, creatinine 1.7. AST, ALT are normal. Total bilirubin 2.3, alkaline phosphatase of 153. CT scan of the abdomen and pelvis reveal small amount of ascites, normal contour of the liver without any evidence of cirrhosis on CT criteria, question of gallbladder wall thickening with some pericholecystic fluid. IMPRESSION: 1. Congestive heart failure with dilated cardiomyopathy. 2. Ascites, most likely secondary to congestive heart failure. The liver does not appear cirrhotic on CAT scan. 3. Gallbladder wall thickening with some pericholecystic fluid, most likely secondary to congestive heart failure. The patient does not show any signs of cholecystitis. He denies any abdominal pain, nausea, vomiting. RECOMMENDATIONS: Continue diuresis. He is stable from a GI standpoint. Trevor August MD
[2017-08-01] MEDS ORDERED: metOLazone 2.5 MG TAB PO ONE (09:00)
[2017-08-01] MEDS: Potassium Chloride 10 mEq ER Tab PO SCH ×2 (09:55→17:11)
--- NOTE | 2017-08-01 11:21 | PN ---
DATE: 08/01/2017 SUBJECTIVE: A 52-year-old male on telemetry. Nursing staff relates that there were no particular problems during the night. PHYSICAL EXAMINATION: VITAL SIGNS: Show a temp of 97.8, his pulse is 62, his blood pressure is 108/71, his oxygen sat is 95%. GENERAL: The patient is alert and oriented x3. LUNGS: Clearer. HEART: An S1 and S2 rhythm. ABDOMEN: Obese, soft, positive bowel sounds. EXTREMITIES: Show 3+ edema. LABORATORY DATA: His TSH level repeat was 7.36. ASSESSMENT AND PLAN: 1. He has been started on a dose of Synthroid by Nephrology. Nephrology is following the patient for his chronic renal insufficiency. 2. He has decompensated congestive heart failure. He is being followed by Cardiology, receiving Lasix IV as well as Aldactone, amiodarone for his paroxysmal atrial fibrillation. He does have a defibrillator in place. He is on Coreg as well, Eliquis, K-Dur replacement therapy. He is on Lipitor for his hyperlipidemia and he is on 25 mcg of Synthroid at this time. He also has a history of liver disease, alcohol history. There is a mild ascites noted on the CAT scan of the abdomen and pelvis. He has mild elevation of his liver function tests. He states that the manufacturing chief engineer has stated that things looked okay. He is aware of things that he needs to avoid. GI is stating that they feel that this ascites is most likely secondary to congestive heart failure. There is gallbladder wall thickening secondary to congestive heart failure as per the note of GI. We will continue current medical management as per Cardiology at this time and Nephrology and follow the patient's labs. He is aware of his clinical status, his underlying medical problems and the recommendations for medical management. He also has history of sleep apnea and uses a continuous positive airway pressure unit at night. Qing Jiménez MD
--- NOTE | 2017-08-01 11:46 | PN ---
DATE: 08/01/2017 SUBJECTIVE: The patient is lying in bed, comfortable. His breathing has improved. He denies any chest pain, orthopnea, abdominal pain, rectal bleeding, nausea, or vomiting. PHYSICAL EXAMINATION VITAL SIGNS: Reveal temperature of 97.8, blood pressure 116/72, heart rate of 62. His weight this morning is 201. HEENT: Reveals sclerae to be white. Conjunctivae pink. NECK: Supple. CHEST: Reveals scattered rales at the bases. HEART: Reveals regular rate and rhythm. ABDOMEN: Obese, soft, nontender. EXTREMITIES: Show 2+ pitting edema. LABORATORY DATA: Reveals white blood cell count 10.4, hemoglobin 11.7. Chemistries reveal BUN 40, creatinine 1.7, this is from yesterday. IMPRESSION: A 52-year-old male with congestive heart failure, cardiomyopathy, ascites from heart failure, history of ventricular tachycardia, history of paroxysmal atrial fibrillation, history of bleeding hemorrhoids. He is stable from a GI standpoint. RECOMMENDATIONS: To continue Aldactone and Lasix 40 mg IV b.i.d. Trevor August MD
--- NOTE | 2017-08-01 19:18 | PN ---
DATE: 08/01/2017 SUBJECTIVE: The patient is seen sitting in chair. He is awake. He is alert. He reports that his lower extremity edema is improving. PHYSICAL EXAMINATION GENERAL: Obese elderly male sitting in chair. VITAL SIGNS: Blood pressure 116/72, heart rate 63, respiratory rate 18, temperature 98.3. HEENT: Normocephalic, atraumatic, positive pallor. NECK: Supple, no JVD. LUNGS: Bilateral equal air entry, bilateral equal expansion, no rales. CARDIAC: S1 and S2, regular rate and rhythm, no murmur, no rub. ABDOMEN: Obese, distended, soft, nontender, bowel sounds present. EXTREMITIES: 2+ pitting edema of the lower extremities. INTAKE AND OUTPUT: 780/1900. LABORATORY DATA: Sodium 140, potassium 3.8, chloride 98, CO2 of 29, BUN 40, creatinine 1.7, glucose 92, calcium 9.3, total bilirubin 2.3, GGT 207, AST 25, ALT 29, albumin 3.6. TSH 7.36. This lab work is from yesterday. CURRENT MEDICATIONS: Aldactone 25 b.i.d., Cordarone 100, Coreg 25 b.i.d., Eliquis 5 b.i.d., potassium 30 mEq b.i.d., Lasix 40 IV b.i.d., Lipitor, Robitussin, Synthroid, Zofran, Zaroxolyn 5 mg given this morning. ASSESSMENT: 1. Severe dilated cardiomyopathy. 2. Chronic kidney disease, stage II/III. 3. Mild prerenal azotemia. 4. Hypokalemia, resolving. 5. Mitral regurgitation/tricuspid regurgitation/pulmonary hypertension. 6. Sleep apnea. PLAN: 1. Continue to diurese. 2. Continue potassium supplementation. 3. Keep O's greater than I's. 4. Check labs tomorrow. Amina Martin MD
[2017-08-02] MEDS: Levothyroxine 25 MCG TAB PO SCH (05:12)
[2017-08-02] MEDS: guaiFENesin DM 100 mg-10 mg/5 ml UD PO PRN ×2 (05:38→17:27)
[2017-08-02 06:34] LABS: BASO # 0.03 K/mm3 (0.0-2.0); BASO % 0.4 % (0.0-3.0); EOS # 0.2 (0.0-0.7); GRAN # 5.12 (1.4-6.5); GRAN % 68.9 % (50.0-68.0); HEMOGLOBIN 10.5 g/dL (14.0-18.0); LYMPH # 1.4 (1.2-3.4); LYMPH % 18.3 % (22.0-35.0); MEAN CELL VOLUME 89.2 fl (80.0-105.0); MEAN CORPUSCULAR HEMOGLOBIN 28.4 pg (25.0-35.0); MEAN CORPUSCULAR HGB CONC 31.8 g/dl (31.0-37.0); MONO # 0.7 (0.1-0.6); MONO % 9.4 % (1.0-6.0); RBC 3.7 10^6/uL (3.5-6.1); RED CELL DISTRIBUTION WIDTH 17.2 % (11.5-14.5); WHITE BLOOD COUNT 7.4 10^3/ul (4.5-11.0)
[2017-08-02 07:17] LABS: CALCIUM 9.4 mg/dL (8.4-10.5)
--- NOTE | 2017-08-02 07:52 | CP.PCM.PN ---
Subjective - Date & Time of Evaluation Date of Evaluation: 08/02/17 Time of Evaluation: 07:00 - Subjective Subjective: Stable on 2R. He feels better but nasal congestion and sneezing this AM. Less edema. Abd. softer. V/S noted. RSR/S. Bradycardia/JR at times E: Lungs: few rhonchi Cor.: S1S2, sys. murmur Abd.: obese, softer Ext.; 2 + edema Neuro.: alert I/O= 240/1950 recorded Labs 08/02 noted: Cr.=1.8, K+= 4.0 , Mg.++= 1.9 Echo: Sev. LVD, Mild MR, mod/sev TR, mod. PH LE hanane/Dopplers: Neg for DVT CT A+P; noted. Small ascites, etc Objective - Vital Signs/Intake and Output Vital Signs (last 24 hours): Temp Pulse Resp BP Pulse Ox 97.6 F 65 18 106/60 92 L 08/02/17 05:45 08/02/17 05:45 08/02/17 05:45 08/02/17 05:45 08/02/17 05:45 Intake and Output: 08/02/17 08/02/17 06:59 18:59 Intake Total 240 Output Total 1950 Balance -1710 - Medications Medications: Current Medications Amiodarone HCl (Cordarone) 100 mg PO DAILY [facility] Last Admin: 08/01/17 09:54 Dose: 100 mg Apixaban (Eliquis) 5 mg PO BID [facility] PRN Reason: Protocol Last Admin: 08/01/17 17:11 Dose: 5 mg Atorvastatin Calcium (Lipitor) 80 mg PO DIN [facility] Last Admin: 08/01/17 17:11 Dose: 80 mg Carvedilol (Coreg) 25 mg PO BID [facility] Last Admin: 08/01/17 17:11 Dose: 25 mg Furosemide (Lasix) 40 mg IVP BID [facility] Last Admin: 08/01/17 17:21 Dose: 40 mg Guaifenesin/Dextromethorphan (Robitussin Dm) 5 ml PO Q4H PRN PRN Reason: Cough Last Admin: 08/02/17 05:38 Dose: 5 ml Levothyroxine Sodium (Synthroid) 25 mcg PO 0600 [facility] Last Admin: 08/02/17 05:12 Dose: 25 mcg Metolazone (Zaroxolyn) 5 mg PO ONCE ONE Stop: 08/02/17 09:01 Ondansetron HCl (Zofran Inj) 4 mg IVP Q8H PRN PRN Reason: Nausea/Vomiting Last Admin: 07/30/17 01:03 Dose: 4 mg Potassium Chloride (Klor-Con 10) 30 meq PO BID [facility] Last Admin: 08/01/17 17:11 Dose: 30 meq Spironolactone (Aldactone) 25 mg PO BID [facility] Last Admin: 08/01/17 17:18 Dose: 25 mg - Labs Labs: 08/02/17 06:00 08/02/17 06:00 PT 27.6 SECONDS (9.4-12.5) H 07/29/17 07:47 INR 2.36 (0.93-1.08) H 07/29/17 07:47 APTT 35.4 Seconds (25.1-36.5) 07/29/17 07:47 Assessment and Plan - Assessment and Plan (Free Text) Assessment: Edema/Increased abd. girth r/o ascites/Dyspnea/Cough CHF CCM, etoh related CKD Hypothyroidism PAF VT/ICD COPD DENISE Cirrhosis Diverticulosis Hemhorroids with bleeding H/O chronic ETOH/Sober for 2 months Plan: Give metolazone 5 mg today. Continue diuresis Monitor labs, I/O, sats., H/H, etc. As per GI, Renal, Dr. Tino LEE as jeannette. Increase ambulation in hallways No ETOH d/w him again.
[2017-08-02] MEDS ORDERED: metOLazone 5 MG TAB PO ONE (09:00)
[2017-08-02] MEDS: Potassium Chloride 10 mEq ER Tab PO SCH ×2 (09:46→17:28)
--- NOTE | 2017-08-02 13:34 | PN ---
DATE: 08/02/2017 SUBJECTIVE: A 52-year-old male on Telemetry receiving treatment for decompensated CHF and hypothyroid disease. Nursing staff relates that there were no problems during the night. The patient states that he is feeling a bit better. He states that he spoke with Cardiology this morning and states that he wants to continue his current diuresis. PHYSICAL EXAMINATION: GENERAL: He is alert and oriented x3. VITAL SIGNS: His temperature is 97.6, his pulse is 65, his blood pressure is 106/60, his oxygen saturation is 92% on room air. LUNGS: Clear. Diminished breath sounds at the bases. HEART: In S1, S2 rhythm. ABDOMEN: Soft with positive bowel sounds. He is obese. EXTREMITIES: Showed 3+ edema. LABORATORY DATA: Shows a WBC of 7.4, RBC 3.7, hemoglobin 10.5, hematocrit 33, platelet count 157. Chemistry shows a sodium of 138, potassium of 4, chloride 95. BUN is 44, creatinine is 1.8. His LFTs repeat are pending. ASSESSMENT AND PLAN: 1. The patient is currently receiving intravenous Lasix, Coreg, Eliquis, potassium, Lipitor, Aldactone, and amiodarone. 2. He is on Synthroid replacement for underactive thyroid. 3. He has renal insufficiency. 4. He has history of hemorrhoids with bleeding. We will continue to monitor the patient closely. Follow up his labs. His I's and O's are reported as being negative 1710 and he is moving his bowels. Qing Jiménez MD
--- NOTE | 2017-08-02 17:21 | PN ---
DATE: 08/02/2017 SUBJECTIVE: The patient is currently seen on telemetry. He is entirely comfortable. He remains on diuretic therapy. His weight has dropped from approximately 212 pounds to 199 pounds. Lower extremity edema has improved. He also states that his abdomen feels less full with fluid. MEDICATIONS: Medication list reviewed. The patient is currently on Aldactone, Cordarone, Coreg, Eliquis, K-tabs, IV Lasix, Lipitor, Robitussin DM p.r.n., Synthroid, and Zofran. PHYSICAL EXAMINATION INTAKE/OUTPUT: Intake is 240 and output is 1950. VITAL SIGNS: Blood pressure is 115/76, temperature 98.1, respiratory rate of 16 with a pulse of 62. HEENT: Shows him to be normocephalic, atraumatic. Conjunctivae are pink. Sclerae are nonicteric. NECK: Supple. No neck vein distention. CHEST: Clear to auscultation and percussion with no rales, rhonchi or wheezing. CARDIOVASCULAR: Shows a regular rate and rhythm. Positive AICD. MR/TR. No S3, no S4, no rub. ABDOMEN: Soft. Bowel sounds normal, moderate obesity. No appreciable fluid wave. No rebound, no guarding. EXTREMITIES: Show 1+ pitting edema down from 3+ from my exam on admission. Reduce pulses secondary to edema. No cyanosis or clubbing. LABORATORY DATA AND IMAGING: CBC: White blood cell count today is 7.4 with a hemoglobin of 10.5, platelet count of 157,000. Chemistry showed normal electrolytes. BUN is up slightly from 37 to 44. Creatinine is up slightly from 1.6 to 1.8. This is all acceptable and within his baseline range. Calcium, phosphorus, magnesium levels were all normal. Albumin level was 3.6. Of note, mild elevation of his TSH with a low T3 level, but a normal free T4 level. The patient was started cautiously on thyroid replacement therapy. ASSESSMENT: 1. Chronic kidney disease stage III, stable, mild increase in BUN and creatinine secondary to diuretic therapy, negative fluid balance at approximately 12 to 13 pounds weight loss. The patient will continue on IV Lasix together with Aldactone. Potassium level remains normal at 4. 2. History of severe cardiomyopathy, ejection fraction is 12%. The patient is followed closely by Cardiology. He does have an automatic implantable cardioverter-defibrillator. 3. History of mitral regurgitation, tricuspid regurgitation with moderate to severe pulmonary hypertension, currently stable. 4. Dilated cardiomyopathy secondary to alcohol abuse. 5. History of obstructive sleep apnea and chronic obstructive pulmonary disease, currently stable. 6. Past history of anemia with gastrointestinal bleeding, presently hemoglobin levels have been stable at 10.5. PLAN: 1. Continue to diurese the patient as he appears to be tolerating diuresis well without any significant increase in BUN and creatinine. 2. Continue to monitor the patient on telemetry. 3. The patient is entirely stable from a renal standpoint. When deemed appropriate by Cardiology, he could be switched over to oral Lasix therapy perhaps together with p.r.n. use of metolazone and use of Aldactone to maintain potassium levels in an acceptable range. 4. The patient should continue a renal diet. Blair Hernandez MD
[2017-08-03] MEDS: Levothyroxine 25 MCG TAB PO SCH (05:25)
[2017-08-03 07:09] LABS: BASO # 0.04 K/mm3 (0.0-2.0); BASO % 0.5 % (0.0-3.0); EOS # 0.3 (0.0-0.7); EOS % 3.1 % (1.5-5.0); GRAN # 5.93 (1.4-6.5); GRAN % 69.1 % (50.0-68.0); HEMOGLOBIN 10.5 g/dL (14.0-18.0); LYMPH # 1.3 (1.2-3.4); LYMPH % 14.7 % (22.0-35.0); MEAN CELL VOLUME 87.9 fl (80.0-105.0); MEAN CORPUSCULAR HEMOGLOBIN 28.2 pg (25.0-35.0); MEAN CORPUSCULAR HGB CONC 32.1 g/dl (31.0-37.0); MEAN PLATELET VOLUME 9.1 fl (7.0-11.0); MONO # 1.1 (0.1-0.6); MONO % 12.6 % (1.0-6.0); RBC 3.72 10^6/uL (3.5-6.1); WHITE BLOOD COUNT 8.6 10^3/ul (4.5-11.0)
[2017-08-03 07:21] LABS: CALCIUM 9.5 mg/dL (8.4-10.5)
[2017-08-03] MEDS: Potassium Chloride 10 mEq ER Tab PO SCH ×2 (09:11→18:19)
--- NOTE | 2017-08-03 11:41 | PN ---
DATE: 08/03/2017 SUBJECTIVE: The patient is seen sitting in bed on telemetry. He is comfortable. He continues to have some right leg edema. His dyspnea has improved. He still has a dry cough. CURRENT MEDICATIONS: Include spironolactone 25 mg b.i.d., amiodarone 100 mg daily, carvedilol 25 mg b.i.d., Eliquis 5 mg b.i.d., Lasix 40 mg IV b.i.d., potassium 30 mEq b.i.d., Lipitor 80 mg daily, Synthroid 25 mcg daily. OBJECTIVE: GENERAL: He is an overweight middle-aged man. VITAL SIGNS: His blood pressure is 118/80 with pulse of 60 and sinus, occasional PVC, respirations are 14. He is afebrile. HEENT: No JVD. CHEST: A few scattered rhonchi. HEART: PMI displaced laterally with soft tones noted. ABDOMEN: Soft, nontender, obese with normoactive bowel sounds. EXTREMITIES: 1+ right lower extremity edema. DIAGNOSTIC DATA: Potassium 3.9, BUN and creatinine are 48 and 3. White count 8.6, hemoglobin and hematocrit 10.5 and 32.7 with a platelet count of 175,000. IMPRESSION: 1. Decompensated congestive heart failure, acute on chronic, right side greater than left. 2. Congestive cardiomyopathy. 3. Moderately severe tricuspid regurgitation. 4. History of alcohol abuse. 5. Cirrhosis. 6. Chronic renal insufficiency. RECOMMENDATIONS: Current medications will continue for now. IV Lasix will be continued for one additional day. Increased ambulation is advised. Continued alcohol abstinence was recommended. If he is clinically improved, discharge home with outpatient followup in the next 24 hours will be planned. Brigido Silva MD
--- NOTE | 2017-08-03 12:41 | PN ---
DATE: 08/03/2017 SUBJECTIVE: A 52-year-old male resting comfortably on telemetry. The patient is reported by nursing staff to have no problems during the night. He states that he is feeling a bit better and he is happy with the fact that he has been losing some weight. PHYSICAL EXAMINATION: GENERAL: He is alert and oriented x3. VITAL SIGNS: His temp is 98.5, his pulse is 64, his blood pressure is 118/81, oxygen sat is 97% on room air, and his respiratory rate is 20. LUNGS: Show diminished breath sounds at the bases. HEART: S1 and S2, grade 2/6 systolic murmur and there is an implantable defibrillator in place in his chest. ABDOMEN: Obese, scaphoid, positive bowel sounds. EXTREMITIES: Show diminished edema. LABORATORY DATA: Shows a sodium of 135, potassium 3.9, chloride 93, the BUN is 48, and the creatinine is 2. CBC shows a WBC of 8.6, RBC 3.72, hemoglobin 10.5, hematocrit 32.7, platelet count is 175,000. ASSESSMENT AND PLAN: 1. The patient is being treated for decompensated congestive heart failure, being followed by Cardiology. He is currently on Aldactone 25 mg b.i.d., amiodarone 100 mg p.o. daily with a history of paroxysmal atrial fibrillation, Coreg 25 mg p.o. b.i.d., Eliquis 5 mg b.i.d., Klor-Con 30 mEq b.i.d., and Lasix 40 mg IV daily as well as Lipitor 80 mg daily. 2. The patient has a history of chronic renal disease stage 3. His BUN and creatinine are elevated secondary to the IV Lasix diuresis. His inputs and outputs are being reported today at a negative 3310, he is moving his bowels. He is being followed by Nephrology. 3. He has a history of cardiomyopathy. 4. He has an implantable defibrillator in place. 5. He has a history of paroxysmal atrial fibrillation. 6. He has a history of gouty arthritis. 7. He has a history of sleep apnea with using a BiPAP unit. 8. He has a history of valvular heart disease, his ejection fraction is 12%. The patient clinically understands what is going on with him at this time. He is being seen by GI who saw the patient and feels that his liver disease is secondary to his congestion from his heart failure. He does have some ascites noted on the CAT scan study. He will continue current recommendations. The patient is aware of the clinical setting at this time, medications as per Renal and Cardiology. Qing Jiménez MD
--- NOTE | 2017-08-03 14:43 | PN ---
DATE: 08/03/2017 SUBJECTIVE: The patient is seen sitting in chair. He is awake, he is alert, he is comfortable. PHYSICAL EXAMINATION: GENERAL: Obese, middle-aged male, sitting in chair. VITAL SIGNS: Blood pressure 114/63, heart rate 65, respiratory rate 18, temperature 98.5. HEENT: Normocephalic, atraumatic, positive pallor. NECK: Supple. No JVD. LUNGS: Bilateral equal air entry, bilateral equal expansion, no rales. CARDIAC: S1 and S2, regular rate and rhythm, positive murmur, no rub. ABDOMEN: Obese, distended, soft, nontender, bowel sounds present. EXTREMITIES: Trace lower extremity edema. INTAKE AND OUTPUT: 1140/4250. LABORATORY DATA: WBC 8.6, hemoglobin 10.5, hematocrit 32.7, platelets 175. Sodium 135, potassium 3.9, chloride 93, CO2 of 33, BUN 48, creatinine 2, glucose 104, calcium 9.5. CURRENT MEDICATIONS: Aldactone 25 b.i.d., Cordarone 100, Coreg 25 b.i.d., Eliquis 5 b.i.d., potassium 30 mEq b.i.d., Lasix 40 IV every 12, Lipitor, Robitussin, Synthroid, Zofran. ASSESSMENT: 1. Dilated cardiomyopathy, decompensated congestive heart failure, volume overload. 2. Acute kidney injury superimposed on chronic kidney disease stage 3/4. 3. Morbid obesity. 4. Alcoholic cardiomyopathy. 5. Anemia of chronic disease. PLAN: 1. The patient has been receiving Zaroxolyn for the last 3 days. No Zaroxolyn today. The patient has mild prerenal azotemia. 2. Okay to continue Lasix IV every 12. 3. Monitor urine output. 4. Monitor electrolytes. Amina Martin MD
[2017-08-04 00:10] VITALS: RESP 20
[2017-08-04] MEDS: Levothyroxine 25 MCG TAB PO SCH (05:54)
[2017-08-04 06:13] VITALS: BP 104/70; TEMP 98; O2SAT 98
[2017-08-04] MEDS ORDERED: Potassium Chloride 10 mEq ER Tab PO SCH (06:39)
[2017-08-04 08:13] LABS: CALCIUM 9.7 mg/dL (8.4-10.5)
[2017-08-04 09:45] VITALS: PULSE 73
--- NOTE | 2017-08-04 11:23 | PN ---
DATE: 08/04/2017 SUBJECTIVE: The patient is seen lying in bed on telemetry. He is currently comfortable. He has noticed slight increase in his cough since yesterday. His edema has resolved. CURRENT MEDICATIONS: Remain Aldactone 25 mg daily, amiodarone 100 mg daily, carvedilol 25 mg b.i.d., Eliquis 5 mg b.i.d., Lasix 40 mg b.i.d., potassium 30 mEq b.i.d., Lipitor 80 mg daily, Robitussin and Synthroid. PHYSICAL EXAMINATION: GENERAL: He is an overweight middle-aged man. His blood pressure is 104/70 with pulse 66, respirations are 14. He is afebrile. HEENT: No JVD. CHEST: Few faint wheezes noted. No rales heard. HEART: PMI displaced laterally with soft tones noted. ABDOMEN: Soft, nontender. Normoactive bowel sounds. EXTREMITIES: No edema. DIAGNOSTIC DATA: Morning blood work pending. IMPRESSION: 1. Decompensated congestive heart failure, acute on chronic, predominantly systolic, right side greater than left. 2. Severe congestive cardiomyopathy. 3. Mildly severe tricuspid regurgitation. 4. Chronic renal insufficiency. 5. History of alcohol abuse and cirrhosis. RECOMMENDATIONS: From a cardiac standpoint, he appears stable for discharge home today. His Lasix will be switched to oral administration and should remain b.i.d. for now. Close outpatient followup will be arranged. The need for continued sodium and fluid restriction was discussed as well as the need for continued alcohol abstinence. Daily weights will be monitored as an outpatient as well. Brigido Silva MD
--- NOTE | 2017-08-04 23:41 | DS ---
HOSPITAL COURSE: This is a 52-year-old male in [facility]. He was admitted for decompensated congestive heart failure, chronic renal insufficiency, history of ascites, liver disease, history of gouty arthritis, history of cardiomyopathy, history of alcohol abuse, history of defibrillator, valvular heart disease, severe tricuspid regurgitation, and hypothyroid disease. He had labs showing a sodium of 140, potassium 4.4, chloride 92, CO2 of 37, BUN was 48, creatinine was 2.1, random blood sugar 106, calcium 9.7. He had a TSH level of 7.36, T3 of 44.3, and a T4 of 9. The patient was cleared by Renal, who was following the patient for his chronic renal insufficiency; Cardiology for his decompensated CHF, cardiomyopathy and he would be going home on Lasix 40 mg b.i.d., Aldactone 25 mg b.i.d., K-Dur 20 mEq b.i.d., Lipitor 80 mg daily, amiodarone 100 mg daily, Synthroid 25 mcg daily, Eliquis 5 mg b.i.d., Coreg 25 mg b.i.d. and Symbicort 1 puff daily. He has a history of sleep apnea. He has a CPAP unit. He was aware of his clinical and medical problems, his current clinical status, laboratory data. Recommendations was abstinence from alcohol and salt, daily weights, compliance with medications. He was greatly advised to follow up with Cardiology, Renal, GI, and Medicine. Qing Jiménez MD
== END 2017-08-04 12:01 | disposition home or self-care (01) | DRG 291 ==
LOC: ED 06:28 → ERH 09:32 → 2RNO 12:10
PROVIDERS: ADMIT Internal Medicine; ATTEND Internal Medicine
DX: I13.0 Hypertensive heart and chronic kidney disease with heart failure and stage 1 through stage 4 chronic kidney disease, or unspecified chronic kidney disease (principal); I50.23 Acute on chronic systolic (congestive) heart failure; N18.4 Chronic kidney disease, stage 4 (severe); R18.8 Other ascites; I42.0 Dilated cardiomyopathy; I42.6 Alcoholic cardiomyopathy; I48.0 Paroxysmal atrial fibrillation; I27.20 Pulmonary hypertension, unspecified; D63.1 Anemia in chronic kidney disease; E03.9 Hypothyroidism, unspecified; E66.01 Morbid (severe) obesity due to excess calories; E78.5 Hyperlipidemia, unspecified; E87.6 Hypokalemia; F10.10 Alcohol abuse, uncomplicated; G47.33 Obstructive sleep apnea (adult) (pediatric); I08.1 Rheumatic disorders of both mitral and tricuspid valves; I50.82 Biventricular heart failure; J44.9 Chronic obstructive pulmonary disease, unspecified; K57.90 Diverticulosis of intestine, part unspecified, without perforation or abscess without bleeding; K64.9 Unspecified hemorrhoids; K74.60 Unspecified cirrhosis of liver; L98.9 Disorder of the skin and subcutaneous tissue, unspecified; Z79.01 Long term (current) use of anticoagulants; Z79.51 Long term (current) use of inhaled steroids; Z80.8 Family history of malignant neoplasm of other organs or systems; Z86.79 Personal history of other diseases of the circulatory system; Z87.891 Personal history of nicotine dependence; Z95.810 Presence of automatic (implantable) cardiac defibrillator

== ENCOUNTER 2018-01-15 10:51 | Inpatient (IN) | payer MEDICARE, OTHER ==
[2018-01-15 10:54] VITALS: BMI 30.7
--- NOTE | 2018-01-15 11:35 | ED PDOC ---
Arrival/HPI - General Chief Complaint: Shortness Of Breath Time Seen by Provider: 01/15/18 10:56 Historian: Patient - History of Present Illness Narrative History of Present Illness (Text): 01/15/18 11:34 52 year old male, whose past medical history includes cardiomyopathy, CHF, Diverticulosis, Hemorrhoid, and COPD, presents to the emergency department complaining of shortness of breath, since yesterday. Patient states these s ymptoms are similar to previous due to his cardiomyopathy, he has to sit up to breath properly. He also reports associated productive cough with white sputum. Patient denies fevers, chills, headache, dizziness, chest pain, abdominal pain, nausea, vomiting, diarrhea, back pain, neck pain, or any other complaint. PMD: Dr. Jiménez Stock Layer: Dr. Vázquez Time/Duration: 24 hours Symptom Course: Unchanged Activities at Onset: Light Context: Home Past Medical History - Provider Review Nursing Documentation Reviewed: Yes - Past History Past History: Non-Contributing - Infectious Disease Hx of Infectious Diseases: None - Tetanus Immunization Tetanus Immunization: Up to Date - Cardiac Hx Cardiac Disorders: Yes Hx Congestive Heart Failure: Yes Hx Hypertension: Yes Hx Internal Defibrillator: Yes (pacemaker/defib 2005) Hx Pacemaker: Yes Hx Peripheral Edema: Yes Other/Comment: Cardiomyopathy - Pulmonary Hx Respiratory Disorders: Yes Hx Sleep Apnea: Yes (USES CPAP) - Neurological Hx Neurological Disorder: Yes Hx Dizziness: Yes (SYNCOPE) - HEENT Hx HEENT Disorder: No - Renal Hx Renal Disorder: Yes (hx renal insufficiency which resolved) - Endocrine/Metabolic Hx Endocrine Disorders: No - Hematological/Oncological Hx Blood Disorders: Yes Hx Anemia: Yes - Integumentary Hx Dermatological Disorder: No - Musculoskeletal/Rheumatological Hx Musculoskeletal Disorders: Yes (RIGHT KNEE SURGERY) Hx Falls: Yes - Gastrointestinal Hx Gastrointestinal Disorders: Yes (CONSTIPATION,HEMORRHOIDS) Hx Diverticulitis: Yes - Genitourinary/Gynecological Hx Genitourinary Disorders: No - Psychiatric Hx Psychophysiologic Disorder: No Hx Depression: No Hx Emotional Abuse: No Hx Physical Abuse: No Hx Substance Use: No - Surgical History Hx Cardiac Catheterization: Yes Hx Orthopedic Surgery: Yes (right knee cartilige) Other/Comment: pacemaker and defib in 2006 - Anesthesia Hx Anesthesia: Yes Hx Anesthesia Reactions: No Hx Malignant Hyperthermia: No - Suicidal Assessment Feels Threatened In Home Enviroment: No Family/Social History - Physician Review Nursing Documentation Reviewed: Yes Family/Social History: No Known Family HX Smoking Status: Former Smoker Hx Alcohol Use: Yes (H/O ETOH ABUSE. ATTENDS AA MEETINGS TILL NOW.) Hx Substance Use: No Hx Substance Use Treatment: No Allergies/Home Meds Allergies/Adverse Reactions: Allergies No Known Allergies Allergy (Verified 01/15/18 14:02) Home Medications: Home Meds Medication Instructions Recorded Confirmed Carvedilol [Coreg] 25 mg PO BID 05/09/12 01/15/18 Atorvastatin [Lipitor] 80 mg PO DAILY 11/18/13 01/15/18 Amiodarone [Cordarone] 100 mg PO DAILY 06/15/16 01/15/18 Spironolactone [Aldactone] 25 mg PO BID 01/16/17 01/15/18 Apixaban [Eliquis] 5 mg PO BID 07/29/17 01/15/18 Budesonide/Formoterol Fumarate 1 puff INH DAILY 07/29/17 01/15/18 [Symbicort 160-4.5 Mcg Inhaler] Furosemide 40 mg PO BID 07/29/17 01/15/18 Review of Systems - Physician Review All systems were reviewed & negative as marked: Yes - Review of Systems Constitutional: absent: Fevers Cardiovascular: absent: Chest Pain Physical Exam - Physical Exam Narrative Physical Exam (Text): 01/15/18 11:34 Constitutional: No acute distress. ETOH on breath. Head: Normocephalic. Atraumatic. Eyes: PERRL. ENT: Moist mucous membranes. Neck: Supple. JVD noted. Cardiovascular: Regular rate. Chest: No tenderness. Respiratory: Diffuse wheezing bilaterally. GI: Soft. Nontender. Nondistended. Back: No CVA tenderness. Musculoskeletal: Bilateral lower extremity pitting edema. Skin: No rash. Neurologic: Alert, no focal deficit. Vital Signs Reviewed: Yes Vital Signs Pulse Resp BP Pulse Ox 01/15/18 11:23 21 94 L 01/15/18 11:00 66 25 H 118/64 95 01/15/18 10:57 64 18 95 Temperature: Afebrile Blood Pressure: Normal Pulse: Regular Respiratory Rate: Normal Appearance: Positive for: Well-Appearing, Non-Toxic, Comfortable Pain Distress: None Mental Status: Positive for: Alert and Oriented X 3 Medical Decision Making ED Course and Treatment: 01/15/18 11:34 Impression: 52 year old male who presents to the emergency department complaining of shortness of breath. Differential Diagnosis included but are not limited to: COPD vs. CHF vs. pneumonia Plan: -- EKG -- Labs -- Cardiac Enzymes -- Chest X-ray -- Lasix -- Xopened -- Urine Culture -- Urinalysis -- Reassess and disposition Prior Visits: Notes and results from previous visits were reviewed. Progress Notes: 01/15/18 11:38 EKG reviewed, shows: NSR 65 bpm, 1st degree AV with QRS at 162ms. No ST elevations. 01/15/18 12:39 Chest X-ray reviewed, shows: IMPRESSION: No active disease. Dr. Jiménez accepts patient to his service. Dr. Young saw patient in emergency department, states will order treatments. Patient with transaminitis, consult placed with patient's GI Dr. August. - Lab Interpretations Lab Results: Lab Results 01/15/18 11:20: POC Glucose (mg/dL) 120 H I have reviewed the lab results: Yes - RAD Interpretation Radiology Orders: 01/15/18 11:31 CHEST PORTABLE [RAD] Stat - EKG Interpretation Interpreted by ED Physician: Yes Type: 12 lead EKG - Medication Orders Current Medication Orders: Furosemide (Lasix) 40 mg IVP STAT STA Stop: 01/15/18 11:33 - Scribe Statement The provider has reviewed the documentation as recorded by the Dorene Jolley Provider Scribe Attestation: All medical record entries made by the Dorene were at my direction and personally dictated by me. I have reviewed the chart and agree that the record accurately reflects my personal performance of the history, physical exam, medical decision making, and the department course for this patient. I have also personally directed, reviewed, and agree with the discharge instructions and disposition. Disposition/Present on Arrival - Present on Arrival Any Indicators Present on Arrival: No History of DVT/PE: No History of Uncontrolled Diabetes: No Urinary Catheter: No History of Decub. Ulcer: No History Surgical Site Infection Following: None - Disposition Have Diagnosis and Disposition been Completed?: Yes Diagnosis: COPD exacerbation Disposition: HOSPITALIZED Disposition Time: 13:15 Patient Plan: Admission, Telemetry Condition: GUARDED
[2018-01-15 11:47] LABS: BASO # 0.06 K/mm3 (0.0-2.0); BASO % 0.5 % (0.0-3.0); EOS % 0.3 % (1.5-5.0); GRAN # 8.72 (1.4-6.5); GRAN % 76.1 % (50.0-68.0); HEMOGLOBIN 12.2 g/dL (14.0-18.0); LYMPH # 1.4 (1.2-3.4); LYMPH % 12.3 % (22.0-35.0); MEAN CELL VOLUME 93.3 fl (80.0-105.0); MEAN CORPUSCULAR HEMOGLOBIN 30.5 pg (25.0-35.0); MEAN CORPUSCULAR HGB CONC 32.7 g/dl (31.0-37.0); MEAN PLATELET VOLUME 9.2 fl (7.0-11.0); MONO # 1.2 (0.1-0.6); MONO % 10.8 % (1.0-6.0); RED CELL DISTRIBUTION WIDTH 14.3 % (11.5-14.5); WHITE BLOOD COUNT 11.5 10^3/uL (4.5-11.0)
[2018-01-15] MEDS ORDERED: Levalbuterol 1.25 MG/3 ML Inhal Soln UD IH STA (11:51)
[2018-01-15 11:55] LABS: INR 2.83; PARTIAL THROMBOPLASTIN TIME 32.5 Seconds (25.1-36.5); PROTHROMBIN TIME 33.2 SECONDS (9.4-12.5)
[2018-01-15 12:02] LABS: ALBUMIN 3.8 g/dL (3.0-4.8); CALCIUM 8.8 mg/dL (8.4-10.5)
[2018-01-15 12:03] LABS: ACETAMINOPHEN < 10.0 ug/ml (10.0-20.0); SALICYLATE < 1 mg/dL (2.0-20.0)
[2018-01-15 12:13] LABS: TROPONIN I 0.02 ng/mL
--- NOTE | 2018-01-15 12:28 | RAD ---
Date of service: 01/15/2018 HISTORY: dyspnea COMPARISON: 07/29/2017 FINDINGS: LUNGS: No active pulmonary disease. PLEURA: No significant pleural effusion identified, no pneumothorax apparent. CARDIOVASCULAR: No aortic atherosclerotic calcification present. Mild cardiomegaly no pulmonary vascular congestion. OSSEOUS STRUCTURES: No significant abnormalities. VISUALIZED UPPER ABDOMEN: Normal. OTHER FINDINGS: Dual lead pacemaker IMPRESSION: No active disease.
[2018-01-15] MEDS: Levalbuterol 1.25 MG/3 ML Inhal Soln UD IH SCH ×2 (14:09→20:47)
[2018-01-15] MEDS: MethylPREDNISolone 40 mg Vial IVP SCH ×2 (14:09→21:21)
[2018-01-15 15:38] LABS: URINE APPEARANCE CLEAR (CLEAR); URINE BILIRUBIN NEGATIVE (NEGATIVE); URINE BLOOD SMALL (NEGATIVE); URINE COLOR YELLOW (YELLOW); URINE GLUCOSE (UA) NEGATIVE (NEGATIVE); URINE LEUKOCYTE ESTERASE NEGATIVE Leu/uL (NEGATIVE); URINE PROTEIN 30 mg/dL (<30 mg/dL); URINE UROBILINOGEN 0.2 E.U./dL (<1 E.U./dL)
[2018-01-15 15:43] LABS: URINE EPITHELIAL CELLS 0 - 2 /hpf (0-5); URINE WBC 0 - 2 /hpf (0-6)
[2018-01-15 15:44] LABS: URINE BACTERIA FEW (NEG); URINE HYALINE CAST 0 - 2 /hpf
[2018-01-15 16:07] LABS: T3 UPTAKE 45.9 % (23.0-41.0); T4 7.2 ug/dL (5.5-11.0)
--- NOTE | 2018-01-15 17:55 | CON ---
DATE: 01/15/2018 PULMONARY CONSULTATION REASON FOR PULMONARY CONSULTATION: Shortness of breath. REFERRING PHYSICIAN: Dr. Qing Jiménez. HISTORY OF PRESENT ILLNESS: The patient is a chronically ill 52-year-old male, with past medical history significant for chronic obstructive pulmonary disease, obstructive sleep apnea, significant noncompliance with his pulmonary medications at home, significant noncompliance with office followup, recurrent congestive heart failure, dilated cardiomyopathy, alcohol abuse, who presents to [facility] with a 2-day history of worsening shortness of breath at rest, dyspnea on exertion, and cough. The patient denies sputum production. The patient denies chest pain, coughing up of blood, or chest pain - made worse with deep respirations. There is no history of temperatures, chills or infectious exposure. There is no history of night sweats, weight loss or appetite change prior to the above events. No history of leg or calf pains. No history of syncope or diaphoresis. No history of recent travel or trauma. REVIEW OF SYSTEMS: No history of nausea, vomiting or diarrhea. No acute urinary symptoms. No new neurologic complaints. Rest of the review of systems is negative. ALLERGIES: NO KNOWN ALLERGIES. SOCIAL HISTORY: Positive for former tobacco usage. Also positive for active alcohol abuse. FAMILY HISTORY: No inheritable diseases. HOME MEDICATIONS: Include Cordarone, Lasix, Coreg, Symbicort, Lipitor, Eliquis, Synthroid, Aldactone. PHYSICAL EXAMINATION: GENERAL: The patient appears comfortable at the time of my examination. He is not short of breath. He is not using accessory muscles for breathing. VITAL SIGNS: Temperature is 98.4, pulse 66, respirations 18/20, blood pressure 118/64. Oxygen saturation on room air is 95%. HEENT: Normocephalic, atraumatic. No JVD. CARDIOVASCULAR: Systolic ejection murmur at the lower left sternal border. Questionable S3 gallop. LUNGS: Decreased breath sounds at the bases. Minimal bilateral rhonchi. Minimal bilateral wheezing. EXTREMITIES: Positive for edema. No cyanosis. No clubbing. Calves are nontender to palpation. GASTROINTESTINAL: Abdomen is soft, nontender and nondistended. Bowel sounds are positive. SKIN: No acute rash. NEUROLOGIC: Exam limited at the present time. PERTINENT LABORATORY DATA: Chest x-ray was done and reviewed. There is a mild increase in pulmonary vascular congestion noted. Official results are pending. CBC: White count 11.5K, hemoglobin 12.2, hematocrit 37.3, platelets of 268,000. Complete metabolic profile: Carbon dioxide 19, BUN 37, creatinine 2.2, phosphorus 4.7, AST 258, ALT 204, alkaline phosphatase 171. B-type natriuretic peptide 9960. Rest of the metabolic profile is within normal limits. Alcohol level 240. IMPRESSION: 1. Acute bronchitis. 2. Chronic obstructive pulmonary disease. 3. Acute congestive heart failure. 4. Dilated cardiomyopathy. 5. Alcohol intoxication. 6. Renal insufficiency. PLAN: The patient presents to [facility] with a 2-day history of worsening pulmonary symptoms. I did review the chest x-ray as above. The chest x-ray does show mild pulmonary vascular congestion. I have also reviewed the laboratory data. A significant rise in the B-type natriuretic peptide is noted. The patient was given Lasix in the emergency room. Cardiology consult with Dr. Silva has been ordered. On physical exam, the patient is in mild bronchospasm. However, there is no significant alveolar-arterial gradient. I will start the patient on nebulizer treatments, inhaled steroids, and low-dose intravenous steroids. The patient does feel somewhat better at the time of my examination - compared to the past few days. I did discuss the patient's significant noncompliance with medications and office followup with him at length. I have also discussed his social habits with him again at length. The patient does appear depressed. Psychiatric evaluation may be of benefit at this point in time. The patient will be admitted for close observation. I will discuss the above with Dr. Jiménez. Thank you very much for this Pulmonary consultation. Elie Young MD [facility]EN
[2018-01-15] MEDS ORDERED: Pneumococcal 23-Valent Vaccine IM ONE (18:34)
[2018-01-15] MEDS ORDERED: Influenza Vaccine 60 mcg/0.5 mL SYR (4YR UP) IM ONE (18:34)
--- NOTE | 2018-01-15 18:40 | CARD ---
APPROVED REPORT Date of service: 01/15/2018 EKG Measurement Heart [id number] <Conclusion> Sinus rhythm with 1st degree AV block Nonspecific intraventricular block Abnormal ECG
--- NOTE | 2018-01-15 20:15 | CON ---
DATE: 01/15/2018 HISTORY OF PRESENT ILLNESS: The patient is a 52-year-old white male, who presented to the emergency room complaining of shortness of breath of approximately 1 day duration. He has also had a productive cough. He has a history of cardiomyopathy and gout. He also has a history of intermittent alcohol use, with he having relapsed recently, having drank approximately one gallon of rum over the past 3 to 4 days. The patient is feeling discouraged/depressed both about his relapse, about his inability to completely control his alcohol use, and a number of unresolved life issues. The patient's medical history also includes congestive heart failure, diverticulosis, hemorrhoids, and COPD. He has had a history of renal insufficiency in the past, which has been resolved according to medical records. I have discussed his situation with his PMD, Dr. Jiménez. He is maintained on Coreg, Lipitor, amiodarone, Aldactone, Eliquis, and Lasix. The patient reminds me that I had seen him in the hospital previously, although he could not say exactly when. Records indicate that I did see him in the emergency room in May 2016 with a similar presentation. At that time, he had been stressed in the midst of a GI workup for a pancreatic adenopathy. At that time, he had been consuming approximately seven shots of [place] Danish whiskey daily with this having been a long-term pattern (years). The patient presently is speaking about being depressed, not only about his relapse, but seems to be having conflict with his of 21 years, who is 60 years old and in good health, not only about his drinking, but about the involvement with her ex- in their lives; this having become more prominent at this time because one of her two daughters has an infant grandson that he cares for very much, but finds that her ex- is also very much involved in their lives over this. The patient is also depressed over unresolved issues regarding conflict with at least one of his brothers over the distribution of his parent's estate, this has led him not speaking to one brother and another brother and not being happy with that situation. The patient is a [employer] [place] and a high school graduate, who attended 1 year of [employer], but dropped out because he wanted to make money. 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 However, he has had to be retired approximately 10 years ago because of his cardiomyopathy, and he has not been happy with this. Indeed, several family members have had a cardiomyopathy. He had one brother that of a heart attack on [place] 1999 and another killed himself in 2005 (this was by an opioid overdose). According to the patient, his mother of a broken heart from this approximately 3 years after that son's demise. His father of a malignant melanoma in 2010. The patient indicated that he started drinking in high school, has had blackouts in the past and a DWI in 1982. He went for several months to rehab in [place] in the early 1999 and then was sober for 5 years, before then relapsing. When I had seen him in 2016, he refused an antidepressant, but is more receptive to this presently. I have also spoken to the patient about getting involved with individual counseling to help him with a number of his unresolved psycho-conflictual issues that contribute to or result from his alcohol use. I will provide him with the name of a therapist when he is more medically stabilized. Presently, his white count is elevated at 11.5 and hemoglobin lowered at 12.2/hematocrit 37.3. Blood alcohol level is 240 mg percent. His BUN is elevated at 37, creatinine elevated at 2.2. Blood glucose 120, phosphorus elevated at 4.7, liver function test show an elevated AST of 258, ALT 204 with alkaline phosphatase at 171. Blood pressure presently 110/70, temperature 97.3, and respiratory rate 20. I will start the patient on an antidepressant. Daljit Cerda MD/ PhD
[2018-01-15] MEDS: Budesonide 0.5 mg/2 ml Inhal Susp UD IH SCH (20:47)
[2018-01-15 22:21] LABS: BARBITURATES, UR NEGATIVE (NEGATIVE); BENZODIAZEPINES, UR NEGATIVE (NEGATIVE); OPIATES, UR NEGATIVE (NEGATIVE); PHENCYCLIDINE, UR NEGATIVE (NEGATIVE)
[2018-01-16] MEDS: Levalbuterol 1.25 MG/3 ML Inhal Soln UD IH SCH ×5 (01:15→20:10)
[2018-01-16] MEDS ORDERED: guaiFENesin 200 mg/10 ml Syrup UD PO PRN (02:07)
[2018-01-16 06:57] LABS: INR 3.01; PROTHROMBIN TIME 35.4 SECONDS (9.4-12.5)
[2018-01-16 06:58] LABS: GRAN # 7.42 (1.4-6.5); GRAN % 91.5 % (50.0-68.0); LYMPH # 0.4 (1.2-3.4); LYMPH % 4.9 % (22.0-35.0); MEAN CELL VOLUME 91.3 fl (80.0-105.0); MEAN CORPUSCULAR HEMOGLOBIN 30.1 pg (25.0-35.0); MEAN CORPUSCULAR HGB CONC 32.9 g/dl (31.0-37.0); MEAN PLATELET VOLUME 9.3 fl (7.0-11.0); MONO # 0.3 (0.1-0.6); MONO % 3.6 % (1.0-6.0); PLATELET COUNT 222 10^3/uL (120.0-450.0); RBC 3.66 10^6/uL (3.5-6.1); RED CELL DISTRIBUTION WIDTH 14.4 % (11.5-14.5); WHITE BLOOD COUNT 8.1 10^3/uL (4.5-11.0)
[2018-01-16] MEDS ORDERED: Levalbuterol 1.25 MG/3 ML Inhal Soln UD IH PRN (07:24)
[2018-01-16 07:26] LABS: ALBUMIN 3.9 g/dL (3.0-4.8); CALCIUM 9.2 mg/dL (8.4-10.5)
[2018-01-16] MEDS: Budesonide 0.5 mg/2 ml Inhal Susp UD IH SCH ×2 (08:06→20:11)
[2018-01-16 08:09] LABS: LYMPHOCYTE 5 % (22.0-35.0); MONOCYTE 1 % (1.0-6.0); NEUTROPHIL 94 % (50.0-70.0); NUCLEATED RED BLOOD CELL 1 %
[2018-01-16 08:10] LABS: PLATELET ESTIMATE NORMAL (NORMAL)
[2018-01-16] MEDS: MethylPREDNISolone 40 mg Vial IVP SCH ×2 (09:27→21:16)
--- NOTE | 2018-01-16 09:48 | PN ---
DATE: 01/16/2018 SUBJECTIVE: The patient appears comfortable this morning. He is not short of breath at rest. PHYSICAL EXAMINATION: VITAL SIGNS: Temperature 97.3, pulse 66, respirations 18, blood pressure 124/82. Oxygen saturation on room air is 99%. HEENT: Normocephalic, atraumatic. NECK: No JVD. CARDIOVASCULAR: Systolic ejection murmur at the lower left sternal border. Questionable S3 gallop. LUNGS: Improved breath sounds at the bases. Much less rhonchi. Much less wheezing. EXTREMITIES: Positive for edema. No cyanosis or clubbing. Calves are nontender to palpation. GI: Abdomen is soft, nontender and nondistended. Bowel sounds are positive. SKIN: No acute rash. NEUROLOGIC: Exam limited at the present time. IMPRESSION: 1. Acute bronchitis. 2. Chronic obstructive pulmonary disease. 3. Acute congestive heart failure. 4. Dilated cardiomyopathy. 5. Alcohol intoxication. 6. Renal insufficiency. PLAN: The patient appears comfortable this morning. He is not short of breath at rest. He does state to feeling much better overall. He does appear depressed. I did discuss the case with the night nurse at length. The night nurse stated the patient had a very good night. On physical exam, his bronchospasm is significantly less. In addition, the oxygen saturation on room air is now 99%. I will continue with the current nebulizer treatments and decrease the intravenous steroids this morning. Input by Psychiatry is noted. Consultations with Cardiology and GI have been ordered. Clinical status of the patient is certainly improved - compared to yesterday. However, the future status/prognosis for this patient does remain very guarded. I will discuss the above with Dr. Jiménez. Elie Young MD MTDD
[2018-01-16] MEDS ORDERED: Levothyroxine 25 MCG TAB PO SCH (10:00)
--- NOTE | 2018-01-16 10:35 | PN ---
DATE: 01/16/2018 SUBJECTIVE: This is a 52-year-old male on telemetry. PHYSICAL EXAMINATION: VITAL SIGNS: The patient has a temp of 97.3, his pulse is 66, his blood pressure is reported at 124/82 with an oxygen sat of 99% on room air with a respiratory rate of 18. GENERAL: He is awake and alert. LUNGS: Show diminished breath sounds at the bases. HEART: An S1, S2. ABDOMEN: Obese, soft with positive bowel sounds. EXTREMITIES: Show edema. LABORATORY DATA: WBC is 8.1, RBC is 3.66, hemoglobin is 11, hematocrit is 33.4, platelet count is 222. His PT is 35.4 with an INR 3.01. Chemistries this morning showed that his GGT is 201. His AST is 435, his ALT is 329, his alkaline phosphatase is 178. His TSH level was 8.65 with a T3 uptake of 45.9. Chemistry shows sodium of 134, potassium 5, chloride 101, BUN is 47, the creatinine is 2.1, his glucose is 120, his calcium is 9.2, the bilirubin is 1.2. He had an alcohol level of 240. His urinalysis showed urine protein of 30 with a small amount of blood. At this time, the patient has been placed on Celexa, Coreg, Lasix IV, Librium, Pulmicort, Robitussin, Solu-Medrol, Synthroid, Xopenex. PROBLEMS AT THIS TIME: 1. Chronic obstructive pulmonary disease. 2. He has sleep apnea. 3. He has liver disease. 4. He has chronic renal disease. 5. He has cardiomyopathy. 6. History of paroxysmal atrial fibrillation. 7. History of gouty arthritis. 8. History of hypothyroid disease. 9. Past history of congestive heart failure. The patient has been seen by Pulmonary, placed on respiratory treatments. He has been seen by Psychiatry, placed on an antidepressant. He is also placed on Librium. The psychiatrist's note has been read and reviewed and greatly appreciated as is the Pulmonary note. Cardiology note is pending. I have discussed the case with GI. A hepatitis panel has been requested along with an ultrasound of his abdomen and liver. To this point, all the clinical data has been discussed with the patient and he is aware of the clinical findings and current plan of treatment. Medications as stated. We will continue to monitor the patient closely given his multiple medical issues with followup labs. Qing Jiménez MD
[2018-01-16] MEDS ORDERED: Bacitracin 500 Units/gm Oint Foilpak UD ONE (12:58)
--- NOTE | 2018-01-16 13:36 | PN ---
DATE: 01/16/2018 IDENTIFYING INFORMATION: The patient is a 52-year-old white male admitted yesterday with chest pain. He is also on the midst of alcohol withdrawal. He has appeared very anxious and has been asking for Ativan. He has been pacing. Presently, however, the patient is sedate after having received Librium which is being given to him on a p.r.n. basis to treat his alcohol withdrawal symptoms. He has also been started on antidepressant, with he attributing to his present lapse/relapse of rum use to a number of psychosocial issues in his life, including perception of lack of control of his interactions with his 's ex-, unresolved feelings over family conflict with 2 brothers regarding his parent's estate, enforced penitentiary due to his cardiomyopathy. He also has a history of COPD and is presently on a CPAP, he has sleep apnea, liver disease, chronic renal disease, gouty arthritis, hypothyroidism and a history of congestive heart failure. As noted, he was started on Celexa yesterday. LABORATORY DATA: Hemoglobin today 11.0, hematocrit 33.4. BUN elevated at 47, creatinine elevated at 2.1, glucose 175, liver enzymes significantly higher than yesterday with AST 435, ALT 329. The patient shows an elevated TSH of 8.65 and T3 uptake 45.9. PHYSICAL EXAMINATION VITAL SIGNS: Blood pressure 137/87, temperature 97.4, pulse 61, and respiratory rate 18. Daljit Cerda MD/ PhD
--- NOTE | 2018-01-16 13:50 | CON ---
DATE: 01/16/2018 GASTROENTEROLOGY CONSULTATION REFERRING PHYSICIAN: Dr. Qing Jiménez. REASON FOR CONSULTATION: I have been asked to see this 52-year-old male with a known history of dilated cardiomyopathy, congestive heart failure, COPD, diverticulosis, bleeding hemorrhoids, alcohol abuse, who comes to the hospital with 2 days of shortness of breath, dyspnea at rest, and cough productive of whitish sputum. Routine blood work revealed elevated AST, ALT, and alk phos. I have been asked to evaluate this patient. The patient is known to me for bleeding hemorrhoids in the past. The patient states that over the last 4 days he has consumed a quart of rum daily. His blood alcohol level was over 200 on admission to the hospital. The patient also has a permanent pacemaker and AICD. PAST MEDICAL HISTORY: As above. Again, he has a history of dilated cardiomyopathy, congestive heart failure, COPD, diverticulosis, bleeding hemorrhoids, and alcoholic liver disease. SOCIAL HISTORY: He has a longstanding history of alcohol abuse. He has recently been on a alcohol binge consuming a quart of rum daily. He denies cigarette smoking. PAST SURGICAL HISTORY: Notable for placement of a permanent pacemaker, AICD, right knee surgery. FAMILY HISTORY: Noncontributory. REVIEW OF SYSTEMS: Fourteen-point review of systems is notable for shortness of breath, dyspnea at rest, cough productive of white sputum. MEDICATIONS AT HOME: Include Coreg, Lipitor, amiodarone, Aldactone, Eliquis, Symbicort, and Lasix. PHYSICAL EXAMINATION: GENERAL: Well-developed male, lying in bed, in no acute distress. VITAL SIGNS: Reveal temperature of 97.3, blood pressure 120/80, heart rate of 62. HEENT: Reveal sclerae to be white. Conjunctivae pink. NECK: Supple. CHEST: Lungs are clear. HEART: Exam reveals a regular rate and rhythm. ABDOMEN: Obese, soft, nontender. EXTREMITIES: Show no edema. LABORATORY DATA: Reveal white blood cell count 8.1, hemoglobin 11. Chemistries reveal AST 435, ALT 329, GGTP of 201, alkaline phosphatase 178, total bilirubin of 1.2. On admission to the hospital, his AST was 258, ALT 204, alkaline phosphatase 171. BNP was 9960. Coags reveal a PT of 35.4, INR of 3.01. Blood alcohol level was 240. IMPRESSION: A 52-year-old male with known history of cardiomyopathy, status post AICD permanent pacemaker placement with a recent alcohol binge, consuming a quart of rum daily for the last 4 days. His blood alcohol level was over 200. His elevated liver enzyme is secondary to alcoholic hepatitis. There may be a component of passive congestion of the liver given his history of cardiomyopathy. Chest x-ray showed clear lungs but an enlarged heart. RECOMMENDATIONS: 1. We will check hepatitis serology. 2. Follow liver enzymes. 3. We will check ultrasound of the liver. 4. We will need to observe the patient closely for signs of DTs. Trevor August MD
--- NOTE | 2018-01-16 14:08 | CON ---
DATE: 01/16/2018 ENDOCRINOLOGY CONSULTATION LOCATION: Room 275. HISTORY OF PRESENT ILLNESS: This is a 52-year-old male with known history of hypothyroidism and also underlying cardiomyopathy and has been admitted with progressive shortness of breath and undergoing cardiac and pulmonary workup and management and is being referred also for Endocrine evaluation for known history of hypothyroidism. PAST MEDICAL HISTORY: History of hypothyroidism, currently on Synthroid at 25 mcg daily; history of hypertension and dyslipidemia; history of cardiomyopathy with bradyarrhythmias and had a previous pacemaker and defibrillator placement undertaken thereof; history of COPD and also has previous admissions for exacerbations of the same. He also had previous admissions for congestive heart failure, currently controlled on cardiac medications. FAMILY HISTORY: Positive for hypertension and heart disease. SOCIAL HISTORY: The patient has supportive family. No known substance use. REVIEW OF SYSTEMS: As mentioned above, admits to generalized body weakness with easy fatigability and tiredness and suboptimal energy level. Also admits to sudden onset of precordial chest pain with progressive shortness of breath, initially on exertion and then at rest with paroxysmal nocturnal dyspnea. His oral intake has been variable with occasional dyspepsia and nausea and vague upper abdominal pains. No recent alterations of bowel and urinary patterns. PHYSICAL EXAMINATION: GENERAL: This is an average built male, in no apparent distress. VITAL SIGNS: Blood pressure of 150/90, pulse of 100 beats per minute, regular, temperature 98, respirations 20. His height is 5 feet 6 inches, weight is 199 pounds. HEENT: Head, normocephalic. Eyes anicteric with pink conjunctivae. Fundoscopy not possible at this time. Ears, nose and throat, otherwise normal. NECK: Supple. Thyroid gland is firm and nontender with no overt thyroid nodules. HEART: Hyperdynamic precordium. S1, S2 are rapid and regular. LUNGS: Show scattered rhonchi. ABDOMEN: Flat, soft with positive bowel sounds. EXTREMITIES: No peripheral edema. Pulses are +2 bilaterally. LABORATORY DATA: His chemistries showed a BUN of 47, sodium 134, potassium 5.0, chloride 101, CO2 of 20, glucose 175, and creatinine 2.1. His T4 or thyroxine is 7.2 with a TSH of 8.65. ASSESSMENT: This is a 52-year-old male with subclinical hypothyroidism, most likely related to a subtherapeutic dose regimen with possible underlying autoimmune thyroiditis as noted thereof. He presents here with acute exacerbation of chronic obstructive pulmonary disease, currently on IV steroid therapy as given. He also has underlying cardiomyopathy with bradyarrhythmias and prior pacemaker and defibrillator insertion thereof. PLAN OF MANAGEMENT: We will modify his levothyroxine dose regimen accordingly and increase the levothyroxine to 75 mcg every morning to start tomorrow as ordered. We will obtain a comprehensive thyroid hormonal profile as ordered. We will also add thyroid antibodies to confirm and/or indicate the presence of underlying thyroid autoimmunity. We will obtain serial chemistries and supplement accordingly as needed. We will follow and advise accordingly. Connie Harris MD
--- NOTE | 2018-01-16 15:01 | CON ---
DATE: 01/16/2018 CONSULTATION INDICATIONS: Edema, cough, dyspnea, abdominal pain, decompensated congestive heart failure, and alcohol abuse. HISTORY OF PRESENT ILLNESS: This is a 52-year-old male, well-known to me with cardiomyopathy on a familial basis, aggravated by alcohol, who has resumed alcohol intake recently and developed increasing edema, shortness of breath, cough, and abdominal discomfort. He was admitted yesterday through the emergency room. He is on telemetry. He feels better this morning, but appears depressed and despondent. There is no chest pain, palpitations, syncope, fever, chills, hemoptysis, nausea, vomiting, diarrhea, constipation, or melena. PAST MEDICAL HISTORY: His past medical history is notable for congestive cardiomyopathy. There is familial cardiomyopathy as well as alcohol-related cardiomyopathy. His last echocardiogram in July revealed severe LV dysfunction with an LV ejection fraction about 10% to 15%. It also showed mild MR, moderately severe tricuspid regurgitation, and moderate pulmonary hypertension. He has a history of congestive heart failure, paroxysmal atrial fibrillation, on Eliquis. He has an ICD implant with a history of ventricular tachycardia. He has a history of COPD, sleep apnea, diverticulosis, hemorrhoidal bleeding, chronic kidney disease, anemia, and cirrhosis. He had been off alcohol successfully for several months, but recently resumed, possibly related to familial and marital stress. MEDICATIONS: Medications at the time of admission included spironolactone, amiodarone, Coreg, Eliquis, Lasix, potassium chloride, Lipitor, Symbicort, and Synthroid. ALLERGIES: THERE ARE NO MEDICATION ALLERGIES REPORTED. SOCIAL HISTORY: He lives at home with his . He is ambulatory. He does not smoke cigarettes. He does not use drugs. FAMILY HISTORY: Family history is notable for cardiomyopathy. REVIEW OF SYSTEMS: Ten-point review of systems is otherwise unremarkable except as noted above. PHYSICAL EXAMINATION: GENERAL: He is a well-developed male, sitting on his bed in telemetry, in no acute distress. VITAL SIGNS: Notable for sinus rhythm at 66 beats per minute. He is afebrile. Blood pressure 124/82, respirations 18 to 20, and O2 sat 96%. HEENT: Exam reveals no neck vein distention, thyromegaly, carotid bruit. Mucous membranes are moist. Conjunctivae pink. NECK: Supple. LUNGS: Lung cyr, scattered rales. HEART: Examination of the heart revealed distant first and second heart sounds. There is a systolic murmur along the left sternal border and at the apex. PMI is not palpable. ABDOMEN: Abdomen is soft. Bowel sounds present. Mild right upper quadrant tenderness. No mass, organomegaly. Palpable abdominal aortic aneurysm. EXTREMITIES: Extremity exam revealed [id number] pitting edema in both lower extremities. NEUROLOGIC: Awake, alert, and depressed. PSYCHIATRIC: Depressed. SKIN: Warm and dry. No rash or cellulitis. LABORATORY AND IMAGING DATA: Chest x-ray revealed no active disease. The EKG revealed sinus rhythm with first-degree heart block, intraventricular conduction delay. White count 8100, hemoglobin 11, hematocrit 33.4, and platelet count 222,000. PT and INR this morning are 35.4 and 3.01, PTT is 32.5. Electrolytes notable for potassium of 5, BUN 47, creatinine 2.1, blood sugar 175, and magnesium 1.9. Elevated LFTs are noted. CK 56, troponin 0.02. BNP 9960, T4 of 7.2, TSH elevated at 8.65. Urinalysis is noted. Toxicology is noted. Alcohol level was 240. IMPRESSION: Jack Granados is a 52-year-old alcoholic male admitted with a relapse of alcohol consumption after several months of abstinence. He developed increasing symptoms of congestive heart failure and is admitted to telemetry. In addition, he has acute on chronic kidney disease, hyperkalemia, and abnormal liver function tests. PLAN: At this time, he is on telemetry. He is being seen by Psychiatry and Pulmonary. He is getting Ativan, Celexa, flu vaccine, Librium, Xopenex, Pulmicort, and methylprednisolone. I will resume Coreg. He will get IV Lasix. I will hold Eliquis and monitor PT/INR. I will hold spironolactone in view of hyperkalemia. I will hold amiodarone and Lipitor in view of abnormal liver functions. We will monitor I's and O's, labs, sats. We will monitor for DTs and changes in neuro status. He should be considered for inpatient detoxification and ongoing psychiatric treatment and support. I will review his old echocardiogram. I have ordered stool for occult blood. We will monitor I's and O's daily. We will monitor his daily weight. Check stool for occult blood. I will follow along with you and make additional recommendations based on his clinical course. Stephan Vázquez MD MTDJuly
[2018-01-16 16:27] LABS: HEPATITIS B SURFACE AG Negative (NEGATIVE)
[2018-01-16 16:33] LABS: HEPATITIS A IGM NEGATIVE (NEGATIVE); HEPATITIS B CORE AB NEGATIVE (NEGATIVE)
[2018-01-16 16:45] LABS: HEPATITIS C ANTIBODY NEGATIVE (NEGATIVE)
--- NOTE | 2018-01-16 19:15 | CON ---
DATE: 01/16/2018 REASON FOR CONSULTATION: Acute kidney injury superimposed on chronic kidney disease stage III, shortness of breath. HISTORY OF PRESENT ILLNESS: A 52-year-old male with obesity, cardiomyopathy, alcohol abuse, chronic kidney disease stage III, presented to the emergency room yesterday with complaints of shortness of breath, some cough. No fever, no chills. He denied any chest pain. He denied any abdominal pain, nausea or vomiting. In the emergency room, he was found to be hemodynamically stable. His initial blood work showed elevated WBC count of 11.5. His creatinine was elevated at 2.1. His baseline creatinine is around 1.8. He was also found to have elevated LFTs, AST 258, ALT 204. His alcohol level was found to be 240. PAST MEDICAL AND SURGICAL HISTORY: CHF, cardiomyopathy, decreased ejection fraction of 10% to 15%, mild MR, severe tricuspid regurg, AICD, history of ventricular tachycardia, COPD, chronic kidney disease stage III, anemia, alcoholic liver disease. FAMILY HISTORY: Noncontributory. SOCIAL HISTORY: Lives at home, binge drinking. ALLERGIES: NO KNOWN DRUG ALLERGIES. MEDICATIONS AT HOME: Aldactone 25 b.i.d., potassium 20 mEq b.i.d., Lasix 40 b.i.d., Coreg 25 b.i.d., Lipitor 80, Eliquis 5 b.i.d., amiodarone 100. REVIEW OF SYSTEMS: Currently unavailable, as the patient is somewhat lethargic, on BiPAP. PHYSICAL EXAMINATION: GENERAL: Morbidly obese, middle-aged male, lying in bed. VITAL SIGNS: Blood pressure 137/87, heart rate 61, respiratory rate 18, temperature 97.4. HEENT: Normocephalic, atraumatic, positive pallor. NECK: Supple, no JVD. LUNGS: Bilateral equal entry, bilateral equal expansion, decreased air entry at bases. CARDIAC: S1 and S2, regular rate and rhythm, no murmur, no rub. ABDOMEN: Obese, distended, soft, nontender, bowel sounds present. EXTREMITIES: 1+ pitting edema of the lower extremities. INTAKE AND OUTPUT: Not charted. LABORATORY DATA: Alcohol level 240. Tylenol level less than 10. WBC 8, hemoglobin 11, hematocrit 33, platelets 222,000. Sodium 134, potassium 5.0, chloride 101, CO2 of 20, BUN 47, creatinine 2.1, glucose 175, calcium 9.2, phosphorus 4.0, magnesium 1.9, GGT 201, AST 435, ALT 329, albumin 3.9. Urinalysis, yellow, clear, pH 6.0, specific gravity 1020, protein 30, blood small, nitrite negative, leukocyte esterase negative. CURRENT MEDICATIONS: Celexa, Coreg 25 b.i.d., Lasix 40 IV daily, Librium, Solu-Medrol 20 IV every 12 hours, Synthroid, Xopenex. ASSESSMENT: 1. Alcohol intoxication. 2. Alcoholic liver disease. 3. Severe cardiomyopathy, decreased ejection fraction. 4. Decompensated congestive heart failure. 5. Acute kidney injury superimposed on chronic kidney disease stage III, secondary to cardiorenal syndrome. 4. Morbid obesity. 5. Borderline hyperkalemia. 6. Chronic obstructive pulmonary disease exacerbation. PLAN: 1. Agree with respiratory treatments. 2. Continue Lasix. 3. Keep O's greater than I's. 4. Monitor for DTs. 5. Avoid nephrotoxins. Amina Martin MD
[2018-01-17] MEDS: Levalbuterol 1.25 MG/3 ML Inhal Soln UD IH SCH ×4 (03:25→20:51)
[2018-01-17 06:41] LABS: INR 2.05; PROTHROMBIN TIME 23.9 SECONDS (9.4-12.5)
[2018-01-17 07:01] LABS: GRAN # 11.21 (1.4-6.5); GRAN % 91.2 % (50.0-68.0); HEMOGLOBIN 10.9 g/dL (14.0-18.0); LYMPH # 0.6 (1.2-3.4); LYMPH % 4.5 % (22.0-35.0); MEAN CELL VOLUME 92.6 fl (80.0-105.0); MEAN CORPUSCULAR HEMOGLOBIN 29.9 pg (25.0-35.0); MEAN CORPUSCULAR HGB CONC 32.2 g/dl (31.0-37.0); MEAN PLATELET VOLUME 9.3 fl (7.0-11.0); MONO # 0.5 (0.1-0.6); MONO % 4.3 % (1.0-6.0); RBC 3.65 10^6/uL (3.5-6.1); RED CELL DISTRIBUTION WIDTH 14.7 % (11.5-14.5); WHITE BLOOD COUNT 12.3 10^3/uL (4.5-11.0)
[2018-01-17 07:25] LABS: ALB/GLOB RATIO 1.1 (1.1-1.8); ALBUMIN 3.9 g/dL (3.0-4.8); CALCIUM 9.5 mg/dL (8.4-10.5)
[2018-01-17] MEDS: Budesonide 0.5 mg/2 ml Inhal Susp UD IH SCH ×2 (07:38→20:51)
--- NOTE | 2018-01-17 07:43 | PN ---
DATE: 01/17/2018 PULMONARY NOTE SUBJECTIVE: The patient appears comfortable this morning. He is not short of breath at rest. PHYSICAL EXAMINATION: VITALS: Temperature is 98, pulse 66, respirations 19, and blood pressure 145/86. Oxygen saturation on room air is 97%. HEENT: Normocephalic, atraumatic. No JVD. CARDIOVASCULAR: Systolic ejection murmur at the lower left sternal border. Questionable S3 gallop. LUNGS: Still with minimal rhonchi and wheezing bilaterally - albeit less. EXTREMITIES: Positive for edema. No cyanosis, no clubbing. Calves are nontender to palpation. GASTROINTESTINAL: Abdomen is soft, nontender, and nondistended. Bowel sounds are positive. SKIN: No acute rash. NEUROLOGIC EXAM: Limited at the present time. IMPRESSION: 1. Acute bronchitis. 2. Chronic obstructive pulmonary disease. 3. Acute congestive heart failure. 4. Dilated cardiomyopathy. 5. Alcohol intoxication. 6. Renal insufficiency. PLAN: The patient appears comfortable this morning. He is not short of breath at rest. He does state to feeling much better overall. I did discuss the case with the night nurse at length. The night nurse stated that the patient had a good night, and wore his CPAP throughout the night. On physical exam, there is still mild bronchospasm noted (less overall). In addition, there is no significant alveolar-arterial gradient. I will continue the current nebulizer treatments and low-dose intravenous steroids (decreased yesterday) for now. We should be able to transition the patient to oral prednisone in the next 24-48 hours. I would continue with the treatment for congestive heart failure and cardiomyopathy as per Cardiology. Input by Dr. Vázquez is noted. The patient remains on intravenous Lasix. Inputs by Renal and Psychiatry are also noted. Clinical status of the patient is certainly improved - compared to his initial presentation. However,given the above, he does remain guarded overall. I will discuss the above with Dr. Jiménez. Elie Young MD RUBEN
--- NOTE | 2018-01-17 07:47 | CP.PCM.PN ---
Subjective - Date & Time of Evaluation Date of Evaluation: 01/17/18 Time of Evaluation: 07:00 - Subjective Subjective: Stable on 2R. No CP or SOB. Edema better. Depressed. V/S noted. RSR/S. Marky PE: Lungs: rhonchi Cor.:S1S2 Abd.: obese, soft Ext: mild edema Neuro: alert, depressed I/O: 860/100 recorded Labs noted: Cr.= 2.2, INR = 2.05, Abd LFTs, K+= pending Abd. U/S pending Objective - Vital Signs/Intake and Output Vital Signs (last 24 hours): Temp Pulse Resp BP Pulse Ox 98.0 F 66 19 145/86 97 01/17/18 06:00 01/17/18 06:00 01/17/18 06:00 01/17/18 06:00 01/17/18 06:00 Intake and Output: 01/17/18 01/17/18 06:59 18:59 Intake Total 200 Output Total 0 Balance 200 - Medications Medications: Current Medications Budesonide (Pulmicort Respules) 0.5 mg IH [id number] [facility] Last Admin: 01/16/18 20:11 Dose: Not Given Carvedilol (Coreg) 25 mg PO BID [facility] Last Admin: 01/16/18 21:16 Dose: 25 mg Chlordiazepoxide (Librium) 25 mg PO Q4 [facility]; Protocol Last Admin: 01/17/18 04:00 Dose: Not Given Citalopram Hydrobromide (Celexa) 10 mg PO DAILY [facility] Last Admin: 01/16/18 09:28 Dose: 10 mg Furosemide (Lasix) 40 mg IVP DAILY [facility] Last Admin: 01/16/18 09:27 Dose: 40 mg Guaifenesin (Robitussin) 200 mg PO Q4H PRN PRN Reason: Cough and congestion Last Admin: 01/16/18 02:40 Dose: 200 mg Levalbuterol HCl (Xopenex) 1.25 mg IH [id number] [facility] Last Admin: 01/17/18 03:25 Dose: Not Given Levalbuterol HCl (Xopenex) 1.25 mg IH Q2H PRN PRN Reason: Shortness of Breath Levothyroxine Sodium (Synthroid) 75 mcg PO ACB CARL[facility] Methylprednisolone (Solu-Medrol) 20 mg IVP Q12 [facility] Last Admin: 01/16/18 21:16 Dose: 20 mg - Labs Labs: 01/17/18 06:00 01/17/18 06:00 PT 23.9 SECONDS (9.4-12.5) H 01/17/18 06:00 INR 2.05 01/17/18 06:00 APTT 32.5 Seconds (25.1-36.5) 01/15/18 11:15 Assessment and Plan - Assessment and Plan (Free Text) Assessment: Dyspnea, Edema, Abdominal Discomfort Acute on chronic ETOH Acute on chronic kidney disease CCM/CHF/Sev. LVD on echo with mild MR, mod/sev TR and mod. PH PAF, on Eliquis VT ICD COPD DENISE Cirrhosis Anemia Plan: Continue IV Lasix Hold Eliqus, amiod., spironolactone for now Monitor: tel, I/O, labs, renal fx, LFTs, sats, etc As per Dr Jiménez, Psych., Renal, GI, Pulm. Will need in-pt. detox and psych tx. OOB as jeannette.
[2018-01-17] MEDS: Levothyroxine 75 MCG TAB PO SCH (08:08)
[2018-01-17] MEDS: MethylPREDNISolone 40 mg Vial IVP SCH ×2 (09:27→21:32)
--- NOTE | 2018-01-17 10:37 | PN ---
DATE: 01/17/2018 SUBJECTIVE: The patient is alert this morning. Nursing staff relates that there were no particular problems during the night. PHYSICAL EXAMINATION: VITAL SIGNS: Temperature is 98, pulse is 66, blood pressure is 145/86, respiratory rate is 19, oxygen sat is reported at 97% on room air. NECK: Supple. LUNGS: His lungs show diminished breath sounds at the bases. HEART: S1, S2 rhythm. ABDOMEN: Soft. Positive bowel sounds. Obese. EXTREMITIES: Show edema. LABORATORY DATA: WBC is 12.3, RBC is 3.65, hemoglobin 10.9, hematocrit 33.8, platelet count is 208. His PT is 23.9 with INR 2.05. Chemistry shows sodium of 135, potassium 4.8, chloride 102, CO2 of 22, BUN of 60, creatinine is 2.2. Random blood sugar is 173, calcium is 9.5. His AST is now 159, his ALT is 238, his alkaline phosphatase is 183. His total bilirubin is 0.8. At the present time the patient is on Celexa 10 mg daily, Coreg 25 mg b.i.d., Lasix 40 mg IV daily Librium 25 mg every 4 hours, Pulmicort 0.5 mg every 12 hours, Robitussin 200 mg p.o. every 4 hours p.r.n., Solu-Medrol 20 mg IV every 12 hours, Synthroid 75 mcg p.o. daily, Xopenex 1.25 mg every 6 hours and every 2 hours p.r.n. ASSESSMENT: 1. The patient is receiving IV Lasix, being followed by Cardiology He has a history of cardiomyopathy with congestive heart failure in the past, defibrillator in place and diminished ejection fraction, mild pulmonary hypertension. Medications being monitored by Cardiology. 2.Pulmonary note appreciated. 3.Renal CKD Elevated bun/creatinine being followed by Renal F/u labs 4.Elevate wbc neg urine __Closely monitor 5.Liver funcyions better continue as per GI await ultrasound 6.Psych note appreciated. 7. 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 9.Hypothyroid endocrine noted ?compliance MTDD
[2018-01-17 10:53] LABS: IRON 68 ug/dL (45-180)
[2018-01-17 11:02] LABS: % IRON SATURATION 22 % (20-55); TOTAL IRON BINDING CAPACITY 315 ug/dL (261-462)
--- NOTE | 2018-01-17 11:04 | US ---
Date of service: 01/16/2018 HISTORY: Elevated LFT's COMPARISON: None. TECHNIQUE: Sonographic evaluation of the abdomen. FINDINGS: LIVER: Measures 17.37 x 12.25 cm. Increased echogenicity of the liver parenchyma. No mass. No intrahepatic bile duct dilatation. GALLBLADDER: Unremarkable. No gallstones. COMMON BILE DUCT: Measures 4 mm. No stones. No dilatation. PANCREAS: Unremarkable as visualized. No mass. No ductal dilatation. RIGHT KIDNEY: Measures 10.14 x 5.92 x 5.94cm. Normal echogenicity. No calculus, mass, or hydronephrosis. AORTA: No aneurysmal dilatation. IVC: Unremarkable. OTHER FINDINGS: None. IMPRESSION: Echogenic liver consistent with fatty infiltration
--- NOTE | 2018-01-17 12:01 | PN ---
DATE: 01/17/2018 SUBJECTIVE: The patient is standing up in his room. He denies any abdominal pain, nausea, vomiting. Breathing has improved. Cough is less. PHYSICAL EXAMINATION: VITAL SIGNS: Reveal temperature of 98, blood pressure 124/94, heart rate 65. HEENT: Reveal sclerae to be white. Conjunctivae pink. NECK: Supple. CHEST: Reveal lungs to be clear. HEART: Reveals a regular rate and rhythm. EXTREMITIES: Show trace pedal edema. There are no tremors. LABORATORY DATA: Laboratory data reveal white blood cell count 12.3, hemoglobin 10.9. Chemistries reveal AST down to 159, ALT down to 238, alkaline phosphatase of 183. Hepatitis serology is negative. BUN 60, creatinine 2.2. Ultrasound of the liver is consistent with steatosis of the liver. No mass is seen. IMPRESSION: 1. A 52-year-old male admitted with increasing shortness of breath, cough, acute alcohol intoxication, elevated liver enzymes. He has an acute exacerbation of chronic obstructive pulmonary disease. 2. Elevated liver enzymes secondary to alcoholic liver disease with steatosis seen on ultrasound. 3. Acute kidney injury. RECOMMENDATIONS: 1. Continue current treatment. 2. Follow liver enzymes. 3. Abstinence from alcohol. Trevor August MD
--- NOTE | 2018-01-17 16:00 | PN ---
DATE: 01/17/2018 ENDOCRINOLOGY FOLLOWUP NOTE LOCATION: In room 275. SUBJECTIVE: This is a 52-year-old male presenting here with acute exacerbation of COPD with shortness of breath and currently on IV steroid therapy and also bronchodilator therapy, and is now improving clinically and hemodynamically as noted thereof. He also has known history of hypothyroidism and the latest thyroid studies showed a TSH of 8.65 with a T4 of 7.2. LABORATORY DATA: His latest chemistry showed a BUN of 47. Sodium 134, potassium 5, chloride 101, CO2 of 20, glucose 175, and creatinine 2.1. ASSESSMENT: This is a 52-year-old male with subclinical hypothyroidism related to a subtherapeutic regimen and now tolerating a higher dose modification as given. 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 Lucero's thyroiditis with longstanding hypothyroidism as noted thereof. PLAN OF MANAGEMENT: We will continue the modified levothyroxine given at a higher dose of 75 mcg once daily in the morning as ordered. We will obtain serial chemistries and supplement accordingly as needed. We will also obtain serial thyroid antibodies to confirm and/or indicate the presence of underlying thyroid autoimmunity. We will obtain serial chemistries and supplement accordingly as needed. We will follow. Connie Harris MD
--- NOTE | 2018-01-17 18:43 | PN ---
DATE: 01/17/2018 SUBJECTIVE: The patient is seen sitting in chair. He is awake, he is alert, he is comfortable. PHYSICAL EXAMINATION: GENERAL: He does not appear to be in any kind of distress. VITAL SIGNS: Blood pressure 145/94, heart rate 64, respiratory rate 20, temperature 97.4. HEENT: Normocephalic, atraumatic. Positive pallor. NECK: Supple. No JVD. LUNGS: Bilateral equal entry, bilateral equal expansion. CARDIAC: S1 and S2, regular rate rhythm, no murmur, no rub. ABDOMEN: Obese, distended, soft, nontender, bowel sounds present. EXTREMITIES: Trace lower extremity edema. Intake and output not charted. LABORATORY DATA: WBC 12, hemoglobin 10.9, hematocrit 33.8, platelets 208. Sodium 135, potassium 4.8, chloride 102, CO2 of 22, BUN 60, creatinine 2.2, glucose 173, calcium 9.5. Iron saturation 22, iron 60. AST 159, ALT 239. Urine culture no growth. ASSESSMENT: 1. Acute kidney injury superimposed on chronic kidney disease stage III. 2. Status post alcohol intoxication. 3. History of alcoholic cardiomyopathy/alcoholic liver disease. 4. Borderline hyperkalemia. 5. Obesity. 6. Chronic obstructive pulmonary disease. PLAN: 1. Continue Lasix 40 mg IV push. 2. Continue beta-daisy. 3. Continue respiratory treatments. 4. Taper steroids. 5. Avoid . Amina Martin MD
[2018-01-18] MEDS: Levalbuterol 1.25 MG/3 ML Inhal Soln UD IH SCH ×4 (01:40→20:19)
[2018-01-18 07:25] LABS: INR 1.65; PROTHROMBIN TIME 19.2 SECONDS (9.4-12.5)
--- NOTE | 2018-01-18 07:34 | PN ---
DATE: 01/18/2018 PULMONARY PROGRESS NOTE SUBJECTIVE: Jack is feeling better since being in the hospital. He is voicing concern about use of his CPAP. He gets up in the middle of the night and is unable to fall back asleep. We have discussed this situation at length. He goes to sleep very early in the evening. He enjoys having his TV on and this is how he falls asleep. Unfortunately, his wants him quiet, so he goes to sleep early with the television. He still is getting at least 6-7 hours of sleep but wakes up at 3:00 in the morning with the inability to fall back asleep. In the hospital now, he is markedly improved, feeling better. PHYSICAL EXAMINATION: VITAL SIGNS: Remain stable. He is afebrile, heart rate is 70, respiratory rate 18, blood pressure 140/80, O2 saturation 98% on room air. HEENT: Normocephalic, atraumatic. NECK: Supple. No JVD. No lymphadenopathy. No bruit. CARDIOVASCULAR: Regular rhythm. S1, S2. Soft systolic ejection murmur at the lower left sternal border. CHEST: Global decrease in breath sounds but no rales, rhonchi or wheezing appreciated. ABDOMEN: Soft, obese, nontender, no mass, guarding, rebound or organomegaly. EXTREMITIES: Reveal no clubbing or cyanosis. There remains trace edema. There is no evidence of Homans' sign. SKIN: No rash or excoriation. NEUROLOGIC: No focal findings. IMPRESSION: 1. Obesity. 2. Obstructive sleep apnea. 3. Chronic obstructive pulmonary disease. 4. Pulmonary vascular congestion/congestive heart failure. 5. Dilated cardiomyopathy. PLAN: The patient will continue to have his bronchodilators and corticosteroids here in the hospital. Further diuresis is important. We will discuss his use of CPAP at night at home. He is getting 7 hours of sleep which should be sufficient. He needs to change his timing of his sleep cycle, sleep hygiene must be attended to. The patient should go to sleep later in the evening with his television if this is necessary and complete his 7 hours of sleep. He feels refreshed in the morning after using his CPAP and this is working appropriately. We will discuss further options regarding sleep at an outpatient visit in our office after discharge. With regard to the current bronchitis, COPD and heart failure, the patient is markedly improved, decrease medications as discussed. We will follow closely with you. Magnus Otero MD
[2018-01-18 07:38] LABS: ALB/GLOB RATIO 1.1 (1.1-1.8); CALCIUM 9.7 mg/dL (8.4-10.5)
[2018-01-18] MEDS: Budesonide 0.5 mg/2 ml Inhal Susp UD IH SCH ×2 (07:59→20:19)
[2018-01-18] MEDS: Levothyroxine 75 MCG TAB PO SCH (08:25)
[2018-01-18 09:02] LABS: HEMOGLOBIN 11.2 g/dL (14.0-18.0); MEAN CORPUSCULAR HEMOGLOBIN 30.7 pg (25.0-35.0); MEAN CORPUSCULAR HGB CONC 31.7 g/dl (31.0-37.0); RBC 3.65 10^6/uL (3.5-6.1); WHITE BLOOD COUNT 13.9 10^3/uL (4.5-11.0)
[2018-01-18 09:03] LABS: BASO # 0.02 K/mm3 (0.0-2.0); BASO % 0.1 % (0.0-3.0); EOS % 0.1 % (1.5-5.0); GRAN # 12.36 (1.4-6.5); GRAN % 89.2 % (50.0-68.0); LYMPH # 0.6 (1.2-3.4); LYMPH % 4.3 % (22.0-35.0); MEAN CELL VOLUME 96.7 fl (80.0-105.0); MEAN PLATELET VOLUME 9.8 fl (7.0-11.0); MONO # 0.9 (0.1-0.6); MONO % 6.3 % (1.0-6.0); RED CELL DISTRIBUTION WIDTH 14.9 % (11.5-14.5)
[2018-01-18] MEDS: cefTRIAXone 1 gm 1 GM/100 ML BAG IVPB SCH (11:54)
--- NOTE | 2018-01-18 13:09 | PN ---
DATE: 01/18/2018 SUBJECTIVE: The patient is seen sitting in bed on telemetry and he feels comfortable. He denies any chest pain or dyspnea. He is exhibiting no evidence of alcohol withdrawal at this time. CURRENT MEDICATIONS: His current medications include Celexa, carvedilol 25 mg b.i.d., Lasix 40 mg daily, Librium, methylprednisolone 12.5 mg b.i.d., Pulmicort inhaler, Synthroid and Xopenex. OBJECTIVE: GENERAL: He is a overweight middle-aged man. His blood pressure is 126/70 with pulse of 60 and sinus, respirations are 16. He is afebrile. HEENT: No JVD. CHEST: Few scattered rhonchi heard. HEART: PMI displaced laterally with soft tones noted. Systolic murmur at the apex. ABDOMEN: Soft, nontender with bowel sounds. EXTREMITIES: Trace ankle edema. DIAGNOSTIC DATA: Potassium 5.1, BUN and creatinine 74 and 2.3, glucose is 163. PT is 19.2 with an INR of 1.65. AST and ALT are 88 and 195 respectively. IMPRESSION: 1. Recent relapse of alcohol abuse. 2. Dyspnea, edema with some volume overloaded, clinically improved. 3. Pejfl-sm-[id number] renal insufficiency. 4. Severe congestive cardiomyopathy. 5 Mild mitral regurgitation. 6. Paroxysmal atrial fibrillation. 7. History ventricular tachycardia status post implantable cardioverter-defibrillator. 8. Chronic obstructive pulmonary disease. 9. Sleep apnea. 10. History of cirrhosis. RECOMMENDATIONS: His current cardiac medications will continue for now. His liver enzymes that will be monitored. Spirolactone remains on hold given his renal insufficiency and elevated potassium and Eliquis can be resumed at a renal dose once his renal function is noted to be stable. Amiodarone will be withheld as well given his elevated liver enzymes. Followup blood work will be planned. The need for alcohol counseling was discussed with him as well. Alcohol abstinence was strongly encouraged. We will continue to follow and make further recommendations as appropriate. Brigido Silva MD
--- NOTE | 2018-01-18 14:53 | CON ---
DATE OF CONSULTATION: 01/18/2018 The patient is seen in bed, in Room 275, Bed 2. CHIEF COMPLAINT: Weakness for several days. HISTORY OF PRESENT ILLNESS: This is a 52-year-old male with past medical history significant for chronic obstructive lung disease, sleep apnea, obesity, diverticulosis, esophageal reflux, renal disease, hyperlipidemia, congestive heart failure, who has had multiple admissions in the past, admitted on this admission with a diagnosis of chronic obstructive lung disease exacerbation and shortness of breath and cough. In the emergency room, the patient was seen by Dr. Brigido Willard who states that the patient had been short of breath and no chest pain, low-grade fevers, productive cough, no abdominal pain, no diarrhea or constipation, no bright red blood per rectum. No melena or headaches. PAST MEDICAL HISTORY: Significant for chronic obstructive lung disease, sleep apnea, obesity, congestive heart failure, diverticulosis, esophageal reflux, renal disease, hyperlipidemia. PAST SURGICAL HISTORY: Significant for ICD implant, pacemaker placement in 2005, and right knee surgery. The patient uses CPAP at home. MEDICATIONS AT HOME: Aldactone, Synthroid, Lasix, Coreg, Lipitor. ALLERGIES: THE PATIENT HAS NO KNOWN ALLERGIES. REVIEW OF SYSTEMS: A 14-point review of systems is performed. PHYSICAL EXAMINATION: GENERAL: The patient is in bed, somewhat weak. VITAL SIGNS: Temperature of 97; heart rate of 58; respiratory rate of 20, on admission it was 25; blood pressure is 121/70. HEENT: Unremarkable. NECK: Supple. LUNGS: Decreased breath sounds. HEART: Normal S1, S2. ABDOMEN: Soft, nontender. No organomegaly, no rebound, no guarding, no masses. LABORATORY EXAMINATION: Reveals a white count of 13,900, hemoglobin of 11, and platelets of 201. Chemistries reveal a creatinine is 2.3, on admission it was 2.2. The patient has had a creatinine elevation in 07/2017 when the creatinine was 2.1. LFTs are mildly elevated. Urinalysis is unremarkable. Stool occult blood is negative. Alcohol level of 240. Serology for hepatitis is negative. Microbiology: The urine culture is negative. Blood cultures in the past have been negative. Urine cultures have been negative in the past. The patient had an abdominal ultrasound done, which showed a fatty liver. The patient also had a chest x-ray done, which is negative. ASSESSMENT/PLAN: This is a 52-year-old male with chronic obstructive lung disease, obstructive sleep apnea, obesity, BMI of 32, congestive heart failure, diverticulosis, esophageal reflux, renal disease, hyperlipidemia, now with weakness with systemic inflammatory response syndrome, leukocytosis and dyspnea, must rule out community-acquired pneumonia, persistent pulmonary symptoms in case of alcohol intoxication, no fevers. We will order an influenza, blood cultures, sputum cultures, MRSA screen, and CT of the chest. EKG has a 569 QTc. We will start the patient on ceftriaxone and doxy pending initial workup results. Case discussed with Dr. Qing Jiménez. We will follow closely with you. Lance Dyer MD
--- NOTE | 2018-01-18 15:46 | PN ---
DATE: 01/18/2018 ENDO FOLLOWUP NOTE LOCATION: Room 275. SUBJECTIVE: This is a 52-year-old male with recent overt hypothyroidism, presenting here with acute exacerbation of COPD and started initially on IV steroid therapy and now has been switched over to oral steroids as noted today. LABORATORY DATA: His latest chemistry showed a BUN of 74, sodium 136, potassium 5.1, chloride 103, CO2 of 23, glucose 163, and creatinine 2.3. His latest thyroid studies showed a T4 of 7.2 with a TSH of 8.65. ASSESSMENT AND PLAN: So, at this time, we will repeat the thyroid studies tomorrow and titrate his dose regimen accordingly as indicated. In the meantime, we will continue the levothyroxine given at a higher dosing of 75 mcg once daily in the morning as ordered. We will obtain serial chemistries and supplement accordingly as needed. We will follow. Connie Harris MD
--- NOTE | 2018-01-18 17:56 | PN ---
DATE: 01/18/2018 PHYSICAL EXAMINATION: VITAL SIGNS: Temperature is 97.5, blood pressure is 125/86, respiratory rate is 18, heart rate is 86. GENERAL: The patient is alert and oriented x3. LUNGS: Show diminished breath sounds at the bases. HEART: Regular S1, S2 with a grade 3/6 systolic murmur at the left cardiac border. ABDOMEN: Obese, soft with positive bowel sounds. EXTREMITIES: Show diminished edema. LABORATORY DATA: Shows a WBC of 13.9, RBC OF 3.65, hemoglobin 11.2, hematocrit 35.3, platelet count is 201. PT is 19.2, INR 1.65. Chemistry shows sodium 136, potassium 5.1, chloride 103, the BUN is 74. The creatinine is 2.3. Random blood sugar is 163, calcium is 9.7. AST is 88, ALT is 194 and alkaline phosphatase is 185. CURRENT MEDICATIONS: Currently the patient is on Celexa, Coreg, Lasix, Librium, Medrol, Pulmicort, guaifenesin, Synthroid and Xopenex. ASSESSMENT AND PLAN: 1. Leukocytosis in the setting of chronic obstructive pulmonary disease , being treated with respiratory treatments. Infectious Disease consult been requested. The patient has been placed on Rocephin and doxycycline and a CT of the chest has been requested by Infectious Disease. 2. Pulmonary continues the respiratory treatment and has placed the patient on p.o. steroids. At this time I will continue that pulmonary treatments. 3. Being followed by Renal for his chronic renal disease. The elevation in the potassium as per the nurse Michell at Nephrology says to just increase the Lasix and followup labs at this time. 4. Hypothyroid disease, is on Synthroid replacement therapy, being followed by Endocrinology. 5. Congestive heart failure with paroxysmal atrial fibrillation with cardiomyopathy, being followed by Cardiology. Certain medications are currently being held due the elevation in his liver function tests and as these improve they will then adjust his cardiac meds. As per the patient, he has discussion with the caretaker. 6. support services manager is working with the patient with the idea of finding the patient some support post discharge for his alcohol related problems. 7. He is being followed by Psychiatry for his depression and he is on Celexa. We will continue current medical management at this time. Follow up labs have been requested. Qing Jiménez MD [facility] # [id number]
--- NOTE | 2018-01-18 18:05 | PN ---
DATE: 01/18/2018 SUBJECTIVE: The patient is seen lying in bed. He reports not feeling well. He reports he is unable to lie down flat. He complains of shortness of breath. He appears tachypneic. He has 2+ pitting edema. PHYSICAL EXAMINATION: GENERAL: Middle-aged male lying in bed. VITAL SIGNS: Blood pressure 125/86, heart rate 86, respiratory rate 20-24, temperature 97.5. HEENT: Normocephalic, atraumatic, positive pallor. NECK: Supple, no JVD. LUNGS: Bilateral equal air entry, bilateral equal expansion. CARDIAC: S2, and rhythm, no murmur, no rub. ABDOMEN: Obese, distended, soft, nontender, bowel sounds present. EXTREMITIES: 2+ pitting knee edema. INTAKE AND OUTPUT: ? LABORATORY DATA: WBC 13.9, hemoglobin 11, hematocrit 35, platelets 201. Polys 89%. Sodium 136, potassium 5.1, chloride 103, CO2 of 23, BUN 74, creatinine 2.3, glucose 163, calcium 9.7. AST 88, ALT 194. Stool occults negative. Urine culture no growth. . CURRENT MEDICATIONS: Celexa, Coreg 25 b.i.d., doxycycline 100 every 12 hours, Lasix 40 IV every 12 hours, Librium, Medrol 12 mg b.i.d., Pulmicort, Robitussin, Rocephin 1 g daily, Synthroid 75, Xopenex. ASSESSMENT: 1. Decompensated congestive heart failure, cardiomyopathy, edema, shortness of breath. 2. Acute kidney injury superimposed on chronic kidney disease stage III, cardiorenal syndrome. 3. Mild hyperkalemia. 4. Admitted with alcohol intoxication. 5. Alcoholic liver disease, alcoholic cardiomyopathy. PLAN: 1. Increase Lasix to 40 IV every 12 hours. 2. Continue empiric antibiotics. 3. Follow up blood cultures. 4. Keep O's greater than I's. 5. No treatment needed for mild hyperkalemia. Amina Martin MD
[2018-01-19] MEDS: Levalbuterol 1.25 MG/3 ML Inhal Soln UD IH SCH ×4 (02:07→20:00)
[2018-01-19] MEDS: Budesonide 0.5 mg/2 ml Inhal Susp UD IH SCH ×2 (07:35→19:59)
[2018-01-19 07:52] LABS: ALBUMIN 3.8 g/dL (3.0-4.8); CALCIUM 9.4 mg/dL (8.4-10.5)
[2018-01-19 07:57] LABS: INR 1.39; PROTHROMBIN TIME 16.1 SECONDS (9.4-12.5)
[2018-01-19 08:03] LABS: BASO # 0.01 K/mm3 (0.0-2.0); BASO % 0.1 % (0.0-3.0); GRAN # 11.34 (1.4-6.5); HEMOGLOBIN 11.1 g/dL (14.0-18.0); LYMPH % 8.1 % (22.0-35.0); MEAN CELL VOLUME 94.6 fl (80.0-105.0); MEAN CORPUSCULAR HEMOGLOBIN 29.8 pg (25.0-35.0); MEAN CORPUSCULAR HGB CONC 31.4 g/dl (31.0-37.0); MEAN PLATELET VOLUME 9.5 fl (7.0-11.0); MONO # 0.4 (0.1-0.6); MONO % 2.8 % (1.0-6.0); RBC 3.73 10^6/uL (3.5-6.1); RED CELL DISTRIBUTION WIDTH 15.1 % (11.5-14.5); WHITE BLOOD COUNT 12.7 10^3/uL (4.5-11.0)
[2018-01-19 08:29] LABS: T4 5.7 ug/dL (5.5-11.0)
[2018-01-19] MEDS: Levothyroxine 75 MCG TAB PO SCH (08:37)
[2018-01-19] MEDS: cefTRIAXone 1 gm 1 GM/100 ML BAG IVPB SCH (10:02)
--- NOTE | 2018-01-19 13:56 | CP.PCM.PN ---
Subjective - Date & Time of Evaluation Date of Evaluation: 01/19/18 Time of Evaluation: 13:55 - Subjective Subjective: House Physician Resident Paged by nursing to see patient at request of PMD (Dr. Jiménez) for patient complaining of abdominal/chest pain. Patient's charting and most recent labs and vitals reviewed. In short, this is a 52 yo M with PMH of cardiomyopathy, CHF, Diverticulosis, Hemorrhoid, and COPD who presented for shortness of breath, and has been treated for alcohol withdrawal, renal insufficiency, and CHF. Of note, patient has not received any Librium (which his withdrawal was treated with) since 1200 hours yesterday, due to lethargy. On exam, patient is alert and awake, complaining of abdominal pain radiating up along mid-sternal region. Admits nausea, denies emesis, also complains of sensation of severely overfull bladder and needing to move bowels. Denies shortness of breath, reproducible chest pain, chest pain radiating to jaw/left shoulder/left upper extremity. Not acutely tremulous on exam, at rest or with movement. Trying to get out of bed to ambulate to bathroom, nursing notified. Seen earlier today by Cardio, who ordered trop and EKG. AM trop 0.02, EKG today comparable to last EKG on 01/15/18, with mild improvements in QTc and VA interval. Life Agent spout positioner, Dr. Eagle, also present at bedside. Appreciate his input. Objective - Vital Signs/Intake and Output Vital Signs (last 24 hours): Temp Pulse Resp BP Pulse Ox 97.9 F 86 18 126/94 H 98 01/19/18 12:00 01/19/18 12:00 01/19/18 12:00 01/19/18 12:00 01/19/18 00:01 Intake and Output: 01/19/18 01/19/18 06:59 18:59 Intake Total 1860 Output Total 600 Balance 1260 - Medications Medications: Current Medications Budesonide (Pulmicort Respules) 0.5 mg IH [id number] [facility] Last Admin: 01/19/18 07:35 Dose: 0.5 mg Carvedilol (Coreg) 25 mg PO BID [facility] Last Admin: 01/19/18 10:03 Dose: 25 mg Chlordiazepoxide (Librium) 25 mg PO Q4 [facility]; Protocol Last Admin: 01/19/18 12:28 Dose: Not Given Citalopram Hydrobromide (Celexa) 10 mg PO DAILY [facility] Last Admin: 01/19/18 10:05 Dose: 10 mg Doxycycline Hyclate (Doryx) 100 mg PO Q12 [facility]; Protocol Stop: 01/27/18 10:53 Last Admin: 01/19/18 10:05 Dose: 100 mg Famotidine (Pepcid) 20 mg PO DAILY [facility] Last Admin: 01/19/18 13:02 Dose: 20 mg Furosemide (Lasix) 40 mg IVP Q12 [facility] Last Admin: 01/19/18 10:02 Dose: 40 mg Guaifenesin (Robitussin) 200 mg PO Q4H PRN PRN Reason: Cough and congestion Last Admin: 01/16/18 02:40 Dose: 200 mg Ceftriaxone Sodium (Rocephin 1 Gram Ivpb) 1 gm in 100 mls @ 100 mls/hr IVPB DAILY [facility]; Protocol Stop: 01/27/18 10:53 Last Admin: 01/19/18 10:02 Dose: 100 mls/hr Levalbuterol HCl (Xopenex) 1.25 mg IH [id number] [facility] Last Admin: 01/19/18 13:24 Dose: 1.25 mg Levalbuterol HCl (Xopenex) 1.25 mg IH Q2H PRN PRN Reason: Shortness of Breath Levothyroxine Sodium (Synthroid) 75 mcg PO ACB [facility] Last Admin: 01/19/18 08:37 Dose: 75 mcg Methylprednisolone (Medrol) 12 mg PO BID [facility] Last Admin: 01/19/18 10:03 Dose: 12 mg - Labs Labs: 01/19/18 07:00 01/19/18 07:00 PT 16.1 SECONDS (9.4-12.5) H 01/19/18 07:00 INR 1.39 01/19/18 07:00 APTT 32.5 Seconds (25.1-36.5) 01/15/18 11:15 - Constitutional Appears: Non-toxic, No Acute Distress, Chronically Ill - Head Exam Head Exam: ATRAUMATIC, NORMAL INSPECTION, NORMOCEPHALIC - Eye Exam Eye Exam: EOMI. absent: Scleral icterus Pupil Exam: absent: Irregular - ENT Exam ENT Exam: Mucous Membranes Moist - Neck Exam Neck Exam: Full ROM. absent: Lymphadenopathy - Respiratory Exam Respiratory Exam: Decreased Breath Sounds (mildly decreased breath sounds in all cyr, otherwise clear to aucultation), NORMAL BREATHING PATTERN. absent: Accessory Muscle Use, Chest Wall Tenderness, Prolonged Expiratory Phase, Rales, Rhonchi, Wheezes, Stridor - Cardiovascular Exam Cardiovascular Exam: REGULAR RHYTHM, RRR, +S1, +S2. absent: Bradycardia, Tachycardia, Irregular Rhythm, JVD, +S4 - GI/Abdominal Exam GI & Abdominal Exam: Soft, Tenderness, Normal Bowel Sounds. absent: Firm, Rigid - Neurological Exam Additional comments: awake and alert, moving all extremities spontaneously, follows all commands appropriately Assessment and Plan - Assessment and Plan (Free Text) Plan: Agree with livestock buyer recommendation to give lower dose libirium, to continue tx for withdrawal Recommend caution with any anti-emetic use, as QTc remains > 500 on most recent EKG Trop this AM 0.02, repeat trop 0.03, recommend continuation of current therapy as ordered by Cardio PMD (Dr. Jiménez) notified of repeat trop results and is aware
--- NOTE | 2018-01-19 15:10 | PN ---
ENDOCRINOLOGY FOLLOWUP NOTE DATE: 01/19/2018 LOCATION: Room 275. SUBJECTIVE: This is a 52-year-old male admitted with acute exacerbation of COPD currently on oral steroids as he was switched over from IV steroid therapy as he proved clinically and hemodynamically as noted thereof. His latest chemistry showed a BUN of 78, sodium 135, potassium 4.8, chloride 102, CO2 of 22, glucose 197 and creatinine 2.5. His thyroid study showed a T4 of 5.7 with a TSH of 1.91 which has already normalized this time. So for now, we will continue the same modified and higher dosing of the levothyroxine at 75 mcg once daily in the morning as ordered. We will obtain serial chemistries and supplement accordingly as needed. We will follow. Connie Harris MD
--- NOTE | 2018-01-19 15:22 | CT ---
Date of service: 01/19/2018 PROCEDURE: CT Chest without contrast HISTORY: Rule out infiltrate COMPARISON: . Comparison made with chest radiograph 01/15/[address] scan of the abdomen and pelvis 07/30/2017 which also imaged both lung bases. TECHNIQUE: Contiguous axial images were obtained through the chest without intravenous contrast enhancement. Sagittal and coronal reconstructions were performed. Radiation dose: Total exam DLP = 738.67 mGy-cm. This CT exam was performed using one or more of the following dose reduction techniques: Automated exposure control, adjustment of the mA and/or kV according to patient size, and/or use of iterative reconstruction technique. FINDINGS: LUNGS: There are scattered areas of hazy ground-glass opacities throughout the upper and lower lobes bilaterally nonspecific. Possibilities would include mild air trapping, pneumonitis or sequela of mild chronic compensated pulmonary venous congestion or mild pulmonary arterial hypertension. Clinical correlation recommended. Linear atelectasis/scarring changes seen in the left lung base from the posterior pericardial surface to the left posterolateral pleural surface of the lung with few small nodular opacities seen both lung bases likely postinflammatory. Suspect tiny right and trace left effusion MEDIASTINUM: Heart is markedly enlarged with simental chamber enlargement. No significant pericardial effusion. Ascending thoracic aorta measures approximately 3 cm and descending thoracic aorta measures approximate 1.8 cm. minor aortic atherosclerotic calcification.. Pulmonary trunk measures approximately 3.3 cm of with dilatation of the intrahepatic IVC; rule out underlying mild pulmonary arterial hypertension. Multiple small to medium sized nonspecific mediastinal lymph nodes are present. Evaluation for hilar adenopathy limited due to the lack of circulating intravenous contrast material. Trachea is midline and patent with no large endoluminal lesions. PLEURA: As above. No pneumothorax. BONES: Multilevel degenerative spondylosis of the thoracic spine. There are no acute compression fractures no retropulsed fragments. UPPER ABDOMEN: Abdominal ascites seen about the liver and spleen former slightly larger than latter.. Infiltration changes also seen within the upper abdominal mesentery nonspecific. Ascites fluid may extend into the gallbladder fossa as well which is incompletely visualized. Clinical correlation recommended. OTHER FINDINGS: Moderate changes of bilateral gynecomastia. IMPRESSION: Marked cardiomegaly with panchamber enlargement.. Mild dilatation of the pulmonary trunk with dilatation of the intrahepatic IVC. Findings suggest mild pulmonary arterial hypertension. There are scattered areas of hazy ground-glass opacities throughout the upper and lower lobes bilaterally nonspecific. Possibilities would include mild air trapping, pneumonitis, chronic compensated pulmonary venous congestion or sequela of mild pulmonary arterial hypertension. Clinical correlation recommended. Linear atelectasis/scarring changes seen in the left lung base from the posterior pericardial surface to the left posterolateral pleural surface of the lung with few small nodular opacities seen both lung bases likely postinflammatory. Suspect tiny right and trace left effusion Moderate changes of bilateral gynecomastia Upper abdominal ascites fluid.
--- NOTE | 2018-01-19 16:39 | PN ---
DATE: 01/19/2018 SUBJECTIVE: The patient is seen sitting in bed on telemetry. He feels fair. His back is bothering him after sleeping in the hospital bed overnight. He denies any dyspnea. He has exhibited no evidence of alcohol withdrawal syndrome. CURRENT MEDICATIONS: Celexa 10 mg daily, carvedilol 25 mg b.i.d., doxycycline, Lasix 40 mg IV every 12 hours, Solu-Medrol 12 mg b.i.d., Pulmicort inhaler, Robitussin, Rocephin, Synthroid, Xopenex. His Librium has been withheld. OBJECTIVE: GENERAL: He is an overweight middle-aged man. VITAL SIGNS: Blood pressure is 116/86 with a pulse of 60 and sinus. Respirations are 14. He is afebrile. HEENT: No JVD. CHEST: A few scattered rhonchi noted. HEART: PMI displaced laterally with soft tones present. Systolic murmur at the left sternal border and apex. ABDOMEN: Soft, obese, nontender with normoactive bowel sounds. EXTREMITIES: 1+ ankle edema. DIAGNOSTIC DATA: Potassium 4.8, BUN and creatinine 78 and 2.5. White count 12.7, hemoglobin and hematocrit 11.1 and 35.3 with a platelet count of 223,000. INR 1.39. AST and ALT [address] of the chest was performed, results are pending. IMPRESSION: 1. Recent relapse of alcohol abuse. 2. Volume overload, clinically improved. 3. [id number] renal insufficiency. 4. Severe congestive cardiomyopathy. 5. Paroxysmal atrial fibrillation, maintained on beta-daisy and Eliquis therapy. 6. History of ventricular tachycardia, status post ICD implant. 7. Chronic obstructive pulmonary disease. 8. Sleep apnea. 9. History of cirrhosis. RECOMMENDATIONS: His current medications should continue for now. If no invasive procedures are planned, Eliquis therapy should be resumed. Inpatient rehabilitation for alcohol abstinence program should be considered. As his steroids are tapered, his IV Lasix can be switched from IV to oral administration. Thank you for this consultation. We will continue to follow and make further recommendations as appropriate. Brigido Silva MD
--- NOTE | 2018-01-19 18:56 | PN ---
DATE: 01/19/2018 SUBJECTIVE: This morning, the patient rested comfortably during the night. As per the nursing staff, the patient is offering no specific complaints. PHYSICAL EXAMINATION: VITAL SIGNS: His temperature is 97.9. His blood pressure is 117/86. GENERAL: He is alert. LUNGS: Diminished breath sounds at the bases. HEART: S1 and S2, grade 2/3 systolic murmur. ABDOMEN: Obese, soft with positive bowel sounds. Has gynecomastia present. EXTREMITIES: Show diminished edema. LABORATORY DATA: WBC of 12.7, RBC 3.73, hemoglobin 11.1, hematocrit 35.3, platelets 223,000. His PT is 16.1 with an INR 1.39. Chemistry shows normal electrolytes. The BUN is 78, the creatinine is 2.5. His ALT is now 152, alkaline phosphatase is 161, and AST is now normal. The patient has a TSH level of 1.91. ASSESSMENT AND PLAN: 1. The patient is one being treated for decompensated congestive heart failure, on IV Lasix, being followed by Cardiology. 2. He has chronic renal disease and had a mild elevation in his serum potassium, which is now normal, and was placed on an extra dose of Lasix during the day by Renal. 3. He is being followed by Pulmonary for his chronic obstructive pulmonary disease, on bronchodilator therapy and Medrol. He is also using a CPAP unit at night for his sleep apnea. Because of the leukocytosis, a CAT scan of the chest has been requested by Infectious Disease and the patient is currently on Doryx and Rocephin IV. The cultures of blood and urine at this time are negative. 4. He has improvement in his liver function tests, felt to be elevated secondary to his alcohol consumption. 5. I have discussed his usage of Librium with Dr. Cerda and having periods of somnolence and Dr. Cerda feels he may have had enough Librium since the day of admission and we will hold it at this time. We will continue to monitor the patient closely with Dr. Jiménez. Qing Jiménez MD
--- NOTE | 2018-01-19 19:23 | CP.PCM.CON ---
History of Present Illness - History of Present Illness History of Present Illness: MICU Attending Consult: Asked by Dr. Jiménez to see Mr Granados for concern of lethargy from librium. He is a 52M with CHF, Diverticulosis, Hemorrhoid, and COPD who presented for shortness of breath, and has been treated for alcohol withdrawal. He is on librium for etoh withdrawl however this has been held since yesterday afternoon due to lethargy. By the time I arrvied, Dr Jiménez at bedside with resident also evaluating patient. Mr. Granados was much more awake, alert and responding to my questoins. he was still a bit slow to speak and move. Minimal tremors. Clear lungs. He did not look toxic. he was moving air well. Labs and vitals reviewed trop 0.02, EKG shows mild improvements in QTc and IN interval. PMHX as above Allx: NKDA Social hx: +etoh abuse and smoking Fam Hx: HTN ROS as above Past Patient History - Infectious Disease Hx of Infectious Diseases: None - Tetanus Immunizations Tetanus Immunization: Up to Date - Past Social History Smoking Status: Former Smoker - CARDIAC Hx Cardiac Disorders: Yes Hx Congestive Heart Failure: Yes Hx Hypertension: Yes Hx Internal Defibrillator: Yes (pacemaker/defib 2005) Hx Pacemaker: Yes Hx Peripheral Edema: Yes Other/Comment: Cardiomyopathy - PULMONARY Hx Respiratory Disorders: Yes Hx Sleep Apnea: Yes (USES CPAP) - NEUROLOGICAL Hx Neurological Disorder: Yes Hx Dizziness: Yes (SYNCOPE) - HEENT Hx HEENT Problems: No - RENAL Hx Chronic Kidney Disease: Yes (hx renal insufficiency which resolved) - ENDOCRINE/METABOLIC Hx Endocrine Disorders: No - HEMATOLOGICAL/ONCOLOGICAL Hx Blood Disorders: Yes Hx Anemia: Yes - INTEGUMENTARY Hx Dermatological Problems: No - MUSCULOSKELETAL/RHEUMATOLOGICAL Hx Musculoskeletal Disorders: Yes (RIGHT KNEE SURGERY) Hx Falls: Yes - GASTROINTESTINAL Hx Gastrointestinal Disorders: Yes (CONSTIPATION,HEMORRHOIDS) Hx Diverticulitis: Yes - GENITOURINARY/GYNECOLOGICAL Hx Genitourinary Disorders: No - PSYCHIATRIC Hx Psychophysiologic Disorder: No Hx Depression: No Hx Emotional Abuse: No Hx Physical Abuse: No Hx Substance Use: No - SURGICAL HISTORY Hx Surgeries: Yes Hx Cardiac Catheterization: Yes Hx Orthopedic Surgery: Yes (right knee cartilige) Other/Comment: pacemaker and defib in 2005 - ANESTHESIA Hx Anesthesia: Yes Hx Anesthesia Reactions: No Hx Malignant Hyperthermia: No Meds Allergies/Adverse Reactions: Allergies Allergy/AdvReac Type Severity Reaction Status Date / Time No Known Allergies Allergy Verified 01/15/18 14:02 - Medications Medications: Current Medications Budesonide (Pulmicort Respules) 0.5 mg IH [id number] [facility] Last Admin: 01/19/18 07:35 Dose: 0.5 mg Carvedilol (Coreg) 25 mg PO BID [facility] Last Admin: 01/19/18 17:40 Dose: 25 mg Citalopram Hydrobromide (Celexa) 10 mg PO DAILY [facility] Last Admin: 01/19/18 10:05 Dose: 10 mg Doxycycline Hyclate (Doryx) 100 mg PO Q12 [facility]; Protocol Stop: 01/27/18 10:53 Last Admin: 01/19/18 10:05 Dose: 100 mg Famotidine (Pepcid) 20 mg PO DAILY [facility] Last Admin: 01/19/18 13:02 Dose: 20 mg Furosemide (Lasix) 40 mg IVP Q12 [facility] Last Admin: 01/19/18 10:02 Dose: 40 mg Guaifenesin (Robitussin) 200 mg PO Q4H PRN PRN Reason: Cough and congestion Last Admin: 01/16/18 02:40 Dose: 200 mg Ceftriaxone Sodium (Rocephin 1 Gram Ivpb) 1 gm in 100 mls @ 100 mls/hr IVPB DAILY [facility]; Protocol Stop: 01/27/18 10:53 Last Admin: 01/19/18 10:02 Dose: 100 mls/hr Levalbuterol HCl (Xopenex) 1.25 mg IH [id number] [facility] Last Admin: 01/19/18 13:24 Dose: 1.25 mg Levalbuterol HCl (Xopenex) 1.25 mg IH Q2H PRN PRN Reason: Shortness of Breath Levothyroxine Sodium (Synthroid) 75 mcg PO ACB [facility] Last Admin: 01/19/18 08:37 Dose: 75 mcg Methylprednisolone (Medrol) 12 mg PO BID [facility] Last Admin: 01/19/18 17:40 Dose: 12 mg Physical Exam - Constitutional Appears: Non-toxic, No Acute Distress - Head Exam Head Exam: ATRAUMATIC, NORMAL INSPECTION, NORMOCEPHALIC - Eye Exam Eye Exam: EOMI, Normal appearance, PERRL Pupil Exam: NORMAL ACCOMODATION, PERRL - Respiratory Exam Respiratory Exam: Clear to Auscultation Bilateral, NORMAL BREATHING PATTERN - Cardiovascular Exam Cardiovascular Exam: REGULAR RHYTHM - GI/Abdominal Exam GI & Abdominal Exam: Normal Bowel Sounds, Soft. absent: Tenderness Results - Vital Signs Recent Vital Signs: Last Vital Signs Temp 97.2 F L 01/19/18 17:52 Pulse 68 01/19/18 18:00 Resp 18 01/19/18 17:52 BP 138/102 H 01/19/18 17:52 Pulse Ox 95 01/19/18 17:52 - Labs Result Diagrams: 01/19/18 07:00 01/19/18 07:00 Labs: Laboratory Results - last 24 hr 01/19/18 01/19/18 01/19/18 07:00 07:00 07:00 WBC RBC Hgb Hct MCV MCH MCHC RDW Plt Count MPV Gran % Lymph % (Auto) [place] % (Auto) Eos % (Auto) Baso % (Auto) Gran # Lymph # (Auto) [place] # (Auto) Eos # (Auto) Baso # (Auto) PT 16.1 H INR 1.39 Sodium 135 Potassium 4.8 Chloride 102 Carbon Dioxide 22 Anion Gap 15 BUN 78 H Creatinine 2.5 H Est GFR ( Amer) 33 Est GFR (Non-Af Amer) 27 Random Glucose 197 H Calcium 9.4 Total Bilirubin 0.7 AST 50 ALT 152 H Alkaline Phosphatase 161 H Troponin I Total Protein 7.4 Albumin 3.8 Globulin 3.6 Albumin/Globulin Ratio 1.0 L Thyroxine (T4) 5.7 TSH 3rd Generation 1.91 01/19/18 01/19/18 01/19/18 07:00 08:00 13:50 WBC 12.7 H RBC 3.73 Hgb 11.1 L Hct 35.3 L MCV 94.6 MCH 29.8 MCHC 31.4 RDW 15.1 H Plt Count 223 MPV 9.5 Gran % 89.0 H Lymph % (Auto) 8.1 L [place] % (Auto) 2.8 Eos % (Auto) 0.0 L Baso % (Auto) 0.1 Gran # 11.34 H Lymph # (Auto) 1.0 L [place] # (Auto) 0.4 Eos # (Auto) 0.0 Baso # (Auto) 0.01 PT INR Sodium Potassium Chloride Carbon Dioxide Anion Gap BUN Creatinine Est GFR ( Amer) Est GFR (Non-Af Amer) Random Glucose Calcium Total Bilirubin AST ALT Alkaline Phosphatase Troponin I 0.02 0.03 D Total Protein Albumin Globulin Albumin/Globulin Ratio Thyroxine (T4) TSH 3rd Generation Addendum Addendum: 01/19/18 19:19 52M with CHF, Diverticulosis, Hemorrhoid, and COPD who presented for shortness of breath, and has been treated for alcohol withdrawal asked to see for lethargy from librium. Again, patient is more awake, alert and responding. I think the librium is wearing off. he does not appear to be at risk for resp failurea the moment. He is maintaining his own airway. At this time I would continue to give librium however at 50% reduction in dose because it is important for us to stay ahead of his withdrawl. I recommened given 10mg now, if tolerates then another 6-8hours later, and then decrease to 5mg PO TID for 3 doses then stop (as long as he does not show signs of withdrawal during this taper). Rec discussed at bedside with Dr Jiménez. No indication for ICU transfer at this time. Thanks you for the consultation Please re-call if any changes or concern Stefan Eagle MD MICU Attending
--- NOTE | 2018-01-19 21:29 | PN ---
DATE: 01/19/2018 SUBJECTIVE: The patient is in bed, in no acute distress, nontoxic. PHYSICAL EXAMINATION VITAL SIGNS: Temperature is 97, blood pressure is 120/90, respiratory rate of 18. HEENT: Unremarkable. NECK: Supple. LUNGS: Decreased breath sounds. HEART: Normal S1 and S2. ABDOMEN: Soft, nontender. LABORATORY EXAMINATION: Reveals a white count of 12,700, hemoglobin 11, platelets of 223. Chemistry reveals a BUN of 78, creatinine of 2.5. Urinalysis is noted. Blood cultures are negative. Urine cultures are negative. The patient had a CAT scan of the chest, the results are pending. progress note is reviewed. It is only a draft. Dr. Martin's progress note is appreciated. ASSESSMENT AND PLAN: This is a 52-year-old male with chronic obstructive lung disease, obstructive sleep apnea, obesity, body mass index of 32, congestive heart failure, diverticulosis, esophageal reflux, renal disease and hyperlipidemia, admitted with weakness, pulmonary symptoms, cough, dyspnea with systemic inflammatory response syndrome community-acquired pneumonia in a patient in face of alcohol intoxication. On day #2 of Rocephin and doxycycline with negative influenza, negative hepatitis profile, alcohol level of 240, negative urinalysis, negative procalcitonin, LFT elevations. White count is somewhat improved. Awaiting for final blood cultures, MRSA screen, sputum culture, HIV, CAT scan of the chest results. We will follow with you. Lance Dyer MD
--- NOTE | 2018-01-19 22:12 | CARD ---
APPROVED REPORT Date of service: 01/19/2018 EKG Measurement Heart [id number] [id number] <Conclusion> Normal sinus rhythm with first degree AV block Right superior axis deviation Nonspecific intraventricular block Abnormal ECG
[2018-01-20] MEDS: Levalbuterol 1.25 MG/3 ML Inhal Soln UD IH SCH ×4 (01:50→19:52)
[2018-01-20 06:45] LABS: GRAN # 10.03 (1.4-6.5); GRAN % 89.2 % (50.0-68.0); HEMOGLOBIN 10.7 g/dL (14.0-18.0); LYMPH # 0.9 (1.2-3.4); LYMPH % 7.8 % (22.0-35.0); MEAN CELL VOLUME 94.7 fl (80.0-105.0); MEAN CORPUSCULAR HEMOGLOBIN 29.9 pg (25.0-35.0); MEAN CORPUSCULAR HGB CONC 31.6 g/dl (31.0-37.0); MEAN PLATELET VOLUME 9.3 fl (7.0-11.0); MONO # 0.3 (0.1-0.6); RBC 3.58 10^6/uL (3.5-6.1); WHITE BLOOD COUNT 11.3 10^3/uL (4.5-11.0)
[2018-01-20 06:55] LABS: CALCIUM 9.2 mg/dL (8.4-10.5)
[2018-01-20 07:04] LABS: TROPONIN I 0.03 ng/mL
[2018-01-20] MEDS: Budesonide 0.5 mg/2 ml Inhal Susp UD IH SCH ×2 (08:05→19:52)
[2018-01-20 08:08] LABS: ALBUMIN 3.5 g/dL (3.0-4.8); BILIRUBIN,DIRECT 0.6 mg/dL (0.0-0.4)
[2018-01-20] MEDS: Levothyroxine 75 MCG TAB PO SCH (08:35)
[2018-01-20] MEDS: cefTRIAXone 1 gm 1 GM/100 ML BAG IVPB SCH (09:36)
--- NOTE | 2018-01-20 09:43 | PN ---
PULMONARY PROGRESS NOTE DATE: 01/19/2018 SUBJECTIVE: Jack is feeling better than yesterday. He was not discharged because of generalized weakness. He is feeling somewhat better this morning. He used his CPAP last night. Further evaluation is being done by the subspecialists. His respiratory status has improved. PHYSICAL EXAMINATION: VITAL SIGNS: Remain stable. The patient is afebrile with a heart rate of 74, respiratory rate of 18, blood pressure 140/84 and O2 sat 98% on room air. HEENT: Normocephalic, atraumatic. NECK: Supple. No jugular venous tension. No lymphadenopathy. There is no bruit. CARDIOVASCULAR: Regular rhythm. S1 and S2. Soft systolic ejection murmur at the lower left sternal border. CHEST: Global decrease in breath sounds. We did not auscultate any rales, rhonchi or wheezing. ABDOMEN: Soft. Bowel sounds normoactive without mass, guarding, rebound or organomegaly. EXTREMITIES: Reveal no clubbing, cyanosis or edema. There is no evidence of Homans' sign. SKIN: No rash or excoriation. NEUROLOGIC: No focal findings. The patient is awake and alert. CLINICAL IMPRESSION: 1. Obesity. 2. Obstructive sleep apnea. 3. Chronic obstructive pulmonary disease. 4. Pulmonary vascular congestion. 5. Dilated cardiomyopathy. 6. Congestive heart failure. PLAN: Continue CPAP while in the hospital. We have discussed outpatient changes with the patient schedule and sleep hygiene upon discharge. Await cardiology evaluation and PMD for recommendations regarding outpatient care. We will continue to follow this patient as required. Thank you for the opportunity to care for this juan gentleman. Magnus Otero MD
--- NOTE | 2018-01-20 10:55 | PN ---
DATE: 01/20/2018 SUBJECTIVE: The patient appears comfortable this morning. He is not short of breath at rest. PHYSICAL EXAMINATION: VITALS: Temperature is 98.2, pulse 87, respirations 18/20, blood pressure 147/70. Oxygen saturation on nasal cannula is 98%. HEENT: Normocephalic, atraumatic. No JVD. CARDIOVASCULAR: Systolic ejection murmur at the lower left sternal border. Questionable S3 gallop. LUNGS: Clear bilaterally this morning. EXTREMITIES: Less edema. No cyanosis, no clubbing. Calves are nontender to palpation. GI: Abdomen is soft, nontender and nondistended. Bowel sounds are positive. SKIN: No acute rash. NEUROLOGIC: Exam limited at the present time. PERTINENT LABORATORY DATA: CAT scan of the chest was done on 01/18/2018 and reviewed. There is mild pulmonary venous congestion noted. There is also scarring at the left lung base. There are very small bilateral pleural effusions. There are no significant, distinct infiltrates - consistent with pneumonia. IMPRESSION: 1. Acute bronchitis. 2. Chronic obstructive pulmonary disease. 3. Acute congestive heart failure. 4. Dilated cardiomyopathy. 5. Alcohol intoxication. 6. Renal insufficiency. PLAN: The patient appears comfortable this morning. He is not short of breath at rest. He does state to feeling much better overall. On physical exam, his lungs are now clear. In addition, the oxygen saturation on nasal cannula is now 98%. I will continue with the current nebulizer treatments and change to oral prednisone - for ease of weaning. Again, I did review the CAT scan of the chest. Findings are noted above. Again, I do not see distinct evidence of pneumonia. I will discuss the CAT scan findings with Infectious Disease this morning. I would continue with the treatment for congestive heart failure and cardiomyopathy as per Cardiology. Inputs are noted. Input by Renal is also noted. The patient remains on intravenous Lasix. Clinical status of the patient is significantly improved - compared to his initial presentation. Given the above, he does remain guarded overall. I will discuss the above with Dr. Jiménez. Elie Young MD [facility] # [id number] MTDJuly
--- NOTE | 2018-01-20 15:10 | PN ---
DATE: 01/20/2018 SUBJECTIVE: The patient is sitting in a chair, comfortable. Breathing is better. He denies any cough. He denies any abdominal pain, nausea, or vomiting. PHYSICAL EXAMINATION: VITAL SIGNS: Reveal temperature of 97.3, blood pressure 124/92, heart rate of 58. HEENT: Reveal sclerae to be white. Conjunctivae pink. NECK: Supple. CHEST: Lungs are clear. HEART: Exam reveals regular rate and rhythm. ABDOMEN: Soft, obese, nontender. EXTREMITIES: Show trace pedal edema. There is no tremors. LABORATORY DATA: Reveal white blood cell count 11.3, hemoglobin 10.7. Chemistries reveal AST down to 41, ALT down to 122, alkaline phosphatase down to 147, total bilirubin 0.6. IMPRESSION: 1. Acute bronchitis. 2. Cardiomyopathy. 3. Acute on chronic kidney injury. 4. Elevated liver enzymes secondary to alcoholic hepatitis. RECOMMENDATIONS: 1. Continue treatment as per pulmonary and cardiology. 2. Await the patient decision on inpatient alcohol rehab. Trevor August MD
--- NOTE | 2018-01-20 19:09 | PN ---
DATE: 01/20/2018 SUBJECTIVE: This is a 52-year-old male sitting on the bed this morning. Feeling much better and more alert. PHYSICAL EXAMINATION: His temp is 97. His pulse is 58. His blood pressure is 124/90. His oxygen sat is 97%. His respiratory rate is 18. The patient is alert and oriented. His lungs are diminished breath sounds at the bases. Heart is an S1, S2 rhythm. He has gynecomastia. Abdomen is obese. Extremities show no evidence of edema. LABORATORY DATA: The patient had a WBC of 11.3, hemoglobin 10.7, hematocrit 33.9, platelet count 202,000. Chemistry shows sodium 136, potassium 4.3, chloride 104, CO2 of 23, the BUN is 85, the creatinine, and his blood sugar is 173. His HIV ERIC was nonreactive. His cultures of the blood are negative. MEDICATIONS: His blood medications consist of Celexa 10 mg daily, amiodarone 100 mg daily, Coreg 25 mg b.i.d., Doryx 100 mg every 12 hours, Lasix 40 mg b.i.d., Pepcid 20 mg daily, prednisone 20 mg daily. He is on respiratory treatments, Robitussin, he is on Rocephin IV. He is on Synthroid 75 mcg daily. ASSESSMENT AND PLAN: For his hypothyroidism, he is being followed by Dr. Cervantes of the endocrinology service. The patient is being followed for alcoholic liver disease and alcohol intoxication with Dr. August. He is being followed also by Psychiatry for depression and his alcohol detoxification. He is also being followed for his chronic renal disease by Dr. Martin of the renal service and he is being followed by Pulmonary for his underlying sleep apnea and COPD. The patient has been strongly advised by myself and by Cardiology that he would benefit from being inpatient detox facility and referral has been made with services. We will continue current medical management at this time. We will follow the patient clinically. Repeat labs have been ordered. Qing Jiménez MD
--- NOTE | 2018-01-20 20:02 | CP.PCM.PN ---
Subjective - Date & Time of Evaluation Date of Evaluation: 01/20/18 Time of Evaluation: 10:25 - Subjective Subjective: Cough is improved, no SOB at rest, able to walk around the floor, no fevers. Objective - Vital Signs/Intake and Output Vital Signs (last 24 hours): Temp Pulse Resp BP Pulse Ox 98.2 F 87 20 147/70 98 01/20/18 05:48 01/20/18 05:48 01/20/18 05:48 01/20/18 05:48 01/20/18 05:48 Intake and Output: 01/20/18 01/20/18 06:59 18:59 Intake Total 460 Output Total 500 Balance -40 - Medications Medications: Current Medications Amiodarone HCl (Cordarone) 100 mg PO DAILY [facility] Budesonide (Pulmicort Respules) 0.5 mg IH [id number] [facility] Last Admin: 01/20/18 08:05 Dose: 0.5 mg Carvedilol (Coreg) 25 mg PO BID [facility] Last Admin: 01/19/18 17:40 Dose: 25 mg Citalopram Hydrobromide (Celexa) 10 mg PO DAILY [facility] Last Admin: 01/19/18 10:05 Dose: 10 mg Doxycycline Hyclate (Doryx) 100 mg PO Q12 [facility]; Protocol Stop: 01/27/18 10:53 Last Admin: 01/19/18 21:42 Dose: 100 mg Famotidine (Pepcid) 20 mg PO DAILY [facility] Last Admin: 01/19/18 13:02 Dose: 20 mg Furosemide (Lasix) 40 mg PO BID [facility] Guaifenesin (Robitussin) 200 mg PO Q4H PRN PRN Reason: Cough and congestion Last Admin: 01/16/18 02:40 Dose: 200 mg Ceftriaxone Sodium (Rocephin 1 Gram Ivpb) 1 gm in 100 mls @ 100 mls/hr IVPB DAILY [facility]; Protocol Stop: 01/27/18 10:53 Last Admin: 01/19/18 10:02 Dose: 100 mls/hr Levalbuterol HCl (Xopenex) 1.25 mg IH [id number] [facility] Last Admin: 01/20/18 08:05 Dose: 1.25 mg Levalbuterol HCl (Xopenex) 1.25 mg IH Q2H PRN PRN Reason: Shortness of Breath Levothyroxine Sodium (Synthroid) 75 mcg PO ACB [facility] Last Admin: 01/20/18 08:35 Dose: 75 mcg Prednisone (Prednisone Tab) 20 mg PO DAILY [facility] - Labs Labs: 01/20/18 06:15 01/20/18 06:15 PT 16.1 SECONDS (9.4-12.5) H 01/19/18 07:00 INR 1.39 01/19/18 07:00 APTT 32.5 Seconds (25.1-36.5) 01/15/18 11:15 - Constitutional Appears: No Acute Distress, Chronically Ill - Head Exam Head Exam: NORMAL INSPECTION - Respiratory Exam Respiratory Exam: Decreased Breath Sounds - Cardiovascular Exam Cardiovascular Exam: +S1, +S2 - GI/Abdominal Exam GI & Abdominal Exam: Soft. absent: Tenderness Assessment and Plan - Assessment and Plan (Free Text) Plan: Assessment S/P systemic inflammatory response syndrome probably due to acute on chronic CHF, no evidence of pneumonia noted, with probable bronchitis COPD obstructive sleep apnea obesity history of diverticulitis GERD S/P AICD placement Plan discussed with Dr. Young - PCT is normal, reviewed CT chest which does not show specifically pneumonia - will d/c Rocephin and continue short course of PO Doxycycline (day 3 of 3-5 days) discussed with Dr. Jiménez as well
--- NOTE | 2018-01-20 23:22 | PN ---
DATE: 01/20/2018 SUBJECTIVE: The patient is seen sitting in chair. He is awake. He is alert. He is lethargic, arousable. PHYSICAL EXAMINATION: GENERAL: A middle-aged male sitting in chair. VITAL SIGNS: Blood pressure 102/72, heart rate 58, respiratory rate 18 to 20, temperature 97.5. HEENT: Normocephalic, atraumatic, positive pallor. NECK: Supple. No JVD. CARDIOPULMONARY: S1, S2, regular rate and rhythm. No murmur. No rub. LUNGS: Bilateral equal air entry, bilateral rhonchi. ABDOMEN: Obese, distended, soft, nontender, bowel sounds present. EXTREMITIES: 2+ pitting edema of the lower extremities. INTAKE AND OUTPUT: 1120/1350. LABORATORY DATA: WBC 11, hemoglobin 10.7, hematocrit 34, platelets 202. Sodium 136, potassium 4.3, chloride 104, CO2 23, BUN 85, creatinine 2.2, glucose 173, calcium 9.2, AST 41, ALT 122. Cultures, no growth. CURRENT MEDICATIONS: Coreg 25 b.i.d., Cordarone 100, doxycycline 100 every 12 hours, Lasix 40 p.o. b.i.d., Pepcid, prednisone 20, Synthroid 75, Xopenex. ASSESSMENT: 1. Decompensated congestive heart failure. 2. Severe cardiomyopathy, dilated cardiomyopathy, alcoholic cardiomyopathy. 3. Hyperkalemia, resolved. 4. Acute kidney injury superimposed on chronic renal disease stage III, cardiorenal syndrome. 5. Obesity. 6. Alcoholic liver disease. PLAN: 1. Agree with switching to p.o. Lasix 40 b.i.d. 2. Keep O's greater than I's. 3. Monitor electrolytes. 4. Continue empiric antibiotics? Amina Martin MD
[2018-01-21] MEDS: Levalbuterol 1.25 MG/3 ML Inhal Soln UD IH SCH ×4 (02:22→20:38)
--- NOTE | 2018-01-21 02:43 | PN ---
DATE: 01/20/2018 ENDOCRINOLOGY FOLLOWUP LOCATION: In room 275. SUBJECTIVE: This is a 52-year-old male with recent admission for acute exacerbation of COPD and is now also being followed closely for metabolic management. He has been switched over now from IV steroids to oral steroids with prednisone at 20 mg once daily as given. His latest chemistry showed a BUN of 85, sodium 136, potassium 4.3, chloride 104, CO2 of 23, glucose 173, and creatinine 2.2. His latest thyroid studies showed a T4 of 5.7 with a TSH of 1.91. He is actually at this time biochemically and clinically euthyroid as noted. So at this time, we will continue the modified and higher dosing of the levothyroxine given as 75 mcg once daily in the morning as ordered. We will obtain serial chemistries and supplement accordingly as needed. We will follow. Connie Harris MD
--- NOTE | 2018-01-21 07:18 | PN ---
DATE: 01/21/2018 PULMONARY NOTE SUBJECTIVE: The patient appears comfortable this morning. He is not short of breath at rest. OBJECTIVE: VITAL SIGNS: Temperature is 97.4, pulse 57, respirations 18, blood pressure 126/92. Oxygen saturation on nasal cannula is 98%. HEENT: Normocephalic, atraumatic. NECK: No JVD. CARDIOVASCULAR: Systolic ejection murmur at the lower left sternal border. Questionable S3 gallop. LUNGS: Clear bilaterally. EXTREMITIES: Minimal/less edema. No cyanosis, no clubbing. Calves are nontender to palpation. GASTROINTESTINAL: Abdomen is soft, nontender, nondistended. Bowel sounds are positive. SKIN: No acute rash. NEUROLOGIC: Limited at the present time. IMPRESSION: 1. Acute bronchitis. 2. Chronic obstructive pulmonary disease. 3. Acute congestive heart failure. 4. Dilated cardiomyopathy. 5. Alcohol intoxication. 6. Renal insufficiency. PLAN: The patient appears very comfortable this morning. He is not short of breath at rest. He does state to feeling much better overall. On physical exam, his lungs remain clear. In addition, the oxygen saturation on nasal cannula is 98%. I will continue the current nebulizer treatments and low-dose oral steroids for now. The patient remains on oral antibiotic therapy - as per Infectious Disease. I did discuss the case at length with Dr. Dyer yesterday. Inputs by Cardiology and Renal are also noted. Clinical status of the patient is significantly improved - compared to the initial presentation. However, given the above, the future status/prognosis for this patient does remain guarded. I will discuss the above with Dr. Jiménez. Elie Young MD MTDJuly
[2018-01-21 07:38] LABS: ALB/GLOB RATIO 1.1 (1.1-1.8); ALBUMIN 3.9 g/dL (3.0-4.8); CALCIUM 9.4 mg/dL (8.4-10.5)
[2018-01-21] MEDS: Budesonide 0.5 mg/2 ml Inhal Susp UD IH SCH ×2 (07:41→20:38)
--- NOTE | 2018-01-21 08:13 | PN ---
DATE: 01/20/2018 SUBJECTIVE: The patient is a 52-year-old white male who was initially admitted with chest pain. He has a history of alcohol abuse and depression. He also has a history of COPD, with sleep apnea, liver disease, chronic renal disease, gouty arthritis, hypothyroidism and a history of congestive heart failure. This case was reviewed with Dr. Jiménez and with his , Patel. The patient is presently alert, oriented, slightly subdued, but his mood and affect have improved. He has agreed to attend outpatient rehabilitation program "[facility]." He has been started on an antidepressant (Celexa 10 mg). Hemoglobin 10.7 and hematocrit 33.9. BUN today elevated at 85 and creatinine elevated at 2.2. Direct bilirubin elevated at 0.6, 122, but lower than yesterday (152) and alkaline phosphatase 147 (lower than 161 of yesterday). Blood pressure 115/80, pulse 58, temperature 97.5, and respiratory rate 18. Daljit Cerda MD/ PhD
[2018-01-21] MEDS: Levothyroxine 75 MCG TAB PO SCH (08:23)
[2018-01-21 11:51] VITALS: RESP 18
--- NOTE | 2018-01-21 13:15 | PN ---
DATE: 01/21/2018 SUBJECTIVE: This is a 52-year-old male, on telemetry, receiving treatment for congestive heart failure, sleep apnea, COPD with exacerbation, alcohol intoxication with alcoholic hepatitis, elevated liver function tests and depression. He also has an underlying history of cardiomyopathy, defibrillator in place; paroxysmal atrial fibrillation; gouty arthritis. His temperature is 97.5. His pulse is 58. His blood pressure is 113/85. Oxygen sat is 97% on room air. The patient is receiving p.o. antibiotics at this time by Infectious Disease for bronchitis and exacerbation of his COPD. He is on the steroids by Pulmonary. He is hypothyroid. He is on Synthroid supplementation therapy, being followed by Endocrinology and he has an underlying history of chronic renal disease, being followed by Nephrology. Psychiatry is following the patient as well for his depression and his alcohol withdrawal. GI is following the patient for his alcoholic hepatitis. His LFTs are slowly improving. Infectious Disease is also following the patient. It has been explained to the patient and the family that the patient would benefit from an inpatient detox program and attempts will be made to make arrangements for that. LABORATORY DATA: His laboratory data today shows WBC 11.3, RBC 3.58, hemoglobin 10.7, hematocrit 33.9, platelet count 202. His chemistry shows sodium 137, potassium 4.4, chloride 103, BUN 82, creatinine 2.2. His random blood sugar is 175. His AST is now normal. His ALT is 116. His alkaline phosphatase is 145. This is a slow improvement in these numbers. His TSH is 1.9. ASSESSMENT AND PLAN: While it has been strongly advised to the patient that he would benefit from an inpatient facility, we are trying to make attempts to work with him. Qing Jiménez MD
--- NOTE | 2018-01-21 15:20 | PN ---
DATE: 01/21/2018 SUBJECTIVE: The patient is in bed in no acute distress and nontoxic. The patient is comfortable. OBJECTIVE: VITAL SIGNS: Temperature is 97, blood pressure is 133/90, respiratory rate of 18. HEENT: Unremarkable. NECK: Supple. LUNGS: Have decreased breath sounds. HEART: Normal S1, S2. ABDOMEN: Soft. LABORATORY EXAMINATION: Reveals the patient's white count is down to 11,300, hemoglobin of 10. Chemistries are negative and creatinine is 2.2. Urinalysis is noted. Microbiology reveals the blood cultures are negative. negative. Urine cultures negative. Review of orders, reveals the patient have a p.o. doxycycline and prednisone and the patient had a CAT scan of the chest, results are noted. ASSESSMENT AND PLAN: The patient with systemic inflammatory response syndrome, [id number] congestive heart failure. No evidence of pneumonia on the CAT scan and the patient with chronic obstructive pulmonary disease, chronic obstructive lung disease, obstructive sleep apnea, obesity, automatic implantable cardioverter-defibrillator and day #4 of doxycycline with complete 5 days of doxycycline and we will follow with you. Lance Dyer MD
--- NOTE | 2018-01-21 20:34 | PN ---
DATE: 01/21/2018 SUBJECTIVE: The patient is currently seen sitting in a chair. The patient states that he is not losing his much weight as he usually does. His weight apparently is down from 213 pounds to 211 pounds, but his weight on admission was recorded at 200 pounds. The patient states he is feeling comfortable on diuretic therapy. His BUN is twice his admitting levels as creatinine is stable at 2.2. OBJECTIVE: INTAKE/OUTPUT: Intake is 1685 with an output of 250. Weight is down 2 pounds from 213 to 211. VITAL SIGNS: Blood pressure 126/95, temperature 97.4, respiratory rate 18 with a pulse of 61. Oxygen saturation is not recorded. HEENT: Exam shows to be normocephalic, atraumatic. Conjunctiva are pale. Sclerae are nonicteric. NECK: Supple. No neck vein distention. CARDIOPULMONARY: Shows a normal S1, S2 with MR/TR. Positive AICD. No S3. No S4. No rub. LUNGS: Clear to auscultation and percussion. No rales, rhonchi or wheezing. ABDOMEN: Soft. Mildly distended. Obese. Bowel sounds normal. No rebound, guarding or masses. EXTREMITIES: Shows 2+ pitting edema of his lower extremities bilaterally. No cyanosis or clubbing. Diminished pulses secondary to pitting edema. LABORATORY DATA AND IMAGING: CBC, white blood cell count yesterday 11.3, hemoglobin 10.7, platelet count is 202,000. Chemistries today showed normal electrolytes. BUN is 82 with a creatinine of 2.2. On admission, the patient's BUN was 37 with a creatinine of 2.1. Glucose is 175. Calcium is 9.4. Phosphorus level was 4.0. Magnesium level was 1.9. Mild elevation of his liver enzymes. Bilirubin is normal. Troponins are flat. Albumin is 3.9. Thyroid function tests are normal. Urine showed trace protein. Stool occult blood is negative. Toxicology screen was negative. Of note, alcohol on admission was 240. Serologies for hepatitis B, HIV and influenza were negative. Microbiology: Blood cultures are negative. MEDICATIONS: Medication list reviewed. The patient is currently on Celexa, Cordarone, Coreg, doxycycline, Lasix, Pepcid, prednisone, Pulmicort, Robitussin, Synthroid and Xopenex. ASSESSMENT: 1. Decompensated congestive heart failure and a patient with severe cardiomyopathy, dilated cardiomyopathy, alcoholic cardiomyopathy, he continues to drink alcohol. Ejection fraction is 12%. Positive mitral regurgitation/tricuspid regurgitation. History of [id number]-pigjvg pulmonary hypertension. The patient is currently on oral diuretic therapy. We are trying to maintain him on negative fluid balance without significantly increasing his WKR-[id number] ratio. 2. Hyperkalemia resolved. 3. Decompensated congestive heart failure improved with diuretic therapy. 4. Obstructive sleep apnea on nasal continuous positive airway pressure therapy at night. 5. History of chronic obstructive pulmonary disease , currently stable. 6. History of cepm-qt-hivhewvl anemia. Stools were negative for blood. 7. Obesity. 8. Continued elevation of liver enzymes in the setting of likely alcoholic liver disease. Of note, the patient had a positive alcohol level on admission to the hospital. 9. Possible systemic inflammatory response syndrome. The patient is completing a course of antibiotic therapy. All cultures are negative. PLAN: 1. Continue diuretic therapy. 2. Continue to get accurate weights. 3. The patient needs to be in negative fluid balance with diuretic therapy. 4. Cautioned the patient about further alcohol use. 5. Taper steroid therapy. 6. Continue to monitor the patient on telemetry. 7. Continue Levoxyl therapy for hypothyroidism. 8. Continue to monitor labs on a daily basis. Blair Hernandez MD
--- NOTE | 2018-01-21 23:14 | PN ---
DATE: 01/21/2018 LOCATION: Room 275. This is a 52-year-old male with acute exacerbation of COPD, currently switched over from IV steroids to oral steroid therapy and is also now being followed closely for metabolic management. He remains clinically euthyroid at this time and the latest thyroid studies showed a T4 of 5.7 with a TSH of 1.91. His latest chemistry showed a BUN of 82, sodium 137, potassium 4.4, chloride 103, CO2 of 23, glucose 175, and creatinine 2.2. So at this time, we will continue the same levothyroxine modified to 75 mcg once daily in the morning as ordered. We will obtain serial chemistries and supplement accordingly needed. We will follow. Connie Harris MD
[2018-01-22] MEDS: Levalbuterol 1.25 MG/3 ML Inhal Soln UD IH SCH ×4 (01:41→21:02)
[2018-01-22 05:55] VITALS: O2SAT 100
[2018-01-22 06:38] LABS: HEMOGLOBIN 11.6 g/dL (14.0-18.0); MEAN CELL VOLUME 94.4 fl (80.0-105.0); MEAN CORPUSCULAR HEMOGLOBIN 29.7 pg (25.0-35.0); MEAN CORPUSCULAR HGB CONC 31.5 g/dl (31.0-37.0); MEAN PLATELET VOLUME 9.8 fl (7.0-11.0); RBC 3.9 10^6/uL (3.5-6.1); WHITE BLOOD COUNT 14.4 10^3/uL (4.5-11.0)
[2018-01-22 07:14] LABS: ALBUMIN 3.6 g/dL (3.0-4.8); CALCIUM 9.3 mg/dL (8.4-10.5)
[2018-01-22] MEDS: Budesonide 0.5 mg/2 ml Inhal Susp UD IH SCH ×2 (07:57→21:01)
[2018-01-22] MEDS: Levothyroxine 75 MCG TAB PO SCH (08:46)
--- NOTE | 2018-01-22 11:54 | PN ---
DATE: 01/22/2018 SUBJECTIVE: The patient appears very comfortable this morning. He is not short of breath at rest. He is awake and alert. PHYSICAL EXAMINATION: VITAL SIGNS: Temperature 98.0, pulse 62, respirations 18, blood pressure 122/72. Oxygen saturation on room air is 100%. HEENT: Normocephalic, atraumatic. NECK: No JVD. CARDIOVASCULAR: Systolic ejection murmur at the lower left sternal border. Questionable S3 gallop. LUNGS: Clear bilaterally. EXTREMITIES: Minimal/less edema. No cyanosis. No clubbing. Calves are nontender to palpation. GI: Abdomen is soft, nontender, nondistended. Bowel sounds are positive. SKIN: No acute rash. NEUROLOGIC: Exam limited at the present time. IMPRESSION: 1. Acute bronchitis. 2. Chronic obstructive pulmonary disease. 3. Acute congestive heart failure. 4. Dilated cardiomyopathy. 5. Alcohol intoxication. 6. Renal insufficiency. PLAN: The patient appears very comfortable this morning. He is not short of breath at rest. He does state to feeling much better overall. I did discuss the case with the night nurse at length. The night nurse stated the patient had a very good night. On physical exam, the patient's lungs remain clear. In addition, the oxygen saturation on room air is now 100%. I will continue the current nebulizer treatments and decrease the oral steroids this morning. Inputs by Renal, Endocrine, and Infectious Disease are also noted. Clinical status of the patient is significantly improved - compared to his initial presentation. He is for discharge in the near future. I will discuss the above with Dr. Jiménez. Elie Young MD MTDD
--- NOTE | 2018-01-22 14:36 | PN ---
DATE: 01/22/2018 SUBJECTIVE: The patient is a 52-year-old white male with depression and alcohol abuse. He was admitted with chest pain. He has been started on Celexa 10 mg. He has responded well to Librium detoxification of his alcohol withdrawal state. He intends to go to AA meetings and to attend [facility] outpatient substance abuse rehabilitation program. PHYSICAL EXAMINATION: VITAL SIGNS: Blood pressure 120/85, pulse 59, temperature 97.4, respiratory rate 18. LABORATORY DATA: WBC today elevated at 14.4, hemoglobin 11.6, hematocrit 36.8. BUN elevated at 79, creatinine 2.0. ALT still elevated, although tapering, now at 96 with AST being within normal limits (36). Case discussed with Dr. Jiménez. Daljit Cerda MD/ PhD
--- NOTE | 2018-01-22 15:32 | CP.PCM.PN ---
Subjective - Date & Time of Evaluation Date of Evaluation: 01/22/18 Time of Evaluation: 10:55 - Subjective Subjective: Breathing better, cough is better, no fevers. Objective - Vital Signs/Intake and Output Vital Signs (last 24 hours): Temp Pulse Resp BP Pulse Ox 97.4 F L 59 L 18 120/85 100 01/22/18 12:00 01/22/18 12:00 01/22/18 12:00 01/22/18 12:00 01/22/18 05:54 Intake and Output: 01/22/18 01/22/18 06:59 18:59 Intake Total 1000 Output Total 1400 Balance -400 - Medications Medications: Current Medications Amiodarone HCl (Cordarone) 100 mg PO DAILY [facility] Last Admin: 01/22/18 09:17 Dose: Not Given Apixaban (Eliquis) 5 mg PO BID [facility]; Protocol Last Admin: 01/22/18 11:25 Dose: 5 mg Budesonide (Pulmicort Respules) 0.5 mg IH [id number] [facility] Last Admin: 01/22/18 07:57 Dose: 0.5 mg Carvedilol (Coreg) 25 mg PO BID [facility] Last Admin: 01/22/18 09:19 Dose: Not Given Citalopram Hydrobromide (Celexa) 10 mg PO DAILY [facility] Last Admin: 01/22/18 09:17 Dose: 10 mg Doxycycline Hyclate (Doryx) 100 mg PO Q12 [facility]; Protocol Stop: 01/27/18 10:53 Last Admin: 01/22/18 09:19 Dose: 100 mg Famotidine (Pepcid) 20 mg PO DAILY [facility] Last Admin: 01/22/18 09:19 Dose: 20 mg Furosemide (Lasix) 40 mg PO BID [facility] Last Admin: 01/22/18 09:20 Dose: 40 mg Guaifenesin (Robitussin) 200 mg PO Q4H PRN PRN Reason: Cough and congestion Last Admin: 01/16/18 02:40 Dose: 200 mg Levalbuterol HCl (Xopenex) 1.25 mg IH [id number] [facility] Last Admin: 01/22/18 13:56 Dose: 1.25 mg Levalbuterol HCl (Xopenex) 1.25 mg IH Q2H PRN PRN Reason: Shortness of Breath Levothyroxine Sodium (Synthroid) 75 mcg PO 0600 [facility] Prednisone (Prednisone Tab) 10 mg PO DAILY [facility] Last Admin: 01/22/18 09:19 Dose: 10 mg - Labs Labs: 01/22/18 06:00 01/22/18 06:00 PT 16.1 SECONDS (9.4-12.5) H 01/19/18 07:00 INR 1.39 01/19/18 07:00 APTT 32.5 Seconds (25.1-36.5) 01/15/18 11:15 - Constitutional Appears: No Acute Distress, Chronically Ill - Head Exam Head Exam: NORMAL INSPECTION - Respiratory Exam Respiratory Exam: Decreased Breath Sounds - Cardiovascular Exam Cardiovascular Exam: +S1, +S2 - GI/Abdominal Exam GI & Abdominal Exam: Soft. absent: Tenderness Assessment and Plan - Assessment and Plan (Free Text) Plan: Assessment S/P systemic inflammatory response syndrome probably due to acute on chronic CHF, no evidence of pneumonia noted, with probable bronchitis COPD obstructive sleep apnea obesity history of diverticulitis GERD S/P AICD placement Plan discussed with Dr. Young - PCT is normal, reviewed CT chest which does not show specifically pneumonia - continue short course of PO Doxycycline (day 5 of 3-5 days) - may consider discontinuing antibiotics after today; WBC count is elevated but may be due to steroids discussed with Dr. Jiménez as well
--- NOTE | 2018-01-22 15:54 | PN ---
DATE: 01/22/2018 SUBJECTIVE: The patient is seen sitting in a chair on telemetry. He is currently comfortable. He does have some persistent ankle edema. Plan is being made for transfer to an inpatient alcohol detoxification center. CURRENT MEDICATIONS: His current medications remain Celexa, amiodarone 100 mg daily, Coreg 25 mg b.i.d., doxycycline, Lasix 40 mg b.i.d., Pepcid, prednisone 10 mg daily, Pulmicort, Synthroid, and Xopenex. OBJECTIVE: GENERAL: He is a overweight middle-aged man. VITAL SIGNS: Blood pressure is 120/80 with a pulse of 50 and sinus, respirations are 14. He is afebrile. HEENT: No JVD. CHEST: A few scattered rhonchi. HEART: PMI displaced laterally with soft tones present. ABDOMEN: Soft, nontender with normoactive bowel sounds. EXTREMITIES: 1+ ankle edema. DIAGNOSTIC DATA: Potassium 4.2, BUN and creatinine 79 and 2, glucose 148. White count 14.4, hemoglobin and hematocrit 11.6 and 36.8 with a platelet count of 206,000. IMPRESSION: 1. Recurrent alcohol abuse. Plan is being made for inpatient treatment. 2. Volume overload in part due to IV steroid use. 3. Wnloe-bx-wuwbxbk renal insufficiency with increasing prerenal component, likely exacerbated by steroid use. 4. Severe congestive cardiomyopathy. 5. Paroxysmal atrial fibrillation, maintained on beta-daisy therapy and Eliquis. 6. History of ventricular tachycardia status post implantable cardioverter-defibrillator implant. 7. History of cirrhosis, history of chronic obstructive pulmonary disease, history of sleep apnea. RECOMMENDATIONS: Oral diuretic therapy should continue for now. Prednisone is being tapered as able. Eliquis can be resumed at this time. From a cardiac standpoint, he is stable for transfer to a alcohol treatment center. Outpatient followup will be arranged in the office upon discharge from the center. Brigido Silva MD
--- NOTE | 2018-01-22 17:03 | PN ---
DATE: 01/22/2018 ENDO FOLLOWUP NOTE LOCATION: Room 275. This is a 52-year-old male with recent overt hypothyroidism related to a subtherapeutic regimen, presenting here with acute exacerbation of COPD and currently on oral steroid therapy as given. His latest chemistry showed BUN of 82, sodium 137, potassium 4.4, chloride 103, CO2 of 23, glucose 175, and creatinine 2.2. His latest thyroid study showed a T4 of 5.7 with a TSH of 1.91. So, at this time, we will continue the same levothyroxine given as 75 mcg once daily in the morning as ordered. We will obtain serial chemistries and supplement accordingly as needed. We will follow. Connie Harris MD
--- NOTE | 2018-01-22 19:02 | PN ---
DATE: 01/22/2018 SUBJECTIVE: A 52-year-old male that was seen on night, given Doryx p.o., being followed by Infectious Disease, being treated for COPD with acute bronchitis. He has also been treated for congestive heart failure and alcoholic hepatitis with alcohol intoxication. ASSESSMENT AND PLAN: Given the elevation in white count, after discussion with Infectious Disease, the patient will be observed with continuation of current care and followup of his CBC. We will also continue his respiratory treatments. His cardiac medications, is p.o. Lasix and he has been started back on Eliquis by Cardiology. He is also on Celexa for depression by Psychiatry and Synthroid replacement therapy for hypothyroid disease. Qing Jiménez MD
--- NOTE | 2018-01-23 01:41 | PN ---
DATE: 01/22/2018 SUBJECTIVE: The patient is seen, sitting in chair. He is awake, he is alert, he is comfortable. He reports his shortness of breath is better. PHYSICAL EXAMINATION: GENERAL: Obese middle-aged male, sitting in chair. VITAL SIGNS: Blood pressure 120/85, heart rate 59, respiratory rate 18, temperature 97.4. HEENT: Normocephalic, atraumatic, positive pallor. NECK: Supple, no JVD. LUNGS: Bilateral equal air entry, bilateral equal expansion. CARDIAC: S1 and S2, regular rate and rhythm, no murmur, no rub. ABDOMEN: Obese, distended, soft, nontender, bowel sounds present. EXTREMITIES: 1+ pitting edema. INTAKE AND OUTPUT: 2380/1400. LABORATORY DATA: WBC 14.4, hemoglobin 11.6, hematocrit 37, platelets 206. Sodium 139, potassium 4.2, chloride 104, CO2 27, BUN 79, creatinine 2.0, glucose 148, calcium 9.3, phosphorus 3.9, magnesium 2.4, AST 36, ALT 96. CURRENT MEDICATIONS: Celexa, Cordarone, Coreg, doxycycline 100 every 12 hours, Eliquis, Lasix 40 b.i.d. p.o., Pepcid, prednisone, Pulmicort, guaifenesin, Synthroid, Xopenex. ASSESSMENT: 1. Acute kidney injury superimposed on chronic kidney disease stage III, renal parameters improving. 2. Decompensated congestive heart failure. 3. Cardiorenal syndrome. 4. Chronic obstructive pulmonary disease exacerbation. 5. Alcoholic cardiomyopathy. 6. Alcoholic liver disease. PLAN: 1. Continue Lasix 40 p.o. b.i.d. 2. Continue empiric antibiotics. 3. Continue respiratory treatments. 4. Discharge planning. 5. WBC count elevation? secondary to steroids. Amina Martin MD
[2018-01-23] MEDS: Levalbuterol 1.25 MG/3 ML Inhal Soln UD IH SCH ×3 (02:38→14:10)
[2018-01-23] MEDS ORDERED: Levothyroxine 75 MCG TAB PO SCH (06:00)
[2018-01-23 07:20] LABS: HEMOGLOBIN 11.3 g/dL (14.0-18.0); MEAN CELL VOLUME 94.5 fl (80.0-105.0); MEAN CORPUSCULAR HEMOGLOBIN 29.5 pg (25.0-35.0); MEAN CORPUSCULAR HGB CONC 31.2 g/dl (31.0-37.0); MEAN PLATELET VOLUME 9.3 fl (7.0-11.0); RBC 3.83 10^6/uL (3.5-6.1); WHITE BLOOD COUNT 14.1 10^3/uL (4.5-11.0)
[2018-01-23 07:32] LABS: ALBUMIN 3.4 g/dL (3.0-4.8); CALCIUM 8.9 mg/dL (8.4-10.5)
[2018-01-23 07:39] LABS: T4 5.4 ug/dL (5.5-11.0)
[2018-01-23] MEDS: Budesonide 0.5 mg/2 ml Inhal Susp UD IH SCH (08:25)
[2018-01-23 08:57] VITALS: TEMP 97.4
[2018-01-23 10:04] VITALS: BP 131/82; PULSE 65
--- NOTE | 2018-01-23 11:09 | PN ---
DATE: 01/23/2018 SUBJECTIVE: The patient appears very comfortable this morning. He is not short of breath at rest. PHYSICAL EXAMINATION: VITAL SIGNS: Last temperature recorded is 99.0. Pulse 66, respirations 18, blood pressure 123/87. Oxygen saturation on room air is 98%. HEENT: Normocephalic, atraumatic. NECK: No JVD. CARDIOVASCULAR: Systolic ejection murmur at the lower left sternal border. Questionable S3 gallop. LUNGS: Clear bilaterally. EXTREMITIES: Minimal edema. No cyanosis. No clubbing. Calves are nontender to palpation. GI: Abdomen is soft, nontender and nondistended. Bowel sounds are positive. SKIN: No acute rash. NEUROLOGIC: Exam limited at the present time. IMPRESSION: 1. Acute bronchitis. 2. Chronic obstructive pulmonary disease. 3. Acute congestive heart failure. 4. Dilated cardiomyopathy. 5. Alcohol intoxication. 6. Renal insufficiency. PLAN: The patient appears very comfortable this morning. He is not short of breath at rest. He does state to feeling much better overall. I did discuss the case with the night nurse at length. The night nurse stated the patient had a good night. On physical exam, the patient's lungs remain clear. In addition, the oxygen saturation on room air is 98%. I will continue with the current nebulizer treatments and low-dose oral steroids (decreased yesterday) for now. Inputs by Cardiology, Renal, Infectious Disease are noted. Repeat a.m. labs are pending. Clinical status of the patient is significantly improved - compared to his initial presentation. However, due to the above, his overall status/prognosis does remain guarded. I will discuss the above with Dr. Jiménez. Elie Young MD R[facility]EN
--- NOTE | 2018-01-23 15:01 | PN ---
ENDOCRINOLOGY FOLLOWUP NOTE DATE: 01/23/2018 LOCATION: Room 566. SUBJECTIVE: This is a 52-year-old male with acute exacerbation of COPD and also was evaluated to have subclinical hypothyroidism and is now being followed closely for metabolic management. His repeat thyroid studies showed a T4 of 5.4 with a TSH of 3.03. His chemistry showed a BUN of 67, sodium 138, potassium 3.8, chloride 103, CO2 of 29, glucose 114 and creatinine 1.6. So at this time to allow for dose equilibration, we will continue the levothyroxine modified to 75 mcg once daily in the morning as ordered. He will follow with his primary doctor for outpatient medical and thyroid management and followup. Connie Harris MD
--- NOTE | 2018-01-23 21:13 | PN ---
DATE: 01/23/2018 SUBJECTIVE: The patient is seen, sitting in chair. He is awake. He is alert. He is comfortable. He denies any chest pain at present. He denies any shortness of breath at present. PHYSICAL EXAMINATION GENERAL: middle-aged male, sitting in chair. VITAL SIGNS: Blood pressure 131/82, heart rate 65, respiratory rate 18, temperature 97.4. HEENT: Normocephalic, atraumatic. Positive pallor. No icterus. NECK: Supple, no JVD. LUNGS: Bilateral equal air entry, bilateral equal expansion. CARDIAC: S1 and S2, regular rate and rhythm, no murmur, no rub. ABDOMEN: Obese, distended, soft, nontender, bowel sounds present. EXTREMITIES: 1+ pitting edema. INTAKE AND OUTPUT: Not charted. LABORATORY DATA: WBC 14, hemoglobin 11, hematocrit 36, and platelets 186. Sodium 138, potassium 3.8, chloride 103, CO2 of 29, BUN 67, creatinine 1.6, glucose 114, calcium 8.9. AST 31, ALT 77, albumin 3.4. MEDICATIONS: Celexa, Cordarone, Coreg 25 twice a day, doxycycline 100 every 12 hours, Eliquis 5 twice a day, Lasix 40 twice a day, Pepcid, prednisone, Pulmicort, Robitussin, Synthroid, and Xopenex. ASSESSMENT AND PLAN: 1. Resolved acute kidney injury. 2. Stable chronic kidney disease stage III. 3. Status post decompensated congestive heart failure. 4. Chronic obstructive pulmonary disease exacerbation. 5. Alcoholic cardiomyopathy. 6. Alcoholic liver disease. PLAN: 1. Continue Lasix 40 twice a day. 2. Continue beta-daisy. 3. Continue anticoagulant. 4. Complete antibiotics. Amina Martin MD
--- NOTE | 2018-01-24 00:32 | PN ---
DATE: 01/23/2018 SUBJECTIVE: The patient is seen in bed, in no acute distress, was seen earlier today in 566. PHYSICAL EXAMINATION: VITAL SIGNS: Temperature is 98, blood pressure is 112/70, respiratory rate is 16. HEENT: Unremarkable. NECK: Supple. LUNGS: Have decreased breath sounds. HEART: Normal S1 and S2. ABDOMEN: Soft. LABORATORY EXAMINATION: Reveals a white count 14,000. Chemistries are noted and urine cultures are reviewed. ASSESSMENT AND PLAN: This is a 52-year-old male who was seen earlier this morning with systemic inflammatory response syndrome with acute on chronic congestive heart failure. No evidence of pneumonia on the CAT scan with complete with oral doxycycline. Follow up white blood cell count as an outpatient. Case was discussed with Dr. Jiménez at length. We will follow the case closely as an outpatient. Lance Dyer MD
== END 2018-01-23 14:11 | disposition home or self-care (01) | DRG 202 ==
LOC: ED 10:51 → ERH 13:38 → 2RSO 15:52 → 5RNO 01-22 21:50
PROVIDERS: ADMIT Internal Medicine; ATTEND Internal Medicine
DX: J20.9 Acute bronchitis, unspecified (principal); I50.43 Acute on chronic combined systolic (congestive) and diastolic (congestive) heart failure; J44.0 Chronic obstructive pulmonary disease with (acute) lower respiratory infection; N17.9 Acute kidney failure, unspecified; F10.239 Alcohol dependence with withdrawal, unspecified; I13.0 Hypertensive heart and chronic kidney disease with heart failure and stage 1 through stage 4 chronic kidney disease, or unspecified chronic kidney disease; I42.0 Dilated cardiomyopathy; I42.6 Alcoholic cardiomyopathy; R65.10 Systemic inflammatory response syndrome (SIRS) of non-infectious origin without acute organ dysfunction; J44.1 Chronic obstructive pulmonary disease with (acute) exacerbation; K21.9 Gastro-esophageal reflux disease without esophagitis; K57.90 Diverticulosis of intestine, part unspecified, without perforation or abscess without bleeding; K64.9 Unspecified hemorrhoids; K70.10 Alcoholic hepatitis without ascites; K74.60 Unspecified cirrhosis of liver; N18.3 Chronic kidney disease, stage 3 (moderate); T38.0X5A Adverse effect of glucocorticoids and synthetic analogues, initial encounter; Y90.8 Blood alcohol level of 240 mg/100 ml or more; Z68.32 Body mass index [BMI] 32.0-32.9, adult; E66.9 Obesity, unspecified; Z79.01 Long term (current) use of anticoagulants; Z79.51 Long term (current) use of inhaled steroids; Z80.8 Family history of malignant neoplasm of other organs or systems; Z82.49 Family history of ischemic heart disease and other diseases of the circulatory system; D64.9 Anemia, unspecified; E06.3 Autoimmune thyroiditis; E66.01 Morbid (severe) obesity due to excess calories; E78.5 Hyperlipidemia, unspecified; E87.5 Hyperkalemia; F10.229 Alcohol dependence with intoxication, unspecified; F32.89 Other specified depressive episodes; G47.33 Obstructive sleep apnea (adult) (pediatric); I08.1 Rheumatic disorders of both mitral and tricuspid valves; I27.20 Pulmonary hypertension, unspecified; I48.0 Paroxysmal atrial fibrillation; Z86.79 Personal history of other diseases of the circulatory system; Z87.891 Personal history of nicotine dependence; Z91.19 Patient's noncompliance with other medical treatment and regimen; Z95.0 Presence of cardiac pacemaker; Z95.810 Presence of automatic (implantable) cardiac defibrillator

== ENCOUNTER 2018-03-29 22:25 | Inpatient (IN) | payer OTHER, MEDICARE ==
[2018-03-29 22:25] VITALS: BMI 30.7
--- NOTE | 2018-03-29 23:18 | ED PDOC ---
Arrival/HPI - General Chief Complaint: Chest Pain Time Seen by Provider: 03/29/18 22:30 Historian: Patient - History of Present Illness Narrative History of Present Illness (Text): 03/29/18 23:18 Jack Granados is a 52 year old male, whose past medical history includes CHF, paroxysmal atrial fibrillation, COPD, sleep apnea, chronic kidney disease, anemia, alcohol abuse, and cirrhosis, who presents to the emergency department complaining of chest pain. Patient states he feels as if he retaining fluid and reports associated chest pain, abdominal bloating, and shortness of breath. Patient notes he was recently on steroids for 3 weeks due to Gout flare-up when symptoms began. Patient denies any fever, chills, abdominal pain, nausea, vomiting, diarrhea, urinary symptoms, back pain, neck pain, headache, dizziness, or any other complaints. PMD: Dr. Jiménez Home Help Aide: Dr. Vázquez Symptom Onset: Gradual Symptom Course: Unchanged Activities at Onset: Light Context: Home Past Medical History - Provider Review Nursing Documentation Reviewed: Yes - Past History Past History: Non-Contributing - Infectious Disease Hx of Infectious Diseases: None - Tetanus Immunization Tetanus Immunization: Up to Date - Cardiac Hx Cardiac Disorders: Yes (Cardiomyopathy, cardiac cath, Pacemaker/defib 2005,) Hx Congestive Heart Failure: Yes Hx Hypertension: Yes - Pulmonary Hx Chronic Obstructive Pulmonary Disease (COPD): Yes - Neurological Hx Neurological Disorder: Yes Hx Dizziness: Yes (SYNCOPE) - HEENT Hx HEENT Disorder: No - Renal Hx Renal Disorder: Yes (hx renal insufficiency which resolved) - Endocrine/Metabolic Hx Endocrine Disorders: No - Hematological/Oncological Hx Blood Disorders: Yes Hx Anemia: Yes - Integumentary Hx Dermatological Disorder: No - Musculoskeletal/Rheumatological Hx Musculoskeletal Disorders: Yes (RIGHT KNEE SURGERY) Hx Falls: Yes - Gastrointestinal Hx Gastrointestinal Disorders: Yes (CONSTIPATION,HEMORRHOIDS) Hx Diverticulitis: Yes - Genitourinary/Gynecological Hx Genitourinary Disorders: No - Psychiatric Hx Psychophysiologic Disorder: No Hx Depression: No Hx Emotional Abuse: No Hx Physical Abuse: No Hx Substance Use: No - Surgical History Hx Cardiac Catheterization: Yes Hx Orthopedic Surgery: Yes (right knee cartilige) Other/Comment: pacemaker and defib in 2006 - Anesthesia Hx Anesthesia: Yes Hx Anesthesia Reactions: No Hx Malignant Hyperthermia: No - Suicidal Assessment Feels Threatened In Home Enviroment: No Family/Social History - Physician Review Nursing Documentation Reviewed: Yes Family/Social History: Unknown Family HX Smoking Status: Former Smoker Hx Alcohol Use: Yes (ETOH ABUSE AA MEETINGS) Hx Substance Use: No Hx Substance Use Treatment: No Allergies/Home Meds Allergies/Adverse Reactions: Allergies No Known Allergies Allergy (Verified 01/15/18 14:02) Home Medications: Home Meds Medication Instructions Recorded Confirmed Carvedilol [Coreg] 25 mg PO BID 05/09/12 01/15/18 Amiodarone [Cordarone] 100 mg PO DAILY 06/15/16 01/15/18 Apixaban [Eliquis] 5 mg PO BID 07/29/17 01/15/18 Furosemide 40 mg PO BID 07/29/17 01/15/18 Review of Systems - Physician Review All systems were reviewed & negative as marked: Yes - Review of Systems Constitutional: Normal. absent: Fevers Eyes: Normal ENT: Normal Respiratory: SOB Cardiovascular: Chest Pain Gastrointestinal: Normal. absent: Abdominal Pain, Diarrhea, Nausea, Vomiting Genitourinary Male: Normal. absent: Dysuria, Frequency, Hematuria, Urinary Output Changes Musculoskeletal: Normal. absent: Back Pain, Neck Pain Skin: Normal. absent: Rash Neurological: Normal. absent: Headache, Dizziness Endocrine: Normal Hemo/Lymphatic: Normal Psychiatric: Normal Physical Exam Vital Signs Reviewed: Yes Vital Signs Temp Pulse Resp BP Pulse Ox 03/29/18 22:36 98.7 F 67 27 H 113/83 98 Temperature: Afebrile Blood Pressure: Normal Pulse: Regular Respiratory Rate: Normal Appearance: Positive for: Well-Appearing, Non-Toxic, Comfortable Pain Distress: None Mental Status: Positive for: Alert and Oriented X 3 - Systems Exam Head: Present: Atraumatic, Normocephalic Pupils: Present: PERRL Extroacular Muscles: Present: EOMI Conjunctiva: Present: Normal Mouth: Present: Moist Mucous Membranes Neck: Present: Normal Range of Motion Respiratory/Chest: Present: Clear to Auscultation, Good Air Exchange. No: Respiratory Distress, Accessory Muscle Use Cardiovascular: Present: Regular Rate and Rhythm, Normal S1, S2. No: Murmurs Abdomen: No: Tenderness, Distention, Peritoneal Signs Back: Present: Normal Inspection Upper Extremity: Present: Normal Inspection. No: Cyanosis, Edema Lower Extremity: Present: Edema (1+ pitting edema bilaterally), NORMAL PULSES, Normal ROM. No: Tenderness, Erythema, Deformity Neurological: Present: GCS=15, CN II-XII Intact, Speech Normal Skin: Present: Warm, Dry, Normal Color. No: Rashes Psychiatric: Present: Alert, Oriented x 3, Normal Insight, Normal Concentration Medical Decision Making ED Course and Treatment: 03/29/18 23:18 Impression: 52 year old male complaining of shortness of breath, chest pain, and fluid retention. Plan: -- EKG -- CXR -- Labs, BNP, cardiac enzymes -- Reassess and disposition Prior Visits: Notes and results from previous visits were reviewed. Progress Notes: Reviewed EKG, NSR at 72 bpm. Non-specific IVCD. Non-specific ST/T wave changes. Unchanged from previous EKG on 01/19/2018. 03/30/18 00:23 CXR reviewed, shows mildly increased pulmonary vascular markings. 03/30/18 00:[address] Jiménez, KARELY, who is aware and agrees with plan. Accepts pt in to his service. Pt will go to Telemetry observation for CHF. - RAD Interpretation Radiology Orders: 03/29/18 22:55 CHEST PORTABLE [RAD] Stat Nut Feeder: ED Physician - EKG Interpretation Interpreted by ED Physician: Yes Type: 12 lead EKG - Scribe Statement The provider has reviewed the documentation as recorded by the Dorene Platt Provider Scribe Attestation: All medical record entries made by the Scribe were at my direction and personally dictated by me. I have reviewed the chart and agree that the record accurately reflects my personal performance of the history, physical exam, medical decision making, and the department course for this patient. I have also personally directed, reviewed, and agree with the discharge instructions and disposition. Disposition/Present on Arrival - Present on Arrival Any Indicators Present on Arrival: No History of DVT/PE: No History of Uncontrolled Diabetes: No Urinary Catheter: No History of Decub. Ulcer: No History Surgical Site Infection Following: None - Disposition Have Diagnosis and Disposition been Completed?: Yes Diagnosis: CHF exacerbation Disposition: HOSPITALIZED Disposition Time: 02:22 Patient Plan: Observation Patient Problems: Current Active Problems Problem Status Onset CHF exacerbation Acute Condition: STABLE
[2018-03-29 23:43] LABS: HEMOGLOBIN 12.3 g/dL (14.0-18.0); MEAN CORPUSCULAR HEMOGLOBIN 29.3 pg (25.0-35.0); MEAN CORPUSCULAR HGB CONC 32.5 g/dl (31.0-37.0); MEAN PLATELET VOLUME 9.8 fl (7.0-11.0); RBC 4.2 10^6/uL (3.5-6.1); RED CELL DISTRIBUTION WIDTH 16.7 % (11.5-14.5); WHITE BLOOD COUNT 12.8 10^3/uL (4.5-11.0)
[2018-03-29 23:47] LABS: INR 3.09; PARTIAL THROMBOPLASTIN TIME 35.1 Seconds (26.9-38.3); PROTHROMBIN TIME 34.3 SECONDS (9.4-12.5)
[2018-03-29 23:49] LABS: ALB/GLOB RATIO 1.1 (1.1-1.8); ALBUMIN 3.8 g/dL (3.0-4.8); CALCIUM 9.3 mg/dL (8.4-10.5)
[2018-03-30 00:01] LABS: TROPONIN I 0.04 ng/mL
[2018-03-30] MEDS: Budesonide 0.5 mg/2 ml Inhal Susp UD IH SCH (07:45)
[2018-03-30] MEDS: Arformoterol 15 mcg/2 ml Inh Sol IH SCH (07:45)
[2018-03-30 08:07] LABS: TROPONIN I 0.04 ng/mL
--- NOTE | 2018-03-30 08:54 | RAD ---
Date of service: 03/29/2018 HISTORY: chest pain COMPARISON: 01/15/2018 FINDINGS: LUNGS: No active pulmonary disease. PLEURA: No significant pleural effusion identified, no pneumothorax apparent. CARDIOVASCULAR: No aortic atherosclerotic calcification present. Mild cardiomegaly no pulmonary vascular congestion. OSSEOUS STRUCTURES: No significant abnormalities. VISUALIZED UPPER ABDOMEN: Normal. OTHER FINDINGS: Single lead pacemaker IMPRESSION: No active disease.
--- NOTE | 2018-03-30 09:52 | CON ---
DATE OF CONSULTATION: 03/30/2018 PULMONARY CONSULTATION REASON FOR PULMONARY CONSULTATION: Chronic obstructive pulmonary disease. REFERRING PHYSICIAN: Dr. Qing Jiménez. HISTORY OF PRESENT ILLNESS: The patient is a chronically ill 52-year-old male, with past medical history significant for chronic obstructive pulmonary disease, obstructive sleep apnea, significant noncompliance with his pulmonary medications at home, significant noncompliance with my office followup, recurrent congestive heart failure, dilated cardiomyopathy, alcohol abuse, who presents to [facility] with main complaints of increasing shortness of breath at rest and dyspnea on exertion for the past 3 days. The patient also states to a minimal cough with occasional clear sputum production. There is no history of chest pain, coughing up of blood, or chest pain - brought on with deep respirations. There is no history of temperatures, chills or infectious exposure. There is no history of night sweats, weight loss or appetite change prior to the above events. No history of calf pains. No history of syncope or diaphoresis. No history of recent travel or trauma. REVIEW OF SYSTEMS: No history of nausea, vomiting or diarrhea. No acute urinary symptoms. No new neurologic or musculoskeletal complaints. Rest of the review of systems is negative. ALLERGIES: NO KNOWN ALLERGIES. SOCIAL HISTORY: Positive for former tobacco usage, also positive for current alcohol abuse. FAMILY HISTORY: No inheritable diseases. HOME MEDICATIONS: Include Coreg, Eliquis, Cordarone, Lasix, doxycycline, and citalopram. PHYSICAL EXAMINATION: GENERAL: The patient appears comfortable this morning. He is not short of breath at rest. He is not using accessory muscles for breathing. VITAL SIGNS: Temperature is 97.6, pulse 65, respirations 18/20, blood pressure 120/90. Oxygen saturation on nasal cannula is 98%. HEENT: Normocephalic, atraumatic. No JVD. CARDIOVASCULAR: Systolic ejection murmur at the lower left sternal border. Positive S3 gallop. LUNGS: Crackles noted at both bases. Very minimal rhonchi. No wheezing. EXTREMITIES: Positive for mild edema. No cyanosis. No clubbing. Calves are nontender to palpation. GASTROINTESTINAL: Abdomen is soft, nontender and nondistended. Bowel sounds are positive. SKIN: No acute rash. NEUROLOGIC: Exam Is limited at the present time. PERTINENT LABORATORY DATA: Chest x-ray was done late last night and reviewed. The chest x-ray is a poor rotated film. It shows mild pulmonary vascular congestion. There are no significant effusions. Complete metabolic metabolic profile: BUN 45, glucose 111, alkaline phosphatase 149, B-type natriuretic peptide 08494. Rest of the metabolic profile is within normal limits. CBC: White count 12.8K, hemoglobin 12.3, hematocrit 37.8, platelets of 263,000. IMPRESSION: 1. Recurrent congestive heart failure. 2. Dilated cardiomyopathy. 3. Chronic obstructive pulmonary disease. 4. Mild bronchitis. 5. Mild anemia. PLAN: The patient presents to [facility] with a 3-day history of increasing shortness of breath at rest and dyspnea on exertion. He also states to a minimal cough with occasional clear sputum production. He offers no other pulmonary complaints. I did review the chest x-ray as above. The chest x-ray shows mild pulmonary vascular congestion. The chest x-ray is not significantly changed from the previous film. I have also reviewed the laboratory data. A significant rise in the B-type natriuretic peptide is noted. Cardiology evaluation input is noted by Dr. Silva. The patient is on intravenous Lasix twice daily. On physical exam, there is no significant bronchospasm noted. In addition, there is no significant alveolar-arterial gradient. I will start the patient on Brovana nebulizer treatments and inhaled Pulmicort. The patient does state to feeling better this morning, and is clinically improved. The patient is taking NO pulmonary medications at home. He does have a significant history of noncompliance with his pulmonary medications. I did discuss this issue with him again at length. In spite of his clinical improvement, the future status/prognosis for this chronically ill noncompliant patient does remain guarded. I will discuss the above with Dr. Jiménez. Thank you very much for this pulmonary consultation. Elie Young MD RUBEN
--- NOTE | 2018-03-30 10:09 | CON ---
DATE OF CONSULTATION: 03/30/2018 REQUESTING PHYSICIAN: Qing Jiménez MD REASON FOR CONSULTATION: Dyspnea. HISTORY: This is a 52-year-old man, well known to me with a history of congestive cardiomyopathy, severe LV dysfunction, history of alcohol abuse, prior ICD implant, who was admitted with worsening dyspnea and leg edema recently. He has had cough for several weeks and was given oral antibiotics with partial improvement. When seen by Dr. Martin recently, he was noted to have low blood pressure and his carvedilol dose was reduced. He was asymptomatic at that time. In addition, he was felt to have a flare-up of his gouty arthritis and seen by his live in housekeeper who placed him on steroids at that time. PAST HISTORY: Notable for the problems mentioned above. He does have COPD, sleep apnea, chronic renal insufficiency, anemia and cirrhosis. He has undergone prior right knee surgery. FAMILY HISTORY: Both parents had cardiomyopathies. SOCIAL HISTORY: As mentioned, he is and lives with his . He does not smoke. He has had multiple relapses of alcohol abuse, but has been abstinent for some time now. He continues to participate in alcohol anonymous groups. MEDICATIONS AT HOME: Amiodarone 100 mg daily, Eliquis 5 mg b.i.d., Lasix 40 mg b.i.d., carvedilol 25 mg b.i.d. reduced to 12.5 mg. ALLERGIES: NONE. REVIEW OF SYSTEMS: A 10-point review of systems is otherwise unremarkable. PHYSICAL EXAMINATION: GENERAL: He is an overweight middle-aged man. VITAL SIGNS: His blood pressure is 126/90 with a pulse of 66 and sinus. Respirations are 14. He is afebrile. HEENT: No JVD. CHEST: Bilateral scattered rhonchi and wheezing noted. No rales heard. HEART: PMI displaced laterally with systolic murmur heard at the lower left sternal border. ABDOMEN: Soft and nontender, normoactive bowel sounds. EXTREMITIES: 1+ leg edema. DIAGNOSTIC DATA: Potassium is 3.7, BUN and creatinine are 45 and 1.5. White count is 12.8, hemoglobin and hematocrit are 12.3 and 37.8, and platelet count 263,000. INR is 3.09. BNP is 16,100. Troponin 0.04. Chest x-ray reveals markedly enlarged cardiac silhouette. No clear infiltrate seen. An ICD system is in place. Electrocardiogram reveals a sinus rhythm with nonspecific ST-T abnormalities. IMPRESSION: 1. Mildly decompensated congestive heart failure, [id number], systolic, likely precipitated by bronchitis and recent steroid use. 2. Apparent bronchitis. 3. Congestive cardiomyopathy. 4. History of alcohol abuse. 5. Rest of the problems as above. RECOMMENDATIONS: His oral medications will be resumed. IV Lasix will be continued for 24-48 hours. Sodium and fluid restriction were advised. We will be happy to follow and make further recommendations as appropriate. Brigido Silva MD
[2018-03-30] MEDS: Levalbuterol 1.25 MG/3 ML Inhal Soln UD IH PRN ×2 (11:46→17:48)
--- NOTE | 2018-03-30 16:46 | CARD ---
APPROVED REPORT Date of service: 03/29/2018 EKG Measurement Heart [id number] CO [id number] <Conclusion> Normal sinus rhythm Right superior axis deviation Nonspecific intraventricular block Abnormal ECG
[2018-03-31] MEDS: Budesonide 0.5 mg/2 ml Inhal Susp UD IH SCH ×2 (07:17→20:11)
[2018-03-31] MEDS: Levalbuterol 1.25 MG/3 ML Inhal Soln UD IH PRN ×3 (07:17→20:11)
[2018-03-31] MEDS: Arformoterol 15 mcg/2 ml Inh Sol IH SCH ×2 (07:17→20:11)
[2018-03-31 07:35] LABS: BASO # 0.01 K/mm3 (0.0-2.0); BASO % 0.1 % (0.0-3.0); EOS # 0.2 (0.0-0.7); EOS % 2.1 % (1.5-5.0); HEMOGLOBIN 11.7 g/dL (14.0-18.0); LYMPH # 1.1 (1.2-3.4); LYMPH % 10.3 % (22.0-35.0); MEAN CELL VOLUME 90.9 fl (80.0-105.0); MEAN CORPUSCULAR HEMOGLOBIN 28.9 pg (25.0-35.0); MEAN CORPUSCULAR HGB CONC 31.8 g/dl (31.0-37.0); MEAN PLATELET VOLUME 9.7 fl (7.0-11.0); MONO # 1.1 (0.1-0.6); MONO % 9.7 % (1.0-6.0); RBC 4.05 10^6/uL (3.5-6.1); RED CELL DISTRIBUTION WIDTH 16.5 % (11.5-14.5); WHITE BLOOD COUNT 10.9 10^3/uL (4.5-11.0)
[2018-03-31 07:43] LABS: ALB/GLOB RATIO 1.1 (1.1-1.8); ALBUMIN 3.6 g/dL (3.0-4.8); ALT/SGPT 25 U/L (7-56); AST/SGOT 25 U/L (17-59); BLOOD UREA NITROGEN 41 mg/dL (7-21); CALCIUM 9.3 mg/dL (8.4-10.5); GFR NON-AFRICAN AMERICAN 53
--- NOTE | 2018-03-31 08:15 | HP ---
DATE OF EXAM: 03/30/2018 HISTORY OF PRESENT ILLNESS: The patient is a 52-year-old male presented to [facility] emergency room with complaints of shortness of breath, congestion. PAST MEDICAL HISTORY: Congestive heart failure, ejection fraction of 10%-15%. Moderate pulmonary hypertension, cardiomyopathy, defibrillator, paroxysmal atrial fibrillation, bronchitis, pneumonia, gouty arthritis, alcohol abuse, depression, COPD with exacerbation, hyponatremia. ALLERGIES: NO KNOWN ALLERGIES. HOME MEDICATIONS: Consist of Celexa, Brovana, amiodarone, Lasix, Eliquis, Coreg. REVIEW OF SYSTEMS: A 12 systems are reviewed. Pertinent findings as in the exam. He also states that recently he has been treated by his cager operator for gouty arthritis with a steroid regimen. PHYSICAL EXAMINATION: VITAL SIGNS: His temperature is 97.6, pulse is 65, blood pressure is 127/90, oxygen sat is 98% on 2 liters of nasal cannula. GENERAL: He is alert and oriented x3. NECK: Supple. LUNGS: Show rhonchi with diminished breath sounds at the bases. HEART: S1, S2. ABDOMEN: Obese, soft with positive bowel sounds. EXTREMITIES: Show 1+ edema. LABORATORY DATA: Shows WBC of 12.8, RBC 4.2, hemoglobin 12.3, hematocrit 37.8, platelet count 263. His PT is 34.3 with an INR of 3.09, PTT is 35.1. Chemistry shows sodium 135, potassium 3.7, chloride 106, CO2 of 21. The BUN is 45, creatinine is 1.5. Random blood sugar is 111. His calcium is 9.8. His LFTs AST is 31, ALT is 19. The alkaline phosphatase is 149. His troponin is 0.04 and 0.04. His BNP is 16,100. IMPRESSION: A 52-year-old male with; 1. Congestive heart failure. 2. Chronic obstructive pulmonary disease. 3. History of moderate pulmonary hypertension with reduced ejection fraction. PLAN: The patient will be admitted to telemetry. Consults will with Cardiology and Pulmonary. The patient has been encouraged in the past. He uses BiPAP system which he says he has not been using recently nor his bronchodilator therapies at home. We follow up the patient's labs. Further treatment plan pending. diagnostic studies and input from the individual consultants. Qing Jiménez MD
[2018-03-31] MEDS: Potassium Chloride 20 mEq ER Tab PO SCH (09:22)
--- NOTE | 2018-03-31 10:14 | PN ---
DATE: 03/31/2018 PULMONARY NOTE SUBJECTIVE: The patient appears very comfortable this morning. He is not short of breath at rest. PHYSICAL EXAMINATION: VITAL SIGNS: Temperature is 98.1, pulse 67, respirations 18/20, blood pressure 147/87. Oxygen saturation on nasal cannula is 98%. HEENT: Normocephalic, atraumatic. No JVD. CARDIOVASCULAR: Systolic ejection murmur at the lower left sternal border. Positive S3 gallop. LUNGS: Less crackles at the bases. No rhonchi or wheezing this morning. GI: Abdomen is soft, nontender and nondistended. Bowel sounds are positive. EXTREMITIES: Positive for mild edema. No cyanosis, no clubbing. Calves are nontender to palpation. SKIN: No acute rash. NEUROLOGIC: Exam limited at the present time. IMPRESSION: 1. Recurrent congestive heart failure. 2. Dilated cardiomyopathy. 3. Chronic obstructive pulmonary disease. 4. Mild bronchitis. 5. Mild anemia. PLAN: The patient appears very comfortable this morning. He is not short of breath at rest. He does state to feeling much better overall. I did discuss the case with the night nurse at length. The night nurse stated the patient had a very good night. On physical exam, there is no significant bronchospasm noted. In addition, there is no significant alveolar-arterial gradient. I will continue the current nebulizer treatments and inhaled steroids for now. I would continue with the treatment for congestive heart failure and cardiomyopathy as per Cardiology. Input by Dr. Silva is noted. The patient remains on intravenous Lasix. Clinical status of the patient has certainly improved - compared to the initial presentation. However, unfortunately, the future status/prognosis for this chronically ill, extremely noncompliant patient remains very guarded. I will discuss the above with Dr. Jiménez. Elie Young MD MTDJuly
--- NOTE | 2018-03-31 22:01 | PN ---
DATE: 03/31/2018 SUBJECTIVE: The patient is seen sitting in bed on telemetry. He feels somewhat better, but continues to have significant peripheral edema. He is also bothered by a cough. PHYSICAL EXAMINATION: GENERAL: He is a overweight middle-aged man. VITAL SIGNS: Blood pressure is 110/66 with pulse of 62 and sinus, respirations are 16. He is afebrile. NECK: No JVD. CHEST: Bilateral scattered rhonchi with scattered wheezing. HEART: PMI displaced laterally with systolic murmur at the lower left sternal border. ABDOMEN: Soft, obese, nontender with normoactive bowel sounds. EXTREMITIES: 1+ leg edema. INTAKE AND OUTPUT: 180 and 1460. DIAGNOSTIC DATA: White count 10.9, hemoglobin and hematocrit 11.7 and 36.8 with a platelet count 198,000. Potassium 3.3, BUN and creatinine are 41 and 1.4. MEDICATIONS: Include Brovana, Celexa, amiodarone 100 mg daily, carvedilol 25 mg b.i.d., doxycycline, Eliquis, potassium, Lasix 40 mg b.i.d., Pulmicort and Xopenex. IMPRESSION: 1. Decompensated congestive heart failure, [id number], likely precipitated by bronchitis and steroid use. 2. Congestive cardiomyopathy. 3. History of tobacco abuse. 4. Rest of problems as noted. RECOMMENDATIONS: IV Lasix will be increased to 80 mg b.i.d., oral spironolactone will be added to his regimen as well. Monitor his renal function. Potassium will be planned. Continue sodium and fluid restriction was advised. We will continue to follow and make further things as appropriate. Brigido Silva MD
--- NOTE | 2018-04-01 00:16 | PN ---
DATE: 03/31/2018 SUBJECTIVE: This 52-year-old male in the telemetry unit was admitted because of increasing shortness of breath over several days with cough. PHYSICAL EXAMINATION: GENERAL: He is alert and oriented x3. VITAL SIGNS: Temperature of 97.4, blood pressure is 139/94, pulse is 66, respiratory rate is 18. LUNGS: Diminished breath sounds at the bases. HEART: Is in S1, S2 rhythm. ABDOMEN: Obese, soft with positive bowel sounds. EXTREMITIES: 1+ edema. LABORATORY DATA: Sodium 137, potassium 3.3, chloride 104, BUN of 41, creatinine is 1.4. His alkaline phosphatase is 143. PLAN: The patient is currently receiving IV medication with Lasix for volume overload, decompensated CHF. He also has been placed on bronchodilator therapy for an exacerbation of his COPD and with antibiotics. He will continue his anticoagulation therapy with Eliquis for his history of paroxysmal atrial fibrillation. We will also give potassium supplement, check serum magnesium and follow up his chemistries. Qing Jiménez MD
[2018-04-01] MEDS: Arformoterol 15 mcg/2 ml Inh Sol IH SCH ×3 (07:19→21:25)
[2018-04-01] MEDS: Levalbuterol 1.25 MG/3 ML Inhal Soln UD IH PRN (07:19)
[2018-04-01] MEDS: Budesonide 0.5 mg/2 ml Inhal Susp UD IH SCH ×3 (07:19→21:26)
[2018-04-01 07:23] LABS: BLOOD UREA NITROGEN 41 mg/dL (7-21); CALCIUM 9.2 mg/dL (8.4-10.5); GFR NON-AFRICAN AMERICAN 53
[2018-04-01] MEDS: Potassium Chloride 20 mEq ER Tab PO SCH ×3 (08:09→17:54)
--- NOTE | 2018-04-01 09:09 | PN ---
DATE: 04/01/2018 PULMONARY NOTE SUBJECTIVE: The patient appears very comfortable this morning. He is not short of breath at rest. PHYSICAL EXAMINATION: VITALS: Temperature is 98.7, pulse 56, respirations 18, blood pressure 118/83. Oxygen saturation on room air is 98%. HEENT: Normocephalic, atraumatic. No JVD. CARDIOVASCULAR: Systolic ejection murmur at the lower left sternal border. Positive S3 gallop. LUNGS: Minimal/less crackles at the bases. Otherwise clear. EXTREMITIES: Less edema. No cyanosis, no clubbing. Calves are nontender to palpation. GASTROINTESTINAL: Abdomen is soft, nontender, and nondistended. Bowel sounds are positive. SKIN: No acute rash. NEUROLOGIC: Exam limited at the present time. IMPRESSION: 1. Recurrent congestive heart failure. 2. Dilated cardiomyopathy. 3. Chronic obstructive pulmonary disease. 4. Mild bronchitis. 5. Mild anemia. PLAN: The patient appears very comfortable this morning. He is not short of breath at rest. He does state to feeling much better overall. I did discuss the case with the night nurse at length. The night nurse stated that the patient had a very good night. On physical exam, his bronchospasm has primarily resolved. In addition, the oxygen saturation on room air is now 98%. I will continue the current nebulizer treatments and inhaled steroids for now. I would continue with the treatment for congestive heart failure as per Cardiology. Input by Dr. Silva is noted. Clinical status of the patient is certainly improved - compared to the initial presentation. However, given the above, the future status/prognosis for this patient does remain guarded. I will discuss the above with Dr. Jiménez. Elie Young MD MTDD
--- NOTE | 2018-04-01 12:21 | RAD ---
Date of service: 04/01/2018 PROCEDURE: Left Knee Radiographs. HISTORY: Pain. COMPARISON: None. FINDINGS: BONES: Normal. No fracture. JOINTS: Normal. No osteoarthritis. JOINT EFFUSION: None. OTHER FINDINGS: None. IMPRESSION: Normal radiographs of the left knee.
--- NOTE | 2018-04-01 12:21 | RAD ---
Date of service: 04/01/2018 PROCEDURE: Right Foot Radiographs. HISTORY: pain COMPARISON: None. FINDINGS: BONES: Normal. No fracture. JOINTS: Normal. SOFT TISSUES: Normal. OTHER FINDINGS: None. IMPRESSION: Normal right foot radiographs.
[2018-04-01] MEDS ORDERED: Bupivacaine 0.5% Inj(30mL) IJ ONE (13:40)
[2018-04-01] MEDS ORDERED: MethylPREDNISolone Depo 40 mg/ml Inj IM ONE (13:40)
[2018-04-01 14:43] LABS: FLUID TYPE SYNOVIAL FLUID
--- NOTE | 2018-04-01 14:47 | PN ---
DATE: 04/01/2018 SUBJECTIVE: A 52-year-old male on telemetry. The patient states that he is now having pain in the left knee and the right foot. He states that he was treated by his weight loss centre manager with steroids on the outside for gout. He denies any recent trauma. PHYSICAL EXAMINATION: VITAL SIGNS: Temperature of 98.7, his blood pressure is 118/83, his oxygen sat is 98% on room air, respiratory rate is 18. GENERAL: He is alert and oriented x3. LUNGS: Show diminished breath sounds at the bases. HEART: Is in S1, S2. ABDOMEN: Obese, soft with positive bowel sounds. EXTREMITIES: Show no evidence of edema. There is some tenderness on the medial side of the left knee. He also says that he is having some pain on the lateral side of his right foot. There is no erythema noted at both sites at this time. LABORATORY DATA: Sodium 137, potassium 3.2, chloride 103, the BUN is 41, the creatinine is 1.4, his magnesium is 24. ASSESSMENT: 1. The patient is receiving treatment for exacerbation of chronic obstructive pulmonary disease. 2. The patient is receiving treatment for congestive heart failure. 3. We will adjust his potassium and follow up his chemistries. 4. We will check a uric acid level. 5. We will get Orthopedics and x-rays of the areas that the patient is complaining about. PLAN: Currently, he is on Doryx p.o. b.i.d., Coreg, Eliquis, Lasix b.i.d., Pulmicort, Tylenol, Xopenex. His Lasix has been increased from 40 to 80 mg b.i.d. He is also on Celexa for depression history as well as Brovana and Aldactone. We will continue to monitor the patient closely. Qing Jiménez MD
[2018-04-01 15:11] LABS: SF GROSS APPEARANCE CLEAR (CLEAR); SYNOVIAL FLUID COMMENT YELLOW
--- NOTE | 2018-04-01 15:12 | PN ---
DATE: 04/01/2018 SUBJECTIVE: The patient is seen sitting in chair, on telemetry. He is feeling somewhat better. His edema is improved. His cough is improved as well. CURRENT MEDICATIONS: Include Aldactone 25 mg b.i.d., Brovana, Celexa, amiodarone 100 mg daily, carvedilol 25 mg b.i.d., doxycycline 100 mg b.i.d., Eliquis 5 mg b.i.d., potassium 20 mEq b.i.d., Lasix 80 mg IV b.i.d., Pulmicort inhaler, and Xopenex. OBJECTIVE: GENERAL: He is an overweight middle-aged man. VITAL SIGNS: His blood pressure is 118/80 with pulse of 56 and regular, respirations are 16. He is afebrile. HEENT: No JVD. CHEST: Bilateral scattered rhonchi. HEART: PMI displaced laterally with soft tones noted. ABDOMEN: Soft, nontender with bowel sounds. EXTREMITIES: 1+ right leg edema. DIAGNOSTIC DATA: Potassium 3.2, which has been replaced. BUN and creatinine are 41 and 1.4. IMPRESSION: 1. Decompensated congestive heart failure, [id number] systolic, likely due to bronchitis and recent high dose steroid use. 2. Congestive cardiomyopathy. 3. History of alcohol abuse. 4. Rest of problems as noted. RECOMMENDATIONS: IV Lasix will be continued for an additional 24 hours. Rest of his oral medications will continue unchanged as well. He is not currently on an TEENA inhibitor or angiotensin receptor daisy, the reason for this will be evaluated; if there is no contraindication, a trial of Entresto can be considered. The need for continued sodium and fluid restriction as well as alcohol abstinence was discussed with him. Avoidance of high dose steroids in the future would be beneficial as well. We will follow along as needed. Brigido Silva MD
[2018-04-02] MEDS: Levalbuterol 1.25 MG/3 ML Inhal Soln UD IH PRN (07:23)
[2018-04-02] MEDS: Budesonide 0.5 mg/2 ml Inhal Susp UD IH SCH ×2 (07:23→21:20)
[2018-04-02] MEDS: Arformoterol 15 mcg/2 ml Inh Sol IH SCH ×2 (07:23→21:20)
[2018-04-02 07:30] LABS: BLOOD UREA NITROGEN 41 mg/dL (7-21); CALCIUM 9.4 mg/dL (8.4-10.5); GFR NON-AFRICAN AMERICAN 58
--- NOTE | 2018-04-02 07:48 | CON ---
DATE: 04/01/2018 ORTHOPEDIC CONSULTATION LOCATION: Room 275, bed 1. HISTORY OF PRESENT ILLNESS: The patient was seen in consult by Dr. Jiménez for left knee pain and right foot discomfort. X-rays of the left knee show mild osteoarthritis with a small effusion and the right foot had relatively negative x-ray with soft tissue palpable movable cyst by half a centimeter over the lateral border of the right foot as well as his left knee with mild arthritis and mild effusion in the right foot with soft tissue movable cyst half a centimeter. So, we aspirated this cyst, could not get fluid, so we punctured the cyst and it defervesced the cyst it is now flat, we ruptured with several 25-gauge needle holes and pushed some Depo-Medrol and Marcaine in and then we also did arthrocentesis of his left knee, taken out 15 mL of clear fluid it d/nshow sighns of being infectious, so we sent out fluid to the lab for cell count culture and crystals and injected the left knee with Depo-Medrol and Marcaine. Hopefully, the 2 regions feel better and I will follow him while he is in the hospital. FINAL DIAGNOSES: Osteoarthritis left knee with effusion and a soft tissue cyst of the right foot lateral side dorsally and it could be inflammatory arthritis and gout on the knee and there is a benign soft tissue cyst of the right foot. I am going to walk the specimen down to the lab for culture, cell count, and crystals for the left knee fluid; otherwise, we will do therapy for ambulation and strengthening exercises. Louis Hernández DO MTDJuly
--- NOTE | 2018-04-02 08:50 | PN ---
DATE: 04/02/2018 SUBJECTIVE: The patient appears quite comfortable this morning. He is not short of breath at rest. PHYSICAL EXAMINATION: VITAL SIGNS: Temperature 98.6, pulse 64, respirations 18, blood pressure 102/66. Oxygen saturation on room air is 99%. HEENT: Normocephalic, atraumatic. NECK: No JVD. CARDIOVASCULAR: Systolic ejection murmur at the lower left sternal border. Positive S3 gallop. LUNGS: Very minimal/less crackles at the bases. Otherwise, clear. EXTREMITIES: No clubbing, cyanosis or edema. Calves are nontender to palpation. GI: Abdomen is soft, nontender and nondistended. Bowel sounds are positive. SKIN: No acute rash. NEUROLOGIC: Exam limited at the present time. IMPRESSION: 1. Recurrent congestive heart failure. 2. Dilated cardiomyopathy. 3. Chronic obstructive pulmonary disease. 4. Mild bronchitis. 5. Mild anemia. PLAN: The patient appears quite comfortable this morning. He is not short of breath at rest. He does state to feeling much better overall. On physical exam, his bronchospasm has primarily resolved. In addition, the oxygen saturation on room air is now 99%. I will continue with the current nebulizer treatments and inhaled steroids for now. I will also continue with the CPAP at night. Input by Cardiology is also noted. The patient remains on intravenous Lasix. Clinical status of the patient is significantly improved - compared to the initial presentation. However, given the above, the future status/prognosis for this patient remains guarded. I will discuss the above with Dr. Jiménez. Elie Young MD MTDJuly
[2018-04-02] MEDS: Potassium Chloride 20 mEq ER Tab PO SCH (09:35)
[2018-04-02] MEDS: SACUBITRIL 24mg/VALSARTAN 26mg tab PO SCH ×2 (11:42→17:16)
--- NOTE | 2018-04-02 13:09 | PN ---
DATE: 04/02/2018 SUBJECTIVE: The patient is seen sitting in a chair on telemetry. He is feeling better. His cough is improved. His peripheral edema is nearly resolved. CURRENT MEDICATIONS: Include Aldactone 25 mg twice a day, Brovana, Celexa, amiodarone 100 mg daily, carvedilol 25 mg twice a day, doxycycline, Eliquis 5 mg twice a day, Lasix 40 mg IV twice a day, Pulmicort inhaler, and Xopenex. OBJECTIVE: GENERAL: He is an overweight middle-aged man. VITAL SIGNS: Blood pressure is 110/80 with pulse of 60 and sinus respirations are 16. He is afebrile. HEENT: No JVD. CHEST: Few scattered rhonchi. HEART: PMI displaced laterally with soft tones noted. ABDOMEN: Soft, nontender with bowel sounds. EXTREMITIES: Revealed trace ankle edema. DIAGNOSTIC DATA: Potassium 4.2, BUN and creatinine of 41 and 1.3. IMPRESSION: 1. Recent decompensated congestive heart failure, [id number] systolic, clinically improved. 2. Recent bronchitis. 3. Congestive cardiomyopathy. 4. History of alcohol abuse. 5. Knee arthritis, improved following arthrocentesis. RECOMMENDATIONS: IV Lasix will be switched to oral administration at this time. A trial of Entresto will be initiated and if tolerated this will be continued as an outpatient. Potassium supplement will be discontinued to avoid excess potassium elevation. From a cardiac standpoint, he appears improved and will hopefully be ready for discharge by tomorrow. Continued alcohol abstinence and sodium restriction was advised. Brigido Silva MD
--- NOTE | 2018-04-02 13:57 | PN ---
DATE: 04/02/2018 SUBJECTIVE: A 52-year-old male in the telemetry unit. The patient had no specific problems during the night as per the nurses, states that his left knee is feeling better this morning since the orthopedist injected the knee. PHYSICAL EXAMINATION: VITAL SIGNS: His pulse is 61. His blood pressure is 108/80. His oxygen sat is 97% on room air. His respiratory rate is 18, temperature is 98. GENERAL: He is alert and oriented x3. LUNGS: Clear with diminished breath sounds at the bases. HEART: S1, S2 rhythm. There is a defibrillator in his left anterior chest wall. ABDOMEN: Obese, soft with positive bowel sounds. EXTREMITIES: Show diminished edema. LABORATORY DATA: Sodium 138, potassium 4.2, chloride 105, the BUN is 41, the creatinine is 1.3. MEDICATIONS: He his currently on Eliquis 5 mg b.i.d., Doryx 100 mg b.i.d., Coreg 25 mg b.i.d., amiodarone 100 mg daily, Celexa 10 mg daily, Brovana 15 mcg every 12 hours, Aldactone 25 mg daily. He is now being started on Entresto 24/26 b.i.d., Lasix 40 mg p.o. b.i.d., Pulmicort every 12 hours, Tylenol two tablets every 6 hours p.r.n. for moderate pain, and Xopenex treatment. ASSESSMENT AND PLAN: The patient was admitted with decompensated congestive heart failure, exacerbation of chronic obstructive pulmonary disease. He had hypokalemia that is improved. He will continue on the above-mentioned medications and will continue to be followed by the individual consultants at this time. Qing Jiménez MD
[2018-04-03 00:16] VITALS: RESP 20
[2018-04-03 06:05] VITALS: TEMP 98.4; O2SAT 97
[2018-04-03 07:27] LABS: BLOOD UREA NITROGEN 45 mg/dL (7-21); CALCIUM 9.4 mg/dL (8.4-10.5); GFR NON-AFRICAN AMERICAN 58
--- NOTE | 2018-04-03 08:08 | PN ---
DATE: 04/03/2018 SUBJECTIVE: The patient appears very comfortable this morning. He is not short of breath at rest. PHYSICAL EXAMINATION: VITAL SIGNS: Temperature 98.4, pulse 54, respirations 18/20, blood pressure 104/68. Oxygen saturation on room air is 97%. HEENT: Normocephalic, atraumatic. NECK: No JVD. CARDIOVASCULAR: Systolic ejection murmur at the lower left sternal border. Questionable S3 gallop. LUNGS: Clear bilaterally. EXTREMITIES: No clubbing, cyanosis or edema. Calves are nontender to palpation. GI: Abdomen is soft, nontender and nondistended. Bowel sounds are positive. SKIN: No acute rash. NEUROLOGIC: Exam limited at the present time. IMPRESSION: 1. Recurrent congestive heart failure. 2. Dilated cardiomyopathy. 3. Chronic obstructive pulmonary disease. 4. Mild bronchitis. 5. Mild anemia. PLAN: The patient appears very comfortable this morning. He is not short of breath at rest. He does state to feeling much better overall. I did discuss the case with the night nurse at length. The night nurse stated the patient had a good night, but again did not wear his CPAP. I did discuss the issue with him again. Noncompliance has been a significant problem for this patient over the years. On physical exam, his lungs remain clear. In addition, the oxygen saturation on room air is now 97%. I will continue with the current nebulizer treatments and inhaled steroids for now. Input by Cardiology (Dr. Silva) is also noted. Clinical status of the patient is significantly improved - compared to the initial presentation. However, the future status/prognosis for this significantly noncompliant patient remains guarded. The patient is for discharge in the near future. He will be placed on Symbicort as an outpatient. I will discuss the above with Dr. Jiménez. Elie Young MD MTDD
[2018-04-03] MEDS: Arformoterol 15 mcg/2 ml Inh Sol IH SCH (08:24)
[2018-04-03] MEDS: Budesonide 0.5 mg/2 ml Inhal Susp UD IH SCH (08:24)
[2018-04-03] MEDS: SACUBITRIL 24mg/VALSARTAN 26mg tab PO SCH (11:00)
[2018-04-03 11:02] VITALS: BP 105/61; PULSE 58
--- NOTE | 2018-04-03 14:01 | PN ---
DATE: 04/03/2018 SUBJECTIVE: The patient is seen sitting in a chair on telemetry. He is comfortable. His edema has resolved. He continues to have mild cough. CURRENT MEDICATIONS: Include; spironolactone 25 mg daily, Brovana, Celexa 10 mg daily, amiodarone 100 mg daily, carvedilol 25 mg b.i.d., doxycycline, Eliquis 5 mg b.i.d., Entresto 24/26 mg b.i.d., Lasix 40 mg b.i.d., Pulmicort and Xopenex. OBJECTIVE: GENERAL: He is an middle-aged man who appears comfortable at present time. VITAL SIGNS: Blood pressure is 104/70 with a pulse of 54 and respirations are 16. He is afebrile. HEENT: No JVD. CHEST: Clear to auscultation and percussion. HEART: PMI displaced laterally with systolic murmur at the lower left sternal border. Soft tones present. ABDOMEN: Soft, nontender with normoactive bowel sounds. EXTREMITIES: No edema. DIAGNOSTIC DATA: Potassium 4.2, BUN and creatinine of 45 and 1.3. INTAKE AND OUTPUT: 480 and 1000. IMPRESSION: 1. Decompensated congestive heart failure, uozoi-[id number] systolic, clinically improved. 2. Recent bronchitis. 3. Congestive cardiomyopathy. 4. Rest of problems as noted. RECOMMENDATIONS: From a cardiac standpoint, he appears stable for discharge home at this time. He will be maintained on his current diuretic regimen as well as trial of Entresto. Outpatient follow up in one week will be planned. Monitor his renal function and potassium at that time. Continued alcohol abstinence and sodium and fluid restriction was advised. Brigido Silva MD MTDD
--- NOTE | 2018-04-03 21:46 | DS ---
HOSPITAL COURSE: This 52-year-old male was admitted to [facility] with a history of exacerbation of COPD with shortness of breath and cough, dependent edema with volume overload, hypokalemia, painful left knee. The patient was treated for decompensated CHF, exacerbation of COPD, his underlying sleep apnea, history of cardiomyopathy with defibrillator, he has chronic renal disease, he had hypokalemia, he had gouty arthritis of the left knee and he has underlying depression. He is cleared by the individual consultants and will be going home on Aldactone 25 mg daily, Celexa 10 mg daily, amiodarone 100 mg daily, Coreg 25 mg b.i.d., Eliquis 5 mg b.i.d., Entresto 24/26 mg b.i.d., Lasix 40 mg b.i.d. Mainly on Symbicort treatments with bronchodilator therapy at home. He was encouraged to watch his intake, take is medications use his sleep apnea equipment, he can go back on Uloric for his gouty arthritis history. He was clinically aware of all the findings during the studies that he was in for and his care and treatment. He will be followed as an outpatient. Qing Jiménez MD
== END 2018-04-03 15:29 | disposition home or self-care (01) | DRG 190 ==
LOC: ED 22:25 → ERH 03-30 02:14 → 2RSO 03-30 03:23 → OBSVTOIN 03-30 09:25
PROVIDERS: ADMIT Internal Medicine; ATTEND Internal Medicine
PROC: 0H9MXZZ Drainage of Right Foot Skin, External Approach (ICD-10-PCS; principal; 2018-04-01)
PROC: 0S9D3ZZ Drainage of Left Knee Joint, Percutaneous Approach (ICD-10-PCS; 2018-04-01)
DX: J44.1 Chronic obstructive pulmonary disease with (acute) exacerbation (principal); I50.23 Acute on chronic systolic (congestive) heart failure; I13.0 Hypertensive heart and chronic kidney disease with heart failure and stage 1 through stage 4 chronic kidney disease, or unspecified chronic kidney disease; I42.0 Dilated cardiomyopathy; N18.9 Chronic kidney disease, unspecified; D64.9 Anemia, unspecified; E87.6 Hypokalemia; F10.10 Alcohol abuse, uncomplicated; G47.33 Obstructive sleep apnea (adult) (pediatric); I27.20 Pulmonary hypertension, unspecified; I48.0 Paroxysmal atrial fibrillation; K74.60 Unspecified cirrhosis of liver; M10.9 Gout, unspecified; M17.12 Unilateral primary osteoarthritis, left knee; L72.0 Epidermal cyst; Z79.01 Long term (current) use of anticoagulants; Z79.899 Other long term (current) drug therapy; Z87.891 Personal history of nicotine dependence; Z91.19 Patient's noncompliance with other medical treatment and regimen; Z95.810 Presence of automatic (implantable) cardiac defibrillator; E66.3 Overweight; Z68.31 Body mass index [BMI] 31.0-31.9, adult